=== PATIENT | female | born 1955 | race Caucasian/White ===

== ENCOUNTER 2017-06-15 09:51 | Emergency (ER) | payer MEDICARE ==
[2017-06-15 10:00] VITALS: TEMP 97.2
[2017-06-15] MEDS ORDERED: HYDROmorphone 1 MG/ML 1 ML SYRINGE IM STA (10:29)
--- NOTE | 2017-06-15 10:47 | ED ---
General Adult HPI - General Chief complaint: Back Pain/Injury Stated complaint: back pain/trouble walking Time Seen by Provider: 06/15/17 10:21 Source: patient, RN notes reviewed Mode of arrival: wheelchair Limitations: no limitations - History of Present Illness Initial comments: Patient 62-year-old female with significant past medical history for chronic back pain, who presents emergency room today with a chief complaint of exacerbation of this pain. She states that she has been using her [place] at home. She states last 3 days she does not feel like it's helping much she's had increased pain and difficult time ambulating due to the pain. She states she gets up tries to ambulate and she feels that she has July. Patient states she does have a surgeon at [facility]. She states she was on there but it is far from her house. Patient does admit that she had an MRI approximately 3 months ago. She denies any specific injuries or falls since that time. Patient denies any other complaints or symptoms. Denies any bowel or bladder incontinence retention. Denies any saddle anesthesia. Denies any lumbar radiculopathy. Patient denies any recent fever, chills, shortness of breath, chest pain, abdominal pain, nausea or vomiting, numbness or tingling, dysuria or hematuria, constipation or diarrhea, headaches or visual changes, or any other complaints. - Related Data Home Medications Medication Instructions Recorded Confirmed ALPRAZolam [Xanax] 2 mg PO HS 06/15/17 06/15/17 Donepezil [Aricept] 10 mg PO HS 06/15/17 06/15/17 Fluticasone Nasal [place] [Flonase 2 spr EA NOSTRIL BID 06/15/17 06/15/17 Nasal [place]] HYDROcodone/APAP 10-325MG [[place] 1 tab PO TID PRN 06/15/17 06/15/17 10-325] Hydrochlorothiazide 25 mg PO DAILY 06/15/17 06/15/17 Ibandronate Sodium [Boniva] 150 mg PO QMONTH 06/15/17 06/15/17 Loratadine [Claritin] 10 mg PO DAILY 06/15/17 06/15/17 Lurasidone HCl [Latuda] 20 mg PO DAILY 06/15/17 06/15/17 Meloxicam [Mobic] 15 mg PO HS 06/15/17 06/15/17 Methocarbamol [Robaxin] 750 mg PO TID 06/15/17 06/15/17 traZODone HCL 150 mg PO HS 06/15/17 06/15/17 Allergies Allergy/AdvReac Type Severity Reaction Status Date / Time oxycodone [From Percocet] Allergy Unknown Verified 06/15/17 10:24 Sulfa (Sulfonamide Allergy Unknown Verified 06/15/17 10:24 Antibiotics) tape Allergy Rash/Hives Uncoded 06/15/17 09:57 Review of Systems ROS Statement: Those systems with pertinent positive or pertinent negative responses have been documented in the HPI. ROS Other: All systems not noted in ROS Statement are negative. Past Medical History Additional Past Medical History / Comment(s): chronic back pain History of Any Multi-Drug Resistant Organisms: None Reported Past Surgical History: Back Surgery, Cholecystectomy, Hysterectomy, Tonsillectomy Past Psychological History: Bipolar, Depression Smoking Status: Never smoker Past Alcohol Use History: Occasional Past Drug Use History: None Reported General Exam - General Exam Comments Initial Comments: General: The patient is awake and alert, in no distress, and does not appear acutely ill. Eye: Pupils are equal, round and reactive to light, extra-ocular movements are intact. No nystagmus. There is normal conjunctiva bilaterally. No signs of icterus. Ears, nose, mouth and throat: There are moist mucous membranes and no oral lesions. Neck: The neck is supple, there is no tenderness or JVD. Cardiovascular: There is a regular rate and rhythm. No murmur, rub or gallop is appreciated. Respiratory: Lungs are clear to auscultation, respirations are non-labored, breath sounds are equal. No wheezes, stridor, rales, or rhonchi. Gastrointestinal: Soft, non-distended, non-tender abdomen without masses or organomegaly noted. There is no rebound or guarding present. No CVA tenderness. Bowel sounds are unremarkable. Musculoskeletal: Normal ROM. Normal appearance of the lumbar spine. Surgical incision midline healed well. Tender to palpation diffusely in the lumbar spine from L5 to S1. Strength 5/5. Sensation intact. Pulses equal bilaterally 2 +. Neurological: A&O x 3. CN II-XII intact, There are no obvious motor or sensory deficits. Coordination appears grossly intact. Speech is normal. Skin: Skin is warm and dry and no rashes or lesions are noted. Psychiatric: Cooperative, appropriate mood & affect, normal judgment. Limitations: no limitations Course Vital Signs 06/15/17 09:57 Temperature 97.2 F L Pulse Rate 70 Respiratory 17 Rate Blood Pressure 114/61 O2 Sat by Pulse 98 Oximetry Medical Decision Making - Medical Decision Making X-rays reviewed and show no acute abnormalities. Results were discussed with patient. Patient is advised to follow-up with her surgeon. Patient advised to Follow family doctor or return to emergency room for any other concerns. Disposition Clinical Impression: Acute exacerbation of chronic low back pain Disposition: HOME SELF-CARE Condition: Good Instructions: Chronic Back Pain (ED) Additional Instructions: Please follow-up with your surgeon as discussed. Please continue the pain medication. Please return to emergency room for any other concerns. Referrals: Nae Luna MD [Primary Care Provider] - 1-2 days Dennis Patterson DO [Doctor of Osteopathic Medicine] - 1-2 days Time of Disposition: 11:47
--- NOTE | 2017-06-15 11:17 | XR ---
Lumbar spine HISTORY: Low back pain 3 views of the lumbar spine Posterior fusion is seen at L4-5. Lumbar vertebral bodies show reduced bone mineralization. Loss of d isc height present at the intervertebral levels, vacuum phenomenon present at L2-3, L3-4 and L1-2, L5 -S1. Retrolisthesis grade 1 L1-2, L2-3. There is low bone mineralization, multilevel spondylosis. Int ervertebral spacing material present L4-5. Surgical clips present in the upper abdomen. IMPRESSION: Postop changes. Degenerative disc disease. Osteopenia.
[2017-06-15 12:11] VITALS: BP 116/55; PULSE 56; RESP 18
== END 2017-06-15 12:10 | disposition home or self-care (01) ==
LOC: EC 09:51
DX: M54.5 Low back pain (principal); G89.29 Other chronic pain; M51.36 Other intervertebral disc degeneration, lumbar region; F31.9 Bipolar disorder, unspecified; Z88.2 Allergy status to sulfonamides; Z88.5 Allergy status to narcotic agent; Z91.048 Other nonmedicinal substance allergy status; Z79.899 Other long term (current) drug therapy
CPT/HCPCS: 99283; 96372; 72100; J1170

== ENCOUNTER 2017-10-01 13:45 | Emergency (ER) | payer MEDICARE ==
[2017-10-01 13:52] VITALS: BP 109/55; PULSE 91; RESP 18; TEMP 98.2
[2017-10-01] MEDS ORDERED: ONDANSETRON ODT 4 MG TAB PO STA (14:17)
[2017-10-01] MEDS ORDERED: HYDROmorphone 1 MG/ML 1 ML SYRINGE IM STA (14:17)
--- NOTE | 2017-10-01 14:18 | ED ---
General Adult HPI - General Chief complaint: Back Pain/Injury Stated complaint: Lumbar Pain Time Seen by Provider: 10/01/17 13:53 Source: patient, RN notes reviewed Mode of arrival: ambulatory Limitations: no limitations - History of Present Illness Initial comments: Patient 62-year-old female sent to the past medical history for chronic back pain and surgeries, who presents emergency room today with a chief complaint of losing her pain prescription. Patient states that she recently moved. She states she saw her pain specialist the other day was given a prescription. She states she lost prescription cannot find it. She states she is now out of her [place]. She states she is having pain to her lower back. She denies any injury or trauma. She denies any other complaints. She states she is planning to talk to her pain specialist Tuesday to see if she can get another prescription. Patient denies any other complaints. Patient denies any recent fever, chills, shortness of breath, chest pain, headaches or visual changes, or any other complaints. - Related Data Home Medications Medication Instructions Recorded Confirmed ALPRAZolam [Xanax] 2 mg PO HS 06/15/17 10/01/17 Donepezil [Aricept] 10 mg PO HS 06/15/17 10/01/17 Fluticasone Nasal [place] [Flonase 2 spr EA NOSTRIL BID 06/15/17 10/01/17 Nasal [place]] HYDROcodone/APAP 10-325MG [[place] 1 tab PO TID PRN 06/15/17 10/01/17 10-325] Hydrochlorothiazide 25 mg PO DAILY 06/15/17 10/01/17 Ibandronate Sodium [Boniva] 150 mg PO QMONTH 06/15/17 10/01/17 Loratadine [Claritin] 10 mg PO DAILY 06/15/17 10/01/17 Lurasidone HCl [Latuda] 20 mg PO DAILY 06/15/17 10/01/17 Meloxicam [Mobic] 15 mg PO HS 06/15/17 10/01/17 Methocarbamol [Robaxin] 750 mg PO TID 06/15/17 10/01/17 traZODone HCL 150 mg PO HS 06/15/17 10/01/17 Allergies Allergy/AdvReac Type Severity Reaction Status Date / Time oxycodone [From Percocet] Allergy Unknown Verified 10/01/17 13:52 Sulfa (Sulfonamide Allergy Unknown Verified 10/01/17 13:52 Antibiotics) tape Allergy Rash/Hives Uncoded 10/01/17 13:52 Review of Systems ROS Statement: Those systems with pertinent positive or pertinent negative responses have been documented in the HPI. ROS Other: All systems not noted in ROS Statement are negative. Past Medical History Additional Past Medical History / Comment(s): chronic back pain History of Any Multi-Drug Resistant Organisms: None Reported Past Surgical History: Back Surgery, Cholecystectomy, Hysterectomy, Tonsillectomy Past Psychological History: Anxiety, Bipolar, Depression Smoking Status: Never smoker Past Alcohol Use History: None Reported Past Drug Use History: None Reported General Exam - General Exam Comments Initial Comments: General: The patient is awake and alert, in no distress, and does not appear acutely ill. Eye: Pupils are equal, round and reactive to light, extra-ocular movements are intact. No nystagmus. There is normal conjunctiva bilaterally. No signs of icterus. Ears, nose, mouth and throat: There are moist mucous membranes and no oral lesions. Neck: The neck is supple, there is no tenderness or JVD. Cardiovascular: There is a regular rate and rhythm. No murmur, rub or gallop is appreciated. Respiratory: Lungs are clear to auscultation, respirations are non-labored, breath sounds are equal. No wheezes, stridor, rales, or rhonchi. Musculoskeletal: Normal ROM, no tenderness. Strength 5/5. Sensation intact. Pulses equal bilaterally 2+. Neurological: A&O x 3. CN II-XII intact, There are no obvious motor or sensory deficits. Coordination appears grossly intact. Speech is normal. Skin: Skin is warm and dry and no rashes or lesions are noted. Psychiatric: Cooperative, appropriate mood & affect, normal judgment. Limitations: no limitations Course Vital Signs 10/01/17 13:50 Temperature 98.2 F Pulse Rate 91 Respiratory 18 Rate Blood Pressure 109/55 O2 Sat by Pulse 95 Oximetry Medical Decision Making - Medical Decision Making The [place] automated prescription system shows the patient has been receiving pain medication consistently. Patient has had no recent prescription for [place]. This time patient is under pain contract. Advised patient that if we provide her with a prescription to violate his contract. Patient's advised. Follow-up on Tuesday. We'll give him a pain shot here in emergency room. Disposition Clinical Impression: Chronic low back pain Disposition: HOME SELF-CARE Condition: Good Instructions: Chronic Back Pain (ED) Additional Instructions: Please follow-up with your pain specialist Tuesday as discussed. Please return to the emergency room for any other concerns. Referrals: Nae Luna MD [Primary Care Provider] - 1-2 days Time of Disposition: 14:18
== END 2017-10-01 14:42 | disposition home or self-care (01) ==
LOC: EC 13:45
DX: G89.29 Other chronic pain (principal); M54.5 Low back pain; F31.9 Bipolar disorder, unspecified; F41.9 Anxiety disorder, unspecified; Z79.1 Long term (current) use of non-steroidal anti-inflammatories (NSAID); Z79.51 Long term (current) use of inhaled steroids; Z79.899 Other long term (current) drug therapy; Z88.2 Allergy status to sulfonamides; Z88.5 Allergy status to narcotic agent; Z91.09 Other allergy status, other than to drugs and biological substances; Z98.890 Other specified postprocedural states
CPT/HCPCS: 99283; 96372; J1170

== ENCOUNTER → 2019-02-05 | Outpatient (CLI) | payer MEDICARE ==
--- NOTE | 2019-02-06 09:19 | MM ---
Reason for exam: screening (asymptomatic). Last mammogram was performed 14 years and 10 months ago. History: Family history of breast cancer in maternal aunt. Core biopsy of the left breast. Physical Findings: A clinical breast exam by your physician is recommended on an annual basis and results should be correlated with mammographic findings. MG 3D Screening Mammo W/Cad Bilateral CC and MLO view(s) were taken. Prior study comparison: January 19, 2017, mammogram. January 12, 2017, mammogram. August 10, 2013, mammogram. April 15, 2004, bilateral screening mammogram. There are scattered fibroglandular densities. There is no discrete abnormality. No significant changes when compared with prior studies. ASSESSMENT: Negative, BI-RAD 1 RECOMMENDATION: Routine screening mammogram of both breasts in 1 year.
--- NOTE | 2019-02-06 12:57 | BD ---
EXAMINATION TYPE: Axial Bone Density DATE OF EXAM: 02/05/2019 COMPARISON: NONE CLINICAL HISTORY: age related osteoporosis Height: 5'1 3/4 Weight: 140 FRAX RISK QUESTIONS: Family History (Parent hip fracture): y Secondary Osteoporosis: 3. Menopause before 45: y RISK FACTORS HISTORY OF: Surgery to Spine/): l sp When: 2018 Family History of Osteoporosis: y Active: n Diet low in dairy products/other sources of calcium: y Postmenopausal woman: y MEDICATIONS: Osteoporosis Medications: Which medication: Boniva How Lon 1/2 years Additional Medications: depression, blood pressure, cholesterol, alzheimer Additional History: EXAM MEASUREMENTS: Bone mineral densitometry was performed using the [facility] System. Bone mineral density about the R hip (g/cm2): 0.650 Bone mineral density about the L hip (g/cm2): 0.703 T Score values are as follows: -----R Neck: -2.8 -----L Neck: -2.4 -----R Total: -2.4 -----L Total: -2.0 Bone mineral density about the L Wrist (g/cm2): 0.378 T Score values are as follows: -----Dist. R+U: -5.4 -----Prox. R+U: -3.8 -----Radius total: -4.9 IMPRESSION: 1. Osteoporosis of the wrist. 2. Osteopenia of the bilateral femora. NOTE: T-SCORE=SD OF THE YOUNG ADULT MEAN.
== END | disposition home or self-care (01) ==
LOC: RADMAMWWP 15:13
PROVIDERS: ATTEND Family Medicine
DX: Z12.31 Encounter for screening mammogram for malignant neoplasm of breast (principal); M81.0 Age-related osteoporosis without current pathological fracture; M85.851 Other specified disorders of bone density and structure, right thigh; M85.852 Other specified disorders of bone density and structure, left thigh
CPT/HCPCS: 77063; 77067; 77080

== ENCOUNTER 2019-09-04 11:16 | Inpatient (IN) | payer MEDICARE ==
[2019-09-04] MEDS ORDERED: SODIUM CHLORIDE 0.9% 1,000 ML IV STA (11:31)
--- NOTE | 2019-09-04 11:46 | ED ---
General Adult HPI - General Chief complaint: Neuro Symptoms/Deficit Stated complaint: facial droop Time Seen by Provider: 09/04/19 11:25 Source: patient, RN notes reviewed Mode of arrival: wheelchair Limitations: no limitations - History of Present Illness Initial comments: Patient is a pleasant 64-year-old female presenting to the emergency department with left facial weakness. Onset of symptoms was around 10:30. Patient woke up at 10 AM and was doing fine at that point. Patient noticed odd sensation of the left side of her mouth and noticed some weakness. Patient did have some problems finding words however that has resolved. Patient feels a little bit heavy of her left shoulder. Patient denies confusion. No history of similar symptoms previously. - Related Data Home Medications Medication Instructions Recorded Confirmed ALPRAZolam [Xanax] 2 mg PO HS 06/15/17 10/01/17 Donepezil [Aricept] 10 mg PO HS 06/15/17 10/01/17 Fluticasone Nasal [place] [Flonase 2 spr EA NOSTRIL BID 06/15/17 10/01/17 Nasal [place]] HYDROcodone/APAP 10-325MG [[place] 1 tab PO TID PRN 06/15/17 10/01/17 10-325] Ibandronate Sodium [Boniva] 150 mg PO QMONTH 06/15/17 10/01/17 Methocarbamol [Robaxin] 750 mg PO BID 06/15/17 10/01/17 Ergocalciferol [Vitamin D2] 50,000 unit PO TH 10/01/17 10/01/17 Hydrochlorothiazide [Hydrodiuril] 50 mg PO DAILY 10/01/17 10/01/17 Lurasidone [Latuda] 40 mg PO HS 10/01/17 10/01/17 Methocarbamol [Robaxin] 500 mg PO QAM 10/01/17 10/01/17 Multivitamins, Thera [Multivitamin 1 tab PO DAILY 10/01/17 10/01/17 (formulary)] Allergies Allergy/AdvReac Type Severity Reaction Status Date / Time oxycodone [From Percocet] Allergy Unknown Verified 10/01/17 14:19 Sulfa (Sulfonamide Allergy Unknown Verified 10/01/17 14:19 Antibiotics) tape Allergy Rash/Hives Uncoded 10/01/17 13:52 Review of Systems ROS Statement: Those systems with pertinent positive or pertinent negative responses have been documented in the HPI. ROS Other: All systems not noted in ROS Statement are negative. Constitutional: Denies: fever Eyes: Denies: eye pain ENT: Denies: ear pain Respiratory: Denies: cough Cardiovascular: Denies: chest pain Endocrine: Denies: fatigue Gastrointestinal: Denies: abdominal pain Genitourinary: Denies: dysuria Musculoskeletal: Denies: back pain Skin: Denies: rash Neurological: Reports: as per HPI, weakness. Denies: headache Past Medical History Past Medical History: Hyperlipidemia, Hypertension Additional Past Medical History / Comment(s): chronic back pain History of Any Multi-Drug Resistant Organisms: None Reported Past Surgical History: Back Surgery, Cholecystectomy, Hysterectomy, Tonsillectomy Past Psychological History: Anxiety, Bipolar, Depression Smoking Status: Never smoker Past Alcohol Use History: None Reported Past Drug Use History: None Reported General Exam Limitations: no limitations General appearance: alert, in no apparent distress Head exam: Present: atraumatic, normocephalic Eye exam: Present: normal appearance, PERRL, EOMI. Absent: nystagmus ENT exam: Present: normal oropharynx Neck exam: Present: normal inspection Respiratory exam: Present: normal lung sounds bilaterally Cardiovascular Exam: Present: regular rate, normal rhythm GI/Abdominal exam: Present: soft. Absent: tenderness Extremities exam: Present: normal inspection Neurological exam: Present: alert, oriented X3, CN II-XII intact (Except for left-sided facial droop that includes forehead, decreased sensation on the left side and left shoulder weakness), motor sensory deficit (Decreased strength with shoulder shrug on the left), other Expanded Neurological exam: Present: protecting the airway Speech: Present: fluid speech Cranial nerves: EOM's Intact: Normal, Facial Sensation: Abnormal Left, Facial Palsy with Forehead Movement: Abnormal Left (Patient does have decreased movement and decreased sensation of the left face including forehead.) Sensory exam: Upper Extremity Light Touch: Abnormal Left, Lower Extremity Light Touch: Abnormal Left Motor strength exam: RUE: 5, LUE: 5, RLE: 5, LLE: 5 Eye Response: (4) open spontaneously Motor Response: (6) obeys commands Verbal Response: (5) oriented Psychiatric exam: Present: normal affect, normal mood Skin exam: Present: normal color Course Vital Signs 11/05/19 11:20 Temperature 97.9 F Pulse Rate 82 Respiratory 18 Rate Blood Pressure 119/74 O2 Sat by Pulse 98 Oximetry - Reevaluation(s) Reevaluation #1: 09/04/19 11:50 Case was discussed in detail with neural interventional list, Dr. Adorno, who states if patient has NIH less than 4 to provide TPA. Patient reevaluated and unchanged. Patient informed of recommendation. Patient is going to CAT scan. 09/04/19 12:07 Patient reevaluated and unchanged. NIH per nursing staff is 4. Patient did go over TPA risks and benefits. Precautions and warnings have been excluded. Patient does strongly want TPA. Patient is aware of risk of serious bleeding anyplace, specifically intracranial hemorrhage that could cause or permanent disability from the medication itself. Despite this patient does consent to TPA. This has been ordered as we are waiting for CT results. Radiologist was notified and requested stat reading. 09/04/19 12:09 Case was discussed with radiologist a series who states head CT is negative. EKG Findings - EKG Comments: EKG Findings:: Normal sinus rhythm 68. TX 154. QRS 80. QT 418. QTC 444. No rmal axis. Normal QRS. No acute ST change. Medical Decision Making - Medical Decision Making Neurological/did the man over the robot and reevaluate patient. She has started to improve and TPA has been held. Patient reevaluated and updated. Case also discussed with Dr. Bee with [facility] who will admit covering for Dr.dicicco marin, who admits for Dr. Chicas. - Lab Data Result diagrams: 09/04/19 11:45 Lab Results 09/04/19 09/04/19 09/04/19 Range/Units 11:45 11:45 11:45 PT 9.7 (9.0-12.0) sec INR 0.9 (<1.2) APTT 23.6 (22.0-30.0) sec Sodium 137 (137-145) mmol/L Potassium 3.8 (3.5-5.1) mmol/L Chloride 100 (98-107) mmol/L Carbon Dioxide 25 (22-30) mmol/L Anion Gap 12 mmol/L BUN 17 (7-17) mg/dL Creatinine 0.86 (0.52-1.04) mg/dL Est GFR (CKD-EPI)AfAm 84 (>60 ml/min/1.73 sqM) Est GFR (CKD-EPI)NonAf 73 (>60 ml/min/1.73 sqM) Glucose 96 (74-99) mg/dL Calcium 9.3 (8.4-10.2) mg/dL Total Bilirubin 0.5 (0.2-1.3) mg/dL AST 36 (14-36) U/L ALT 44 (9-52) U/L Alkaline Phosphatase 119 (38-126) U/L Troponin I <0.012 (0.000-0.034) ng/mL Total Protein 7.3 (6.3-8.2) g/dL Albumin 4.4 (3.5-5.0) g/dL - Radiology Data Radiology results: report reviewed (Computed tomography scan of the head reported as no acute process) Critical Care Time Critical Care Time: Yes Total Critical Care Time: 31 Disposition Clinical Impression: Cerebrovascular accident (CVA) Disposition: ADMITTED IP TO THIS [facility] Is patient prescribed a controlled substance at d/c from ED?: No Referrals: Shana Bernstein MD [Primary Care Provider] - 1-2 days Decision Time: 12:47
[2019-09-04] MEDS ORDERED: ALTEPLASE BOLUS 6 MG in EMPTY SYRINGE 1 SYR IV STA (12:04)
[2019-09-04] MEDS ORDERED: ALTEPLASE 53 MG in EMPTY BAG 1 BAG IV STA (12:04)
--- NOTE | 2019-09-04 12:09 | CT ---
EXAMINATION TYPE: CT brain wo con for TPA DATE OF EXAM: 09/04/2019 COMPARISON: None HISTORY: Neuro deficit. Left-sided facial droop and extremity weakness. CT DLP: 1067.8 mGycm Automated exposure control for dose reduction was used. FINDINGS: No acute intracranial hemorrhage, midline shift or mass effect. Old punctate lacunar injury of the de ep white matter of the right occipital lobe on axial image 33. Slight prominence of the peripheral capone lci and ventricular system is on the basis of age-related volume loss most commonly. Punctate dystrop hic calcification of the caudate nucleus on the right. Globes are symmetric. Lenses are in place. Sof t tissues are grossly unremarkable. Calvarium appears intact. Paranasal sinuses have postsurgical tunde nge particularly of the right ethmoid sinuses and scant mucosal thickening in the ethmoid sinuses, ot herwise are well aerated. IMPRESSION: NO ACUTE INTRACRANIAL PROCESS SEEN. MRI IS RECOMMENDED GIVEN THIS PATIENT'S SYMPTOMS OF LEFT-SIDED EX TREMITY WEAKNESS AND FACIAL DROOP. OLD PUNCTATE LACUNAR INJURY OF THE RIGHT OCCIPITAL LOBE.
[2019-09-04 12:15] LABS: INR 0.9 (<1.2); Partial Thromboplastin Time 23.6 sec (22.0-30.0); Prothrombin Time 9.7 sec (9.0-12.0)
[2019-09-04 12:26] LABS: Albumin 4.4 g/dL (3.5-5.0); Calcium 9.3 mg/dL (8.4-10.2); Potassium 3.8 mmol/L (3.5-5.1); Total Bilirubin 0.5 mg/dL (0.2-1.3); Total Protein 7.3 g/dL (6.3-8.2)
[2019-09-04] MEDS ORDERED: ASPIRIN 325 MG TAB PO STA (12:47)
--- NOTE | 2019-09-04 12:55 | CT ---
EXAMINATION TYPE: CT angio head neck DATE OF EXAM: 09/04/2019 HISTORY: Neuro deficit. Left arm weakness. COMPARISON: CT brain of the same date CT DLP: 366.8 mGycm. Automated Exposure Control for Dose Reduction was Utilized. TECHNIQUE: CTA scan of the neck is performed with IV Contrast, patient injected with 65 mL of Isovue 370, axial images are obtained, coronal and sagittal reformatted images are reviewed. Three-D recons tructed images are created on an independent workstation and reviewed. FINDINGS: There is a conventional three-vessel branch pattern of the aortic arch. There is no hemodynamically significant stenosis of the common carotid arteries, carotid bulbs or cer vical portions of the internal carotid arteries. The vertebral arteries have a normal anatomic origin and are patent bilaterally. The vertebral arteri es are codominant. Basilar artery is intact and unremarkable. Short segment stenosis versus partial occlusion of the proximal M1 segment on the right on image 17 a nd 18 of approximately 50% reduction in caliber of the vessel lumen spanning a distance of 4 mm. Ther e is total occlusion of the left A1 segment with patent A2 segment secondary to a patent anterior com muting artery. Remaining posterior and anterior circulation appear intact although posterior commutin g arteries are not definitely visualized. There is some slight narrowing of the cavernous portions of the bilateral internal carotid arteries and supraclinoid portions likely on the basis of atheromatou s change. No aneurysmal outpouching is seen. No dissection is seen. Visualized portions of the brain are discussed on the CT brain of the same date. 0.8 cm right thyroid nodule is seen. Thyroid ultrasound could further assess this finding. 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 Mild multilevel degenerative changes of the cervical spine. IMPRESSION: 1. 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 2. Short segment stenosis or partial occlusion of the right M1 segment with 50% reduction in vessel l umen caliber over a distance of 4 mm in length.
--- NOTE | 2019-09-04 13:23 | XR ---
EXAMINATION TYPE: XR chest 2V DATE OF EXAM: 09/04/2019 COMPARISON: NONE HISTORY: Altered mental status and weakness. TECHNIQUE: Frontal and lateral views of the chest are obtained. FINDINGS: Overlying EKG leads are present. There is no focal air space opacity, pleural effusion, or pneumothorax seen. The cardiac silhouette size is within normal limits. Cholecystectomy clips are s een on lateral view. Partial visualization of surgical change lumbar spine with subtle retrolisthesis near thoracolumbar junction. IMPRESSION: No acute cardiopulmonary process.
[2019-09-04 13:24] LABS: Basophils % (A) 0 %; Eosinophils # (A) 0.1 k/uL (0-0.7); Eosinophils % (A) 2 %; HGB 11.1 gm/dL (11.4-16.0); Hypochromasia Moderate; Lymphocytes % (A) 30 %; MCH 24.4 pg (25.0-35.0); MCHC 31.8 g/dL (31.0-37.0); MCV 76.7 fL (80.0-100.0); Mean Platelet Volume 5.9; Microcytosis Slight; Monocytes # (A) 0.3 k/uL (0-1.0); Monocytes % (A) 8 %; Neutrophils # (A) 1.9 k/uL (1.3-7.7); Neutrophils % (A) 56 %; Platelet Count 387 k/uL (150-450); RBC 4.57 m/uL (3.80-5.40); RDW 14.8 % (11.5-15.5); WBC 3.4 k/uL (3.8-10.6)
[2019-09-04] MEDS ORDERED: TICAGRELOR 90 MG TAB PO STA (15:21)
[2019-09-04] MEDS ORDERED: ACETAMINOPHEN TAB 325 MG TAB PO PRN (16:18)
[2019-09-04] MEDS ORDERED: ONDANSETRON 4 MG/2 ML VIAL IVP PRN (16:18)
[2019-09-04] MEDS ORDERED: NALOXONE 0.4 MG/ML 1 ML VIAL IV PRN (16:18)
[2019-09-04] MEDS ORDERED: LABETALOL 5 MG/ML VIAL MDV IVP PRN (16:35)
--- NOTE | 2019-09-04 16:37 | P.HPIM ---
History of Present Illness H&P Date: 09/04/19 Chief Complaint: left facial droop Patient is a 64-year-old female with a past medical history of hypertension, dyslipidemia, chronic lower extremity edema, and chronic back pain who presented to the emergency department with left facial weakness. In the ER she underwent an extensive evaluation. Her vital signs within normal on arrival. Initial laboratory analysis showed a slightly low white blood cell count at 3.4 and hemoglobin of 11.1. CT head showed no acute intracranial process, MRI recommended given the patient's symptoms of left sided extremity weakness and facial droop, old punctate lacunar injury of the right occipital lobe. She underwent a CTA of the head and neck which showed a total occlusion of the left A1 segment with patency of the A2 segment of the left secondary to a patent anterior communicating artery. Short segment stenosis or partial occlusion of the M1 segment with a 50% reduction in the vessel lumen caliber over distance of 4 mm. She was given a dose of aspirin. The [place] stroke work was contacted who initially recommended TPA. However due to her improvement in symptoms they recommended holding TPA due to an NIH stroke scale of 1.. They were recontacted with results of the CT of the head and neck and did not recommend any urgent intervention but did recommend both Brillenta and aspirin and tp be notified if NIH stroke scale > 8. Then outpatient angiogram. Patient is admitted to the cardiac unit. Patient seen and examined in the emergency department. She states she woke up around 10 AM and initially felt fine. At about 10:30 she was in her kitchen getting right have coffee and she felt acute onset left sided facial droop. She felt as though her face was not moving on the left side. This was associated with some numbness and tingling. She also noted a headache, her left shoulder felt heavy, and she was having some blurry vision. She therefore presented to the emergency department. She reports that her blurry vision is better, but still there when she first opens here eyes. She also reports dizziness when moving. She continues to have some numbness perioral but reports that the tingling is gone. She also has difficultly closing her left eye. She feel that her tongue is pushing to the left when she is trying to speak. On examination the ER she noted that her left leg was not feeling as much as her right side. She denies any history of CVA in the past. No difficulty with word finding or swallowing. She has had difficulty with claustrophobia during MRI in the past. She also rep orts that she intermittently uses a cane due to her back pain. She almost always uses this when she is ambulating long distances. No family hx of stroke Review of Systems Pertinent positives and negatives as discussed in HPI, a complete review of systems was performed and all other systems are negative. Past Medical History Past Medical History: Hyperlipidemia, Hypertension Additional Past Medical History / Comment(s): chronic back pain with neuropathy, urinary frequency History of Any Multi-Drug Resistant Organisms: None Reported Past Surgical History: Back Surgery, Cholecystectomy, Hysterectomy, Tonsillectomy Additional Past Surgical History / Comment(s): gastric bypass, rotator cuff on the right, sinus surgery Past Psychological History: Anxiety, Bipolar, Depression Smoking Status: Never smoker Past Alcohol Use History: None Reported Past Drug Use History: None Reported - Past Family History Father Additional Family Medical History / Comment(s): from myocardial infarction at age 46 Mother Additional Family Medical History / Comment(s): Bay's palsy Medications and Allergies Home Medications Medication Instructions Recorded Confirmed Type Donepezil [Aricept] 10 mg PO HS 06/15/17 09/04/19 History Atorvastatin [Lipitor] 20 mg PO DAILY 09/04/19 09/04/19 History Gabapentin [Neurontin] 100 mg PO BID 09/04/19 09/04/19 History Hydrochlorothiazide [Hydrodiuril] 25 mg PO DAILY 09/04/19 09/04/19 History Loratadine [Claritin] 10 mg PO DAILY 09/04/19 09/04/19 History Tolterodine Tartrate [Detrol] 2 mg PO BID 09/04/19 09/04/19 History traZODone HCL 150 mg PO HS 09/04/19 09/04/19 History Allergies Allergy/AdvReac Type Severity Reaction Status Date / Time oxycodone [From Percocet] Allergy Unknown Verified 10/01/17 14:19 Sulfa (Sulfonamide Allergy Unknown Verified 10/01/17 14:19 Antibiotics) tape Allergy Rash/Hives Uncoded 10/01/17 13:52 Physical Exam Osteopathic Statement: *. No significant issues noted on an osteopathic structural exam other than those noted in the History and Physical/Consult. Vitals: Vital Signs Temp Pulse Resp BP Pulse Ox 09/04/19 13:30 98.0 F 62 18 107/76 98 09/04/19 13:00 65 18 120/71 97 09/04/19 12:30 98.1 F 64 18 118/57 98 09/04/19 12:15 98.1 F 65 18 125/76 98 09/04/19 11:20 97.9 F 82 18 119/74 98 Intake and Output 09/04/19 09/04/19 09/04/19 06:59 14:59 22:59 Other: Weight 65.771 kg General: non toxic, no distress, appears at stated age, normal weight Derm: no unusual rashes/lesions no unusual ecchymoses, warm, dry Head: atraumatic, normocephalic, symmetric Eyes: EOMI, no lid lag, anicteric sclera, pupils equal round reactive to light ENT: Nose and ears atraumatic, no thrush, no pharyngeal erythema Neck: No thyromegaly, no cervical lymphadenopathy, trachea midline, supple Mouth: no lip lesion, mucus membranes moist Cardiovascular: S1S2 reg, no murmur, positive posterior tibial pulse bilateral, no edema, capillary refill less than 2 seconds Lungs: CTA bilateral, no rhonchi, no rales , no accessory muscle use Abdominal: soft, nontender to palpation, no guarding, no appreciable organomegaly, normal bowel sounds Ext: no gross muscle atrophy, muscle strength 5 out of 5 in all 4 extremities grossly, no contractures, Neuro: Left sided facial droop with loss of nasolabial fold on the left, decreased sensation left face, tongue deviation to the left, uvula deviation to the right, extraocular motion and accommodation intact, pupils equal round reactive to light, decreased sensation left shoulder, intact sensation right and left fingers and arms, shoulder strength equal bilaterally, decreased sensation left lower extremity, no asterixis, normal finger to nose, no dysdiadochokinesis Psych: Alert, oriented, appropriate affect Results CBC & Chem 7: 09/04/19 11:45 09/04/19 11:45 Labs: Abnormal Lab Results - Last 24 Hours (Table) 09/04/19 Range/Units 11:45 WBC 3.4 L (3.8-10.6) k/uL Hgb 11.1 L (11.4-16.0) gm/dL MCV 76.7 L (80.0-100.0) fL MCH 24.4 L (25.0-35.0) pg Chest x-ray: report reviewed CT Scan - head: report reviewed Thrombosis Risk Factor Assmnt - DVT/VTE Prophylaxis DVT/VTE Prophylaxis: Mechanical Prophylaxis ordered Assessment and Plan Assessment: Acute ischemic left sided CVA - CTA head and neck results reviewed, ASA and Brillenta or stroke network, Neurology aware - ASA, Brillenta - Await echo - Tele - Hold Detrol, increase Lipitor to 80 mg daily -Frequent neuro checks -PT/OT/speech evaluation -MRI brain, Premedicate with Ativan due to history of claustrophobia Hypertension -Hold hydrochlorothiazide and allow for permissive hypertension -No intervention unless systolic blood pressures greater than 220 or diastolic greater than 110 Dyslipidemia -Statin therapy Chronic back pain -Continue with Neurontin -Aspirin Insomnia -Trazodone -Add melatonin The patient is admitted with an anticipated greater than 2 midnight stay for evaluation of cerebrovascular accident with possible occlusion M1 segment. Surrogate decision-maker: Loulou Walton CODE STATUS:Full DVT prophylaxis: Lovenox Discussed with: Patient, nursing Anticipated discharge date: 2-[address]: home A total of 65 minutes was spent on the care of this complex patient more than 50% of the time was spent in counseling and care coordination.
[2019-09-04 17:44] VITALS: BMI 58.4
[2019-09-04] MEDS: SODIUM CHLORIDE 0.9% 1,000 ML IV SCH ×2 (18:16→22:22)
[2019-09-04] MEDS: TICAGRELOR 90 MG TAB PO SCH (19:45)
[2019-09-04] MEDS: ATORVASTATIN 80 MG TAB PO SCH (19:59)
--- NOTE | 2019-09-04 21:58 | P.CNNES ---
History of Present Illness Consult date: 09/04/19 Reason for Consult: Concern for stroke Chief complaint: Left facial weakness History of Present Illness: HISTORY OF PRESENT ILLNESS: Thank you for allowing me to evaluate Ms. Alana Viramontes. Ms. Viramontes is a 65-year-old R-handed woman with past medical history of hypertension, hyperlipidemia, chronic back pain, anxiety, bipolar disorder, depression, who presented to [facility] for left facial weakness. The patient woke around 10 AM this morning, did not notice any deficits, but she st arted feeling some paresthesia in her left side of mouth and also weakness. Patient felt the left corner of her mouth just dropping. Possible word finding difficulty. While patient was in the emergency room, plan was to start tPA, but once patient started to have improvement in her symptoms, TPA was held. Patient denies any similar episodes in the past. Denies headache, nausea, vomiting, numbness/tingling sensation, weakness of arms or legs. Denies recent sickness, fever, coughing, sneezing, ear pain, tinnitus, recent travel. PAST MEDICAL HISTORY: hypertension, hyperlipidemia, chronic back pain, anxiety, bipolar disorder, depression PAST SURGICAL HISTORY: Cholecystectomy, hysterectomy, tonsillectomy, back surgery HOME MEDICATIONS: Donepezil, atorvastatin, hydrochlorothiazide, gabapentin, trazodone, loratadine, Tolterodine ALLERGIES: Oxycodone, sulfa drugs SOCIAL HISTORY: Never smoker REVIEW OF SYSTEMS: The 14 systems are reviewed and no additional points are identified compared to the review of systems documented history and physical PHYSICAL EXAMINATION: VITAL SIGNS: T 98.0 HR 62 RR 18 BP 107/76 O@ sat 98% on RA GEN.: NAD, pleasant and cooperative HEENT: NCAT, sclera without icterus NECK: Supple SKIN AND EXTREMITIES: Warm to touch, no edema NEURO: MENTAL STATUS: Patient alert and oriented to self, place, time. Able to name the current president. Speech fluent, able to name and repeat, following all commands readily. No right and left disorientation, neglect. CRANIAL NERVES II THROUGH XII: II: Pupils are equal and reactive to light symmetrically. No afferent pupillary defect. Visual malik are intact. III, IV, : R eye ptosis/swelling. Difficulty fully closing L eye. Extraocular m ovements full. No nystagmus. V: Facial sensation intact from V1-3. VII. L facial droop along with some difficulty raising L eye brow and closing her L eye. L anterior 2/3 tongue unable to taste salt. No hyperacusis. VIII: Hearing intact to finger rub bilaterally. IX, X: Symmetric palate elevation. XI: Shoulder shrug intact. XII: Tongue midline without fasciculation or atrophy. MOTOR: Normal bulk/tone. No pronator drift or tremor. Strength is 5/5 throughout all 4 extremities. SENSORY: Intact to light touch, temperature, pinprick in all 4 extremities. Romberg is negative. REFLEXES: 2+ throughout. Toes are downgoing. COORDINATION: Finger to nose intact. No dysmetria. GAIT: Narrow-based and stable. Able to toe/heel/tandem walk DIAGNOSTIC TESTING: LABORATORY: WBC 3.4 hemoglobin 11.1 platelets 387 PT 9.7 INR 0.9 sodium 137 potassium 3.8 chloride 100 bicarb 25 BUN 17 creatinine 0.86 glucose 96 AST 36 ALT 44 alk phos 119 troponin <0.012 IMAGING: CT head without contrast 09/04/2019: No acute intracranial process seen. CTA head and neck with contrast 09/04/2021 Total occlusion of the left P1 segment with patency of the A2 segment on the left secondary to a patent anterior coming kidney artery. Short segment stenosis or partial occlusion of the right M1 segment with 50% reduction in vessel lumen caliber over a distance of 4 mm in length ASSESSMENT: 65-year-old R-handed woman with past medical history of hypertension, hyperlipidemia, chronic back pain, anxiety, bipolar disorder, depression, who presented to [facility] for left facial weakness. Patient with both upper and lower facial weakness although moderate upper facial weakness along with L anterior tongue decreased taste sensation, highly suspicious for Bay's palsy. Patient also with no previous episodes of extremity weakness/numbness/tingling, but it also appears that patient is on donezepil, so possibly with some component of dementia. Will pursue stroke work-up and management at this time. RECOMMENDATIONS: 1. MRI brain without contrast 2. Transthoracic echocardiogram 3. Cardiac monitoring 4. Permissive HTN for 24-48 hours SBP >220. Give labetalol 10mg IV q1h PRN for SBP >220 DBP >110 5. ASA 81mg qday and Brilinta 90mg qday 6. Atorvastatin 80mg qhs 7. Labs: A1C, TSH, FLP 8. Neurology will continue to follow 9. Patient needs to follow up with neurologist as outpatient with her 1-2 weeks of discharge Past Medical History Past Medical History: Hyperlipidemia, Hypertension Additional Past Medical History / Comment(s): chronic back pain with neuropathy, urinary frequency History of Any Multi-Drug Resistant Organisms: None Reported Past Surgical History: Back Surgery, Cholecystectomy, Hysterectomy, Tonsillectomy Additional Past Surgical History / Comment(s): gastric bypass, rotator cuff on the right, sinus surgery Past Psychological History: Anxiety, Bipolar, Depression Smoking Status: Never smoker Past Alcohol Use History: None Reported Past Drug Use History: None Reported - Past Family History Father Additional Family Medical History / Comment(s): from myocardial infarction at age 46 Mother Additional Family Medical History / Comment(s): Bay's palsy Medications and Allergies Home Medications Medication Instructions Recorded Confirmed Type Donepezil [Aricept] 10 mg PO HS 06/15/17 09/04/19 History Atorvastatin [Lipitor] 20 mg PO DAILY 09/04/19 09/04/19 History Gabapentin [Neurontin] 100 mg PO BID 09/04/19 09/04/19 History Hydrochlorothiazide [Hydrodiuril] 25 mg PO DAILY 09/04/19 09/04/19 History Loratadine [Claritin] 10 mg PO DAILY 09/04/19 09/04/19 History Tolterodine Tartrate [Detrol] 2 mg PO BID 09/04/19 09/04/19 History traZODone HCL 150 mg PO HS 09/04/19 09/04/19 History Allergies Allergy/AdvReac Type Severity Reaction Status Date / Time oxycodone [From Percocet] Allergy Unknown Verified 10/01/17 14:19 Sulfa (Sulfonamide Allergy Unknown Verified 10/01/17 14:19 Antibiotics) tape Allergy Rash/Hives Uncoded 10/01/17 13:52 Physical Examination - Vital Signs Vital Signs: Vital Signs Temp Pulse Resp BP Pulse Ox 09/04/19 16:32 98.0 F 62 18 107/76 98 09/04/19 13:30 98.0 F 62 18 107/76 98 09/04/19 13:00 65 18 120/71 97 09/04/19 12:30 98.1 F 64 18 118/57 98 09/04/19 12:15 98.1 F 65 18 125/76 98 09/04/19 11:20 97.9 F 82 18 119/74 98 Intake and Output 09/04/19 09/04/19 09/04/19 06:59 14:59 22:59 Other: # Voids 1 Weight 65.771 kg Results - Laboratory Findings CBC and BMP: 09/04/19 11:45 09/04/19 11:45 Abnormal Lab Findings: Abnormal Labs 09/04/19 11:45 WBC 3.4 L Hgb 11.1 L MCV 76.7 L MCH 24.4 L
[2019-09-05 07:20] LABS: HGB 10.1 gm/dL (11.4-16.0); Hypochromasia Slight; MCH 23.9 pg (25.0-35.0); MCHC 31.7 g/dL (31.0-37.0); MCV 75.5 fL (80.0-100.0); Microcytosis Slight; Platelet Count 371 k/uL (150-450); RBC 4.24 m/uL (3.80-5.40); RDW 15.3 % (11.5-15.5); WBC 4.7 k/uL (3.8-10.6)
[2019-09-05 07:46] LABS: Calcium 8.8 mg/dL (8.4-10.2); Magnesium 2.1 mg/dL (1.6-2.3); Potassium 3.9 mmol/L (3.5-5.1)
--- NOTE | 2019-09-05 08:50 | P.CRDCN ---
History of Present Illness Consult date: 09/05/19 Requesting physician: Julianne Moon Reason for Consult (text): request for [place] Chief complaint: facial droop, slurring of speech History of present illness: This is a 64-year-old female with history of hypertension, hyperlipidemia, strong family history of premature coronary artery disease in her father who of a myocardial infarction at the age of 46, chronic lower extremity edema, chronic back pain, prior gastric bypass surgery several years ago, who resented to the hospital with symptoms of left-sided facial droop, mild slurring of speech, mild weakness on the left side of her body. also states that she had a mild associated headache and was having some blurring of her vision. CAT scan of the brain performed on admission here did not reveal any acute intracranial process. MRI is recommended giving this patient symptoms of left sided extremity weakness and facial droop. Old punctate listener injury of the right occipital lobe. CT angiography did not reveal any hemodynamically significant stenosis of the common carotid arteries, carotid bulbs or cervical portions of the internal carotid arteries. It did reveal a total occlusion of the left A1 segment with patency of the A2 segment of the left secondary to a patent anterior communicating artery. Short segment stenosis or partial occlusion of the M1 segment with a 50% reduction in the vessel lumen caliber over a distance of 4 mm. EKG shows normal sinus rhythm with no acute changes. Chest x-ray does not reveal any acute cardiopulmonary process. Blood pressure 116/60 with a heart rate of 60. White blood cell count 3.4 on admission, 4.7 this morning, hemoglobin 10.1, platelet count 371. Sodium 140, potassium 3.9, BUN 17, creatinine 0.8. Troponin 0.012. TSH 2.4, cholesterol 139, LDL 53, HDL 79, triglycerides 34. Past Medical History Past Medical History: Hyperlipidemia, Hypertension Additional Past Medical History / Comment(s): chronic back pain with neuropathy, urinary frequency History of Any Multi-Drug Resistant Organisms: None Reported Past Surgical History: Back Surgery, Cholecystectomy, Hysterectomy, Tonsillectomy Additional Past Surgical History / Comment(s): gastric bypass, rotator cuff on the right, sinus surgery Past Anesthesia/Blood Transfusion Reactions: No Reported Reaction Past Psychological History: Anxiety, Bipolar, Depression Smoking Status: Never smoker Past Alcohol Use History: None Reported Past Drug Use History: None Reported - Past Family History Father Additional Family Medical History / Comment(s): from myocardial infa rction at age 46 Mother Additional Family Medical History / Comment(s): Bay's palsy Medications and Allergies Home Medications Medication Instructions Recorded Confirmed Type Donepezil [Aricept] 10 mg PO HS 06/15/17 09/04/19 History Atorvastatin [Lipitor] 20 mg PO DAILY 09/04/19 09/04/19 History Gabapentin [Neurontin] 100 mg PO BID 09/04/19 09/04/19 History Hydrochlorothiazide [Hydrodiuril] 25 mg PO DAILY 09/04/19 09/04/19 History Loratadine [Claritin] 10 mg PO DAILY 09/04/19 09/04/19 History Tolterodine Tartrate [Detrol] 2 mg PO BID 09/04/19 09/04/19 History traZODone HCL 150 mg PO HS 09/04/19 09/04/19 History Allergies Allergy/AdvReac Type Severity Reaction Status Date / Time oxycodone [From Percocet] Allergy Unknown Verified 10/01/17 14:19 Sulfa (Sulfonamide Allergy Unknown Verified 10/01/17 14:19 Antibiotics) tape Allergy Rash/Hives Uncoded 10/01/17 13:52 Physical Exam Vitals: Vital Signs Temp Pulse Pulse Resp BP BP Pulse Ox 09/05/19 03:59 60 16 115/58 98 09/05/19 00:00 66 16 119/50 97 09/04/19 20:00 98.7 F 62 16 106/56 98 09/04/19 19:49 98.7 F 62 16 106/56 98 09/04/19 16:32 98.0 F 62 18 107/76 98 09/04/19 13:30 98.0 F 62 18 107/76 98 09/04/19 13:28 74 19 106/61 97 09/04/19 13:00 65 18 120/71 97 09/04/19 12:30 98.1 F 64 18 118/57 98 09/04/19 12:15 98.1 F 65 18 125/76 98 09/04/19 11:20 97.9 F 82 18 119/74 98 Intake and Output 09/04/19 09/05/19 09/05/19 22:59 06:59 14:59 Intake Total 225 Balance 225 Intake: Intake, IV Titration 100 Amount Sodium Chloride 0.9% 1, 100 000 ml @ 100 mls/hr IV . Q10H MARIE Rx#:[id number] Oral 125 Other: # Voids 1 1 Weight 68.3 kg PHYSICAL EXAMINATION: GENERAL: 64-year-old female in no acute distress at the time of my examination HEENT: Head is atraumatic, normocephalic. Pupils equal, round. Sclera anicteric. Conjunctiva are clear. Mucous membranes of the mouth are moist. Neck is supple. There is no elevated jugular venous pressure. No carotid bruit is heard. HEART EXAMINATION: Heart S1, S2 normal. No murmur or gallop heard. CHEST EXAMINATION: Lungs are clear to auscultation and precussion. No chest wall tenderness is noted on palpation or with deep breathing. ABDOMEN: Soft, nontender. Bowel sounds are heard. No organomegaly noted. EXTREMITIES: 2+ peripheral pulses with evidence of peripheral edema and no calf tenderness noted. NEUROLOGIC patient is awake, alert and oriented 3, left-sided facial droop is present. . Results 09/05/19 06:44 09/05/19 06:44 Cardiac Enzymes 09/04/19 09/04/19 Range/Units 11:45 11:45 AST 36 (14-36) U/L Troponin I <0.012 (0.000-0.034) ng/mL Coagulation 09/04/19 Range/Units 11:45 PT 9.7 (9.0-12.0) sec APTT 23.6 (22.0-30.0) sec Lipids 09/05/19 Range/Units 06:44 Triglycerides 34 (<150) mg/dL Cholesterol 139 (<200) mg/dL HDL Cholesterol 79 H (40-60) mg/dL CBC 09/04/19 09/05/19 Range/Units 11:45 06:44 WBC 3.4 L 4.7 (3.8-10.6) k/uL RBC 4.57 4.24 (3.80-5.40) m/uL Hgb 11.1 L 10.1 L (11.4-16.0) gm/dL Hct 35.0 32.0 L (34.0-46.0) % Plt Count 387 371 (150-450) k/uL Comprehensive Metabolic Panel 09/04/19 09/05/19 Range/Units 11:45 06:44 Sodium 137 140 (137-145) mmol/L Potassium 3.8 3.9 (3.5-5.1) mmol/L Chloride 100 107 (98-107) mmol/L Carbon Dioxide 25 26 (22-30) mmol/L BUN 17 17 (7-17) mg/dL Creatinine 0.86 0.88 (0.52-1.04) mg/dL Glucose 96 92 (74-99) mg/dL Calcium 9.3 8.8 (8.4-10.2) mg/dL AST 36 (14-36) U/L ALT 44 (9-52) U/L Alkaline Phosphatase 119 (38-126) U/L Total Protein 7.3 (6.3-8.2) g/dL Albumin 4.4 (3.5-5.0) g/dL Current Medications Generic Name Dose Route Start Last Admin Trade Name Freq PRN Reason Stop Dose Admin Acetaminophen 650 mg 09/04/19 16:18 09/04/19 19:59 Tylenol Tab PO 650 mg Q6HR PRN Administration Pain Aspirin 81 mg 09/05/19 09:00 Aspirin PO DAILY MARIE Atorvastatin Calcium 80 mg 09/04/19 21:00 09/04/19 19:59 Lipitor PO 80 mg HS MARIE Administration Enoxaparin Sodium 40 mg 09/05/19 09:00 Lovenox SQ DAILY MARIE Sodium Chloride 1,000 mls @ 100 mls/hr 09/04/19 13:00 09/04/19 22:22 Saline 0.9% IV 100 mls/hr .Q10H MARIE Administration Labetalol HCl 20 mg 09/04/19 16:35 Trandate IVP Q6H PRN Blood Pressure - High Naloxone HCl 0.2 mg 09/04/19 16:18 Narcan IV Q2M PRN Opioid Reversal Ondansetron HCl 4 mg 09/04/19 16:18 Zofran IVP Q8HR PRN Nausea And Vomiting Ticagrelor 90 mg 09/04/19 21:00 09/04/19 19:45 Brilinta PO Not Given BID MARIE Intake and Output 09/04/19 09/05/19 09/05/19 22:59 06:59 14:59 Intake Total 225 Balance 225 Intake: Intake, IV Titration 100 Amount Sodium Chloride 0.9% 1, 100 000 ml @ 100 mls/hr IV . Q10H MARIE Rx#:[id number] Oral 125 Other: # Voids 1 1 Weight 68.3 kg 09/05/19 06:44 09/05/19 06:44 EKG Interpretations (text) EKG shows normal sinus rhythm with no acute changes. Assessment and Plan Plan: Assessment and plan #1 left-sided facial droop with associated left-sided weakness, headache, possible acute CVA. TPA was administered in the emergency room. #2 hypertension #3 hyperlipidemia #4 chronic back pain #5 family history of premature coronary artery disease #6 history of gastric bypass surgery #7 history of bipolar disorder and depression Plan EchoCardiogram with Doppler study has been performed, results are yet pending. Etiology has been requested to see the patient to perform a transesophageal echocardiographic study. The risks and the benefits of the procedure were explained to the patient in detail, she did eat breakfast this morning, we will tentatively book this for tomorrow. Patient has been initiated on aspirin as well as Brilinta and statin. DNP note has been reviewed, I agree with a documented findings and plan of care. Patient was seen and examined.
[2019-09-05] MEDS ORDERED: ASPIRIN 325 MG TAB PO SCH (09:00)
[2019-09-05] MEDS: ASPIRIN 81 MG PO SCH (10:42)
[2019-09-05] MEDS: TICAGRELOR 90 MG TAB PO SCH ×2 (10:43→21:21)
[2019-09-05] MEDS: SODIUM CHLORIDE 0.9% 1,000 ML IV SCH (10:44)
--- NOTE | 2019-09-05 13:01 | ECHOF ---
Referral Reason:Thrombus MEASUREMENTS -------- HEIGHT: 157.5 cm WEIGHT: 65.8 kg BP: 119/74 RVIDd: 3.1 cm (< 3.3) IVSd: 0.9 cm (0.6 - 1.1) LVIDd: 4.2 cm (3.9 - 5.3) LVPWd: 1.0 cm (0.6 - 1.1) IVSs: 1.4 cm LVIDs: 3.2 cm LVPWs: 1.2 cm LA Diam: 3.3 cm (2.7 - 3.8) LAESV Index (A-L): 17.86 ml/m Ao Diam: 2.7 cm (2.0 - 3.7) AV Cusp: 1.9 cm (1.5 - 2.6) MV EXCURSION: 16.074 mm (> 18.000) MV EF SLOPE: 85 mm/s (70 - 150) EPSS: 0.7 cm MV E Ernie: 0.56 m/s MV DecT: 320 ms MV A Ernie: 0.79 m/s MV E/A Ratio: 0.71 RAP: 5.00 mmHg RVSP: 21.84 mmHg TAPSE: 21.26 mm FINDINGS -------- Sinus rhythm. This was a technically good study. The left ventricular size is normal. Left ventricular wall thickness is normal. Overall left vent ricular systolic function is normal with, an EF between 55 - 60 %. The right ventricle is normal in size. Normal LA size by volume 22+/-6 ml/m2. Interatrial and interventricular septum intact. The aortic valve is trileaflet and appears structurally normal. There is trace to mild mitral regurgitation. Mild tricuspid regurgitation present. Right ventricular systolic pressure is normal at < 35 mmHg. Trace/mild (physiologic) pulmonic regurgitation. The aortic root size is normal. Normal inferior vena cava with normal inspiratory collapse consistent with estimated right atrial pre ssure of 5 mmHg. There is no pericardial effusion. CONCLUSIONS -------- 1. Sinus rhythm. 2. This was a technically good study. 3. The left ventricular size is normal. 4. Left ventricular wall thickness is normal. 5. Overall left ventricular systolic function is normal with, an EF between 55 - 60 %. 6. The right ventricle is normal in size. 7. Normal LA size by volume 22+/-6 ml/m2. 8. Interatrial and interventricular septum intact. 9. The aortic valve is trileaflet and appears structurally normal. 10. There is trace to mild mitral regurgitation. 11. Mild tricuspid regurgitation present. 12. Right ventricular systolic pressure is normal at < 35 mmHg. 13. Trace/mild (physiologic) pulmonic regurgitation. 14. The aortic root size is normal. 15. Normal inferior vena cava with normal inspiratory collapse consistent with estimated right atrial pressure of 5 mmHg. 16. There is no pericardial effusion. STORE PROTECTION SPECIALIST: Norma Cleaning RDCS
[2019-09-05] MEDS: ENOXAPARIN 40 MG/0.4 ML SYRINGE SQ SCH (13:06)
[2019-09-05 18:35] LABS: Hemoglobin A1C 5.5 % (4.0-6.0)
--- NOTE | 2019-09-05 18:47 | PN ---
PROGRESS NOTE DATE OF SERVICE: 09/05/2019 This 64-year-old woman who was admitted with weakness of the left side of the body as well as left facial flattening is being evaluated for a stroke. Bay's palsy is also a consideration, according to Neurology; however, the CT of the brain showed multiple abnormalities, including total occlusion of the left A1 segment with patency of the A2 segment on the left secondary to a patent anterior communicating artery and also a short segment of the stenosis and partial occlusion of the right M1 segment with 50% reduction in the luminal diameter. The patient is being closely monitored. Cardiology is planning a ARDEN. A transthoracic 2D echo showed ejection fraction about 55% to 60%. Past medical history reviewed. REVIEW OF SYSTEMS: CARDIOVASCULAR SYSTEM: No angina, palpitations. RESPIRATORY SYSTEM: As mentioned earlier. GI: No nausea, vomiting. : No dysuria or retention. NERVOUS SYSTEM: As mentioned earlier. CURRENT MEDICATIONS: Reviewed. They include: 1. Tylenol 650 q.6 p.r.n. 2. Aspirin 81 mg daily. 3. Lipitor 80 mg at bedtime. 4. Lovenox 40 mg subcutaneously daily. 5. Trandate 20 mg IV q.6. 6. Narcan 0.2 q.2 p.r.n. 7. Zofran 4 mg q.8. 8. Brilinta 90 mg p.o. b.i.d. PHYSICAL EXAMINATION: Patient is alert and oriented x3. Pulse 71, blood pressure 113/59, respiration 18, temperature normal, pulse ox 100% on room air. HEENT: Conjunctivae normal. NECK: No jugular venous distention. CARDIOVASCULAR SYSTEM: S1, S2 muffled. RESPIRATORY SYSTEM: Breath sounds diminished at the bases. No rhonchi. No crackles. ABDOMEN: Soft, non-tender. LEGS: No edema. No swelling. NERVOUS SYSTEM: Higher functions as mentioned earlier. Cranial nerves -- significant facial weakness, both upper and lower part on the left side. Otherwise, minimal weakness on the left side also present. No sensory dysfunction. LABS: WBC 4.7. Hemoglobin is 10.1. ASSESSMENT: 1. Possible acute stroke involving the right hemisphere with left-sided weakness and left facial paralysis. 2. Rule out Bay's palsy. 3. Leukopenia, improved. 4. Anemia, microcytic, for evaluation; undetermined origin. 5. Hypertension. 6. Hyperlipidemia. 7. Chronic back pain with neuropathy. 8. Urinary frequency. 9. Cholecystectomy. 10.Anxiety, bipolar, depression. RECOMMENDATIONS AND DISCUSSION: In this 64-year-old woman who presented with multiple complex medical issues, we will monitor the patient closely, continue the current medications, continue symptomatic treatment, continue the antiplatelet agents. Otherwise, complete neurovascular workup, including ARDEN. MRI has been ordered. Closely follow with Neurology. Further recommendations to follow. MMODL / IJN: [id number] / ANA
--- NOTE | 2019-09-05 19:40 | P.PN ---
Progress Note - Text Progress Note Date: 09/05/19 SUBJECTIVE/INTERVAL EVENTS: No acute overnight events. Patient denies any pain, headache, nausea, vomiting, weakness, numbness/tingling. PHYSICAL EXAMINATION: VITAL SIGNS: T 98.7 HR 60 RR 16 BP 115/58 O2 sat 98% on RA GEN.: NAD, pleasant and cooperative HEENT: NCAT, sclera without icterus NECK: Supple SKIN AND EXTREMITIES: Warm to touch, no edema NEURO: MENTAL STATUS: Patient alert and oriented to self, place, time. Able to name the current president. Speech fluent, able to name and repeat, following all commands readily. No right and left disorientation, neglect. CRANIAL NERVES II THROUGH XII: II: Pupils are equal and reactive to light sy mmetrically. No afferent pupillary defect. Visual malik are intact. III, IV, : R eye ptosis/swelling. Difficulty fully closing L eye. Extraocular movements full. No nystagmus. V: Facial sensation intact from V1-3. VII. L facial droop along with some difficulty raising L eye brow and closing her L eye. L anterior 2/3 tongue unable to taste salt. No hyperacusis. VIII: Hearing intact to finger rub bilaterally. IX, X: Symmetric palate elevation. XI: Shoulder shrug intact. XII: Tongue midline without fasciculation or atrophy. MOTOR: Normal bulk/tone. No pronator drift or tremor. Strength is 5/5 throughout all 4 extremities. SENSORY: Intact to light touch, temperature, pinprick in all 4 extremities. Romberg is negative. REFLEXES: 2+ throughout. Toes are downgoing. COORDINATION: Finger to nose intact. No dysmetria. GAIT: Narrow-based and stable. Able to toe/heel/tandem walk DIAGNOSTIC TESTING: LABORATORY: WBC 3.4 hemoglobin 11.1 platelets 387 PT 9.7 INR 0.9 sodium 137 potassium 3.8 chloride 100 bicarb 25 BUN 17 creatinine 0.86 glucose 96 AST 36 ALT 44 alk phos 119 troponin <0.012 Total cholesterol 139 LDL 53 HDL 79 triglycerides 34 TSH 2.420 A1C 5.5 IMAGING: CT head without contrast 09/04/2019: No acute intracranial process seen. CTA head and neck with contrast 09/04/2021 Total occlusion of the left P1 segment with patency of the A2 segment on the left secondary to a patent anterior coming kidney artery. Short segment stenosis or partial occlusion of the right M1 segment with 50% reduction in vessel lumen caliber over a distance of 4 mm in length TTE 09/05/19: SR. LV/RV/LA sizes are normal. EF 55-60%. Interatrial and interventricular septum intact ASSESSMENT: 65-year-old R-handed woman with past medical history of hypertension, hyperlipidemia, chronic back pain, anxiety, bipolar disorder, depression, who presented to [facility] for left facial weakness. Patient with both upp er and lower facial weakness although moderate upper facial weakness along with L anterior tongue decreased taste sensation, highly suspicious for Bay's palsy. Patient also with no previous episodes of extremity weakness/numbness/tingling, but it also appears that patient is on donezepil, so possibly with some component of dementia. Will pursue stroke work-up and management at this time. RECOMMENDATIONS: 1. MRI brain without contrast 2. Cardiac monitoring 3. ASA 81mg qday and Brilinta 90mg qday 4. Atorvastatin 80mg qhs 5. Neurology will continue to follow 6. Patient needs to follow up with neurologist as outpatient with her 1-2 weeks of discharge
[2019-09-05] MEDS: ATORVASTATIN 80 MG TAB PO SCH (21:21)
[2019-09-05] MEDS ORDERED: ALPRAZolam 0.5 MG TAB PO STA (21:35)
[2019-09-06] MEDS: SODIUM CHLORIDE 0.9% 1,000 ML IV SCH ×2 (05:16→06:35)
[2019-09-06] MEDS ORDERED: fentaNYL (PF) 50 MCG/ML 2 ML AMP ONE (07:08)
[2019-09-06] MEDS ORDERED: IV FLUID CONTINUATION 950 ML IV ONE (07:36)
[2019-09-06] MEDS: BENZOCAINE SPRAY 1 CAN MUCOUS MEM ONE ×2 (07:45→07:53)
[2019-09-06] MEDS ORDERED: fentaNYL (PF) 50 MCG/ML 2 ML AMP IV ONE (07:53)
[2019-09-06] MEDS: MIDAZOLAM 2 MG/2 ML VIAL IV ONE ×2 (07:54→07:55)
--- NOTE | 2019-09-06 08:23 | ECHOT ---
TRANSESOPHAGEAL ECHOCARDIOGRAM INDICATION: TIA. PROCEDURE NOTE: After obtaining informed consent, transesophageal echocardiogram was performed in left lateral position using an Omni plane probe. Local and IV sedation were obtained using Xylocaine spray, 2 mg of Versed and fentanyl. The patient tolerated the procedure well without any obvious immediate complications. Patient received moderate conscious sedation. Total sedation time was 10 minutes. FINDINGS: 1. Left atrial appendage. There is no evidence of thrombus within the left atrial appendage. 2. There is no intracardiac thrombus within the left atrium,. right atrium, right ventricle or left ventricle. 3. Left ventricle has normal size and systolic function. 4. Mitral valve is anatomically normal. There is mild mitral regurgitation noted. 5. Tricuspid valve shows trace tricuspid regurgitation. 6. Aortic valve is a 3-leaflet valve. There is no evidence of aortic stenosis or regurgitation. 7. Item interatrial septum there is no evidence of itizp-ld-tfud shunt by color-flow Doppler or dasz-mf-[id number] shunt by color for agitated tract. There is no evidence of nnwt-ch-elrob shunt by color-flow Doppler or hdcve-qc-bewr shunt by agitated saline contrast study. 8. Aorta shows mild atherosclerotic changes. CONCLUSION: No intracardiac thrombus. Normal LV systolic function. No evidence of shunting across the septum.. MMODL / IJN: [id number] /
[2019-09-06] MEDS ORDERED: SODIUM CHLORIDE 0.9% 1,000 ML IV SCH (08:30)
[2019-09-06] MEDS: ASPIRIN 81 MG PO SCH (10:00)
[2019-09-06] MEDS: TICAGRELOR 90 MG TAB PO SCH (10:01)
[2019-09-06] MEDS: ENOXAPARIN 40 MG/0.4 ML SYRINGE SQ SCH (10:01)
[2019-09-06] MEDS ORDERED: ALPRAZolam 0.5 MG TAB PO STA (10:35)
[2019-09-06] MEDS ORDERED: ALPRAZolam 0.25 MG TAB PO PRN (11:41)
[2019-09-06] MEDS: LORATADINE 10 MG TAB PO SCH (12:39)
--- NOTE | 2019-09-06 14:13 | MR ---
EXAMINATION TYPE: MR brain wo con DATE OF EXAM: 09/06/2019 COMPARISON: CT brain 2 days earlier HISTORY: L facial droop; possible Bay's palsy. Rule out stroke. Left arm weakness and leg drift. TECHNIQUE: Multiplanar, multisequence imaging of the brain and brainstem is performed without IV cont rast. FINDINGS: Diffusion weighted images demonstrate no evidence of a recent infarct or other diffusion abnormality. There is no worrisome extra-axial fluid collection. The ventricular system and cisternal spaces are normal in size and appearance. The brain volume is age appropriate. Few scattered foci of T2 intensi ty is seen throughout the white matter bilaterally. Approximately 10-15 small scattered lesions are s een involving the higher bilateral frontal lobes. Lesions are most likely on basis of product of flume worker jessica small vessel ischemic change in patient of this age. Midline structures demonstrate normal morphology. The craniocervical junction appears within normal limits. Normal vascular flow voids are present. Mild mucosal thickening involving the ethmoid sinuses bilaterally. Globes are intact and paranasal sinuses are clear. IMPRESSION: No evidence of a recent infarct. Mild chronic small vessel ischemic changes
--- NOTE | 2019-09-06 14:52 | P.PN ---
Progress Note - Text Progress Note Date: 09/06/19 SUBJECTIVE/INTERVAL EVENTS: No acute overnight events. Patient with no complaints. PHYSICAL EXAMINATION: VITAL SIGNS: T 98.2 HR 65 RR 16 BP 112/59 O2 sat 96% on RA GEN.: NAD, pleasant and cooperative HEENT: NCAT, sclera without icterus NECK: Supple SKIN AND EXTREMITIES: Warm to touch, no edema NEURO: MENTAL STATUS: Patient alert and oriented to self, place, time. Able to name the current president. Speech fluent, able to name and repeat, following all commands readily. No right and left disorientation, neglect. CRANIAL NERVES II THROUGH XII: II: Pupils are equal and reactive to light symmetrically. No afferent pupillary defect. Visual malik are intact. III, IV, : R eye ptosis/swelling. Difficulty fully closing L eye. Extraocular movements full. No nystagmus. V: Facial sensation intact from V1-3. VII. L facial droop along with some difficulty raising L eye brow and closing her L eye. L anterior 2/3 tongue unable to taste salt. No hyperacusis. VIII: Hearing intact to finger rub bilaterally. IX, X: Symmetric palate elevation. XI: Shoulder shrug intact. XII: Tongue midline without fasciculation or atrophy. MOTOR: Normal bulk/tone. No pronator drift or tremor. Strength is 5/5 throughout all 4 extremities. SENSORY: Intact to light touch, temperature, pinprick in all 4 extremities. Romberg is negative. REFLEXES: 2+ throughout. Toes are downgoing. COORDINATION: Finger to nose intact. No dysmetria. GAIT: Narrow-based and stable. Able to toe/heel/tandem walk DIAGNOSTIC TESTING: LABORATORY: WBC 3.4 hemoglobin 11.1 platelets 387 PT 9.7 INR 0.9 sodium 137 potassium 3.8 chloride 100 bicarb 25 BUN 17 creatinine 0.86 glucose 96 AST 36 ALT 44 alk phos 119 troponin <0.012 Total cholesterol 139 LDL 53 HDL 79 triglycerides 34 TSH 2.420 A1C 5.5 IMAGING: MRI brain w/o contrast 09/06/19: No acute intracranial process. Nonspecific white matter changes. CT head without contrast 09/04/2019: No acute intracranial process seen. CTA head and neck with contrast 09/04/2019 Total occlusion of the left P1 segment with patency of the A2 segment on the left secondary to a patent anterior coming kidney artery. Short segment stenosis or partial occlusion of the right M1 segment with 50% reduction in vessel lumen caliber over a distance of 4 mm in length TTE 09/05/19: SR. LV/RV/LA sizes are normal. EF 55-60%. Interatrial and interventricular septum intact Cardiac monitoring: no obvious atrial arrhythmia ASSESSMENT: 65-year-old R-handed woman with past medical history of hypertension, hyperlipidemia, chronic back pain, anxiety, bipolar disorder, depression, who presented to [facility] for left facial weakness. Patient with both upper and lower facial weakness although moderate upper facial weakness along with L anterior tongue decreased taste sensation, highly suspicious for Bay's palsy. Patient also with no previous episodes of extremity weakness/n umbness/tingling, but it also appears that patient is on donezepil, so possibly with some component of dementia. Will pursue stroke work-up and management at this time. MRI brain w/o contrast with no acute intracranial process. Diagnosis Bay's palsy. RECOMMENDATIONS: 1. Will discontinue ASA/Brilinta/Atorvastatin 2. Neurology will sign off at this time. 3. Patient needs to follow up with neurologist as outpatient with her 1-2 weeks of discharge
[2019-09-06] MEDS: OXYBUTYNIN XL 5 MG TAB.ER.24 PO SCH (16:36)
--- NOTE | 2019-09-06 18:53 | PN ---
PROGRESS NOTE DATE OF SERVICE: 09/06/2019 This 64-year-old woman who was admitted with possible acute stroke involving the right hemisphere is being closely monitored. MRI is pending at this time. Patient does have intracranial stenosis. Neurology is following the patient closely. ARDEN did not show an acute abnormality. Past medical history reviewed. PHYSICAL EXAMINATION: Patient is alert, oriented x3. Pulse is 97, blood pressure 106/61, respirations 16, temperature 97.6, pulse ox 97% on room air. HEENT: Conjunctivae normal. NECK: No jugular venous distention. CARDIOVASCULAR SYSTEM: S1, S2 muffled. RESPIRATORY SYSTEM: Breath sounds diminished at the bases. A few scattered rhonchi and crackles. ABDOMEN: Soft, non-tender. LEGS: No edema. No swelling. NERVOUS SYSTEM: No focal deficit. LABS: WBC 4.7, hemoglobin 10.1. HDL is 79. ASSESSMENT: 1. Possible acute stroke involving the right hemisphere causing left-sided weakness and left facial paralysis. 2. Rule out Bya's palsy. 3. Leukopenia, improved. 4. Anemia, microcytic, for evaluation; undetermined origin. 5. Hypertension. 6. Hyperlipidemia. 7. Chronic back pain with neuropathy. 8. Urinary frequency. 9. Cholecystectomy. 10.Anxiety, bipolar, depression. RECOMMENDATIONS AND DISCUSSION: I recommend to continue current medications, continue with the monitoring, symptomatic treatment. Continue with antiplatelet agents. Continue with Lipitor. Otherwise, closely follow with Neurology. await MRI. ARDEN noted. Guarded prognosis. Further recommendations to follow. MMODL / IJN: [id number] /
[2019-09-07 08:17] VITALS: BP 113/74; PULSE 69; RESP 18; TEMP 97.8
[2019-09-07] MEDS: LORATADINE 10 MG TAB PO SCH (08:40)
[2019-09-07] MEDS: ENOXAPARIN 40 MG/0.4 ML SYRINGE SQ SCH (08:40)
[2019-09-07] MEDS: OXYBUTYNIN XL 5 MG TAB.ER.24 PO SCH (08:40)
--- NOTE | 2019-09-07 10:33 | PN ---
PROGRESS NOTE Alana is a 64-year-old lady who was admitted to hospital with CVA involving the right hemisphere. ARDEN on her was negative. An MRI of the brain did not reveal any evidence of infarct. PHYSICAL EXAMINATION: On exam, patient is comfortable at rest. Vital signs are stable. Chest exam reveals good air entry bilaterally. Heart exam reveals first and second heart sounds. No gallop. Exam of the extremities did not reveal any edema. Peripheral pulses are felt. ASSESSMENT: 1. Cerebrovascular accident. 2. Hypertension. PLAN: Patient is doing well. She will continue with an aspirin daily. Her LDL cholesterol is 79, total cholesterol is 139. MMODL / IJN: [id number] /
--- NOTE | 2019-09-07 23:24 | DS ---
DISCHARGE SUMMARY DATE OF SERVICE: 09/07/2019. FINAL DIAGNOSES: 1. Possible acute stroke involving the right hemisphere causing left-sided weakness and left facial paralysis. 2. Rule out Bay's palsy. 3. Leukopenia, improved. 4. Anemia microcytic for evaluation on treatment already. 5. Hypertension. 6. Hyperlipidemia. 7. Chronic back pain, neuropathy. 8. Urinary frequency. 9. Cholecystectomy. 10.History of anxiety, depression. Bipolar disorder. DISCHARGE DISPOSITION: The patient being discharged in stable condition with guarded prognosis. HISTORY OF PRESENT ILLNESS: This 64-year-old woman with a past medical history of multiple medical problems admitted with features of weakness on the left side of the body and as well as mainly on the face. The patient had MRI of the brain which showed no evidence of any recent infarct, but however, a CT angiogram did show intracranial stenosis up to 50%. Please refer to the CT brain for further details. The patient improved. The patient monitored closely. Patient improved significantly. Hemoglobin stable at 10.1. Recommended outpatient followup. The patient being started on antiplatelets and patient will be discharged in stable condition with guarded prognosis. The patient being followed by Dr. Shana Bernstein in the outpatient setting. On exam, vitals are stable. Cardiovascular: S1, S2. Abdomen soft. Nervous system: No focal deficits. DISCHARGE ADVICE AND MEDICATIONS: 1. Diet is cardiac diet. 2. Activity limited until followup. 3. Follow up with Dr. Shana Bernstein in 2-3 days. 4. Follow up with Dr. Thomason as recommended. 5. Follow with Cardiology as recommended. DISCHARGE MEDICATIONS: 1. Aricept 10 mg q.h.s. 2. Claritin 10 mg p.o. daily. 3. Detrol 2 mg p.o. daily. 4. HydroDIURIL 25 mg. 5. Lipitor 20 mg p.o. daily. 6. Neurontin 100 mg p.o. b.i.d. 7. Trazodone 50 mg q.h.s. 8. Ecotrin 81 mg p.o. daily. Once again, the patient being discharged in stable condition with guarded prognosis. MMODL / IJN: [id number] /
== END 2019-09-07 14:50 | disposition home or self-care (01) | DRG 65 ==
LOC: EC 11:16 → 3SCARD 12:47
PROVIDERS: ADMIT Hospitalist; ATTEND Hospitalist
PROC: 3E03316 Introduction of Recombinant Human-activated Protein C into Peripheral Vein, Percutaneous (ICD-10-PCS; principal; 2019-09-04)
PROC: B246ZZ4 Ultrasonography of Right and Left Heart, Transesophageal (ICD-10-PCS; 2019-09-06)
DX: I63.9 Cerebral infarction, unspecified (principal); G81.94 Hemiplegia, unspecified affecting left nondominant side; G62.9 Polyneuropathy, unspecified; R29.810 Facial weakness; H53.8 Other visual disturbances; R47.81 Slurred speech; R40.2362 Coma scale, best motor response, obeys commands, at arrival to emergency department; R40.2142 Coma scale, eyes open, spontaneous, at arrival to emergency department; R40.2252 Coma scale, best verbal response, oriented, at arrival to emergency department; R29.704 NIHSS score 4; E78.5 Hyperlipidemia, unspecified; I10 Essential (primary) hypertension; G89.29 Other chronic pain; M54.9 Dorsalgia, unspecified; F40.240 Claustrophobia; G47.00 Insomnia, unspecified; D50.9 Iron deficiency anemia, unspecified; R35.0 Frequency of micturition; H02.401 Unspecified ptosis of right eyelid; D72.819 Decreased white blood cell count, unspecified; Z79.899 Other long term (current) drug therapy; Z86.73 Personal history of transient ischemic attack (TIA), and cerebral infarction without residual deficits; Z90.49 Acquired absence of other specified parts of digestive tract; Z90.710 Acquired absence of both cervix and uterus; Z98.84 Bariatric surgery status; Z98.890 Other specified postprocedural states; Z86.59 Personal history of other mental and behavioral disorders; Z88.5 Allergy status to narcotic agent; Z88.2 Allergy status to sulfonamides; Z91.048 Other nonmedicinal substance allergy status; Z82.49 Family history of ischemic heart disease and other diseases of the circulatory system; Z82.0 Family history of epilepsy and other diseases of the nervous system
CPT/HCPCS: 36415; 70450; 70496; 70498; 70551; 71046; 80048; 80053; 80061; 83036; 83735; 84443; 84484; 85025; 85027; 85610; 85730; 93005; 93306; 93312; 93320; 93325; 96360; 96361; 99291

== ENCOUNTER 2019-11-12 14:44 | Emergency (ER) | payer MEDICARE ==
[2019-11-12 15:01] VITALS: BP 110/71; PULSE 71; RESP 18; TEMP 98.4
[2019-11-12] MEDS ORDERED: ORPHENADRINE 30 MG/ML 2 ML VIAL IM STA (15:24)
[2019-11-12] MEDS ORDERED: KETOROLAC 30 MG/ML 1 ML VIAL IM STA (15:24)
[2019-11-12] MEDS ORDERED: HYDROcodone/APAP 5-325MG 1 EACH TAB PO STA (15:24)
--- NOTE | 2019-11-12 15:27 | ED ---
Back Pain HPI - General Chief Complaint: Back Pain/Injury Stated Complaint: back pain Time Seen by Provider: 11/12/19 15:02 Source: patient, RN notes reviewed, old records reviewed Limitations: no limitations - History of Present Illness Initial Comments: Patient is a 64-year-old female presents today for evaluation for concern for lower back pain. Patient reports she's had history of multiple surgeries on her lower back, reports that she last had surgery. Ears ago and this was done in [place]. Patient reports she has not followed up with back surgeon. She states over the past 3 day she's had worsening pain with ambulation. Has had shakiness which where she had a use a cane. She typically does not ambulate with a cane. Patient states that she has had no recent fall or trauma. She does report occasional shooting pain down her legs. She denies any weight loss, denies any fevers or chills or abdominal pain. She denies saddle anesthesias. - Related Data Home Medications Medication Instructions Recorded Confirmed Donepezil [Aricept] 10 mg PO HS 06/15/17 09/04/19 Atorvastatin [Lipitor] 20 mg PO DAILY 09/04/19 09/04/19 Gabapentin [Neurontin] 100 mg PO BID 09/04/19 09/04/19 Hydrochlorothiazide [Hydrodiuril] 25 mg PO DAILY 09/04/19 09/04/19 Loratadine [Claritin] 10 mg PO DAILY 09/04/19 09/04/19 Tolterodine Tartrate [Detrol] 2 mg PO BID 09/04/19 09/04/19 traZODone HCL 150 mg PO HS 09/04/19 09/04/19 Previous Rx's Medication Instructions Recorded Aspirin EC [Ecotrin Low Dose] 81 mg PO DAILY #30 tablet. 09/07/19 Acetaminophen with Codeine 1 tab PO Q4H PRN 3 Days #18 tab 11/12/19 [Tylenol w/codeine #3] Cyclobenzaprine [Flexeril] 10 mg PO TID #12 tab 11/12/19 methylPREDNISolone Dose Pack 4 mg PO DIRECTED #21 package 11/12/19 [Medrol Dose Pack] Allergies Allergy/AdvReac Type Severity Reaction Status Date / Time oxycodone [From Percocet] Allergy Unknown Verified 11/12/19 14:59 Sulfa (Sulfonamide Allergy Unknown Verified 11/12/19 14:59 Antibiotics) tape Allergy Rash/Hives Uncoded 11/12/19 14:59 Review of Systems ROS Statement: Those systems with pertinent positive or pertinent negative responses have been documented in the HPI. ROS Other: All systems not noted in ROS Statement are negative. Past Medical History Past Medical History: Hyperlipidemia, Hypertension Additional Past Medical History / Comment(s): chronic back pain with neuropathy, urinary frequency History of Any Multi-Drug Resistant Organisms: None Reported Past Surgical History: Back Surgery, Cholecystectomy, Hysterectomy, Tonsillectomy Additional Past Surgical History / Comment(s): gastric bypass, rotator cuff on the right, sinus surgery Past Anesthesia/Blood Transfusion Reactions: No Reported Reaction Past Psychological History: Anxiety, Bipolar, Depression Smoking Status: Never smoker Past Alcohol Use History: None Reported Past Drug Use History: None Reported - Past Family History Father Additional Family Medical History / Comment(s): from myocardial infarction at age 46 Mother Additional Family Medical History / Comment(s): Bay's palsy General Exam - General Exam Comments Initial Comments: 64-year-old female. Alert and oriented 3. Patient appears in mild to moderate discomfort. Limitations: no limitations General appearance: alert, in no apparent distress Head exam: Present: atraumatic, normocephalic, normal inspection Eye exam: Present: normal appearance, PERRL, EOMI. Absent: scleral icterus, conjunctival injection, periorbital swelling ENT exam: Present: normal exam Neck exam: Present: normal inspection. Absent: tenderness, meningismus, lymphadenopathy Respiratory exam: Present: normal lung sounds bilaterally. Absent: respiratory distress, wheezes, rales, rhonchi, stridor Cardiovascular Exam: Present: regular rate, normal rhythm, normal heart sounds. Absent: systolic murmur, diastolic murmur, rubs, gallop, clicks GI/Abdominal exam: Present: soft, normal bowel sounds. Absent: distended, tenderness, guarding, rebound, rigid Extremities exam: Present: normal inspection, full ROM, normal capillary refill. Absent: tenderness, pedal edema, joint swelling, calf tenderness Back exam: Present: normal inspection, tenderness ( is evidence of scar over her lower back. Tenderness to palpation over lumbar spine and paraspinal muscles.) Neurological exam: Present: alert, oriented X3, CN II-XII intact Psychiatric exam: Present: normal affect, normal mood Skin exam: Present: warm, dry, intact, normal color. Absent: rash Course Vital Signs 11/12/19 14:59 Temperature 98.4 F Pulse Rate 71 Respiratory 18 Rate Blood Pressure 110/71 O2 Sat by Pulse 99 Oximetry Medical Decision Making - Medical Decision Making 64-year-old female presented today for worsening back pain over the past 3 days. Worse with ambulation and movement. No recent fall or trauma. Multiple surgeries in the past. Patient feels that her hardware in her back is arrived. X-ray completed and show osteopenia, degenerative disc changes. There does appear to be some minor loosening of the L1 screw. I discussed the Patient needs follow-up with her surgeon which is in [place]. Patient and at this time to be prescribed a short course of pain medication and anti-inflammatory medication. Discussed return parameters. - Radiology Data Radiology results: report reviewed There may be loosening screws at L1. Degenerative disc disease as described above. Multilevel laminectomies at L1 through L4. Vertebral spacing blocks present L4-L5. There is rectal stasis of L1 and L2 was again noted. There is some lucency to screws at L1 underlying loosening. There is evidence of osteopenia. Disposition Clinical Impression: Acute exacerbation of chronic low back pain, History of lumbar fusion Disposition: HOME SELF-CARE Condition: Good Additional Instructions: Patient advised to follow up with PCP and close follow up with ortho surgeon. Patient can take medications as prescribed. Recommended stretching exercises. Return to emergency department if any alarming signs or symptoms occur. Prescriptions: Cyclobenzaprine [Flexeril] 10 mg PO TID #12 tab methylPREDNISolone Dose Pack [Medrol Dose Pack] 4 mg PO DIRECTED #21 package Acetaminophen with Codeine [Tylenol w/codeine #3] 1 tab PO Q4H PRN 3 Days #18 tab PRN Reason: Pain Is patient prescribed a controlled substance at d/c from ED?: Yes If prescribed controlled substance>3 days was MAPS reviewed?: Prescribed <3 Days If opioid is for acute pain is fill amount 7 days or less?: Yes If Rx opioid, was Start Talking consent form obtained?: Yes Referrals: Shana Bernstein MD [Primary Care Provider] - 1-2 days Time of Disposition: 16:11
--- NOTE | 2019-11-12 16:08 | XR ---
Lumbar spine HISTORY: Pain 3 views the lumbar spine correlated prior exam 06/15/2017 Patient is status post posterior lumbar fusion L1-L4. Posterior fusion changes at L4-5 revised. Multi level laminectomies have been performed at L2, L3, L4. Intervertebral spacing block present L4-5. Caryl gical clips present right upper quadrant. Bone mineralization is reduced. There is multilevel spondyl osis. Loss of disc height is present at the intervertebral levels. The retrolisthesis grade 1 L1 and L2 is again noted, is endplate sclerosis this level as on prior. There is some lucency about the scre ws at L1, there may be underlying loosening. Accentuated lordosis in the upper lumbar spine, resultin g kyphosis at L1-2 is noted may be more accentuated than on prior. IMPRESSION: There may be loosening of the screws at L1. There are degenerative disc changes as descri bed. Osteopenia.
== END 2019-11-12 16:20 | disposition home or self-care (01) ==
LOC: EC 14:44
DX: M54.5 Low back pain (principal); G89.29 Other chronic pain; Z98.1 Arthrodesis status; M85.88 Other specified disorders of bone density and structure, other site; M51.36 Other intervertebral disc degeneration, lumbar region; M79.604 Pain in right leg; M79.605 Pain in left leg; E78.5 Hyperlipidemia, unspecified; I10 Essential (primary) hypertension; G62.9 Polyneuropathy, unspecified; F31.9 Bipolar disorder, unspecified; F41.9 Anxiety disorder, unspecified; Z88.2 Allergy status to sulfonamides; Z88.5 Allergy status to narcotic agent; Z91.048 Other nonmedicinal substance allergy status; Z79.899 Other long term (current) drug therapy
CPT/HCPCS: 72100; 99284; 96372 ×2; J2360; J1885

== ENCOUNTER → 2019-11-14 | Outpatient (CLI) | payer MEDICARE ==
--- NOTE | 2019-11-14 16:08 | US ---
EXAMINATION TYPE: US thyroid st tissue head/neck DATE OF EXAM: 11/14/2019 COMPARISON: CT 2019 CLINICAL HISTORY: E04.1 thyroid nodule. Thyroid nodule seen on previous CT GLAND SIZE: Right Lobe: 6.2 x 1.4 x 1.6 cm Overall Parenchyma: homogenous Left Lobe: 5.5 x 1.4 x 1.3 cm Overall Parenchyma: homogeneous Isthmus Thickness: 0.2 cm NODULES RIGHT: # of nodules measured on right: 1 1. 1.6 X 0.8 x 1.0 cm hypoechoic cystic nodule at the lower pole with well-defined margins. This no dule is wider than tall and shows no intranodular vascularity. This is very hypoechoic with a couple of internal echoes present. Prior size: no previous LEFT: # of nodules measured on left: 2 1. 0.9 X 0.6 x 0.6 cm hypoechoic mixed nodule at the mid pole with well-defined margins. This nodul e is taller than wide and shows intranodular vascularity. Prior size: no previous 2. 0.4 X 0.4 x 0.3 cm calcification at the lower pole with well-defined margins. This nodule is as t all as wide and shows no intranodular vascularity. Prior size: no previous ISTHMUS: # of nodules measured in the isthmus: 0 Bilateral neck scanned, no evidence of lymphadenopathy. Enlarged gland with multiple bilateral nodules with largest described above. IMPRESSION: 1. Enlarged hypoechoic nodules discussed above. Ultrasound Monitoring can be performed.
== END | disposition home or self-care (01) ==
LOC: RADUSWWP 12:58
PROVIDERS: ATTEND Family Medicine
DX: E04.2 Nontoxic multinodular goiter (principal)
CPT/HCPCS: 76536

== ENCOUNTER 2019-11-21 14:58 | Observation (INO) | payer MEDICARE ==
[2019-11-21] MEDS: HYDROcodone/APAP 5-325MG 1 EACH TAB PO PRN (16:52)
[2019-11-21 17:25] LABS: Anisocytosis Slight; Basophils % (A) 1 %; Eosinophils # (A) 0.1 k/uL (0-0.7); Eosinophils % (A) 2 %; HCT 44.7 % (34.0-46.0); HGB 14.3 gm/dL (11.4-16.0); Lymphocytes # (A) 1.8 k/uL (1.0-4.8); Lymphocytes % (A) 30 %; MCH 27.7 pg (25.0-35.0); MCV 86.5 fL (80.0-100.0); Mean Platelet Volume 6.7; Monocytes # (A) 0.4 k/uL (0-1.0); Monocytes % (A) 7 %; Neutrophils # (A) 3.4 k/uL (1.3-7.7); Neutrophils % (A) 58 %; Platelet Count 307 k/uL (150-450); RBC 5.17 m/uL (3.80-5.40); RDW 18.9 % (11.5-15.5); WBC 5.9 k/uL (3.8-10.6)
[2019-11-21 17:33] LABS: African American GFR (CKD) >90 (>60 ml/min/1.73 sqM); Anion Gap 4 mmol/L; Blood Urea Nitrogen 19 mg/dL (7-17); Carbon Dioxide 31 mmol/L (22-30); Chloride 100 mmol/L (98-107); Glucose 88 mg/dL (74-99); Non-African American GFR(CKD) 85 (>60 ml/min/1.73 sqM); Sodium 135 mmol/L (137-145)
--- NOTE | 2019-11-21 18:40 | CT ---
EXAMINATION TYPE: CT lumbar spine w con DATE OF EXAM: 11/21/2019 COMPARISON: HISTORY: low back pain CT DLP: 785.7 mGycm Automated exposure control for dose reduction was used. CONTRAST: Performed with IV Contrast, patient injected with 100 mL of Isovue 300. Multiple axial sections were obtained from the level of T11-S2 vertebra without contrast. There is posterior fusion surgery from L1 to L4. There is a mild retrolisthesis of L1-2. This measure s 6 mm. There is mild lumbar disc space narrowing. There is 10% anterior wedging of L1 vertebra. I se e no acute fracture. The sacroiliac joints appear intact. There is no lumbar paraspinal mass. There i s multilevel posterior laminectomy defect. IMPRESSION: Multilevel posterior fusion surgery. No acute bony abnormality. Mild anterior wedging of L1 is old.
[2019-11-21] MEDS: HEPARIN SODIUM,PORCINE 5,000 UNIT/ML 1 ML VIAL SQ SCH (21:28)
[2019-11-21] MEDS: DOCUSATE 100 MG CAP PO SCH (21:29)
[2019-11-21] MEDS ORDERED: CYCLOBENZAPRINE 5 MG TAB PO PRN (23:17)
--- NOTE | 2019-11-21 23:49 | P.HPIM ---
History of Present Illness H&P Date: 11/21/19 Chief Complaint: Intractable back pain Patient is a 62-year-old female with a known history of hypertension, chronic back pain with neuropathy, urinary frequency, hyperlipidemia and anxiety/depression/bipolar disorder was sent to Hospital as a direct admit from Dr. Danial Moon's office due to intractable lower back pain. 10 in severity. Patient has been having worsening back pain for the past 1 week. Patient was supposed to follow with Dr. Monge as an outpatient. Patient did have a history of back surgery about 2 years ago. Patient does complain of left lower aspect of the tingling sensation intermittently. Denied any leg weakness. No bladder or bowel incontinence. Denied any saddle anesthesia. Otherwise patient denied any complaints of chest pain or shortness breath. No nausea vomiting or abdominal pain. No diarrhea or dysuria. No fever no chills. Patient says that her previous x-ray showed loose and screws over her back surgery. Patient was on Medrol Dosepak about a week ago. CT of the lumbar spine was ordered. Review of Systems Constitutional: Patient denies any fever or chills . No generalized weakness or weight loss. Abdomen: Patient denied nausea vomiting and diarrhea and abdominal pain. Cardiovascular: Patient denies any chest pain or short of breath no palpitations. Respiratory: patient denied any cough is from production. No shortness of breath Neurologic: Patient denied any numbness or tingling headache. Musculoskeletal: Patient denies any complaints of joint swelling or deformity. Lower back pain. Skin: Negative Psychiatric: Negative Endocrine: No heat or cold intolerance. No recent weight gain. Genitourinary: No dysuria or hematuria. All other 14 point ROS negative except the above Past Medical History Past Medical History: Hyperlipidemia, Hypertension Additional Past Medical History / Comment(s): chronic back pain with neuropathy, urinary frequency History of Any Multi-Drug Resistant Organisms: None Reported Past Surgical History: Back Surgery, Cholecystectomy, Hysterectomy, Tonsillectomy Additional Past Surgical History / Comment(s): gastric bypass, rotator cuff on the right, sinus surgery Past Anesthesia/Blood Transfusion Reactions: No Reported Reaction Past Psychological History: Anxiety, Bipolar, Depression Smoking Status: Never smoker Past Alcohol Use History: None Reported Past Drug Use History: None Reported - Past Family History Father Additional Family Medical History / Comment(s): from myocardial inf arction at age 46 Mother Additional Family Medical History / Comment(s): Bay's palsy Medications and Allergies Home Medications Medication Instructions Recorded Confirmed Type Hydrochlorothiazide [Hydrodiuril] 25 mg PO DAILY 09/04/19 11/21/19 History Loratadine [Claritin] 10 mg PO DAILY 09/04/19 11/21/19 History Tolterodine Tartrate [Detrol] 2 mg PO BID 09/04/19 11/21/19 History traZODone HCL 150 mg PO HS 09/04/19 11/21/19 History Aspirin EC [Ecotrin] 325 mg PO DAILY 11/21/19 11/21/19 History Atorvastatin [Lipitor] 40 mg PO HS 11/21/19 11/21/19 History Ferrous Sulfate [Feosol] 325 mg PO BID 11/21/19 11/21/19 History Gabapentin [Neurontin] 300 mg PO BID 11/21/19 11/21/19 History Allergies Allergy/AdvReac Type Severity Reaction Status Date / Time oxycodone [From Percocet] AdvReac Nausea & Verified 11/21/19 18:06 Vomiting Sulfa (Sulfonamide AdvReac Nausea & Verified 11/21/19 18:06 Antibiotics) Vomiting tape Allergy Rash/Hives Uncoded 11/12/19 14:59 Physical Exam Vitals: Vital Signs Temp Pulse Resp BP Pulse Ox 11/21/19 15:53 98 F 65 12 132/78 99 Intake and Output 11/21/19 11/21/19 11/21/19 06:59 14:59 22:59 Other: Weight 68.5 kg PHYSICAL EXAMINATION: Patient is lying in the bed comfortably, no acute distress, awake alert and any ented.. HEENT: Normocephalic. Neck is supple. Pupils reactive. Nostrils clear. Oral cavity is moist. Ears reveal no drainage. Neck reveals no JVD, carotid bruits, or thyromegaly. CHEST EXAMINATION: Trachea is central. Symmetrical expansion. Bibasilar diminished air entry. Lung malik clear to auscultation and percussion. CARDIAC: Normal S1, S2 with no gallops. No murmurs ABDOMEN: Soft. Bowel sounds normal. No organomegaly. No abdominal bruits. Extremities: reveal no edema. No clubbing or cyanosis Neurologically awake, alert, oriented x3 with well-coordinated movements. No focal deficits noted Skin: No rash or skin lesions. Psychiatric: Coperative. Nonsuicidal Musculoskeletal: No joint swelling or deformity. Normal range of motion. Tenderness over lower back area. Results CBC & Chem 7: 11/21/19 16:52 11/21/19 16:52 Thrombosis Risk Factor Assmnt - DVT/VTE Prophylaxis DVT/VTE Prophylaxis: Pharmacologic Prophylaxis ordered - Choose All That Apply Other Risk Factors: Yes Each Risk Factor Represents 2 Points: Age 61-74 years Thrombosis Risk Factor Assessment Total Risk Factor Score: 2 Thrombosis Risk Factor Assessment Level: Low Risk Assessment and Plan Assessment: Intractable lower back pain History of lumbar spinal surgery about 2 years ago Chronic lower left extremity neuropathy Hypertension Hyperlipidemia Urinary frequency Anxiety/depression/bipolar disorder DVT prophylaxis with heparin subcu Plan: Patient be continued on pain management with [place] and Toradol and Flexeril will be added. Continue the home blood pressure medications as tolerated. Pain management and bowel regimen. Orthopedic surgery was consulted. Further recommendations based on the clinical course. Time with Patient: Greater than 30
[2019-11-21] MEDS: KETOROLAC 30 MG/ML 1 ML VIAL IVP SCH (23:57)
[2019-11-22] MEDS: KETOROLAC 30 MG/ML 1 ML VIAL IVP SCH ×4 (05:05→23:34)
[2019-11-22] MEDS: SODIUM CHLORIDE 0.9% 1,000 ML IV SCH ×2 (05:05→20:30)
[2019-11-22] MEDS: OXYBUTYNIN 10 MG TAB.ER.24 PO SCH (07:40)
[2019-11-22] MEDS: DOCUSATE 100 MG CAP PO SCH ×2 (07:40→20:31)
[2019-11-22] MEDS: FAMOTIDINE 20 MG TAB PO SCH ×2 (07:40→20:30)
[2019-11-22] MEDS: HEPARIN SODIUM,PORCINE 5,000 UNIT/ML 1 ML VIAL SQ SCH ×2 (07:40→20:30)
[2019-11-22] MEDS: HYDROcodone/APAP 5-325MG 1 EACH TAB PO PRN (07:41)
[2019-11-22] MEDS ORDERED: GABAPENTIN 300 MG CAP PO SCH (09:00)
[2019-11-22] MEDS ORDERED: HEPARIN SODIUM,PORCINE 5,000 UNIT/ML 1 ML VIAL SQ SCH (09:00)
--- NOTE | 2019-11-22 12:16 | P.PAINCN ---
History of Present Illness - Reason for Consult Consult date: 11/22/19 - History of Present Illness This is a 64-year-old patient referred by Dr. Deonte Echeverria with a chief complaint of chronic pain in low back with radiation to and left lower extremity in the distribution of posterior thigh and up to mid calf. Of note, the patient has been suffering from chronic low back pain for several years, she underwent lumbar spinal fusion surgery in 2009 and repeat surgery in 2017. She was following with the pain clinic in [place], [place] where she underwent a series of injections which did not help her pain. She does not want to pursue further interventional pain management at this point. She reports that in the past she has been on narcotics, however has weaned herself off it over the last year. She no longer follows with the pain clinic in [place], [place]. Her pain has been well managed for approximately one year, and she reports that approximately 10 days ago, she had acute worsening of her low back pain radiating to left lower extremity, this brought her into the emergency room where she was given Toradol and a muscle relaxant, and discharge with a 3 day supply of Tylenol 3 and Flexeril. She followed up with her primary care doctor, Dr. Bacon on 0, and due to severe pain, was sent to the hospital for admission. She currently rates her pain as 6-8/10, prior to hospital admission her pain was 10/10. Pain is worse with any activity, better with heat, sit spats, medications. Her current pain medications include Toradol, gabapentin, Flexeril. She was recently switched from [place] to Tylenol 3 as she had side effects from [place] in the form of vomiting. Patient denies any other adverse drug effects from medications. Patient also denies new-onset weakness, numbness/tingling bowel/bladder incontinence, or any other signs or symptoms of cauda equina syndrome. There are no signs of acute intoxication, and no indications of medication diversion or overuse. In addition to above, 13-point review of systems is also negative for chest pain, shortness of breath, changes in vision, changes in hearing, new onset weakness, abdominal pain, diarrhea, extreme fatigue, malaise, fever, skin changes, homicidal or suicidal ideation, or bowel or bladder incontinence. She does endorse constipation. Past Medical History Past Medical History: Hyperlipidemia, Hypertension Additional Past Medical History / Comment(s): chronic back pain with neuropathy, urinary frequency History of Any Multi-Drug Resistant Organisms: None Reported Past Surgical History: Back Surgery, Cholecystectomy, Hysterectomy, Tonsillectomy Additional Past Surgical History / Comment(s): gastric bypass, rotator cuff on the right, sinus surgery Past Anesthesia/Blood Transfusion Reactions: No Reported Reaction Past Psychological History: Anxiety, Bipolar, Depression Smoking Status: Never smoker Past Alcohol Use History: None Reported Past Drug Use History: None Reported - Past Family History Father Additional Family Medical History / Comment(s): from myocardial infarction at age 46 Mother Additional Family Medical History / Comment(s): Bay's palsy Medications and Allergies Home Medications Medication Instructions Recorded Confirmed Type Hydrochlorothiazide [Hydrodiuril] 25 mg PO DAILY 09/04/19 11/21/19 History Loratadine [Claritin] 10 mg PO DAILY 09/04/19 11/21/19 History Tolterodine Tartrate [Detrol] 2 mg PO BID 09/04/19 11/21/19 History traZODone HCL 150 mg PO HS 09/04/19 11/21/19 History Aspirin EC [Ecotrin] 325 mg PO DAILY 11/21/19 11/21/19 History Atorvastatin [Lipitor] 40 mg PO HS 11/21/19 11/21/19 History Ferrous Sulfate [Feosol] 325 mg PO BID 11/21/19 11/21/19 History Gabapentin [Neurontin] 300 mg PO BID 11/21/19 11/21/19 History Allergies Allergy/AdvReac Type Severity Reaction Status Date / Time oxycodone [From Percocet] AdvReac Nausea & Verified 11/21/19 18:06 Vomiting Sulfa (Sulfonamide AdvReac Nausea & Verified 11/21/19 18:06 Antibiotics) Vomiting tape Allergy Rash/Hives Uncoded 11/12/19 14:59 Physical Exam Vitals: Vital Signs Temp Pulse Resp BP Pulse Ox 11/22/19 08:20 67 12 11/22/19 08:00 97.8 F 57 L 16 117/63 98 11/22/19 01:50 98.4 F 67 109/67 96 11/21/19 21:53 98.1 F 59 L 131/84 95 11/21/19 16:00 65 12 11/21/19 15:53 98 F 65 12 132/78 99 Intake and Output 11/21/19 11/22/19 11/22/19 22:59 06:59 14:59 Intake Total 566 Balance 566 Intake: Oral 566 Other: Voiding Method Toilet Toilet # Voids 1 1 Weight 68.5 kg Physical exam: GENERAL: Well appearing, in no acute distress, laying comfortably in bed PSYCH: Mood and affect is appropriate. Awake, alert, and oriented SKIN: Skin color, texture, turgor normal, no rashes or lesions HEENT: Normocephalic, atraumatic. EOM intact CV: No pedal edema RESP: Respirations are unlabored, no audible wheezing GI: Abdomen non-distended MUSCULOSKELETAL: Bilateral lower extremity strength is normal and symmetric. No atrophy or tone abnormalities are noted. Lumbar spine: Lumbar spine scar well-healed. Tenderness to palpation over the lumbar spine and paraspinous muscles bilaterally. Buttocks: Tenderness to palpation over the left PSIS, Shayna test is than on the left Extremities: Peripheral joint ROM is full and pain free without obvious instability or laxity in all four extremities. No edema or skin discolorations noted. NEUR: No loss of sensation is noted. Cranial nerves are grossly intact. Results Results: Imaging: Lumbar spine CT done at [facility] on 11/21/2019 shows multilevel posterior fusion surgery from L1 to L4. No acute bony abnormality. Mild anterior wedging of L1 is cold. 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 Chronic pain syndrome Plan: Plan: 1. Explanation: Diagnoses, prognoses, and multiple treatment options including but not limited to interventional therapies and medication management were discussed with the patient and all questions were answered to the patient's satisfaction. 2. Investigations: CT spine reviewed 3. Counseling: I showed the patient some SI joint exercises and advised her to do these daily. 4. Procedures: I offered the patient a caudal epidural steroid injection, however given that she has had no benefit from it in the past, she would not like to proceed with this. I also offered a left SI joint injection, which the patient is amenable to, if she gets no relief from medication management. I asked her to obtain a referral to pain clinic from her primary care physician for this. 5. Consultations: None 6. Medications: Patient states that pain has improved since hospital admission and is continuing to improve. Would increase gabapentin to 300 mg 3 times a day, would schedule Tylenol 650 mg every 8 hours (which would keep total dose under 3 g per day), recommend adding lidocaine patches 5% daily, would also increase Flexeril from 5 mg to 5-10 mg 3 times a day when necessary. Agree with current Tylenol #3 for acute pain. Thank you for allowing us to participate in the care of this patient. Please call us with questions. Time with Patient: Less than 30 PQRS Measure Charge Sheet PQRS Narrative: Smoking Status Never smoker Do You Want the Pneumonia Vaccine Up to Date Vaccine AT THIS TIME? Blood Pressure [Right Arm] 117/63 Pain Intensity [Lower Back] 9 Pain Intensity 4 Pain Scale Used Numeric (1 - 10) Scale Used Numeric (1 - 10) Home Medications: Ambulatory Orders Hydrochlorothiazide [Hydrodiuril] 25 mg PO DAILY 09/04/19 Loratadine [Claritin] 10 mg PO DAILY 09/04/19 Tolterodine Tartrate [Detrol] 2 mg PO BID 09/04/19 traZODone HCL 150 mg PO HS 09/04/19 Aspirin EC [Ecotrin] 325 mg PO DAILY 11/21/19 Atorvastatin [Lipitor] 40 mg PO HS 11/21/19 Ferrous Sulfate [Feosol] 325 mg PO BID 11/21/19 Gabapentin [Neurontin] 300 mg PO BID 11/21/19
[2019-11-22] MEDS: CYCLOBENZAPRINE 10 MG TAB PO PRN ×2 (13:32→20:31)
[2019-11-22] MEDS: ACETAMINOPHEN TAB 325 MG TAB PO SCH ×2 (13:32→23:35)
[2019-11-22] MEDS: GABAPENTIN 300 MG CAP PO SCH ×2 (13:32→20:30)
[2019-11-22] MEDS: Acetaminophen-Codeine 300-30mg TAB PO PRN ×2 (13:33→20:30)
[2019-11-22] MEDS: LIDOCAINE 5% PATCH TOPICAL SCH (13:34)
--- NOTE | 2019-11-22 15:34 | P.PN ---
Subjective Progress Note Date: 11/22/19 Principal diagnosis: Patient is a 62-year-old female with a known history of hypertension, chronic back pain with neuropathy, urinary frequency, hyperlipidemia and anxiety/depression/bipolar disorder was sent to Hospital as a direct admit from Dr. Danial Moon's office due to intractable lower back pain. 05/09 in severity. Patient has been having worsening back pain for the past 1 week. Patient was supposed to follow with Dr. Monge as an outpatient. Patient did have a history of back surgery about 2 years ago. Patient does complain of left lower aspect of the tingling sensation intermittently. Denied any leg weakness. No bladder or bowel incontinence. Denied any saddle anesthesia. Otherwise patient denied any complaints of chest pain or shortness breath. No nausea vomiting or abdominal pain. No diarrhea or dysuria. No fever no chills. Patient says that her previous x-ray showed loose and screws over her back surgery. Patient was on Medrol Dosepak about a week ago. CT of the lumbar spine was ordered. 11/22/2019 Patient is lying in bed and appears to be in no acute distress. Patient was started on Bullard and Toradol and became extremely nauseated and vomited and pain medications were transition to Tylenol 3 and Flexeril and will continue at this time. Orthopedics evaluated the patient recommending no surgical interventions at this time. Pain management was consulted. Patient is also refusing epidural injections she has had them in the past and they would only help for the day and then her pain came right back. Patient will be following with Dr. Marc pain management in the outpatient setting upon discharge. Currently patient denies any chest pain, shortness of breath, or palpitations. Patient is afebrile. Patient denies any nausea or vomiting and is tolerating diet. Computed tomography scan of the lumbar spine was done showing multilevel and posterior fusion surgery with no acute bony abnormality and mild anterior wedging of lumba r 1 that is old. Objective - Vital Signs Vital signs: Vital Signs Temp 98 F 11/22/19 14:21 Pulse 64 11/22/19 14:21 Resp 16 11/22/19 14:21 BP 108/72 11/22/19 14:21 Pulse Ox 96 11/22/19 14:21 Intake & Output 11/21/19 11/22/19 11/22/19 18:59 06:59 18:59 Intake Total 1262 Balance 1262 Weight 68.5 kg Intake: Oral 1262 Other: Voiding Method Toilet Toilet Toilet # Voids 1 1 - Exam Patient is lying in the bed comfortably, no acute distress, awake alert and oriented.. HEENT: Normocephalic. Neck is supple. Pupils reactive. Nostrils clear. Oral cavity is moist. Ears reveal no drainage. Neck reveals no JVD, carotid bruits, or thyromegaly. CHEST EXAMINATION: Trachea is central. Symmetrical expansion. Bibasilar diminished air entry. Lung malik clear to auscultation and percussion. CARDIAC: Normal S1, S2 with no gallops. No murmurs ABDOMEN: Soft. Bowel sounds normal. No organomegaly. No abdominal bruits. Extremities: reveal no edema. No clubbing or cyanosis Neurologically awake, alert, oriented x3 with well-coordinated movements. No focal deficits noted Skin: No rash or skin lesions. Psychiatric: Cooperative. Non-suicidal Musculoskeletal: No joint swelling or deformity. Normal range of motion. Tenderness over lower back area that radiates down the left side of the buttock and thigh. - Labs CBC & Chem 7: 11/21/19 16:52 11/21/19 16:52 Labs: Abnormal Lab Results - Last 24 Hours (Table) 11/21/19 11/21/19 Range/Units 16:52 16:52 RDW 18.9 H (11.5-15.5) % Sodium 135 L (137-145) mmol/L Carbon Dioxide 31 H (22-30) mmol/L BUN 19 H (7-17) mg/dL Assessment and Plan Assessment: Intractable lower back pain History of lumbar spinal surgery about 2 years ago Chronic lower left extremity neuropathy Hypertension Hyperlipidemia Urinary frequency Anxiety/depression/bipolar disorder DVT prophylaxis with heparin subq Plan: Patient be continued on pain management with Tylenol No. 3 and Flexeril will be added. Patient was given Bullard today and became extremely nauseated and vomited. Continue the home blood pressure medications as tolerated. Pain management and bowel regimen. Orthopedic surgery evaluated the patient recommending no surgical intervention at this time and a pain management consult was placed. Dr. Marc evaluated the patient and recommending outpatient follow-up for possible SI injection as patient is currently refusing epidural injections as they did not help her in the past. Further recommendations based on the clinical course. Will continue to monitor patient closely. Possible discharge in 24 hours. Time with Patient: Greater than 30
[2019-11-22] MEDS ORDERED: ATORVASTATIN 40 MG TAB PO SCH (21:00)
[2019-11-22] MEDS ORDERED: traZODone HCL 50 MG TAB PO SCH (21:00)
[2019-11-23] MEDS: KETOROLAC 30 MG/ML 1 ML VIAL IVP SCH ×2 (01:14→12:11)
[2019-11-23 08:13] VITALS: BP 106/52; PULSE 79; RESP 17; TEMP 97.9
[2019-11-23] MEDS: OXYBUTYNIN 10 MG TAB.ER.24 PO SCH (08:50)
[2019-11-23] MEDS: Acetaminophen-Codeine 300-30mg TAB PO PRN (08:50)
[2019-11-23] MEDS: FAMOTIDINE 20 MG TAB PO SCH (08:50)
[2019-11-23] MEDS: HEPARIN SODIUM,PORCINE 5,000 UNIT/ML 1 ML VIAL SQ SCH (08:50)
[2019-11-23] MEDS: CYCLOBENZAPRINE 10 MG TAB PO PRN (08:50)
[2019-11-23] MEDS: GABAPENTIN 300 MG CAP PO SCH (08:51)
[2019-11-23] MEDS: ACETAMINOPHEN TAB 325 MG TAB PO SCH (08:51)
[2019-11-23] MEDS: DOCUSATE 100 MG CAP PO SCH (08:51)
[2019-11-23] MEDS: LIDOCAINE 5% PATCH TOPICAL SCH (12:11)
--- NOTE | 2019-11-23 16:13 | P.DS ---
Providers Date of admission: 11/21/19 15:17 Expected date of discharge: 11/23/19 Attending physician: Chito Sellers Consults: 11/21/19 16:43 Consult Physician Urgent Consulting Provider: Dennis Patterson Consult Reason/Comments: Lower back pain Do you want consulting provider notified?: Yes Placement Type Exists?: Yes [facility] Course: Final diagnosis Intractable lower back pain History of lumbar spinal surgery about 2 years ago Chronic lower left extremity neuropathy Hypertension Hyperlipidemia Urinary frequency Anxiety/depression/bipolar disorder DVT prophylaxis Discharge disposition Patient is being discharged in a stable condition with guarded prognosis to home and will follow-up with Dr. Rina Bernstein her primary care provider in the outpatient setting upon discharge. She will also be following up with Dr. Marc for pain management in the outpatient setting as well in one week. Total time taken is 35 minutes. History of present illness Patient is a 62-year-old female with a known history of hypertension, chronic back pain with neuropathy, urinary frequency, hyperlipidemia and anxiety/depression/bipolar disorder was sent to Hospital as a direct admit from Dr. Danial Moon's office due to intractable lower back pain. 05/09 in severity. Patient has been having worsening back pain for the past 1 week. Patient was supposed to follow with Dr. Monge as an outpatient. Patient did have a history of back surgery about 2 years ago. Patient does complain of left lower aspect of the tingling sensation intermittently. Denied any leg weakness. No bladder or bowel incontinence. Denied any saddle anesthesia. Otherwise patient denied any complaints of chest pain or shortness breath. No nausea vomiting or abdominal pain. No diarrhea or dysuria. No fever no chills. Patient says that her previous x-ray showed loose and screws over her back surgery. Patient was on Medrol Dosepak about a week ago. 11/22/2019 Patient is lying in bed and appears to be in no acute distress. Patient was started on Morrill and Toradol and became extremely nauseated and vomited and pain medications were transition to Tylenol 3 and Flexeril and will continue at this time. Orthopedics evaluated the patient recommending no surgical interventions at this time. Pain management was consulted. Patient is also refusing epidural injections she has had them in the past and they would only help for the day and then her pain came right back. Patient will be following with Dr. Marc pain management in the outpatient setting upon discharge. Currently patient denies any chest pain, shortness of breath, or palpitations. Patient is afebrile. Patient denies any nausea or vomiting and is tolerating diet. Computed tomography scan of the lumbar spine was done showing multilevel and posterior fusion surgery with no acute bony abnormality and mild anterior wedging of lumbar 1 that is old. 11/23/2019 Patient is currently lying in bed and appears to be in no acute distress. Patient states that her pain is being much more manageable and she has been up and walking with no difficulties. Patient will follow-up with her primary care provider in the outpatient setting upon discharge. She will also follow-up with Dr. Marc in the outpatient setting for possible SI injections in for continued pain management. Patient will continue with Tylenol and Motrin alternating in the outpatient setting along with Flexeril and lidocaine patches. Dr. Marc suggested increasing Neurontin to 300 mg 3 times daily but patient states that s he develops a headache with a 300 mg 3 times daily and will continue her normal regimen of twice daily. Patient states that the Flexeril and Tylenol or helping. Prescription for Tylenol No. 3 was given for a few days upon discharge. Discussed with the patient at length about only using those for severe pain and should continue alternating regular Tylenol with Motrin to better manage her chronic pain. Patient verbalizes understanding and agrees with this treatment plan. Currently patient denies any chest pain, shortness of breath, or palpitations. Patient is afebrile. Patient denies any nausea or vomiting and has been tolerating diet. On exam vital signs are stable. Temp is 97.9F, pulse is 79, respirations are 17, blood pressure is 106/52, oxygen saturation is 94% on room air. Cardio S1, S2 are present. Respiratory system shows clear to auscultation. Abdomen is soft and nontender. Nervous system shows no focal deficits. Please refer to medication reconciliation sheet for a list of medications. Patient Condition at Discharge: Stable Plan - Discharge Summary Discharge Rx Participant: Yes New Discharge Prescriptions: New Cyclobenzaprine [Flexeril] 10 mg PO TID PRN #30 tab PRN Reason: Muscle Spasm Lidocaine 5% Patch [Lidoderm 5% Patch] 1 patch TOPICAL DAILY@1200 #12 patch Acetaminophen Tab [Tylenol] 650 mg PO Q8HR tab Acetaminophen-Codeine 300-30mg [Tylenol w/codeine #3] 1 each PO Q6HR PRN #12 tab PRN Reason: Pain Continue Tolterodine Tartrate [Detrol] 2 mg PO BID Hydrochlorothiazide [Hydrodiuril] 25 mg PO DAILY traZODone HCL 150 mg PO HS Loratadine [Claritin] 10 mg PO DAILY Atorvastatin [Lipitor] 40 mg PO HS Gabapentin [Neurontin] 300 mg PO BID Aspirin EC [Ecotrin] 325 mg PO DAILY Ferrous Sulfate [Iron (65 MG Elemental)] 325 mg PO BID #0 Discharge Medication List Hydrochlorothiazide [Hydrodiuril] 25 mg PO DAILY 09/04/19 [History] Loratadine [Claritin] 10 mg PO DAILY 09/04/19 [History] Tolterodine Tartrate [Detrol] 2 mg PO BID 09/04/19 [History] traZODone HCL 150 mg PO HS 09/04/19 [History] Aspirin EC [Ecotrin] 325 mg PO DAILY 11/21/19 [History] Atorvastatin [Lipitor] 40 mg PO HS 11/21/19 [History] Gabapentin [Neurontin] 300 mg PO BID 11/21/19 [History] Acetaminophen Tab [Tylenol] 650 mg PO Q8HR tab 11/23/19 [Rx] Acetaminophen-Codeine 300-30mg [Tylenol w/codeine #3] 1 each PO Q6HR PRN #12 tab 11/23/19 [Rx] Cyclobenzaprine [Flexeril] 10 mg PO TID PRN #30 tab 11/23/19 [Rx] Ferrous Sulfate [Iron (65 MG Elemental)] 325 mg PO BID #0 11/23/19 [Rx] Lidocaine 5% Patch [Lidoderm 5% Patch] 1 patch TOPICAL DAILY@1200 #12 patch 11/23/19 [Rx] Follow up Appointment(s)/Referral(s): Sheeba Marc MD [STAFF PHYSICIAN] - 1 Week (Clinic is closed Tuesday Please call pain clinic Tuesday to make your appointment.) Shana Bernstein MD [Primary Care Provider] - 11/30/19 11:15 am Patient Instructions/Handouts: Back Pain (ED) Activity/Diet/Wound Care/Special Instructions: Activity Limited until follow-up Follow-up with primary care provider upon discharge Follow-up with Dr. Marc in the outpatient setting in 1 week Continue current diet Discharge Disposition: HOME SELF-CARE
== END 2019-11-23 15:05 | disposition home or self-care (01) ==
LOC: INTOOBSV 15:17 → 4SSUR 15:17 → UNDODISIN 11-23 15:05
PROVIDERS: ADMIT Internal Medicine; ATTEND Internal Medicine
DX: M96.1 Postlaminectomy syndrome, not elsewhere classified (principal); G89.4 Chronic pain syndrome; M53.3 Sacrococcygeal disorders, not elsewhere classified; M54.5 Low back pain; G62.89 Other specified polyneuropathies; I10 Essential (primary) hypertension; E78.5 Hyperlipidemia, unspecified; R35.0 Frequency of micturition; F41.9 Anxiety disorder, unspecified; F31.9 Bipolar disorder, unspecified; R20.2 Paresthesia of skin; M48.56XA Collapsed vertebra, not elsewhere classified, lumbar region, initial encounter for fracture; Z98.1 Arthrodesis status; Z79.01 Long term (current) use of anticoagulants; Z90.710 Acquired absence of both cervix and uterus; Z90.49 Acquired absence of other specified parts of digestive tract; Z98.890 Other specified postprocedural states; Z90.89 Acquired absence of other organs; Z98.84 Bariatric surgery status; Z79.82 Long term (current) use of aspirin; Z79.899 Other long term (current) drug therapy; Z88.5 Allergy status to narcotic agent; Z88.2 Allergy status to sulfonamides; Z91.09 Other allergy status, other than to drugs and biological substances; Z82.49 Family history of ischemic heart disease and other diseases of the circulatory system; Z82.0 Family history of epilepsy and other diseases of the nervous system
CPT/HCPCS: 96376 ×2; 96372 ×3; 96374; 80048; 85025; 72132; G0378 ×3; G0379; J1644 ×3; J1885 ×3; Q9967

== ENCOUNTER → 2020-01-09 | Outpatient (CLI) | payer MEDICARE ==
[2020-01-09 14:58] VITALS: BP 113/79; PULSE 90; RESP 18
--- NOTE | 2020-01-09 15:15 | P.PAINPG ---
Subjective Progress Note Date: 01/09/20 This is a follow-up visit for this 64 years old female, who was seen as a consultation in 11/22/2019, because of back pain , she is the lowest with failed back surgery syndrome and lumbar area, and sacroiliac joint dysfunction and chronic pain syndrome, patient continued to have severe low back pain and she had lumbar fusion surgery done in 2008 and another one done in 2016, currently most of her pain is localized in the low back area with radiation to the buttock bilaterally but it's more prominent on the left side, she is able to ambulate on her own, she denies any fever or night sweats she denies any motor or sensory deficit, she denies any change in the bowel movement or urination Objective - Vital Signs Vital signs: Vital Signs Temp Pulse 90 01/09/20 14:56 Resp 18 01/09/20 14:56 BP 113/79 01/09/20 14:56 Pulse Ox 95 01/09/20 14:56 - Exam Physical Examinations : -Constitutiona : Cooperative , not in acute distress . -HEENT : nech : supple , no Lymphadenopathy , normal thyroid size . : eyes : no ptosis , no icterus, no photophobia . - neurologic : Cranial nerve II to XII intact , no focal neurological deffecit . -psychatric : alert , oriented X 3 , appropriate affect , intact judgment and insight . -Lymphatic : no Lymphadenopathy . - musculoskeltal : Lumber spine moter stegnth lower extremities ,thigh and legs 5/5 Right side , 5/5 Left side deep tendon reflexes : normal Knee Jerk , normal ankle Jerk lumber facet Loading Test =positive Right , positive Left Range of motion of the lumbar spine Flexion 30 degrees, extension 10 degrees strait leg raising test = positive at 30 degree Fabere test= positive Right , and positive LT . Sever tenderness over the Sacroiliac joint on the Right , and Left sides Gaenslen test= positive right ,and positive left . Seated flexion test= positive right ,and positive Left . Assessment and Plan Plan: Assessment and plan=1-failed back surgery syndrome and lumbar area 2-bilateral sacroiliitis. 3-bilateral sacroiliac joint dysfunction. 4-chronic pain syndrome. Patient could benefit from bilateral sacroiliac joint steroid injection Time with Patient: Less than 30 PQRS Measure Charge Sheet Measure #130: Documentation of Current Meds in Medical Chart: Patient's medications documented in chart Measure #226: Tobacco Use: Screen & Cessation Intervention: Pt not a tobacco user Measure #111: Pneumonia Vaccination: Pneumococcal vaccine NOT administered or previously given Measure #47: Advance Care Plan: Advance care planning discussed & documented, pt chose/unable to give Measure #412: Opioid Treatment Agreement: No documentation of signed opioid treatment agreement Measure #408: Opioid Therapy Follow-up Evaluation: Patient had NO f/u eval minimum every 3 months during opioid therapy Measure #317: Preventitive Care & Scrn High Bld Press & F/U: Normal blood pressure, f/u not required Measure #128: Body Mass Index (BMI) Screening & Follow-up: BMI documented ABOVE normal parameters - f/u documented Measure #131: Pain Assessment & Follow-up: Pain positive & plan documented, Follow-up scheduled Measure #431: Unhealthy Alcohol Use Preventative Care & Scrn: Patient not identified as an unhealthy alcohol user PQRS Narrative: Smoking Status Never smoker Blood Pressure 113/79 Pain Intensity [Back] 6 Scale Used Numeric (1 - 10) Hx Alcohol Use (MH) No Home Medications: Ambulatory Orders Hydrochlorothiazide [Hydrodiuril] 25 mg PO DAILY 09/04/19 Loratadine [Claritin] 10 mg PO DAILY 09/04/19 Tolterodine Tartrate [Detrol] 2 mg PO BID 09/04/19 Aspirin EC [Ecotrin] 325 mg PO DAILY 11/21/19 Atorvastatin [Lipitor] 40 mg PO HS 11/21/19 Gabapentin [Neurontin] 300 mg PO BID 11/21/19 Ferrous Sulfate [Iron (65 MG Elemental)] 325 mg PO BID #0 11/23/19 Zolpidem [Ambien] 10 mg PO HS 12/27/19 Controlled Substance Measures - Controlled Substance Measures Is patient prescribed a controlled substance at discharge?: No
== END | disposition home or self-care (01) ==
LOC: PNWHC3 12:40
PROVIDERS: ATTEND Specialist
DX: M96.1 Postlaminectomy syndrome, not elsewhere classified (principal); M46.1 Sacroiliitis, not elsewhere classified; G89.4 Chronic pain syndrome; Z98.1 Arthrodesis status; Z79.82 Long term (current) use of aspirin; Z79.899 Other long term (current) drug therapy
CPT/HCPCS: 99211

== ENCOUNTER 2020-01-16 12:06 | Day surgery (SDC) | payer MEDICARE ==
[2020-01-16] MEDS ORDERED: ALPRAZolam 0.5 MG TAB PO ONE (12:24)
[2020-01-16 12:26] VITALS: RESP 16; TEMP 97.7
[2020-01-16 14:06] VITALS: BP 125/70; PULSE 71
--- NOTE | 2020-01-16 16:36 | US ---
EXAMINATION TYPE: US FNA thyroid first lesion DATE OF EXAM: 01/16/2020 COMPARISON: Thyroid ultrasound dated 11/14/2019 HISTORY: Thyroid nodule right lobe thyroid. Maximal barrier technique was utilized. After informed consent, skin overlying the lesion was locali zed with ultrasound and the overlying skin prepped and draped. Ultrasound was utilized using sterile technique. Lidocaine was used for local anesthesia. Four passes with a 25-gauge needle were made int o the nodule and aspirated specimen was submitted to cytology. Following the procedure hemostasis ac hieved. No immediate complication. The patient discharged in stable condition. IMPRESSION: STATUS POST ULTRASOUND GUIDED FINE NEEDLE ASPIRATION OF CYSTIC DOMINANT RIGHT-SIDED THYRO ID NODULE, PATHOLOGY IS PENDING. Findings likely represent colloid nodule. THIS PROCEDURE WAS PERFORM ED BY THE UNDERSIGNED.
== END 2020-01-16 14:10 | disposition home or self-care (01) ==
LOC: RADPROMAIN 12:06
PROVIDERS: ATTEND Internal Medicine Endocrinology, Diabetes & Metabolism
DX: E04.1 Nontoxic single thyroid nodule (principal)
CPT/HCPCS: 10005; 88173; 88305

== ENCOUNTER → 2020-03-25 | Day surgery (SDC) | payer MEDICARE ==
[2020-03-20 15:50] VITALS: BMI 26.5
[~2020-03-25] MED LIST: BUPIVACAINE (PF) 0.5% 30 ML VIAL ONE; IOPAMIDOL M200 10 ML VIAL ONE; LACTATED RINGERS 1,000 ML IV SCH; LIDOCAINE 1% (10MG/ML) FOR IV START INTRADERMA ONE; MIDAZOLAM 2 MG/2 ML VIAL ONE; TRIAMCINOLONE ACETONIDE 40 MG/ML 1 ML VIAL ONE; fentaNYL (PF) 50 MCG/ML 2 ML AMP ONE
[2020-03-25 11:10] VITALS: TEMP 97.8
--- NOTE | 2020-03-25 12:25 | P.PCN ---
Date of Procedure: 03/25/20 Procedure(s) Performed: Preoperative diagnoses: bilateral sacroilitis Postoperative diagnoses: bilateral sacroilitis. Procedure: bilateral sacroiliac joint steroid injection under fluoroscopic guidance. Surgeon: Sheeba Marc MD Anesthesia: [2 mL of 1% lidocaine and moderate sedation with Versed and fentanyl, sedation time 9 minutes Fluoroscopy was used for the procedure and fluoroscopic images were saved to the radiology portion of the patient's chart. EBL: None Procedure indication: The patient had a history of severe chronic low back pain, diagnosed with sacroiliitis unresponsive to conservative treatment. Procedure description: The patient was seen and identified in the preoperative holding area, risks and benefits and alternative of the procedure and possible complications discussed with the patient, and patient agreed with the preceding, patient signed the consent, an IV was started, and vital signs were monitored and were stable throughout the procedure, patient was placed in the prone position on table and the lumbosacral area was prepped and draped with a sterile fashion, vital signs were closely monitored during the procedure, the fluoroscopy camera was placed in the contralateral oblique view on the bilateral sacroiliac joint and the lower part of the joint was identified . Then the skin and subcutaneous tissue was anesthetized using 2 mL of 1% lidocaine then a 22- gauge Quincke-type spinal needle advanced slowly under fluoroscopy and placed in the posterior and inferior border of the right sacroiliac joint, placement confirmed with AP and lateral view, and after appropriate needle placement confirmed and after negative aspiration for heme, 1 mL of Isovue 200 was injected revealing intra-articular spread. Then a solution consisting of 2 ml of ropivacaine 0.5% and 20 mg of Kenalog injected after negative aspiration, no paresthesia during the injection, no resistance to injection, and the needle was removed. The procedure was then repeated on the left side. Total of 40 mg of Kenalog was used for the procedure. Patient tolerated the procedure well without any complication. The patient was returned to supine position after the back was cleaned and a Band-Aid applied, the patient was transported to recovery room in stable condition and monitored for 30 minutes before being discharged home. The patient will follow up with the pain clinic in a few weeks
[2020-03-25 12:32] VITALS: RESP 17
[2020-03-25 12:37] VITALS: BP 117/69; PULSE 77
--- NOTE | 2020-03-25 12:41 | FL ---
EXAMINATION TYPE: FL guided pain mgmt statistic DATE OF EXAM: 03/25/2020 HISTORY: Fluoroscopy time 5 seconds of fluoroscopy provided. IMPRESSION: 1. Fluoroscopy time.
== END ==
LOC: ORPAIN 09:17
PROVIDERS: ATTEND Anesthesiology
DX: G89.29 Other chronic pain (principal); M46.1 Sacroiliitis, not elsewhere classified; Z88.2 Allergy status to sulfonamides; Z11.59 Encounter for screening for other viral diseases
CPT/HCPCS: 87635; J2250; J3301; J3010; Q9966; G0260

== ENCOUNTER 2020-04-10 20:52 | Emergency (ER) | payer MEDICARE ==
[2020-04-10 20:59] VITALS: RESP 18
[2020-04-10] MEDS ORDERED: PROPARACAINE 0.5% OPHTH DROPS 15 ML BTL RIGHT EYE STA (21:18)
--- NOTE | 2020-04-10 22:21 | ED ---
General Adult HPI - General Chief complaint: ENT Stated complaint: Rt eye pain Time Seen by Provider: 04/10/20 21:01 Source: patient, family Mode of arrival: ambulatory Limitations: no limitations - History of Present Illness Initial comments: Patient is a 65-year-old female presenting to the emergency Department with complaints of a sudden onset right thigh pain that started approximately an hour ago. Patient states she had cataract surgery on her right eye on April [address] Aldridge. She has been recovering well and has had no complaints since the surgery until this evening. Patient states she was eating, watching [employer] when she had a sudden onset of right eye pain. Patient states it feels like it's deep, behind her eye. Lights make her eye pain significantly worse. She denies any trauma to her eye. She has been using her eyedrops as prescribed. She did have a follow-up with complications one day after the surgery. She denies any recent fever, chills, dizziness. She has no further complaints at this time. - Related Data Home Medications Medication Instructions Recorded Confirmed Hydrochlorothiazide [Hydrodiuril] 25 mg PO DAILY 09/04/19 03/25/20 Loratadine [Claritin] 10 mg PO DAILY 09/04/19 03/25/20 Tolterodine Tartrate [Detrol] 2 mg PO BID 09/04/19 03/25/20 Aspirin EC [Ecotrin] 325 mg PO DAILY 11/21/19 03/25/20 Gabapentin [Neurontin] 300 mg PO TID 11/21/19 03/25/20 Zolpidem [Ambien] 10 mg PO HS 12/27/19 03/25/20 Omeprazole 20 mg PO DAILY 01/14/20 03/25/20 Atorvastatin [Lipitor] 40 mg PO HS 03/20/20 03/25/20 Fluticasone Nasal [place] [Flonase 1 spray EA NOSTRIL HS 03/20/20 03/25/20 Nasal [place]] Lurasidone [Latuda] 20 mg PO W/SUPPER 03/20/20 03/25/20 clonazePAM [KlonoPIN] 0.75 mg PO DAILY 03/20/20 03/25/20 traZODone HCL 100 mg PO HS 03/20/20 03/25/20 Previous Rx's Medication Instructions Recorded Ferrous Sulfate [Iron (65 MG 325 mg PO BID #0 11/23/19 Elemental)] Allergies Allergy/AdvReac Type Severity Reaction Status Date / Time cyclobenzaprine Allergy Nausea & Verified 03/25/20 11:01 [From Flexeril] Vomiting oxycodone [From Percocet] AdvReac Nausea & Verified 03/25/20 11:01 Vomiting Sulfa (Sulfonamide AdvReac Nausea & Verified 03/25/20 11:01 Antibiotics) Vomiting tape Allergy Rash/Hives Uncoded 03/25/20 11:01 Review of Systems ROS Statement: Those systems with pertinent positive or pertinent negative responses have been documented in the HPI. ROS Other: All systems not noted in ROS Statement are negative. Past Medical History Past Medical History: CVA/TIA, GERD/Reflux, Hyperlipidemia, Osteoarthritis (OA) Additional Past Medical History / Comment(s): CVA 08/2019 states no residual effects, occasional general edema , chronic back pain with neuropathy, urinary frequency History of Any Multi-Drug Resistant Organisms: None Reported Past Surgical History: Back Surgery, Bariatric Surgery, Cholecystectomy, Heart Catheterization, Hysterectomy, Orthopedic Surgery, Tonsillectomy Additional Past Surgical History / Comment(s): spinal fusion 2008, repeat 2017- states screws and rods, gastric bypass, rotator cuff on the right shoulder, sinus surgery, states had anchors to tendons to peter ankles Past Anesthesia/Blood Transfusion Reactions: No Reported Reaction Past Psychological History: Anxiety, Bipolar, Depression, Panic Disorder Smoking Status: Never smoker Past Alcohol Use History: Occasional Past Drug Use History: Marijuana - Past Family History Father Additional Family Medical History / Comment(s): from myocardial infarction at age 46 Mother Additional Family Medical History / Comment(s): Bay's palsy General Exam - General Exam Comments Initial Comments: GENERAL: Well-appearing, well-nourished and in no acute distress. HEAD: Atraumatic, normocephalic. EYES: Pupils equal round and reactive to light, extraocular movements intact, sclera anicteric. Right eye is injected, very light sensitive. Ocular pressure is 15- 18. No foreign bodies present. Visual acuity is normal. ENT: TMs normal, nares patent, oropharynx clear without exudates. Moist mucous membranes. NECK: Normal range of motion, supple without lymphadenopathy or JVD. LUNGS: Breath sounds clear to auscultation bilaterally and equal. No wheezes rales or rhonchi. HEART: Regular rate and rhythm without murmurs, rubs or gallops. ABDOMEN: Soft, nontender, normoactive bowel sounds. No guarding, no rebound. No masses appreciated. : Deferred EXTREMITIES: Normal range of motion, no pitting or edema. No clubbing or cyanosis. NEUROLOGICAL: Normal speech, normal gait. PSYCH: Normal mood, normal affect. SKIN: Warm, Dry, normal turgor, no rashes or lesions noted. Limitations: no limitations Course Vital Signs 04/10/20 04/11/20 20:55 00:04 Temperature 99.4 F 98.7 F Pulse Rate 104 H 88 Respiratory 18 18 Rate Blood Pressure 136/88 142/80 O2 Sat by Pulse 93 L 100 Oximetry Medical Decision Making - Medical Decision Making Patient is 65-year-old female here with a sudden onset of acute right thigh pain. She did have right cataract surgery [address] Aldridge. He has been covering well until this evening. On exam, patient's right eye is injected, very light sensitive. I pressure is normal between 15-18. Pain did decrease some with proparacaine. We did attempt to contact Dr. Aldridge on several occasions and waited over an hour for response. Patient did not want to wait any longer as she did not think she would be able have a ride home. Patient states she is feeling some improvement and wishes to be discharged home. She will follow up with Dr. Aldridge's office in the morning. She is stable for discharge. Strict return parameters were discussed with the patient and she verbalized understanding. Case discussed with Dr. Cerda. Disposition Clinical Impression: Acute right eye pain Disposition: HOME SELF-CARE Condition: Stable Instructions (If sedation given, give patient instructions): Eye Pain (ED) Additional Instructions: Please return to the Emergency Department if symptoms worsen or any other concerns. Follow-up with Dr. Aldridge's office tomorrow morning as discussed. Is patient prescribed a controlled substance at d/c from ED?: No Referrals: Kana Horta III, MD [Primary Care Provider] - 1-2 days Silviano Aldridge MD [STAFF PHYSICIAN] - 1-2 days
[2020-04-11 00:05] VITALS: BP 142/80; PULSE 88; TEMP 98.7
== END 2020-04-11 00:05 | disposition home or self-care (01) ==
LOC: EC 20:52
DX: H57.11 Ocular pain, right eye (principal); K21.9 Gastro-esophageal reflux disease without esophagitis; F41.0 Panic disorder [episodic paroxysmal anxiety]; F31.9 Bipolar disorder, unspecified; Z79.51 Long term (current) use of inhaled steroids; Z79.899 Other long term (current) drug therapy; Z79.82 Long term (current) use of aspirin; Z88.2 Allergy status to sulfonamides; Z88.5 Allergy status to narcotic agent; Z88.8 Allergy status to other drugs, medicaments and biological substances; Z91.048 Other nonmedicinal substance allergy status; Z98.84 Bariatric surgery status; Z98.1 Arthrodesis status; Z86.73 Personal history of transient ischemic attack (TIA), and cerebral infarction without residual deficits
CPT/HCPCS: 99283

== ENCOUNTER → 2020-04-23 | Outpatient (CLI) | payer MEDICARE ==
[2020-04-23 10:42] VITALS: BP 130/89; PULSE 66; RESP 16
--- NOTE | 2020-04-23 10:50 | P.PAINPG ---
Subjective Progress Note Date: 04/23/20 This is a follow-up visit for this 65 years old female, with a history of severe and chronic low back pain , she is diagnosed with failed back surgery syndrome lumbar area, and sacroiliac joint dysfunction and chronic pain syndrome, patient continued to have severe low back pain , last months we did left-sided sacroiliac joint steroid injection and she had minimal benefit from, she continued to have severe axial low back pain, it is constant and increased with any activity, interfere with her quality of life, she is using cane for ambulation, she denies any motor or sensory deficit she denies any fever or night sweats, she continued to use pain medication on 1200 mg daily at bedtime Robaxin 750 every 8 hours and Neurontin 300 every 8 hours, medication prescribed by her primary care she denies any side effect of the medication. Objective - Vital Signs Vital signs: Vital Signs Temp Pulse 66 04/23/20 10:39 Resp 16 04/23/20 10:39 BP 130/89 04/23/20 10:39 Pulse Ox 98 04/23/20 10:39 - Exam Physical Examinations : -Constitutiona : Cooperative , not in acute distress . -HEENT : nech : supple , no Lymphadenopathy , normal thyroid size . : eyes : no ptosis , no icterus, no photophobia . - neurologic : Cranial nerve II to XII intact , no focal neurological deffecit . -psychatric : alert , oriented X 3 , appropriate affect , intact judgment and insight . -Lymphatic : no Lymphadenopathy . - musculoskeltal : Lumber spine moter stegnth lower extremities ,thigh and legs 5/5 Right side , 5/5 Left side deep tendon reflexes : normal Knee Jerk , normal ankle Jerk lumber facet Loading Test =positive Right , positive Left Range of motion of the lumbar spine Flexion 30 degrees, extension 10 degrees strait leg raising test = positive at 30 degree Fabere test= positive Right , and positive LT . tenderness over the Sacroiliac joint on the Left sides Assessment and Plan Plan: Assessment and plan= chronic low back pain secondary to failed back surgery syndrome and lumbar area, left sacroiliac joint dysfunction Patient denies any side effects of the current pain medication and the current treatment/medication helping the patient to do activity of daily living , Diagnoses, prognosis, treatment options, including but not limited to physical therapy, medication management, interventional therapies, and surgery, were discussed with the patient All the questions answered The narcotic consent was signed and patient agreed and understood the side effects and complications of opioid treatment. Patient signed the narcotic agreement, and was orally counseled, not to overuse, not to abuse, not to Divert , not tp sell pain medication, and to take it as prescribed only, Patient was counseled not to drive or operate heavy equipment while using narcotic medication, and advised not to use alcohol or any Illicit drugs while using the narcotis. understanding that lack of compliance with any of the above instructions, will likely to cause discharge from, the pain service, not to renew his narcotic prescriptions MAPS Reviwed and it was apropriate . Medication managements= patient is in prescription refill of her medication from her primary care(Ultram, Neurontin, Robaxin ) Interventions= patient could benefit from caudal epidural steroid injection with lysis of epidural adhesions under fluoroscopy guidance , Time with Patient: Less than 30 PQRS Measure Charge Sheet Measure #130: Documentation of Current Meds in Medical Chart: Patient's medications documented in chart Measure #226: Tobacco Use: Screen & Cessation Intervention: Pt not a tobacco user Measure #111: Pneumonia Vaccination: Pneumococcal vaccine administered or previously received Measure #47: Advance Care Plan: Advance care planning discussed & documented, pt chose/unable to give Measure #412: Opioid Treatment Agreement: No documentation of signed opioid treatment agreement Measure #408: Opioid Therapy Follow-up Evaluation: Patient had NO f/u eval minimum every 3 months during opioid therapy Measure #317: Preventitive Care & Scrn High Bld Press & F/U: Normal blood pressure, f/u not required Measure #128: Body Mass Index (BMI) Screening & Follow-up: BMI documented ABOVE normal parameters - f/u documented Measure #131: Pain Assessment & Follow-up: Pain positive & plan documented, Follow-up scheduled Measure #431: Unhealthy Alcohol Use Preventative Care & Scrn: Patient not identified as an unhealthy alcohol user PQRS Narrative: Smoking Status Never smoker Blood Pressure 130/89 Pain Intensity [Back] 7 Scale Used Numeric (1 - 10) Hx Alcohol Use (MH) No Home Medications: Ambulatory Orders Hydrochlorothiazide [Hydrodiuril] 25 mg PO DAILY 09/04/19 Loratadine [Claritin] 10 mg PO DAILY 09/04/19 Aspirin EC [Ecotrin] 325 mg PO DAILY 11/21/19 Gabapentin [Neurontin] 300 mg PO TID 11/21/19 Zolpidem [Ambien] 10 mg PO HS 12/27/19 Omeprazole 20 mg PO DAILY 01/14/20 Atorvastatin [Lipitor] 40 mg PO HS 03/20/20 Fluticasone Nasal [place] [Flonase Nasal [place]] 1 spray EA NOSTRIL HS 03/20/20 Lurasidone [Latuda] 40 mg PO W/SUPPER 03/20/20 traZODone HCL 100 mg PO HS 03/20/20 Calcium Carb/Vitamin D3/Vit K1 [Citracal Soft Chew] 1 each PO DAILY 04/17/20 Cyanocobalamin (Vitamin B-12) [Vitamin B-12] 5,000 mcg PO DAILY 04/17/20 Ferrous Fumarate/Ascorbic Acid [Reza-Sequels 65-25 mg Caplet] 1 each PO DAILY 04/17/20 Methocarbamol [Robaxin-750] 750 mg PO Q6H 04/17/20 Multivitamin [Multivitamins Adult Gummies] 1 each PO DAILY 04/17/20 Oxybutynin Chloride 5 mg PO BID 04/17/20 Pedi Multivit No.25/Folic Acid [Flintstones Multivit Chew Tab] 2 tab PO DAILY 04/17/20 Vitamin B Complex 1 each PO DAILY 04/17/20 Controlled Substance Measures - Controlled Substance Measures Is patient prescribed a controlled substance at discharge?: No
== END | disposition home or self-care (01) ==
LOC: PNWHC3 09:58
PROVIDERS: ATTEND Specialist
DX: G89.29 Other chronic pain (principal); M96.1 Postlaminectomy syndrome, not elsewhere classified; M53.3 Sacrococcygeal disorders, not elsewhere classified; Z79.82 Long term (current) use of aspirin; Z79.51 Long term (current) use of inhaled steroids; Z79.1 Long term (current) use of non-steroidal anti-inflammatories (NSAID); Z79.899 Other long term (current) drug therapy
CPT/HCPCS: 99211

== ENCOUNTER 2020-05-08 07:00 | Day surgery (SDC) | payer MEDICARE ==
[~2020-05-08 07:00] MED LIST changes: -BUPIVACAINE (PF) 0.5% 30 ML VIAL ONE; -IOPAMIDOL M200 10 ML VIAL ONE; -LIDOCAINE 1% (10MG/ML) FOR IV START INTRADERMA ONE; -MIDAZOLAM 2 MG/2 ML VIAL ONE; -TRIAMCINOLONE ACETONIDE 40 MG/ML 1 ML VIAL ONE; -fentaNYL (PF) 50 MCG/ML 2 ML AMP ONE
[2020-05-08] MEDS ORDERED: LIDOCAINE 1% (10MG/ML) FOR IV START INTRADERMA ONE (07:32)
[2020-05-08] MEDS ORDERED: IOPAMIDOL M200 10 ML VIAL ONE (07:37)
[2020-05-08] MEDS ORDERED: MIDAZOLAM 2 MG/2 ML VIAL ONE (07:37)
[2020-05-08] MEDS ORDERED: methylPREDNISolone ACETATE 40 MG/ML 1 ML VIAL ONE (07:37)
[2020-05-08] MEDS ORDERED: fentaNYL (PF) 50 MCG/ML 2 ML AMP ONE (07:37)
--- NOTE | 2020-05-08 08:07 | P.PCN ---
Date of Procedure: 05/08/20 Procedure(s) Performed: PREOP DIAGNOSIS: 1- Lumbar postlaminectomy syndrome. POSTOP DIAGNOSIS:1- Lumbar postlaminectomy syndrome. PROCEDURE: 1-Caudal epidural steroid injection with epidurolysis and epidurogram under fluoroscopic guidance. (Fluoroscopy images available in the radiology Department ) 2-caudal epidurogram. ANESTHESIA: Local with 1% lidocaine 3 ml ,and moderate sedation, with Versed 4 mg and fentanyl 100 g. EBL: Minimal. PROCEDURE INDICATION: The patient with post-laminectomy syndrome with low back pain and radiculopathy radiating down in both legs, here for a caudal epidural steroid injection with epidurolysis. PROCEDURE DESCRIPTION: The patient was seen and identified in the preoperative area. Risks, benefits, complications, and alternatives were discussed with the patient. The patient agreed to proceed with the procedure and signed the consent. IV was started, and vital signs were stable. Patient was taken to the OR and time out was completed. The patient was placed in the prone position on procedure table and a pillow was placed under the abdomen to reduce lumbar lordosis. The lumbosacral area was prepped and draped in the usual sterile fashion. Vital signs were closely monitored during the procedure. lateral view and the anterior-posterior plates of the sacrum were identified with infiltration of the area overlying the sacral hiatus with 1% lidocaine .A 17 gauge RK epidural needle was used to advance through the sacral hiatus into the caudal epidural space. Omnipaque 180 dye. 2cc was injected and the position of the needle was verified to be in the midline. A Racz catheter was introduced into the epidural space and was advanced towards the L5-S1 interspace under direct fluoroscopic guidance. Multiple passes were made with the catheter for lysis of epidural adhesions. Depo-Medrol 80 mg with 3ml of preservative free Lidocaine 1% and 5 ml of preservative free normal saline was injected slowly. Additional spread was seen to L4 under fluoroscopy. The needle and the catheter were withdrawn intact. EPIDUROGRAM: Omnipaque 180 mg dye 2 ml was injected with spread of the dye into the caudal epidural space and with spread cutoff at L5 prior to epidurolysis. Post epidurolysis dye 2 ml was injected and spread was seen to L3-4.There was further spread of the solution together with the dye above the L3 COMPLICATIONS: None. DISPOSITION / PLANS: The patient was placed in a supine position and transferred to the recovery area in a stable condition for observation and was discharged from the recovery room after meeting discharge criteria. Home discharge instructions given to the patient by the staff. The patient was reexamined prior to discharge. The patient will schedule a follow up in the clinic in 2-4 weeks.
[2020-05-08] MEDS ORDERED: IV FLUID CONTINUATION 1,000 ML IV ONE (08:11)
--- NOTE | 2020-05-08 08:22 | FL ---
EXAMINATION TYPE: FL guided pain mgmt statistic DATE OF EXAM: 05/08/2020 FLUOROSCOPY Fluoroscopy time of 4 seconds was used during caudal epidural injection with lysis. 4 image/s docume nt/s the procedure.
[2020-05-09 09:23] VITALS: BMI 27.4
[2020-05-09 09:27] VITALS: BP 100/62; PULSE 61; RESP 16; TEMP 96.7
== END 2020-05-08 08:48 | disposition home or self-care (01) ==
LOC: ORPAIN 07:00
PROVIDERS: ATTEND Specialist
DX: M96.1 Postlaminectomy syndrome, not elsewhere classified (principal); M54.16 Radiculopathy, lumbar region; Z88.2 Allergy status to sulfonamides; Z91.048 Other nonmedicinal substance allergy status; Z88.5 Allergy status to narcotic agent; Z88.8 Allergy status to other drugs, medicaments and biological substances; Z90.710 Acquired absence of both cervix and uterus
CPT/HCPCS: 62264; J2250; J1030; J3010; Q9966; C1894; 99152

== ENCOUNTER → 2020-06-03 | Outpatient (CLI) | payer MEDICARE ==
[2020-06-03 12:25] VITALS: BP 127/84; PULSE 71; RESP 16
--- NOTE | 2020-06-03 13:02 | P.PAINPG ---
Subjective Subjective Progress Note Date: 04/23/20 This is a follow-up visit for this 65 years old female, with a history of severe and chronic low back pain , she is diagnosed with failed back surgery syndrome lumbar area, and sacroiliac joint dysfunction and chronic pain syndrome, patient continued to have severe low back pain , we did left-sided sacroiliac joint steroid injection and she had minimal benefit from, she continued to have severe axial low back pain, it is constant and increased with any activity, interfere with her quality of life, she is using cane for ambulation, she denies any motor or sensory deficit she denies any fever or night sweats, she continued to use pain medication on 1200 mg daily at bedtime Robaxin 750 every 8 hours and Neurontin 300 every 8 hours, medication prescribed by her primary care she denies any side effect of the medication. She had a caudal epidural steroid injection on May 08. She is here for follow-up today Patient only had 1-2 days of relief from the procedure. She is concerned at this point that procedures are not helping. Pain is located in the low dyeing machine back tender to touch with radiation while being palpated. She does not have pain in the legs. She does not feel weakness in the legs, only pain in her back which is sharp and stabbing and constant throughout the day. Objective - Exam Physical Examinations : -Constitutiona : Cooperative , not in acute distress . -HEENT : nech : supple , no Lymphadenopathy , normal thyroid size . : eyes : no ptosis , no icterus, no photophobia . - neurologic : Cranial nerve II to XII intact , no focal neurological deffecit . -psychatric : alert , oriented X 3 , appropriate affect , intact judgment and insight . -Lymphatic : no Lymphadenopathy . - musculoskeltal : Lumber spine motor strength lower extremities ,thigh and legs 5/5 Right side , 5/5 Left side deep tendon reflexes : normal Knee Jerk , normal ankle Jerk lumber facet Loading Test =positive Right , positive Left Range of motion of the lumbar spine Flexion 30 degrees, extension 10 degrees strait leg raising test = positive at 30 degree Fabere test= positive Right , and positive LT . tenderness over the lumbar parapsinal muscles on both sides with pain radiating into the buttocks Assessment and Plan Plan: Assessment and plan= chronic low back pain secondary to failed back surgery syndrome and lumbar area, left sacroiliac joint dysfunction. Patient had SIJ injections in the past with no improvement, had a caudal epidural steroid injection w MARCO ANTONIO on May 08 2020 with only 1-2 days of help Patient denies any side effects of the current pain medication and the current treatment/medication helping the patient to do activity of daily living , Diagnoses, prognosis, treatment options, including but not limited to physical therapy, medication management, interventional therapies, and surgery, were discussed with the patient All the questions answered The narcotic consent was signed and patient agreed and understood the side e ffects and complications of opioid treatment. Patient signed the narcotic agreement, and was orally counseled, not to overuse, not to abuse, not to Divert , not tp sell pain medication, and to take it as prescribed only, Patient was counseled not to drive or operate heavy equipment while using narcotic medication, and advised not to use alcohol or any Illicit drugs while using the narcotis. understanding that lack of compliance with any of the above instructions, will likely to cause discharge from, the pain service, not to renew his narcotic prescriptions MAPS Reviewed and it was appropriate . - We will schedule her for lumbar paraspinal muscle trigger point injections - We will ask her to discontinue her gabapentin, 300 mg BID for 1 week, 300 mg QHS for one week, then off - We will start Cymbalta for her. 30 mg at night for 1 week then 60 mg at night QHS beyond that. - If these interventions do not work, I Had a long discussion with her about the risks of opioid medications. She seems to have good insight into her pain and is a highly functional individual. Starting norco 5 mg BID might not be a bad idea given her continual back pain in the presence of fusion and with none of the injections working for her. PQRS Measure Charge Sheet PQRS Narrative: Smoking Status Never smoker Pain Intensity [Back] 8 Hx Alcohol Use (MH) No Home Medications: Ambulatory Orders Loratadine [Claritin] 10 mg PO DAILY 09/04/19 hydroCHLOROthiazide [Hydrodiuril] 25 mg PO DAILY 09/04/19 Aspirin EC [Ecotrin] 325 mg PO DAILY 11/21/19 Gabapentin [Neurontin] 300 mg PO TID 11/21/19 Zolpidem [Ambien] 10 mg PO HS 12/27/19 Omeprazole 20 mg PO DAILY 01/14/20 Atorvastatin [Lipitor] 40 mg PO HS 03/20/20 Fluticasone Nasal [place] [Flonase Nasal [place]] 1 spray EA NOSTRIL HS 03/20/20 Lurasidone [Latuda] 40 mg PO W/SUPPER 03/20/20 traZODone HCL 200 mg PO HS 03/20/20 Calcium Carb/Vitamin D3/Vit K1 [Citracal Soft Chew] 1 each PO DAILY 04/17/20 Cyanocobalamin (Vitamin B-12) [Vitamin B-12] 5,000 mcg PO DAILY 04/17/20 Ferrous Fumarate/Ascorbic Acid [Reza-Sequels 65-25 mg Caplet] 1 each PO DAILY 04/17/20 Oxybutynin Chloride 5 mg PO BID 04/17/20 Pedi Multivit No.25/Folic Acid [Flintstones Multivit Chew Tab] 2 tab PO DAILY 04/17/20 Vitamin B Complex 1 each PO DAILY 04/17/20 DULoxetine HCL [Cymbalta] 30 mg PO BID #49 cap 06/03/20 Controlled Substance Measures - Controlled Substance Measures Is patient prescribed a controlled substance at discharge?: No
== END | disposition home or self-care (01) ==
LOC: PNWHC3 11:52
PROVIDERS: ATTEND Anesthesiology
DX: G89.29 Other chronic pain (principal); M96.1 Postlaminectomy syndrome, not elsewhere classified; M53.3 Sacrococcygeal disorders, not elsewhere classified; Z79.82 Long term (current) use of aspirin; Z79.899 Other long term (current) drug therapy
CPT/HCPCS: 99211

== ENCOUNTER → 2020-08-07 | Day surgery (SDC) | payer MEDICARE ==
[2020-08-06 09:56] VITALS: BMI 25.6
[~2020-08-07] MED LIST changes: +ROPIVACAINE 5MG/ML 20ML VIAL ONE; +methylPREDNISolone ACETATE 40 MG/ML 1 ML VIAL ONE
[2020-08-07 06:28] VITALS: RESP 16; TEMP 97.8
--- NOTE | 2020-08-07 07:15 | P.PCN ---
Date of Procedure: 08/07/20 Procedure(s) Performed: Procedure= trigger point injections lumbar paraspinal muscles bilaterally, total of 8 trigger points injected 4 on the right side lumbar paraspinal muscles, and 4 on the left side lumbar paraspinal muscles Preoperative diagnosis= 1-myofascial pain syndrome lumbar paraspinal muscles. 2-. Back surgery syndrome lumbar area Postoperative diagnosis=Same as preop Diagnosis . Complication = none Condition= stable Anesthesia= none Indication for the procedure= patient complaining of low back pain , examination was positive for multiple trigger point in the lumbar paraspinal area. Description of the procedure= procedure risk and benefits discussed with the patient, including but not limited, risk of infection and bleeding, and ALLERGIC reaction to the medication and not complete pain relief and patient agreed with the preceding patient taken to the operating room, placed in prone position or standard monitors applied to the patient then after induction of anesthesia back prepped with chlorhexidine 3 times , Then under strict sterile technique, each of the trigger point in the lumbar paraspinal muscles injected with 2 ML of a mixture of ropivacaine 0.5% 16 mL and 40 mg of Depo-Medrol mixed together and 2 mL of the mixture injected at each trigger point after negative aspiration, there was no paresthesia during the injection, total of 4 trigger point identified and injected on the right side lumbar paraspinal muscles and 4 on the left side lumbar paraspinal muscles, patient tolerated the procedure well without any complications. We will repeat procedure in a few weeks
[2020-08-07 08:23] VITALS: BP 132/81; PULSE 63
== END ==
LOC: ORPAIN 05:54
PROVIDERS: ATTEND Specialist
DX: M79.18 Myalgia, other site (principal); M96.1 Postlaminectomy syndrome, not elsewhere classified; Z88.2 Allergy status to sulfonamides; Z88.8 Allergy status to other drugs, medicaments and biological substances
CPT/HCPCS: 20553; J1030; J2795

== ENCOUNTER 2020-09-09 11:25 | Day surgery (SDC) | payer MEDICARE ==
[2020-09-08 10:53] VITALS: BMI 25.6
[~2020-09-09 11:25] MED LIST changes: -ROPIVACAINE 5MG/ML 20ML VIAL ONE; -methylPREDNISolone ACETATE 40 MG/ML 1 ML VIAL ONE
[2020-09-09 11:58] VITALS: RESP 16; TEMP 98.2
[2020-09-09] MEDS ORDERED: methylPREDNISolone ACETATE 40 MG/ML 1 ML VIAL ONE (12:33)
[2020-09-09] MEDS ORDERED: ROPIVACAINE 5MG/ML 20ML VIAL ONE (12:33)
--- NOTE | 2020-09-09 12:44 | P.PCN ---
Date of Procedure: 09/09/20 Procedure(s) Performed: Procedure= trigger point injections lumbar paraspinal muscles bilaterally, total of 8 trigger points injected 3 on the right side lumbar paraspinal muscles, and 4 on the left side lumbar paraspinal muscles Preoperative diagnosis= 1-myofascial pain syndrome lumbar paraspinal muscles. 2-. Back surgery syndrome lumbar area Postoperative diagnosis=Same as preop Diagnosis . Complication = none Condition= stable Anesthesia= none Indication for the procedure= patient complaining of low back pain , examination was positive for multiple trigger point in the lumbar paraspinal area. Description of the procedure= procedure risk and benefits discussed with the patient, including but not limited, risk of infection and bleeding, and ALLERGIC reaction to the medication and not complete pain relief and patient agreed with the preceding patient taken to the operating room, placed in prone position or standard monitors applied to the patient then after induction of anesthesia back prepped with chlorhexidine 3 times , Then under strict sterile technique, each of the trigger point in the lumbar paraspinal muscles injected with 2 ML of a mixture of ropivacaine 0.5% 14 mL and 40 mg of Depo-Medrol mixed together and 2 mL of the mixture injected at each trigger point after negative aspiration, there was no paresthesia during the injection, total of 3 trigger point identified and injected on the right side lumbar paraspinal muscles ,and 4 on the left side lumbar paraspinal muscles, patient tolerated the procedure well without any complications. She will follow up in the pain clinic in few weeks
[2020-09-09 12:58] VITALS: BP 126/82; PULSE 73
== END 2020-09-09 13:01 | disposition home or self-care (01) ==
LOC: ORPAIN 11:25
PROVIDERS: ATTEND Specialist
DX: M79.18 Myalgia, other site (principal); M96.1 Postlaminectomy syndrome, not elsewhere classified; M51.36 Other intervertebral disc degeneration, lumbar region; Z88.8 Allergy status to other drugs, medicaments and biological substances; Z88.5 Allergy status to narcotic agent; Z88.2 Allergy status to sulfonamides; Z91.09 Other allergy status, other than to drugs and biological substances; Z79.82 Long term (current) use of aspirin
CPT/HCPCS: 20553; J1030; J2795

== ENCOUNTER → 2020-09-29 | Outpatient (CLI) | payer MEDICARE ==
[2020-09-29 13:45] VITALS: BP 136/83; PULSE 79; RESP 16; TEMP 98.3
--- NOTE | 2020-09-29 14:04 | P.PAINPG ---
Subjective Progress Note Date: 09/29/20 This is a follow-up visit for this 65 years old female, with a history of severe and chronic low back pain , she is diagnosed with failed back surgery syndrome lumbar area, and sacroiliac joint dysfunction and chronic pain syndrome, patient continued to have severe low back pain , we did left-sided sacroiliac joint steroid injection and she had minimal benefit from, she continued to have severe axial low back pain, it is constant and increased with any activity, interfere with her quality of life. He was recently had 2 sets of lumbar trigger point injections, she says these helped significantly for about 2-3 weeks and the pain comes back. She is very happy with this mode of treatment. Most recently we also started her on Cymbalta 60 mg she helps that helped significantly and wants that refilled. Review of systems is negative for chest pain, shortness of breath, new onset weakness, numbness/tingling, abdominal pain, malaise, fever, night sweats, chills, homicidal or suicidal ideation, or bowel or bladder incontinence. Objective - Exam Physical Examinations : -Constitutiona : Cooperative , not in acute distress . -HEENT : nech : supple , no Lymphadenopathy , normal thyroid size . : eyes : no ptosis , no icterus, no photophobia . - neurologic : Cranial nerve II to XII intact , no focal neurological deffecit . -psychatric : alert , oriented X 3 , appropriate affect , intact judgment and insight . -Lymphatic : no Lymphadenopathy . - musculoskeltal : Lumber spine motor strength lower extremities ,thigh and legs 5/5 Right side , 5/5 Left side deep tendon reflexes : normal Knee Jerk , normal ankle Jerk lumber facet Loading Test =positive Right , positive Left Range of motion of the lumbar spine Flexion 30 degrees, extension 10 degrees strait leg raising test = positive at 30 degree Fabere test= positive Right , and positive LT . tenderness over the lumbar parapsinal muscles on both sides with pain radiating into the buttocks Assessment and Plan Plan: Assessment and plan= chronic low back pain secondary to failed back surgery syndrome and lumbar area, left sacroiliac joint dysfunction. Patient had SIJ injections in the past with no improvement, had a caudal epidural steroid injection w MARCO ANTONIO on May 08 2020 with only 1-2 days of help. Lumbar TP injections have been helpful Patient denies any side effects of the current pain medication and the current treatment/medication helping the patient to do activity of daily living , Diagnoses, prognosis, treatment options, including but not limited to physical therapy, medication management, interventional therapies, and surgery, were discussed with the patient All the questions answered The narcotic consent was signed and patient agreed and understood the side effects and complications of opioid treatment. Patient signed the narcotic agreement, and was orally counseled, not to overuse, not to abuse, not to Divert , not tp sell pain medication, and to take it as prescribed only, Patient was counseled not to drive or operate heavy equipment while using narcotic medication, and advised not to use alcohol or any Illicit drugs while using the narcotis. understanding that lack of compliance with any of the above instructions, will likely to cause discharge from, the pain service, not to renew his narcotic prescriptions MAPS Reviewed and it was appropriate . - We will schedule her for lumbar paraspinal muscle trigger point injections - I will refill her Cymbalta 60 mg QHS - I will start her on [place] 5 mg BID. We had a long discussion regarding opioid medications and their overall efficacy. She has had experience with them in the past and has good insight into their use and will only use them as needed. Prescribing me that she has had multiple injections the past that have not helped significantly outside of the 2-3 week help with the trigger point injections. We also discussion about several cord stimulator and she will be re ading more about this when she gets home. In the future she might to pursue this as well PQRS Measure Charge Sheet PQRS Narrative: Smoking Status Never smoker Pain Intensity [Back] 8 Hx Alcohol Use (MH) No Controlled Substance Measures - Controlled Substance Measures Is patient prescribed a controlled substance at discharge?: No PQRS Measure Charge Sheet PQRS Narrative: Smoking Status Never smoker Hx Alcohol Use (MH) No Home Medications: Ambulatory Orders Loratadine [Claritin] 10 mg PO DAILY 09/04/19 hydroCHLOROthiazide [Hydrodiuril] 25 mg PO DAILY 09/04/19 Aspirin EC [Ecotrin] 325 mg PO DAILY 11/21/19 Omeprazole 40 mg PO DAILY 01/14/20 Atorvastatin [Lipitor] 40 mg PO HS 03/20/20 Fluticasone Nasal [place] [Flonase Nasal [place]] 1 spray EA NOSTRIL HS 03/20/20 Lurasidone [Latuda] 80 mg PO W/SUPPER 03/20/20 traZODone HCL 200 mg PO HS 03/20/20 Calcium Carb/Vitamin D3/Vit K1 [Citracal Soft Chew] 1 each PO DAILY 04/17/20 Cyanocobalamin (Vitamin B-12) [Vitamin B-12] 5,000 mcg PO DAILY 04/17/20 Ferrous Fumarate/Ascorbic Acid [Reza-Sequels 65-25 mg Caplet] 1 each PO DAILY 04/17/20 Oxybutynin Chloride 5 mg PO BID 04/17/20 Pedi Multivit No.25/Folic Acid [[place] Multivit Chew Tab] 2 tab PO DAILY 04/17/20 Vitamin B Complex 1 each PO DAILY 04/17/20 DULoxetine HCL [Cymbalta] 30 mg PO TID 06/13/20 Meclizine [Antivert] 25 mg PO BID PRN 09/08/20 busPIRone HCL [Buspar] 7.5 mg PO BID 09/08/20 Controlled Substance Measures - Controlled Substance Measures Is patient prescribed a controlled substance at discharge?: No
== END | disposition home or self-care (01) ==
LOC: PNWHC3 13:30
PROVIDERS: ATTEND Anesthesiology
DX: M96.1 Postlaminectomy syndrome, not elsewhere classified (principal); M53.3 Sacrococcygeal disorders, not elsewhere classified; G89.29 Other chronic pain; Z79.82 Long term (current) use of aspirin; Z79.899 Other long term (current) drug therapy; Z79.891 Long term (current) use of opiate analgesic
CPT/HCPCS: 99211

== ENCOUNTER 2020-11-07 12:54 | Day surgery (SDC) | payer MEDICARE ==
[2020-11-04 10:14] VITALS: BMI 25.1
[2020-11-07 13:20] VITALS: TEMP 97.4
[2020-11-07] MEDS ORDERED: TRIAMCINOLONE ACETONIDE 40 MG/ML 1 ML VIAL ONE (13:43)
[2020-11-07] MEDS ORDERED: ROPIVACAINE 5MG/ML 20ML VIAL ONE (13:43)
--- NOTE | 2020-11-07 13:55 | P.PCN ---
Date of Procedure: 11/07/20 Surgeon: Neli Peterson Pathology: none sent Condition: stable Disposition: PACU Description of Procedure: Pre and Postop diagnosis: Myofascial pain, lumbar postlaminectomy pain syndrome Near of procedure: Trigger point injection in the lumbar paravertebral musculature on the right side Description of procedure: The patient was seen in preop holding area, the trigger points were marked on the skin and all of them were on the right side today. Then the patient was brought into the procedure room and placed in prone position. Skin was prepped with ChloraPrep and draped in a sterile manner. I used a 30-gauge 1-1/2 inch needle to go through the skin and into the lumbar paravertebral musculature on the right side and then I injected 1 mL of a solution made up of 9 MLS of ropivacaine 0.5% and 40 mg of Kenalog. 1 mL of the solution was injected at each target point and a total of 7 target points were injected. The patient tolerated procedure well.
[2020-11-07 14:04] VITALS: RESP 18
[2020-11-07 14:32] VITALS: BP 120/68; PULSE 67
--- NOTE | 2020-11-11 09:53 | CDI ---
Date: 11.11.20 CDS/Se[employer] Cleaning Machine Operator Name: Rachael Gutierrez Phone: If any questions, call Luana Choudhury Boiler House Supervisor at [phone] Patient Name: Alana Viramontes Admit Date 11.07.20 Discharge Date: 11.07.20 ATTENTION: The [facility] Coding Staff appreciate your assistance in clarifying documentation. Please respond to the clarification below the line at the bottom and electronically sign. The [facility] Coding staff will review the response and follow-up if needed. Please note: Queries are made part of the Legal Health Record. If you have any questions, please contact the Boiler House Supervisor. Dear Dr. Peterson In order to code to the greatest specificity and for the greatest reimbursement I need the following information: You have documented there were 7 target points injected but could you please clarify how many muscles were injected. Thank you for your kind consideration. MTDD
--- NOTE | 2020-11-19 09:54 | CDI ---
Date: 11.19.20 CDS/Supervisor [employer] Name: Rachael Gutierrez Phone: If any questions, call Luana Choudhury A R Collections Rep at [phone] Patient Name: Alana Viramontes Admit Date 11.07.20 Discharge Date: 11.07.20 ATTENTION: The [facility] Coding Staff appreciate your assistance in clarifying documentation. Please respond to the clarification below the line at the bottom and electronically sign. The [facility] Coding staff will review the response and follow-up if needed. Please note: Queries are made part of the Legal Health Record. If you have any questions, please contact the A R Collections Rep. Dear Dr. Peterson In order to code to the greatest specificity and for the greatest reimbursement I need the following information: You have documented there were 7 target points injected into the lumbar paravertebral musculature but could specify how many muscles were injected please. Thank you for your kind consideration. MTDD
== END 2020-11-07 14:35 | disposition home or self-care (01) ==
LOC: ORPAIN 12:54
PROVIDERS: ATTEND Anesthesiology
DX: M79.18 Myalgia, other site (principal); M96.1 Postlaminectomy syndrome, not elsewhere classified; F31.9 Bipolar disorder, unspecified; K44.9 Diaphragmatic hernia without obstruction or gangrene; Z88.8 Allergy status to other drugs, medicaments and biological substances; Z88.2 Allergy status to sulfonamides
CPT/HCPCS: 20553; J3301; J2795

== ENCOUNTER → 2020-11-24 | Outpatient (CLI) | payer MEDICARE ==
--- NOTE | 2020-11-24 08:30 | P.PN ---
Subjective Progress Note Date: 11/24/20 This is a 65-year-old lady with a history of chronic lower back pain with no radiation to the lower extremities status post 4 back surgeries. The patient had trigger point injection in a few weeks ago which helped her pain significantly on the left side where she had these injections however she now has pain on both sides. She takes Cymbalta and [place] 5 mg twice a day. Her pain has been well-controlled with a combination of interventional pain procedures and medications. The patient requested an increase her [place] to 10 mg and another trigger point injection before a scheduled trip by car to [place]. Patient denies new-onset weakness, bowel/bladder incontinence, or any other signs or symptoms of cauda equina syndrome. There are no signs of acute intoxication, and no indications of medication diversion or overuse. In addition to above, 13-point review of systems is also negative for chest pain, shortness of breath, changes in vision, changes in hearing, new onset weakness, abdominal pain, diarrhea, extreme fatigue, malaise, fever, skin changes, homicidal or suicidal ideation, or bowel or bladder incontinence. Vital Signs: Reviewed in EMR Gen: AAOx3, NAD HEENT: PERRLA,hearing grossly normal Pulm: resp unlabored Neck: supple, trachea midline Neuro exam of the lower extremities: Decreased but symmetrical knee reflexes and absent ankle increases bilaterally. Normal muscle strength in the lower extremities bilaterally. Straight leg raising test: Negative bilaterally Norm's test: Range of motion of the lumbar spine: Facet loading test: Tenderness in the paravertebral musculature: Positive bilaterally in the lumbar area with trigger points. Neuro: CN II-XII grossly intact, Imaging: Reviewed in EMR/chart Assessment: Lumbar postlaminectomy pain syndrome Myofascial pain Plan: 1. Explanation: Opioid and psychological risk scores were reviewed. Diagnoses, prognoses, and multiple treatment options including but not limited to physical therapy, interventional therapies, adjuvant medical therapies, narcotic medication therapies, and surgery were discussed with the patient and all questions were answered to the patient's satisfaction. 2. Opioid agreement: Signed with the patient and the patient is warned not to use opioids while driving or before driving and not to combine opioids with benzodiazepines or alcohol. 3. Counseling: The patient was counseled extensively on SMOKING CESSATION, BODY MASS INDEX, EXERCISE. Specifically, the patient was instructed regarding the importance of smoking cessation, obesity, and exercise in the context of both chronic pain and overall health. 4. Procedures: Schedule for trigger point injection in the lumbar paravertebral musculature bilaterally 5. Consultations: None 6. Investigations: None 7. Medications: Increase his [place] to 7.5 mg twice a day as needed for pain #60 pills with no refills. Continue Cymbalta as per family physician. 8. Disposition: Return to the above-mentioned procedure as soon as possible and for follow-up in the clinic in 4 weeks 9. Maps were reviewed and were appropriate. Controlled Substance Measures Is patient prescribed a controlled substance at discharge?: Yes When asked, does pt state using other controlled substances?: No If prescribed controlled substance>3 days was MAPS reviewed?: Yes If Rx opioid, was Start Talking consent form obtained?: Yes If opioid is for acute pain is fill amount 7 days or less?: No Was information provided regarding opioid addiction?: Yes
[2020-11-24 08:38] VITALS: BP 119/79; PULSE 85; RESP 16; TEMP 97.9
== END | disposition home or self-care (01) ==
LOC: PNWHC3 07:45
PROVIDERS: ATTEND Anesthesiology
DX: M96.1 Postlaminectomy syndrome, not elsewhere classified (principal); M79.18 Myalgia, other site; Z79.891 Long term (current) use of opiate analgesic
CPT/HCPCS: 80307; G0482; G0463; 99211

== ENCOUNTER 2020-12-02 11:52 | Day surgery (SDC) | payer MEDICARE ==
[2020-12-01 10:31] VITALS: BMI 25.0
[2020-12-02 12:43] VITALS: RESP 16; TEMP 98.3
[2020-12-02] MEDS ORDERED: ROPIVACAINE 5MG/ML 20ML VIAL ONE (12:46)
--- NOTE | 2020-12-02 12:51 | P.PCN ---
Date of Procedure: 12/02/20 Description of Procedure: Procedure= trigger point injections lumbar paraspinal muscles, latissimus dorsi, and trapezius bilaterally, total of 8 trigger points injected 4 on the right side and 4 on the left side Preoperative diagnosis= 1-myofascial pain syndrome Postoperative diagnosis=Same as preop Diagnosis . Complication = none Condition= stable Anesthesia= none Indication for the procedure= patient complaining of low back pain , examination was positive for multiple trigger point in the lumbar paraspinal area. Description of the procedure= procedure risk and benefits discussed with the patient, including but not limited, risk of infection and bleeding, and ALLERGIC reaction to the medication and not complete pain relief and patient agreed with the preceding patient taken to the operating room, placed in prone position or standard monitors applied to the patient then after induction of anesthesia back prepped with chlorhexidine 3 times , Then under strict sterile technique, each of the trigger point in the lumbar paraspinal muscles, latissimus dorsi, and trapezius injected with 1 ML of ropivacaine 0.5% at each trigger point after negative aspiration, there was no paresthesia during the injection, total of 4 trigger point identified and injected on the right side ,and 4 on the left side. patient tolerated the procedure well without any complications. She will follow up in the pain clinic in few weeks
[2020-12-02 12:58] VITALS: BP 124/68; PULSE 66
== END 2020-12-02 13:28 | disposition home or self-care (01) ==
LOC: ORPAIN 11:52
PROVIDERS: ATTEND Anesthesiology
DX: M79.18 Myalgia, other site (principal); M54.5 Low back pain; Z79.82 Long term (current) use of aspirin; Z88.2 Allergy status to sulfonamides; Z88.1 Allergy status to other antibiotic agents; Z88.5 Allergy status to narcotic agent
CPT/HCPCS: 20553; J2795

== ENCOUNTER → 2020-12-29 | Outpatient (CLI) | payer MEDICARE ==
--- NOTE | 2020-12-29 12:21 | P.PAINPG ---
Subjective Progress Note Date: 12/29/20 Subjective Progress Note Date: 11/24/20 This is a 65-year-old lady with a history of chronic lower back pain with no radiation to the lower extremities status post 4 back surgeries. The patient had trigger point injection in a few weeks ago which helped her pain sig nificantly on the left side where she had these injections however she now has pain on both sides. She takes Cymbalta and [place] 5 mg twice a day. Her pain has been well-controlled with a combination of interventional pain procedures and medications. Most recently we increased her [place] to 7.5 BID as well as did trigger point injections. She noted that the trigger point injections helped recently but only about 4-5 days. She notes that once when she had trigger point injections, the provider "rubbed the medication in" and she felt that was more effective and help for about a month. Overall the [place] has been helping and she feels that she really only takes it as needed. She does take Ambien and Xanax very rarely as needed for anxiety, and has been on these medications for some time as prescribed by her psychiatrist. She notes that she is very careful when she takes these medications along with her [place] and is careful not to mix them. Some mentions that she had some type of insurance approval for nerve ablation, however given the metal in her spine do not feel she is a candidate for that. Overall she would like to continue her medications and the trigger point injections. Patient denies new-onset weakness, bowel/bladder incontinence, or any other signs or symptoms of cauda equina syndrome. There are no signs of acute intoxication, and no indications of medication diversion or overuse. In addition to above, 13-point review of systems is also negative for chest pain, shortness of breath, changes in vision, changes in hearing, new onset weakness, abdominal pain, diarrhea, extreme fatigue, malaise, fever, skin changes, homicidal or suicidal ideation, or bowel or bladder incontinence. Vital Signs: Reviewed in EMR Gen: AAOx3, NAD HEENT: PERRLA,hearing grossly normal Pulm: resp unlabored Neck: supple, trachea midline Neuro exam of the lower extremities: Decreased but symmetrical knee reflexes and absent ankle increases bilaterally. Normal muscle strength in the lower extremities bilaterally. Straight leg raising test: Negative bilaterally Range of motion of the lumbar spine:decreased in flexion and extension Facet loading test: positive bilaterally Tenderness in the paravertebral musculature: Positive bilaterally in the lumbar area with trigger points. Neuro: CN II-XII grossly intact, Imaging: Reviewed in EMR/chart Assessment: Lumbar postlaminectomy pain syndrome Myofascial pain Plan: 1. Explanation: Opioid and psychological risk scores were reviewed. Diagnoses, prognoses, and multiple treatment options including but not limited to physical therapy, interventional therapies, adjuvant medical therapies, narcotic medication therapies, and surgery were discussed with the patient and all ques tions were answered to the patient's satisfaction. 2. Opioid agreement: Signed with the patient and the patient is warned not to use opioids while driving or before driving and not to combine opioids with benzodiazepines or alcohol. She does take occasional Xanax and Ambien as prescribed by psychiatrist for anxiety. We had a long discussion about not combining his medications and only taking any of the medications as needed. Especially not to combine them. Patient understands 3. Counseling: The patient was counseled extensively on EXERCISE. Specifically, the patient was instructed regarding the importance of sexercise in the context of both chronic pain and overall health. 4. Procedures: Schedule for trigger point injection in the lumbar paravertebral musculature bilaterally local only. She has had bilateral SI and caudal done in past with no benefit 5. Consultations: None 6. Investigations: None 7. Medications: Refill [place] to 7.5 mg twice a day as needed for pain #60 pills with 1 refills. Continue Cymbalta as per family physician. Her urinary drug screen last visit was negative for [place], however she says showing takes medication as needed and that should not take it 4 days prior to that UDS. She has taken her medication today and we will repeat UDS today. 8. Disposition: Return to the above-mentioned procedure as soon as possible and for follow-up in the clinic in 8 weeks 9. Maps were reviewed and were appropriate. I have spent 32 minutes with chart reviewing the patient, speaking to the patient, and discussing plan of care with the patient Controlled Substance Measures Is patient prescribed a controlled substance at discharge?: Yes When asked, does pt state using other controlled substances?: No If prescribed controlled substance>3 days was MAPS reviewed?: Yes If Rx opioid, was Start Talking consent form obtained?: Yes If opioid is for acute pain is fill amount 7 days or less?: No Was information provided regarding opioid addiction?: Yes PQRS Measure Charge Sheet PQRS Narrative: Smoking Status Never smoker Narcotic Agreement Date Signed 09/29/20 Hx Alcohol Use (MH) No Home Medications: Ambulatory Orders Loratadine [Claritin] 10 mg PO DAILY 09/04/19 hydroCHLOROthiazide [Hydrodiuril] 25 mg PO DAILY 09/04/19 Aspirin EC [Ecotrin] 325 mg PO DAILY 11/21/19 Omeprazole 40 mg PO DAILY 01/14/20 Atorvastatin [Lipitor] 40 mg PO HS 03/20/20 Fluticasone Nasal [place] [Flonase Nasal [place]] 1 spray EA NOSTRIL HS 03/20/20 Lurasidone [Latuda] 60 mg PO W/SUPPER 03/20/20 traZODone HCL 200 mg PO HS 03/20/20 Calcium Carb/Vitamin D3/Vit K1 [Citracal Soft Chew] 1 each PO DAILY 04/17/20 Cyanocobalamin (Vitamin B-12) [Vitamin B-12] 5,000 mcg PO DAILY 04/17/20 Ferrous Fumarate/Ascorbic Acid [Reza-Sequels 65-25 mg Cap[place]] 1 each PO DAILY 04/17/20 Oxybutynin Chloride 5 mg PO BID 04/17/20 Vitamin B Complex 1 each PO DAILY 04/17/20 DULoxetine HCL [Cymbalta] 60 mg PO BID 06/13/20 Zolpidem Tartrate [Ambien] 10 mg PO HS 10/10/20 busPIRone HCl [Buspar] 10 mg PO BID 10/10/20 Multivit-Min/FA/Lycopen/Lutein [Centrum Silver Tablet] 1 each PO DAILY 11/18/20 Cholecalciferol [Vitamin D3 (25 Mcg = 1000 Iu)] 25 mcg PO DAILY 12/01/20 HYDROcodone/APAP 7.5-325MG [[place] 7.5-325] 1 tab PO BID 30 Days #60 mg 12/29/20 HYDROcodone/APAP 7.5-325MG [[place] 7.5-325] 1 tab PO BID PRN 30 Days #60 tab 12/29/20 Controlled Substance Measures - Controlled Substance Measures Is patient prescribed a controlled substance at discharge?: Yes When asked, does pt state using other controlled substances?: No If prescribed controlled substance>3 days was MAPS reviewed?: Yes If Rx opioid, was Start Talking consent form obtained?: Yes If opioid is for acute pain is fill amount 7 days or less?: Yes Was information provided regarding opioid addiction?: No
[2020-12-29 12:38] VITALS: BP 127/86; PULSE 100; RESP 18; TEMP 98.3
== END ==
LOC: PNWHC3 11:32
PROVIDERS: ATTEND Anesthesiology
DX: M96.1 Postlaminectomy syndrome, not elsewhere classified (principal); M79.18 Myalgia, other site
CPT/HCPCS: 80307; G0482; G0463; 99211; 99212

== ENCOUNTER → 2021-01-09 | Outpatient (CLI) | payer MEDICARE ==
--- NOTE | 2021-01-09 13:17 | XR ---
EXAMINATION TYPE: XR chest 2V DATE OF EXAM: 01/09/2021 COMPARISON: Chest x-ray 09/04/2019 HISTORY: TECHNIQUE: Frontal and lateral views of the chest are obtained. FINDINGS: There is no focal air space opacity, pleural effusion, or pneumothorax seen. The cardiac silhouette size is within normal limits. The osseous structures are stable, posterior fusion change s again seen at the thoracic lumbar junction, surgical clips present in the upper abdomen. There is p ersistent elevation of right hemidiaphragm. IMPRESSION: No acute cardiopulmonary process.
--- NOTE | 2021-01-23 10:18 | EM ---
There is a report on the 7 day event monitor. Baseline EKG showed sinus rhythm. Patient had occasional APCs and PVCs with brief episodes of paroxysmal atrial tachycardia. No sustained arrhythmias are noted. No symptoms reported. Final impression #1. Sinus rhythm. #2 .Brief episodes of atrial tachycardia #3. Occasional PVCs. #4. Patient did not report any cardiac symptoms. MTDD
== END | disposition home or self-care (01) ==
LOC: RADECHMAIN 11:50
PROVIDERS: ATTEND Nurse Practitioner Family
DX: I47.1 Supraventricular tachycardia (principal); R63.4 Abnormal weight loss
CPT/HCPCS: 71046; 93270

== ENCOUNTER 2021-01-13 12:22 | Day surgery (SDC) | payer MEDICARE ==
[2021-01-13 13:11] VITALS: TEMP 97.8
[2021-01-13] MEDS ORDERED: ROPIVACAINE 5MG/ML 20ML VIAL ONE ×2 (13:32→13:57)
[2021-01-13] MEDS ORDERED: TRIAMCINOLONE ACETONIDE 40 MG/ML 1 ML VIAL ONE ×2 (13:32→13:57)
[2021-01-13] MEDS ORDERED: LACTATED RINGERS 1,000 ML IV SCH (13:45)
[2021-01-13 13:57] VITALS: RESP 16
[2021-01-13] MEDS ORDERED: MIDAZOLAM 2 MG/2 ML VIAL ONE (13:57)
--- NOTE | 2021-01-13 14:01 | P.PCN ---
Date of Procedure: 01/13/21 Description of Procedure: Pre and postop diagnosis: Myofascial pain syndrome Procedure: Trigger point injections X 10 Muscle group X2 (bilateral quadratus lumborum, lumbar paraspinal) Surgeon: Rosanne Friend Anesthesia: None Complications: None Estimated blood loss: None Specimen removed: None Procedure indications: Patient had a history of myofascial pain syndrome. Patient tried conservative therapy. Came here for intervention procedure for better pain relief. Procedure description: Patient was seen and identified in the holding area risk benefits competitions alternative discussed with the patient. Patient agreed to proceed for the procedure signed the consent. Patient taken to the procedure area. Timeout was completed. A total of 10 trigger point area was marked with a sterile marker. After ChloraPrep used to clean the area. Critical pause was taken. Using 25-gauge 1-1/2 [address] needle [address]. He entered in each market site 2 mL of block solution injected at each level. The block solution containing 19 mL of ropivacaine 0.5% preservative-free bupivacaine with Kenlog 40 MG. Needle removed intact skin cleaned and Band-Aid applied. Patient tolerated the procedure well. Disposition: Patient discharge home after meeting the discharge criteria from the recovery. Patient scheduled to follow up with the pain clinic in 4 weeks for follow-up visit.
[2021-01-13 14:11] VITALS: BP 129/74; PULSE 62
== END 2021-01-13 14:16 | disposition home or self-care (01) ==
LOC: ORPAIN 12:22
DX: M79.18 Myalgia, other site (principal); Z88.2 Allergy status to sulfonamides; Z88.8 Allergy status to other drugs, medicaments and biological substances; Z88.5 Allergy status to narcotic agent; Z91.09 Other allergy status, other than to drugs and biological substances; Z98.84 Bariatric surgery status; Z90.710 Acquired absence of both cervix and uterus; Z79.82 Long term (current) use of aspirin
CPT/HCPCS: 20552; J3301; J2795; 20553

== ENCOUNTER → 2021-01-14 | Outpatient (CLI) | payer MEDICARE ==
--- NOTE | 2021-01-19 10:46 | MM ---
Reason for exam: screening (asymptomatic). Last mammogram was performed 1 year and 11 months ago. History: Patient is postmenopausal. Family history of breast cancer in maternal aunt. Core biopsy of the left breast. Physical Findings: A clinical breast exam by your physician is recommended on an annual basis and results should be correlated with mammographic findings. MG 3D Screening Mammo W/Cad Bilateral CC and MLO view(s) were taken. Prior study comparison: February 05, 2019, bilateral MG 3d screening mammo w/cad. January 12, 2017, mammogram. There are scattered fibroglandular densities. No significant changes when compared with prior studies. ASSESSMENT: Benign, BI-RAD 2 RECOMMENDATION: Routine screening mammogram of both breasts in 1 year.
== END | disposition home or self-care (01) ==
LOC: RADMAMWWP 09:44
PROVIDERS: ATTEND Family Medicine
DX: Z12.31 Encounter for screening mammogram for malignant neoplasm of breast (principal)
CPT/HCPCS: 77063; 77067

== ENCOUNTER → 2021-02-02 | Outpatient (CLI) | payer MEDICARE ==
[2021-02-02 09:28] VITALS: BP 134/89; PULSE 92; RESP 18; TEMP 98.1
--- NOTE | 2021-02-02 14:58 | P.PN ---
Subjective Progress Note Date: 02/02/21 This is a follow-up visit for this 65 years old female, with a history of severe and chronic low back pain , she is diagnosed with failed back surgery syndrome lumbar area, and myofascial pain syndrome, recently with a trigger point injection she gets excellent pain relief, she is currently on Bodega 7.5/325 twice a day, she denies any side effects of the medication, she denies any excessive drowsiness or sleepiness and she reported the current medication and how to control her pain Physical Examinations : -Constitutiona : Cooperative , not in acute distress . -HEENT : nech : supple , no Lymphadenopathy , normal thyroid size . : eyes : no ptosis , no icterus, no photophobia . - neurologic : Cranial nerve II to XII intact , no focal neurological deffecit . -psychatric : alert , oriented X 3 , appropriate affect , intact judgment and insight . -Lymphatic : no Lymphadenopathy . - musculoskeltal : Lumber spine moter stegnth lower extremities ,thigh and legs 5/5 Right side , 5/5 Left side deep tendon reflexes : normal Knee Jerk , normal ankle Jerk lumber facet Loading Test =positive Right , positive Left Range of motion of the lumbar spine Flexion 30 degrees, extension 10 degrees strait leg raising test = positive at 30 degree Fabere test= positive Right , and positive LT . Assessment and plan= chronic low back pain secondary to failed back surgery syndrome and lumbar area, myofascial pain syndrome lumbar area Pain improved after trigger point injections Patient denies any side effects of the current pain medication and the current treatment/medication helping the patient to do activity of daily living , Diagnoses, prognosis, treatment options, including but not limited to physical therapy, medication management, interventional therapies, and surgery, were discussed with the patient All the questions answered The narcotic consent was signed and patient agreed and understood the side effects and complications of opioid treatment. Patient signed the narcotic agreement, and was orally counseled, not to overuse, not to abuse, not to Divert , not tp sell pain medication, and to take it as prescribed only, Patient was counseled not to drive or operate heavy equipment while using narcotic medication, and advised not to use alcohol or any Illicit drugs while using the narcotis. understanding that lack of compliance with any of the above instructions, will likely to cause discharge from, the pain service, not to renew his narcotic prescriptions MAPS Reviwed and it was apropriate . Medication managements= description refills for Bodega 7.5/325 dispense 60 with 1 refill was given She will follow up in the pain clinic in 3 months , Time with Patient: Less than 30 PQRS Measure Charge Sheet Measure #130: Documentation of Current Meds in Medical Chart: Patient's medications documented in chart Measure #226: Tobacco Use: Screen & Cessation Intervention: Pt not a tobacco user Measure #111: Pneumonia Vaccination: Pneumococcal vaccine administered or previously received Measure #47: Advance Care Plan: Advance care planning discussed & documented, pt chose/unable to give Measure #412: Opioid Treatment Agreement: No documentation of signed opioid treatment agreement Measure #408: Opioid Therapy Follow-up Evaluation: Patient had NO f/u eval minimum every 3 months during opioid therapy Measure #317: Preventitive Care & Scrn High Bld Press & F/U: Normal blood pressure, f/u not required Measure #128: Body Mass Index (BMI) Screening & Follow-up: BMI documented ABOVE normal parameters - f/u documented Measure #131: Pain Assessment & Follow-up: Pain positive & plan documented, Follow-up scheduled Measure #431: Unhealthy Alcohol Use Preventative Care & Scrn: Patient not identified as an unhealthy alcohol user PQRS Narrative: Objective - Vital Signs Vital signs: Vital Signs Temp 98.1 F 02/02/21 09:27 Pulse 92 02/02/21 09:27 Resp 18 02/02/21 09:27 BP 134/89 02/02/21 09:27 Pulse Ox 98 02/02/21 09:27
== END ==
LOC: PNWHC3 08:47
PROVIDERS: ATTEND Specialist
DX: M54.5 Low back pain (principal); G89.29 Other chronic pain; M96.1 Postlaminectomy syndrome, not elsewhere classified; M79.18 Myalgia, other site
CPT/HCPCS: 99211

== ENCOUNTER → 2021-04-08 | Outpatient (CLI) | payer MEDICARE ==
--- NOTE | 2021-04-09 11:35 | ECHOF ---
Referral Reason:I49.8 Other specified cardiac arrhythmias MEASUREMENTS -------- HEIGHT: 157.5 cm WEIGHT: 58.5 kg BP: RVIDd: 3.2 cm (< 3.3) IVSd: 1.2 cm (0.6 - 1.1) LVIDd: 3.9 cm (3.9 - 5.3) LVPWd: 1.0 cm (0.6 - 1.1) IVSs: 1.2 cm LVIDs: 3.0 cm LVPWs: 1.7 cm LAESV Index (A-L): 28.17 ml/m Ao Diam: 2.5 cm (2.0 - 3.7) AV Cusp: 1.9 cm (1.5 - 2.6) LA Diam: 3.8 cm (2.7 - 3.8) MV EXCURSION: 22.169 mm (> 18.000) MV EF SLOPE: 124 mm/s (70 - 150) EPSS: 0.6 cm MV E Ernie: 0.60 m/s MV DecT: 211 ms MV A Ernie: 0.86 m/s MV E/A Ratio: 0.70 RAP: 5.00 mmHg RVSP: 36.61 mmHg FINDINGS -------- Sinus rhythm. This was a technically adequate study. The left ventricular size is normal. There is mild concentric left ventricular hypertrophy. Overa ll left ventricular systolic function is mildly impaired with, an EF between 45 - 50 %. Mitral Dopp ler inflow pattern suggests diastolic filling abnormality 10.48. Mid anteroseptal LV wall motion is hypokinetic. The right ventricle is normal in size. Normal LA size by volume 22+/-6 ml/m2. The right atrial size is normal. Interatrial and interventricular septum intact. The aortic valve is trileaflet and appears structurally normal. There is no evidence of aortic regu rgitation. There is no evidence of aortic stenosis. Mild mitral regurgitation is present. Mild tricuspid regurgitation present. There is no evidence of pulmonary hypertension. The right v entricular systolic pressure, as measured by Doppler, is 36.61mmHg. There is no pulmonic regurgitation present. The aortic root size is normal. The inferior vena cava is mildly dilated. There is no pericardial effusion. CONCLUSIONS -------- 1. The left ventricular size is normal. 2. There is mild concentric left ventricular hypertrophy. 3. Overall left ventricular systolic function is mildly impaired with, an EF between 45 - 50 %. 4. Mitral Doppler inflow pattern suggest diastolic filling abnormality 10.48. 5. Mid anteroseptal LV wall motion is hypokinetic. 6. Mild mitral regurgitation is present. 7. Mild tricuspid regurgitation present. 8. The inferior vena cava is mildly dilated. LIME SLAKER: Sobeida German RDCS
== END | disposition home or self-care (01) ==
LOC: RADECHMAIN 16:04
PROVIDERS: ATTEND Internal Medicine Cardiovascular Disease
DX: I08.1 Rheumatic disorders of both mitral and tricuspid valves (principal)
CPT/HCPCS: 93306

== ENCOUNTER → 2021-04-08 | Outpatient (CLI) | payer MEDICARE ==
--- NOTE | 2021-04-08 10:45 | US ---
EXAMINATION TYPE: US venous doppler duplex LE DATE OF EXAM: 04/08/2021 8:36 AM COMPARISON: NONE CLINICAL HISTORY: R60.0 Localized edema. edema SIDE PERFORMED: Bilateral TECHNIQUE: The lower extremity deep venous system is examined utilizing real time linear array sonog miguel with graded compression, doppler sonography and color-flow sonography. VESSELS IMAGED: Common Femoral Vein Deep Femoral Vein Greater Saphenous Vein * Femoral Vein Popliteal Vein Small Saphenous Vein * Proximal Calf Veins (* superficial vessels) No reflux noted. Right Leg: Negative for DVT Left Leg: Negative for DVT Grayscale, color doppler, spectral doppler imaging performed of the deep veins of the bilateral lower extremities. There is normal flow, compressibility, vascular waveforms. IMPRESSION: No ultrasound evidence for acute DVT in either lower extremity.
== END | disposition home or self-care (01) ==
LOC: RADUSWWP 07:32
PROVIDERS: ATTEND Internal Medicine Cardiovascular Disease
DX: R60.0 Localized edema (principal)
CPT/HCPCS: 93970

== ENCOUNTER → 2021-04-27 | Outpatient (CLI) | payer MEDICARE ==
[2021-04-27 08:09] VITALS: BP 115/75; PULSE 74; RESP 16; TEMP 97.9
--- NOTE | 2021-04-27 08:19 | P.PN ---
Subjective Progress Note Date: 04/27/21 This is a follow-up visit for this 66 years old female, with a history of severe and chronic low back pain , she is diagnosed with failed back surgery syndrome lumbar area,sacroiliitis , and myofascial pain syndrome, she is currently on [place]resford 7.5/325 twice a day, she denies any side effects of the medication, she denies any excessive drowsiness or sleepiness and she reported the current medication and how to control her pain, she reported increased pain in the low back area with radiation to the buttock bilaterally Physical Examinations : -Constitutiona : Cooperative , not in acute distress . -HEENT : nech : supple , no Lymphadenopathy , normal thyroid size . : eyes : no ptosis , no icterus, no photophobia . : ENT : normal of hearing , normal oropharynx , no Thrush . - Respiratory : Chest clear to auscultations Bilaterally , no wheezing , no Rhonchi . - Cardiovascula : regular rate and rhythem , S1 , S2 , no S3 , no S4. - Gastrointestina : abdomen soft no tenderness , bowel sounds , no organomegally . - Genitourinary : Defferred . - neurologic : Cranial nerve II to XII intact , no focal neurological deffecit . -psychatric : alert , oriented X 3 , appropriate affect , intact judgment and insight . -Lymphatic : no Lymphadenopathy . - musculoskeltal : Lumber spine moter stegnth lower extremities ,thigh and legs 5/5 Right side , 5/5 Left side deep tendon reflexes : normal Knee Jerk , normal ankle Jerk lumber facet Loading Test =positive Right , positive Left Range of motion of the lumbar spine Flexion 30 degrees, extension 10 degrees strait leg raising test = positive at degree Fabere test= positive Right , and positive LT . Sever tenderness over the Sacroiliac joint on the Right , and Left sides Gaenslen test= positive right ,and positive left . Multiple trigger point identified in the lumbar paraspinal muscles Assessment and plan= chronic low back pain secondary to failed back surgery syndrome and lumbar area, myofascial pain syndrome lumbar area, bilateral sacroiliitis Patient denies any side effects of the current pain medication and the current treatment/medication helping the patient to do activity of daily living , Diagnoses, prognosis, treatment options, including but not limited to physical therapy, medication management, interventional therapies, and surgery, were discussed with the patient All the questions answered The narcotic consent was signed and patient agreed and understood the side effects and complications of opioid treatment. Patient signed the narcotic agreement, and was orally counseled, not to overuse, not to abuse, not to Divert , not tp sell pain medication, and to take it as prescribed only, Patient was counseled not to drive or operate heavy equipment while using narcotic medication, and advised not to use alcohol or any Illicit drugs while using the narcotis. understanding that lack of compliance with any of the above instructions, will likely to cause discharge from, the pain service, not to renew his narcotic prescriptions MAPS Reviwed and it was apropriate . Medication managements= prescription refills for Be[place]ford 7.5/325 dispense 60 with 1 refill was given Patient could benefit from bilateral sacroiliac joint steroid injection, in the future we will consider doing bilaterals medial branch block if possible She will follow up in the pain clinic in 2 months , Time with Patient: Less than 30 PQRS Measure Charge Sheet Measure #130: Documentation of Current Meds in Medical Chart: Patient's medications documented in chart Measure #226: Tobacco Use: Screen & Cessation Intervention: Pt not a tobacco user Measure #111: Pneumonia Vaccination: Pneumococcal vaccine administered or previously received Measure #47: Advance Care Plan: Advance care planning discussed & documented, pt chose/unable to give Measure #412: Opioid Treatment Agreement: No documentation of signed opioid tr eatment agreement Measure #408: Opioid Therapy Follow-up Evaluation: Patient had NO f/u eval minimum every 3 months during opioid therapy Measure #317: Preventitive Care & Scrn High Bld Press & F/U: Normal blood pressure, f/u not required Measure #128: Body Mass Index (BMI) Screening & Follow-up: BMI documented ABOVE normal parameters - f/u documented Measure #131: Pain Assessment & Follow-up: Pain positive & plan documented, Follow-up scheduled Measure #431: Unhealthy Alcohol Use Preventative Care & Scrn: Patient not identified as an unhealthy alcohol user PQRS Narrative: Objective - Vital Signs Vital signs: Vital Signs Temp 97.9 F 04/27/21 08:06 Pulse 74 04/27/21 08:06 Resp 16 04/27/21 08:06 BP 115/75 04/27/21 08:06 Pulse Ox 97 04/27/21 08:06
== END ==
LOC: PNWHC3 07:43
PROVIDERS: ATTEND Specialist
DX: G89.29 Other chronic pain (principal); M96.1 Postlaminectomy syndrome, not elsewhere classified; M79.18 Myalgia, other site; M46.1 Sacroiliitis, not elsewhere classified; Z88.2 Allergy status to sulfonamides; Z91.048 Other nonmedicinal substance allergy status; Z88.6 Allergy status to analgesic agent; Z88.8 Allergy status to other drugs, medicaments and biological substances
CPT/HCPCS: 99211

== ENCOUNTER 2021-05-12 08:37 | Day surgery (SDC) | payer MEDICARE ==
[2021-05-11 10:38] VITALS: BMI 23.3
[2021-05-12 09:33] VITALS: TEMP 97.7
[2021-05-12] MEDS: LACTATED RINGERS 1,000 ML IV SCH ×2 (09:55→10:11)
[2021-05-12] MEDS ORDERED: LIDOCAINE 1% (10MG/ML) FOR IV START INTRADERMA ONE (09:55)
[2021-05-12] MEDS ORDERED: ROPIVACAINE 5MG/ML 20ML VIAL ONE (10:13)
[2021-05-12] MEDS ORDERED: TRIAMCINOLONE ACETONIDE 40 MG/ML 1 ML VIAL ONE (10:13)
[2021-05-12] MEDS ORDERED: fentaNYL (PF) 50 MCG/ML 2 ML AMP ONE (10:13)
[2021-05-12] MEDS ORDERED: MIDAZOLAM 2 MG/2 ML VIAL ONE (10:13)
--- NOTE | 2021-05-12 10:26 | P.PCN ---
Date of Procedure: 05/12/21 Surgeon: Neli Peterson Pathology: none sent Condition: stable Disposition: PACU Description of Procedure: Preoperative diagnoses= bilateral sacroiliac joint dysfunction and sacroiliitis , failed back surgery syndrome Postoperative diagnoses= same as preoperative diagnosis. Procedure= bilateral sacroiliac joint steroid injection under fluoroscopic guidance. Anesthesia= local anesthesia with lidocaine 1% and IV moderate conscious sedation with fentanyl and Versed Estimated blood loss=minimal. Procedure indication= the patient had a history of severe chronic low back pain, diagnosed with sacroiliitis and lumbar sacral facet arthropathy unresponsive to conservative treatment. Procedure description= the patient was seen and identified in the preoperative h olding area, risks and benefits and alternative of the procedure and possible complications discussed with the patient, patient signed the consent. an IV was started, and vital signs were monitored and were stable throughout the procedure, patient was placed in the prone position or table and the lumbosacral area was prepped and draped with a sterile fashion, vital signs were closely monitored during the procedure.The sacroiliac joint was identified on the AP view of fluoroscopy then the C-arm was tilted to the contralateral oblique position to superimpose the anterior and posterior joint lines on each other and to have a unified joint line with the target point at the inferior one third of this line. I used 22-gauge 3-1/2 inch Quincke spinal needle for this procedure and after getting into the sacroiliac joint I injected 20 mg of Kenalog +2 MLS of Ropivacaine 0.5%. Patient tolerated the procedure well without any complication, the procedure was repeated on the opposite side in the same manner. Of note: the patient had lumbar fusion with hardware extending from L2 to L4. The patient returned to supine position after the back was cleaned and a Band- Aid applied, the patient transported to recovery room in stable condition and he was monitored for 30 minutes before she was discharged home in stable condition . patient will follow up with the pain clinic in a few weeks. A copy of the needle placement was saved to the C-arm machine.
[2021-05-12 10:54] VITALS: BP 115/78; PULSE 78; RESP 18
--- NOTE | 2021-05-12 13:55 | FL ---
EXAMINATION TYPE: FL guided pain mgmt statistic DATE OF EXAM: 05/12/2021 CLINICAL HISTORY: Bilateral SI injection TECHNIQUE: Fluoroscopy. COMPARISON: None. FINDINGS: Fluoroscopic guidance was provided during procedure performed by Dr. Peterson. A total of 9 seconds of fluoroscopic time was utilized during the procedure and 2 spot images was acquired. IMPRESSION: As Above.
== END 2021-05-12 11:03 | disposition home or self-care (01) ==
LOC: ORPAIN 08:37
PROVIDERS: ATTEND Anesthesiology
DX: G89.29 Other chronic pain (principal); M46.1 Sacroiliitis, not elsewhere classified; M53.3 Sacrococcygeal disorders, not elsewhere classified; F31.9 Bipolar disorder, unspecified; K21.9 Gastro-esophageal reflux disease without esophagitis; Z88.2 Allergy status to sulfonamides; Z88.5 Allergy status to narcotic agent; Z88.8 Allergy status to other drugs, medicaments and biological substances; Z91.09 Other allergy status, other than to drugs and biological substances
CPT/HCPCS: J2250; J3301; J3010; J2795; G0260

== ENCOUNTER → 2021-05-20 | Outpatient (CLI) | payer MEDICARE ==
--- NOTE | 2021-05-20 10:52 | BD ---
EXAMINATION TYPE: Axial Bone Density DATE OF EXAM: 05/20/2021 COMPARISON: 02.05.2019 CLINICAL HISTORY: 66 YR OLD FEMALE.....ICD-10 CODE: N95.1 POST MENOPAUSAL, [id number] OSTEO SCREENING Height: 61.5 Weight: 125 FRAX RISK QUESTIONS: Glucocorticoids (More than 3mos): YES (Ex: prednisone, prednisolone, methylprednisolone, dexamethasone, and hydrocortisone). Secondary Osteoporosis: YES 3. Menopause before 45: YES RISK FACTORS HISTORY OF: Surgery to Spine CAGE BRACKET FOR S1 L5, AND SCREWS FURTHER UP Family History of Osteoporosis: YES, MOTHER WITH HUMURAL FX Diet low in dairy products/other sources of calcium: YES Postmenopausal woman: YES, AT AGE 35 YRS OLD, TOTAL HYST Take estrogen and/or progesterone medications: YES, FOR ABOUT 1-2 YRS Hyperparathyroidism: NO Adrenal Insufficiency: NO MEDICATIONS: Prednisone or other steroids: YES, INTO HER SPINE, KENALOG, BRO DOSE FOR PAIN Osteoporosis Medications: YES, BONIVA, LAST TAKEN 8 MOS AGO Additional Medications: BP MEDS, LATUDA, XANAX, REFLUX, LIPITOR, VIT D AND CALCIUM Additional History: HYPERTENSION, REFLUX, ANXIETY, REFLUX, CHOLESTEROL EXAM MEASUREMENTS: Bone mineral densitometry was performed using the [employer] System. Bone mineral density about the R hip (g/cm2): 0.694 Bone mineral density about the L hip (g/cm2): 0.671 T Score values are as follows: -----R Neck: -2.8 -----L Neck: -2.7 -----R Total: -2.5 -----L Total: -2.7 Bone mineral density has: Decreased -6.8% since study of: 02.05.2019 FRAX%s: THERE IS A 45.8% CHANCE FOR A MAJOR OSTEOPOROTIC FX AND A 9.9% FOR HIP......PROBABILITY FO R FX IN 10 YRS TIME Bone mineral density about the L Wrist (g/cm2): 0.354 T Score values are as follows: -----Dist. R+U: -4.0 -----Prox. R+U: -4.0 -----Radius total: -5.1 Bone mineral density has: Decreased -3.1% since study of: 02.05.2019 IMPRESSION: Osteoporosis. NOTE: T-SCORE=SD OF THE YOUNG ADULT MEAN.
== END | disposition home or self-care (01) ==
LOC: RADBDWWP 09:41
PROVIDERS: ATTEND Family Medicine
DX: Z13.820 Encounter for screening for osteoporosis (principal); M81.0 Age-related osteoporosis without current pathological fracture
CPT/HCPCS: 77080

== ENCOUNTER → 2021-06-22 | Outpatient (CLI) | payer MEDICARE ==
[2021-06-22 09:50] VITALS: BP 111/73; PULSE 70; RESP 18; TEMP 97.4
--- NOTE | 2021-06-22 09:55 | P.PAINPG ---
Subjective Progress Note Date: 06/22/21 This is a follow-up visit for this 66 years old female, with a history of severe and chronic low back pain , she is diagnosed with failed back surgery syndrome lumbar area,sacroiliitis , and myofascial pain syndrome, she is currently on [place] 7.5/325 twice a day, she denies any side effects of the medication, she denies any excessive drowsiness or sleepiness and she reported the current medication and how to control her pain, she reported increased pain in the low back area with radiation to the buttock bilaterally We recently performed bilateral SI joint injections for her. She said the bilateral sacroiliac joint injections only helped with about 50% of her pain relief for only that today. Overall her pain is a little worse than usual located mostly in the low back and hip area. She mentions a trigger points are very helpful for her in the past and she would like to repeat them. Physical Examinations : -Constitutiona : Cooperative , not in acute distress . -HEENT : nech : supple , no Lymphadenopathy , normal thyroid size . : eyes : no ptosis , no icterus, no photophobia . : ENT : normal of hearing , normal oropharynx , no Thrush . - Respiratory : Chest clear to auscultations Bilaterally , no wheezing , no Rhonchi . - Cardiovascula : regular rate and rhythem , S1 , S2 , no S3 , no S4. - Gastrointestina : abdomen soft no tenderness , bowel sounds , no organomegally . - Genitourinary : Defferred . - neurologic : Cranial nerve II to XII intact , no focal neurological deffecit . -psychatric : alert , oriented X 3 , appropriate affect , intact judgment and insight . -Lymphatic : no Lymphadenopathy . - musculoskeltal : Lumber spine moter stegnth lower extremities ,thigh and legs 5/5 Right side , 5/5 Left side deep tendon reflexes : normal Knee Jerk , normal ankle Jerk lumber facet Loading Test =positive Right , positive Left Range of motion of the lumbar spine Flexion 30 degrees, extension 10 degrees strait leg raising test = positive at degree Fabere test= positive Right , and positive LT . Sever tenderness over the Sacroiliac joint on the Right , and Left sides Gaenslen test= positive right ,and positive left . Multiple trigger point identified in the lumbar paraspinal muscles Assessment and plan= chronic low back pain secondary to failed back surgery syndrome and lumbar area, myofascial pain syndrome lumbar area, bilateral sacroiliitis Patient denies any side effects of the current pain medication and the current treatment/medication helping the patient to do activity of daily living , Diagnoses, prognosis, treatment options, including but not limited to physical therapy, medication management, interventional therapies, and surgery, were discussed with the patient All the questions answered The narcotic consent was signed and patient agreed and understood the side effects and complications of opioid treatment. Patient signed the narcotic agreement, and was orally counseled, not to overuse, not to abuse, not to Divert , not tp sell pain medication, and to take it as prescribed only, Patient was counseled not to drive or operate heavy equipment while using narcotic medication, and advised not to use alcohol or any Illicit drugs while using the narcotis. understanding that lack of compliance with any of the above instructions, will likely to cause discharge from, the pain service, not to renew his narcotic prescriptions MAPS Reviwed and it was apropriate . Medication managements= prescription refills for [place] 7.5/325 dispense 60 with 1 refill was given Schedule for bilateral lumbar paraspinal, quadratus lumborum, latissimus dorsi trigger point injections. , I have spent 25 minutes on patient care today. The time was used to review the medical records including relevant urine studies and prescription history, review of the available imaging, evaluation and examination of the patient, coordination of care with the medical staff and if applicable referring physicians, as well as creation of the medical record. PQRS Measure Charge Sheet Measure #130: Documentation of Current Meds in Medical Chart: Patient's medications documented in chart Measure #226: Tobacco Use: Screen & Cessation Intervention: Pt not a tobacco user Measure #111: Pneumonia Vaccination: Pneumococcal vaccine administered or previously received Measure #47: Advance Care Plan: Advance care planning discussed & documented, pt chose/unable to give Measure #412: Opioid Treatment Agreement: No documentation of signed opioid treatment agreement Measure #408: Opioid Therapy Follow-up Evaluation: Patient had NO f/u eval minimum every 3 months during opioid therapy Measure #317: Preventitive Care & Scrn High Bld Press & F/U: Normal blood pressure, f/u not required Measure #128: Body Mass Index (BMI) Screening & Follow-up: BMI documented ABOVE normal parameters - f/u documented Measure #131: Pain Assessment & Follow-up: Pain positive & plan documented, Follow-up scheduled Measure #431: Unhealthy Alcohol Use Preventative Care & Scrn: Patient not identified as an unhealthy alcohol user PQRS Measure Charge Sheet PQRS Narrative: Smoking Status Never smoker Narcotic Agreement Date Signed 09/29/20 Pain Intensity [Back] 8 Hx Alcohol Use (MH) No Home Medications: Ambulatory Orders Loratadine [Claritin] 10 mg PO DAILY 09/04/19 hydroCHLOROthiazide [Hydrodiuril] 25 mg PO DAILY 09/04/19 Omeprazole 40 mg PO DAILY 01/14/20 Atorvastatin [Lipitor] 40 mg PO HS 03/20/20 Fluticasone Nasal [place] [Flonase Nasal [place]] 1 spray EA NOSTRIL HS 03/20/20 Lurasidone [Latuda] 60 mg PO W/SUPPER 03/20/20 Calcium Carb/Vitamin D3/Vit K1 [Citracal Soft Chew] 1 each PO DAILY 04/17/20 Cyanocobalamin (Vitamin B-12) [Vitamin B-12] 5,000 mcg PO DAILY 04/17/20 Oxybutynin Chloride 5 mg PO BID 04/17/20 Vitamin B Complex 1 each PO DAILY 04/17/20 Multivit-Min/FA/Lycopen/Lutein [Centrum Silver Tablet] 1 each PO DAILY 11/18/20 Cholecalciferol [Vitamin D3 (25 Mcg = 1000 Iu)] 25 mcg PO DAILY 12/01/20 ALPRAZolam [Xanax] 0.5 mg PO BID PRN 01/12/21 DULoxetine HCL [Cymbalta] 60 mg PO BID 01/12/21 Aspirin 81 mg PO DAILY 03/04/21 Zolpidem [Ambien] 5 mg PO HS PRN 05/11/21 Ferrous Fumarate Powder 1 cap PO DAILY 06/16/21 HYDROcodone/APAP 7.5-325MG [[place] 7.5-325] 1 tab PO BID 30 Days #60 tab 06/22/21 HYDROcodone/APAP 7.5-325MG [[place] 7.5-325] 1 tab PO BID PRN 30 Days #60 tab 06/22/21 Controlled Substance Measures - Controlled Substance Measures Is patient prescribed a controlled substance at discharge?: Yes When asked, does pt state using other controlled substances?: No If prescribed controlled substance>3 days was MAPS reviewed?: Yes If Rx opioid, was Start Talking consent form obtained?: Yes If opioid is for acute pain is fill amount 7 days or less?: No Was information provided regarding opioid addiction?: No
== END | disposition home or self-care (01) ==
LOC: PNWHC3 09:37
PROVIDERS: ATTEND Anesthesiology
DX: G89.29 Other chronic pain (principal); M54.5 Low back pain
CPT/HCPCS: 99211

== ENCOUNTER → 2021-08-10 | Outpatient (CLI) | payer MEDICARE ==
[2021-08-10 11:14] VITALS: BP 113/62; PULSE 75; RESP 18; TEMP 96.6
--- NOTE | 2021-08-10 11:28 | P.PN ---
Subjective Progress Note Date: 08/10/21 This is a follow-up visit for this 66 years old female, with a history of severe and chronic low back pain , she is diagnosed with failed back surgery syndrome lumbar area,sacroiliitis , and myofascial pain syndrome, she is currently on [place] 7.5/325 twice a day, she denies any side effects of the medication, she denies any excessive drowsiness or sleepiness and she reported the current medication and how to control her pain, she reported increased pain in the low back area with radiation to the buttock bilaterally, mostly we have done trigger point injection she had benefit from it, previously we have done bilateral sacroiliac joint steroid injection she reported that she had no benefit from, sh e denies any fever or night sweats, she denies any change in the bowel movement or urination. The pain is constant and increases with any activity interference with the quality of life Physical Examinations : -Constitutiona : Cooperative , not in acute distress . -HEENT : nech : supple , no Lymphadenopathy , normal thyroid size . : eyes : no ptosis , no icterus, no photophobia . : ENT : normal of hearing , normal oropharynx , no Thrush . - Respiratory : Chest clear to auscultations Bilaterally , no wheezing , no Rhonchi . - Cardiovascula : regular rate and rhythem , S1 , S2 , no S3 , no S4. - Gastrointestina : abdomen soft no tenderness , bowel sounds , no organomegally . - Genitourinary : Defferred . - neurologic : Cranial nerve II to XII intact , no focal neurological deffecit . -psychatric : alert , oriented X 3 , appropriate affect , intact judgment and insight . -Lymphatic : no Lymphadenopathy . - musculoskeltal : Lumber spine moter stegnth lower extremities ,thigh and legs 5/5 Right side , 5/5 Left side deep tendon reflexes : normal Knee Jerk , normal ankle Jerk lumber facet Loading Test =positive Right , positive Left Range of motion of the lumbar spine Flexion 30 degrees, extension 10 degrees strait leg raising test = positive at degree Fabere test= positive Right , and positive LT . Sever tenderness over the Sacroiliac joint on the Right , and Left sides Gaenslen test= positive right ,and positive left . Multiple trigger point identified in the lumbar paraspinal muscles Assessment and plan= chronic low back pain secondary to failed back surgery syndrome and lumbar area, myofascial pain syndrome lumbar area, bilateral sacroiliitis Patient denies any side effects of the current pain medication and the current treatment/medication helping the patient to do activity of daily living , Diagnoses, prognosis, treatment options, including but not limited to physical therapy, medication management, interventional therapies, and surgery, were discussed with the patient All the questions answered The narcotic consent was signed and patient agreed and understood the side effects and complications of opioid treatment. Patient signed the narcotic agreement, and was orally counseled, not to overuse, not to abuse, not to Divert , not tp sell pain medication, and to take it as prescribed only, Patient was counseled not to drive or operate heavy equipment while using narcotic medication, and advised not to use alcohol or any Illicit drugs while using the narcotis. understanding that lack of compliance with any of the above instructions, will likely to cause discharge from, the pain service, not to renew his narcotic prescriptions MAPS Reviwed and it was apropriate . Medication managements= prescription refills for [place] 7.5/325 dispense 60 with 1 refill was given Patient will be referred for evaluation by a spine surgeon She will follow up in the pain clinic in 2 months UDS ordered today , Time with Patient: Less than 30 PQRS Measure Charge Sheet Measure #130: Documentation of Current Meds in Medical Chart: Patient's medications documented in chart Measure #226: Tobacco Use: Screen & Cessation Intervention: Pt not a tobacco user Measure #111: Pneumonia Vaccination: Pneumococcal vaccine administered or previously received Measure #47: Advance Care Plan: Advance care planning discussed & documented, pt chose/unable to give Measure #412: Opioid Treatment Agreement: No documentation of signed opioid treatment agreement Measure #408: Opioid Therapy Follow-up Evaluation: Patient had NO f/u eval minimum every 3 months during opioid therapy Measure #317: Preventitive Care & Scrn High Bld Press & F/U: Normal blood pressure, f/u not required Measure #128: Body Mass Index (BMI) Screening & Follow-up: BMI documented within the normal parameters - f/u documented Measure #131: Pain Assessment & Follow-up: Pain positive & plan documented, Follow-up scheduled Measure #431: Unhealthy Alcohol Use Preventative Care & Scrn: Patient not identified as an unhealthy alcohol user PQRS Narrative: Objective - Vital Signs Vital signs: Vital Signs Temp 96.6 F L 08/10/21 11:10 Pulse 75 08/10/21 11:10 Resp 18 08/10/21 11:10 BP 113/62 08/10/21 11:10 Pulse Ox 100 08/10/21 11:10
== END | disposition home or self-care (01) ==
LOC: PNWHC3 10:54
PROVIDERS: ATTEND Specialist
DX: G89.29 Other chronic pain (principal); M54.59 Other low back pain
CPT/HCPCS: 80307; G0482; G0463; 99212

== ENCOUNTER → 2021-10-05 | Outpatient (CLI) | payer MEDICARE ==
[2021-10-05 10:54] VITALS: BP 118/77; PULSE 68; RESP 18; TEMP 98
--- NOTE | 2021-10-05 12:12 | P.PN ---
Subjective Progress Note Date: 10/05/21 This is a follow-up visit for this 66 years old female, with a history of severe and chronic low back pain , she is diagnosed with failed back surgery syndrome lumbar area,sacroiliitis , and myofascial pain syndrome, she is currently on [place] 7.5/325 twice a day, she denies any side effects of the medication, she denies any excessive drowsiness or sleepiness and she reported the current medication and how to control her pain, she reported increased pain in the low back area with radiation to the buttock bilaterally, mostly we have done trigger point injection she had benefit from it, previously we have done bilateral sacroiliac joint steroid injection she reported that she had no benefit from, sh e denies any fever or night sweats, she denies any change in the bowel movement or urination. The pain is constant and increases with any activity interference with the quality of life, he was referred to Dr. Magaña (spine surgeon )for evaluation, he ordered a computed tomography scan of the thoracic and lumbar spine for possible surgical interventions and revision of her fusion Physical Examinations : -Constitutiona : Cooperative , not in acute distress . -HEENT : nech : supple , no Lymphadenopathy , normal thyroid size . : eyes : no ptosis , no icterus, no photophobia . : ENT : normal of hearing , normal oropharynx , no Thrush . - Respiratory : Chest clear to auscultations Bilaterally , no wheezing , no Rhonchi . - Cardiovascula : regular rate and rhythem , S1 , S2 , no S3 , no S4. - Gastrointestina : abdomen soft no tenderness , bowel sounds , no organomegally . - Genitourinary : Defferred . - neurologic : Cranial nerve II to XII intact , no focal neurological deffecit . -psychatric : alert , oriented X 3 , appropriate affect , intact judgment and insight . -Lymphatic : no Lymphadenopathy . - musculoskeltal : Lumber spine moter stegnth lower extremities ,thigh and legs 5/5 Right side , 5/5 Left side deep tendon reflexes : normal Knee Jerk , normal ankle Jerk lumber facet Loading Test =positive Right , positive Left Range of motion of the lumbar spine Flexion 30 degrees, extension 10 degrees strait leg raising test = positive at degree Fabere test= positive Right , and positive LT . Sever tenderness over the Sacroiliac joint on the Right , and Left sides Gaenslen test= positive right ,and positive left . Multiple trigger point identified in the lumbar paraspinal muscles Assessment and plan= chronic low back pain secondary to failed back surgery syndrome and lumbar area, myofascial pain syndrome lumbar area, bilateral sacroiliitis Patient denies any side effects of the current pain medication and the current treatment/medication helping the patient to do activity of daily living , Diagnoses, prognosis, treatment options, including but not limited to physical therapy, medication management, interventional therapies, and surgery, were discussed with the patient All the questions answered The narcotic consent was signed and patient agreed and understood the side effects and complications of opioid treatment. Patient signed the narcotic agreement, and was orally counseled, not to overuse, not to abuse, not to Divert , not tp sell pain medication, and to take it as prescribed only, Patient was counseled not to drive or operate heavy equipment while using narcotic medication, and advised not to use alcohol or any Illicit drugs while using the narcotis. understanding that lack of compliance with any of the above instructions, will likely to cause discharge from, the pain service, not to renew his narcotic prescriptions MAPS Reviwed and it was apropriate . Medication managements= prescription refills for [place] 7.5/325 dispense 90 with 1 refill was given [place] drug screen ordered today She will follow up in the pain clinic in 2 months , Time with Patient: Less than 30 PQRS Measure Charge Sheet Measure #130: Documentation of Current Meds in Medical Chart: Patient's medications documented in chart Measure #226: Tobacco Use: Screen & Cessation Intervention: Pt not a tobacco user Measure #111: Pneumonia Vaccination: Pneumococcal vaccine administered or previously received Measure #47: Advance Care Plan: Advance care planning discussed & documented, pt chose/unable to give Measure #412: Opioid Treatment Agreement: No documentation of signed opioid treatment agreement Measure #408: Opioid Therapy Follow-up Evaluation: Patient had NO f/u eval minimum every 3 months during opioid therapy Measure #317: Preventitive Care & Scrn High Bld Press & F/U: Normal blood pressure, f/u not required Measure #128: Body Mass Index (BMI) Screening & Follow-up: BMI documented within the normal parameters - f/u documented Measure #131: Pain Assessment & Follow-up: Pain positive & plan documented, Follow-up scheduled Measure #431: Unhealthy Alcohol Use Preventative Care & Scrn: Patient not identified as an unhealthy alcohol user PQRS Narrative: Objective - Vital Signs Vital signs: Vital Signs Temp 98 F 10/05/21 10:45 Pulse 68 10/05/21 10:45 Resp 18 10/05/21 10:45 BP 118/77 10/05/21 10:45 Pulse Ox 98 10/05/21 10:45
[2021-10-06 09:51] LABS: Serum Amphetamine Negative; Serum Barbiturates Positive; Serum Benzodiazepine Negative; Serum Cocaine Negative; Serum Methadone Negative; Serum Opiates Negative; Serum Phencyclidine Negative; Serum Propoxyphene Negative; Serum THC (Cannabis) Negative
== END | disposition home or self-care (01) ==
LOC: PNWHC3 09:44
PROVIDERS: ATTEND Specialist
DX: F11.20 Opioid dependence, uncomplicated (principal); M79.18 Myalgia, other site; M46.1 Sacroiliitis, not elsewhere classified
CPT/HCPCS: 80307; G0463; 99211

== ENCOUNTER → 2021-10-23 | Outpatient (CLI) | payer MEDICARE ==
--- NOTE | 2021-10-23 13:04 | MR ---
EXAMINATION TYPE: MR tspine/lspine wo con DATE OF EXAM: 10/23/2021 COMPARISON: CT thoracic and lumbar spine same day. HISTORY: T/L spine pain TECHNIQUE: Multiplanar, multisequence imaging of the thoracic and lumbar spine are performed without IV contrast. FINDINGS: T-SPINE: FINDINGS: Localizer shows grade 1 retrolisthesis C5 on C6 sagittal image 5. Spinal cord shows normal course, caliber, and signal as it courses the thoracic spine. Vertebral body heights and alignment a re satisfactory. Mild multilevel disc space narrowing in the mid to lower thoracic spine along with mild multilevel anterior spurring. Prominent Schmorl node in the inferior T10 and inferior T7 endplat e along the superior-posterior T7 endplate sagittal image 9. Posterior disc herniations mildly efface the anterior thecal sac T6-T7 through the T11-T12 levels on sagittal images. Review of the axial images confirm multilevel left paracentral disc protrusion mildly effacing the a nterolateral thecal sac with findings greatest at the T9-T10 level sagittal image 6 and axial image 1 1. No suspicious incidental finding the visualized thorax or upper abdomen. IMPRESSION: Multilevel mild to moderate degenerative changes mid to lower thoracic spine as detailed above L-SPINE: Sagittal images of the lumbar spine show vertebral body heights to appear satisfactory. There is grad e 1 retrolisthesis L1 on L2 redemonstrated. Laazmyzo-hp-qdjqob disc space narrowing at this level is seen. Artificial disc material L4-L5 level is present. Fedc-bn-gkywczwj disc space narrowing at L2-L3 and L3-L4 levels redemonstrated. Mild disc space narrowing L5-S1 level. Artifact from posterior fusi on hardware L1-L4 levels is noted. The conus medullaris is difficult to identify likely ending at L1 vertebral body level. Spinal canal is patulous and as there is multilevel posterior spinous process resection noted. Axial images are significantly degraded by susceptibility artifact in the upper to mid lumbar spine. At L4-L5 level there is a patent spinal canal and bilateral neural foramina with artificial disc mate rial. Moderate facet arthropathy is present. Axial images at L5-S1 level show mild facet arthropathy with central disc protrusion with spinal ilene l is preserved, there is roao-am-vzsvnixw bilateral neural foraminal narrowing. Paraspinal muscle bulk is maintained. IMPRESSION: Extensive metallic surgical change of the lumbar spine makes the evaluation on MRI subopt imal. Grade 1 retrolisthesis L1 on L2. Most prominent degenerative changes noted at this level. Other findings as noted above.
== END | disposition home or self-care (01) ==
LOC: RADMRIMAIN 10:35
PROVIDERS: ATTEND Orthopaedic Surgery
DX: M43.16 Spondylolisthesis, lumbar region (principal); M54.6 Pain in thoracic spine
CPT/HCPCS: 72146; 72148

== ENCOUNTER → 2021-10-23 | Outpatient (CLI) | payer MEDICARE ==
--- NOTE | 2021-10-23 11:39 | CT ---
EXAMINATION TYPE: CT thoracic spine wo con DATE OF EXAM: 10/23/2021 COMPARISON: None HISTORY: 66-year-old female M54.6,M54.9 Back pain TECHNIQUE: Contiguous axial scanning of the thoracic spine without IV contrast. Coronal and sagittal reconstructions performed. CT DLP: 451.40 mGycm Automated exposure control for dose reduction was used. FINDINGS: Small hiatal hernia. Surgical change below the GE junction may relate to Erica-en-Y gastric bypass. Calcified left hilar lymph nodes compatible with prior granulomatous disease. Partially visualized posterior change of posterior lumbar fusion from L1 down. Moderate degenerative disc disease mid thoracic spine from T6 through T10 levels with disc space narr owing, endplate spondylosis, and some scattered vacuum phenomenon. Vertebral body heights are preserved. Alignment is maintained. Alignment for CT technique, no large focal disc herniation is identified. Small herniations are sugge sted such as left paracentral and T9-T10, sagittal image 19. No evident canal compromise by CT. Scattered facet arthropathy. Mild bony neural foraminal narrowing towards the right at T9-T10 and T10 -T11. No high-grade foraminal compromise is identified. No acute fracture of the thoracic spine. IMPRESSION: 1. MODERATE DEGENERATIVE DISC DISEASE MID TO LOWER THORACIC SPINE ESPECIALLY FROM T6 THROUGH T10 LEVE LS. SCATTERED MILD FACET ARTHROPATHY. 2. A FEW SMALL DISC PROTRUSIONS SUGGEST TOWARDS THE LEFT AT T9-T10. NO EVIDENT CANAL COMPROMISE BY CT . NO HIGH-GRADE NEUROFORAMINAL NARROWING. 3. NO VERTEBRAL COMPRESSION COLLAPSE. 4. SMALL HIATAL HERNIA. SUSPECT PRIOR ERICA-EN-Y GASTRIC BYPASS.
--- NOTE | 2021-10-23 11:45 | CT ---
EXAMINATION TYPE: CT lumbar spine wo con DATE OF EXAM: 10/23/2021 COMPARISON: 11/21/2019 HISTORY: 66-year-old female with back pain and previous lumbar surgery. M54.6, M54.9 TECHNIQUE: Contiguous axial scanning of the lumbar spine without IV contrast. Coronal and sagittal re constructions performed. CT DLP: 353.90 mGycm Automated exposure control for dose reduction was used. FINDINGS: Postoperative change within the gastric bypass. No prevertebral soft tissue quality. Post surgical change of L1-L4 posterior lumbar fusion with corresponding laminectomies. There is also interbody and lateral osseous fusion at L4-L5. Previous orthopedic hardware at the L5 level has been removed. Screw tracks remain. Fixed, there is a grade 2 retrolisthesis L1-L2. Moderate degenerative disc disease above the fusion at T12-L1 with disc bulge and some vacuum phenome non. Disc pubis to mild narrowing of the spinal canal. By CT, no significant spinal canal narrowing elsewhere within the lumbar spine. On the left, there is mild bony neuroforaminal narrowing at the fused L1-L2 level. On the right, there is more mild to moderate narrowing at the fused L1-L2 level and also mild to mode rate at L5-S1. IMPRESSION: 1. STATUS POST L1-L4 POSTERIOR LUMBAR FUSION WITH CORRESPONDING LAMINECTOMIES. ADDITIONAL INTERBODY A ND LATERAL OSSEOUS FUSION AT L4-L5. 2. UNCHANGED FIXED, NEARLY GRADE 2 RETROLISTHESIS AT THE FUSED L1-L2 LEVEL. 3. PROGRESSIVE DEGENERATIVE DISC DISEASE ABOVE THE FUSION AT T12-L1 NOW WITH DISC BULGE AND DISC JENNIFER CCATION. THIS RESULTS IN A MILD SPINAL CANAL STENOSIS HERE. 4. MILD NEUROFORAMINAL NARROWING OUTLINED ABOVE, PARTICULARLY AT L1-L2 ON THE LEFT AND MILD-TO-MOD ERATE ON THE RIGHT AT L1-L2 AND L5-S1.
== END | disposition home or self-care (01) ==
LOC: RADCTMAIN 10:28
PROVIDERS: ATTEND Orthopaedic Surgery
DX: M43.16 Spondylolisthesis, lumbar region (principal); M48.061 Spinal stenosis, lumbar region without neurogenic claudication; M51.34 Other intervertebral disc degeneration, thoracic region; K44.9 Diaphragmatic hernia without obstruction or gangrene
CPT/HCPCS: 72128; 72131

== ENCOUNTER → 2021-12-31 | Outpatient (CLI) | payer MEDICARE ==
[2021-12-31 08:30] VITALS: BP 111/56; PULSE 64; RESP 18; TEMP 98.2
--- NOTE | 2021-12-31 08:34 | P.PN ---
Subjective Progress Note Date: 12/31/21 Principal diagnosis: A 66 yr old female with a history of severe and chronic low back pain secondary to lumbar degenerative disc diseases and lumbar spondylosis with facet arthropathy presents today for mid and lower back pain with accompanying paraspinal muscle spasms. Pain level is 8 out of 10 in intensity, achy, throbbing, dull in the bilateral aspects of the thoracic and lumbar spine. No radiation of pain. Pain is provoked by sitting for periods of 30 minutes or more. Pain is alleviated with Tylenol OTC, topicals, injections, heat, physical therapy in the past which was painful to the patient, home stretching regimen, use of a cane for ambulation, repositioning and rest. Patient is currently on Tylenol OTC Patient denies any side effects of the medication(s), denies excessive drowsiness or sleepiness, denies suicidal ideation and reports that the current pain medication is helping to control the pain and improve activities of daily living. Patient denies any motor or sensory deficits. Patient denies any fever or night sweats, denies any change in the bowel movements or urination. Physical Examination: -Constitutional: Cooperative. Not in acute distress . -HEENT: Neck is supple. No lymphadenopathy. No thyromegaly. Normal thyroid size. Eyes: No ptosis , no icterus, no photophobia. ENT: No auditory deficits. Normal oropharynx. No Thrush. - Respiratory: Chest clear to auscultations bilaterally. No wheezing. No rhonchi. - Cardiovascular: Regular rate and rhythm. S1 / S2 , no S3 , no S4. - Gastrointestinal: Abdomen soft no tenderness. Bowel sounds positive in all four quadrants. No organomegaly. - Genitourinary: Deferred. - Neurologic: Cranial nerve II to XII intact. No focal neurological deficits. - Psychatric: Alert & oriented x 3. Matching mood & appropriate affect. Judgment and insight intact. - Lymphatic: No Lymphadenopathy. - Musculoskeletal: Cervical spine: Muscle bulk/ tone/ strength in the bilateral upper extremities normal. Facet loading test cervical area positive. Thoracic spine: Tenderness to palpation over the bilateral paraspinal muscles T6 to T12 Lumbar spine: Motor bulk/ tone/ strength lower extremities , thigh and legs : 5/5 Deep tendon reflexes : Normal Knee Jerk. Normal Ankle Jerk . Vertebral body tenderness to palpation over Lumbar Facet Loading Test positive Tenderness to palpation over the bilateral paraspinal muscles L1 to L5 Bilateral paraspinal muscle spasms L1 to L3 Straight Leg Raise: positive at 30 degrees right side/ left side Gaenslen's Test positive Sacral spine : Severe tenderness over the Sacroiliac joint: right side / left side Range of motion: Flexion of the lumbar spine <60 degrees Range of motion: Extension of the lumbar spine <20 degrees Gaenslen's Test positive Shayna test: positive right side / left side Assessment and plan: Chronic low back pain secondary to lumbar degenerative disc disease , lumbar spondylosis with facet arthropathy without myelopathy Recommendation of TPI bilateral T6- L5 Risks, benefits of procedure discussed and patient verbalized understanding. Denies anticoagulant use. Denies medical history diabetes mellitus. All patient questions answered MAPS reviewed and it was appropriate. I have spent 31 minutes on patient care today. Dr Rico was available by phone for the evaluation of this patient. The time was used to review the medical records including relevant urine studies and Prescription history (MAPs), review of the available imaging, evaluation and examination of the patient, coordination of care with the medical staff and if applicable referring physicians, as well as creation of the medical record Objective - Vital Signs Vital signs: Vital Signs Temp 98.2 F 12/31/21 08:25 Pulse 64 12/31/21 08:25 Resp 18 12/31/21 08:25 BP 111/56 12/31/21 08:25 Pulse Ox 99 12/31/21 08:25 PQRS Measure Charge Sheet Mode of Arrival: Ambulatory - Pain Location Lower Back Non-Pharmacological Interventions: Heat, Inactivity, Physical Therapy, Position/Reposition, Stretching Pharmacological Interventions: PRN Medication, Topical Medication PQRS Narrative: Smoking Status Never smoker Narcotic Agreement Date Signed 08/10/21 Blood Pressure 111/56 Pain Intensity [Lower Back] 8 Scale Used Numeric (1 - 10) Hx Alcohol Use (MH) No Home Medications: Ambulatory Orders Loratadine [Claritin] 10 mg PO DAILY 09/04/19 hydroCHLOROthiazide [Hydrodiuril] 25 mg PO DAILY 09/04/19 Omeprazole 40 mg PO DAILY 01/14/20 Atorvastatin [Lipitor] 40 mg PO HS 03/20/20 Fluticasone Nasal [place] [Flonase Nasal [place]] 1 spray EA NOSTRIL HS 03/20/20 Lurasidone [Latuda] 60 mg PO W/SUPPER 03/20/20 Calcium Carb/Vitamin D3/Vit K1 [Citracal Soft Chew] 1 each PO DAILY 04/17/20 Cyanocobalamin (Vitamin B-12) [Vitamin B-12] 5,000 mcg PO DAILY 04/17/20 Oxybutynin Chloride 5 mg PO BID 04/17/20 Vitamin B Complex 1 each PO DAILY 04/17/20 Multivit-Min/FA/Lycopen/Lutein [Centrum Silver Tablet] 1 each PO DAILY 11/18/20 Cholecalciferol [Vitamin D3 (25 Mcg = 1000 Iu)] 25 mcg PO DAILY 12/01/20 ALPRAZolam [Xanax] 1 mg PO BID PRN 01/12/21 DULoxetine HCL [Cymbalta] 60 mg PO BID 01/12/21 Aspirin 81 mg PO DAILY 03/04/21 Zolpidem [Ambien] 5 mg PO HS PRN 05/11/21 Ferrous Fumarate Powder 1 applic PO DAILY 06/16/21 Denosumab [Prolia] 60 mg SQ Q180D 09/30/21 Primidone [Mysoline] 50 mg PO TID 09/30/21
== END | disposition home or self-care (01) ==
LOC: PNWHC3 07:54
PROVIDERS: ATTEND Physician Assistant Medical
DX: M47.896 Other spondylosis, lumbar region (principal); M51.36 Other intervertebral disc degeneration, lumbar region
CPT/HCPCS: 99211

== ENCOUNTER 2022-01-02 18:43 | Emergency (ER) | payer MEDICARE ==
[2022-01-02] MEDS ORDERED: DIPH,PERTUS(ACELL)TETVAC-LF 0.5 ML VIAL IM ONE (19:03)
[2022-01-02] MEDS ORDERED: TOPICAL SKIN ADHESIVE 1 EACH AMP TOPICAL ONE (19:30)
--- NOTE | 2022-01-02 19:35 | CT ---
EXAMINATION TYPE: CT brain caridad wo con DATE OF EXAM: 01/02/2022 COMPARISON: CT brain 09/04/2019 HISTORY: fall CT DLP: 1280.8 mGycm Automated exposure control for dose reduction was used. Ventricles and sulci appear normal. There is no mass effect or midline shift. There is no evidence of intracranial hemorrhage. There is mild left frontal scalp hematoma. Calvarium is intact. Skull base is intact. There is osteotomy of the medial rubio of the maxillary sinuses. Cervical vertebra have normal alignment. Posterior elements are intact. Facet joints are intact. Ther e is slight narrowing of C5-6 disc space. IMPRESSION: Small left frontal scalp hematoma. No acute intracranial abnormality. Negative CT scan of the cervical spine. No fracture.
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
[2022-01-02 20:53] VITALS: BP 123/80; PULSE 78; RESP 20; TEMP 97.9
== END 2022-01-02 20:53 | disposition home or self-care (01) ==
LOC: EC 18:43
DX: S01.81XA Laceration without foreign body of other part of head, initial encounter (principal); Z79.83 Long term (current) use of bisphosphonates; K21.9 Gastro-esophageal reflux disease without esophagitis; Z88.8 Allergy status to other drugs, medicaments and biological substances; Z91.048 Other nonmedicinal substance allergy status; Z88.2 Allergy status to sulfonamides; Y93.K1 Activity, walking an animal; W19.XXXA Unspecified fall, initial encounter
CPT/HCPCS: 70450; 72125; 90715

== ENCOUNTER 2022-01-14 15:50 | Emergency (ER) | payer MEDICARE ==
[2022-01-14 16:10] VITALS: BP 113/69; PULSE 83; RESP 16; TEMP 97.5
[2022-01-14] MEDS ORDERED: FLUORESCEIN STRIPS 1 MG STRIP BOTH EYES STA (18:31)
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
--- NOTE | 2022-01-14 19:09 | CT ---
EXAMINATION TYPE: CT facial bones wo con CT DLP: 1406 mGycm, Automated exposure control for dose reduction was used. DATE OF EXAM: 01/14/2022 7:02 PM COMPARISON: None. CLINICAL INDICATION:Female, 66 years old with history of fall, head injury, vision changes;, double v ision, fell TECHNIQUE: Multiple unenhanced axial CT images were obtained of the facial bones soft tissue and bone windows. Coronal, axial and sagittal reformatted images were also provided in soft tissue and bone windows and submitted for interpretation. FINDINGS: There is no evidence of fracture, subluxation, dislocation, or significant soft tissue swelling. The orbital contents are unremarkable.The temporal-mandibular joints appear symmetric. The visualized por tion of the paranasal sinuses demonstrate mild paranasal sinus disease with antrostomy changes bilate rally. The lenses are not visualized in the globes. IMPRESSION: No evidence of fracture. Mild paranasal sinus disease.
--- NOTE | 2022-01-14 19:10 | CT ---
EXAMINATION TYPE: CT brain wo con DATE OF EXAM: 01/14/2022 COMPARISON: 01/02/2022 HISTORY: double vision, fell CT DLP: mGycm Automated exposure control for dose reduction was used. Ventricles of normal size. There is no mass effect or midline shift. There is no sign of intracranial hemorrhage. Calvarium is intact. There is normal aeration of the mastoid sinuses. There are small le ft frontal scalp hematoma smaller than last exam. IMPRESSION: Negative unenhanced head CT scan. No change.
== END 2022-01-14 20:29 | disposition home or self-care (01) ==
LOC: EC 15:50
DX: H53.8 Other visual disturbances (principal); E78.5 Hyperlipidemia, unspecified; M19.90 Unspecified osteoarthritis, unspecified site; K21.9 Gastro-esophageal reflux disease without esophagitis; Z86.73 Personal history of transient ischemic attack (TIA), and cerebral infarction without residual deficits; Z88.1 Allergy status to other antibiotic agents; Z91.09 Other allergy status, other than to drugs and biological substances; Z88.2 Allergy status to sulfonamides; Z79.899 Other long term (current) drug therapy; Z79.82 Long term (current) use of aspirin
CPT/HCPCS: 70450; 70486; 99283

== ENCOUNTER → 2022-02-24 | Outpatient (CLI) | payer MEDICARE | END | disposition home or self-care (01) | LOC: LABPAT 09:29 | PROVIDERS: ATTEND Orthopaedic Surgery | DX: Z01.812 Encounter for preprocedural laboratory examination (principal); T84.296A Other mechanical complication of internal fixation device of vertebrae, initial encounter | CPT/HCPCS: 36415; 86850; 86900; 86901 ==

== ENCOUNTER 2022-03-02 05:45 | Inpatient (IN) | payer MEDICARE, OTHER ==
[2022-02-26 15:59] VITALS: BMI 22.8
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
[~2022-03-02 05:45] MED LIST changes: +ACETAMINOPHEN TAB 500 MG TAB PO PRN; +DEXAMETHASONE SOD PHOSPHATE 4 MG/ML 1 ML VIAL IV ONE; +GABAPENTIN 300 MG CAP PO PRN; -LACTATED RINGERS 1,000 ML IV SCH; +LIDOCAINE 1% (10MG/ML) FOR IV START INTRADERMA PRN; +ONDANSETRON 4 MG/2 ML VIAL IVP ONE; +ONDANSETRON 4 MG/2 ML VIAL IVP PRN; +TRANEXAMIC ACID IN NACL,ISO-OS 1,000 MG in SALINE 1 100ML.BAG IVPB PRN
[2022-03-02] MEDS ORDERED: LACTATED RINGERS 1,000 ML IV ONE ×4 (06:13→13:52)
[2022-03-02] MEDS ORDERED: TRANEXAMIC ACID IN NACL,ISO-OS 1,000 MG in SALINE 1 100ML.BAG IVPB PRN (07:00)
[2022-03-02] MEDS ORDERED: ONDANSETRON 4 MG/2 ML VIAL IVP PRN ×2 (07:00→16:10)
[2022-03-02] MEDS ORDERED: MIDAZOLAM 2 MG/2 ML VIAL IVP ONE ×2 (07:17→07:30)
[2022-03-02] MEDS ORDERED: PROPOFOL 10 MG/ML 20 ML VIAL IV ONE (07:45)
[2022-03-02] MEDS ORDERED: GLYCOPYRROLATE 0.2 MG/ML 2 ML VIAL ONE (07:45)
[2022-03-02] MEDS ORDERED: ROCURONIUM 10 MG/ML (5 ML VIAL) IV ONE (07:45)
[2022-03-02] MEDS ORDERED: NEOSTIGMINE 1 MG/ML 10 ML VIAL ONE (07:45)
[2022-03-02] MEDS ORDERED: SUCCINYLCHOLINE CHLORIDE 100 MG/5 ML SYR IV ONE (07:45)
[2022-03-02] MEDS ORDERED: MIDAZOLAM 2 MG/2 ML VIAL ONE (07:45)
[2022-03-02] MEDS ORDERED: LIDOCAINE 2% INJ 20 MG/ML (2 ML VIAL) ONE (07:45)
[2022-03-02] MEDS ORDERED: WATER FOR INJECTION, STERILE 10 ML VIAL IV ONE (07:45)
[2022-03-02] MEDS ORDERED: ALBUMIN HUMAN 5% (25gm) 500 ML VIAL IVPB ONE (07:45)
[2022-03-02] MEDS ORDERED: PHENYLEPHRINE-0.9% NACL SYG 1,000 MCG/10 ML SYRINGE ONE (07:45)
[2022-03-02] MEDS ORDERED: TRANEXAMIC ACID IN NACL,ISO-OS 1,000 MG/100 ML BAG ONE (07:45)
[2022-03-02] MEDS ORDERED: ePHEDrine 50 MG/ML 1 ML VIAL ONE (07:45)
[2022-03-02] MEDS ORDERED: HYDROmorphone (PF) 1 MG/ML ONE (07:45)
[2022-03-02] MEDS ORDERED: fentaNYL (PF) 50 MCG/ML 2 ML AMP ONE (07:45)
[2022-03-02] MEDS ORDERED: VASOPRESSIN 20 UNIT/ML 1 ML VIAL ONE (07:45)
--- NOTE | 2022-03-02 07:59 | P.PN ---
Progress Note - Text Progress Note Date: 03/02/22 History and Physical UPDATE I have seen and examined the patient and reviewed the history and physical. There appear to be no significant changes in the patient's current medical status as outlined in the current History and Physical.
--- NOTE | 2022-03-02 08:01 | XR ---
EXAMINATION TYPE: XR chest 1V portable DATE OF EXAM: 03/02/2022 CLINICAL HISTORY: Dizziness and giddiness.. TECHNIQUE: Single AP portable upright view of the chest is obtained. COMPARISON: Chest x-ray from January 09, 2021 FINDINGS: There is new right internal jugular Mediport catheter terminating in right atrium. Lungs r emain clear what without pneumothorax seen bilaterally. Cardiac silhouette size remains within normal limits. Partial visualization of surgical change to the lumbar spine. Cholecystectomy clips are pres ent. IMPRESSION: No acute pulmonary process.
[2022-03-02] MEDS ORDERED: GELATIN SPONGE,ABSORB (LARGE) 1 EACH SPONGE TOPICAL ONE (08:51)
[2022-03-02] MEDS ORDERED: THROMBIN (BOVINE) 5,000 UNIT VIAL TOPICAL ONE (08:52)
[2022-03-02] MEDS ORDERED: BUPIVACAINE (PF) 0.5% 30 ML VIAL SQ ONE (08:52)
[2022-03-02] MEDS ORDERED: ceFAZolin 3,000 MG in SODIUM CHLORIDE 0.9% IRRIGATIO 3,000 ML IRRIGATION ONE (09:20)
[2022-03-02] MEDS ORDERED: SODIUM CHLORIDE 0.9% 100 ML with ceFAZolin 2,000 MG IV ONE ×2 (12:30)
--- NOTE | 2022-03-02 15:14 | XR ---
Fluoroscopy HISTORY: Spinal fusion 3 minutes 45 seconds fluoroscopy time supplied to the referring clinician. 28 intraoperative C-arm i mages document the procedure. See dictated report from orthopedic surgery.
[2022-03-02] MEDS ORDERED: VANCOMYCIN 1,000 MG VIAL MISCELLANE ONE (15:37)
--- NOTE | 2022-03-02 15:46 | FL ---
Fluoroscopy and limited lumbar spine HISTORY: Spinal fusion 3 minutes 45 seconds fluoroscopy time supplied to the referring clinician. 28 intraoperative C-arm i mages document the procedure. See dictated report from orthopedic surgery.
[2022-03-02] MEDS ORDERED: HYDROcodone/APAP 10-325MG 1 EACH TAB PO PRN (16:10)
[2022-03-02] MEDS ORDERED: HYDROmorphone 0.5 MG/0.5 ML SYRINGE IVP PRN (16:10)
[2022-03-02] MEDS ORDERED: HYDROcodone/APAP 5-325MG 1 EACH TAB PO PRN (16:10)
[2022-03-02] MEDS ORDERED: MAGNESIUM HYDROXIDE 2,400 MG/10 ML CUP PO PRN (16:10)
[2022-03-02] MEDS ORDERED: SENNOSIDES-DOCUSATE SODIUM 1 EACH TAB PO PRN (16:10)
[2022-03-02] MEDS ORDERED: VANCOMYCIN IV PER PHARMACY 1 EACH MISC MISCELLANE PRN (16:20)
[2022-03-02] MEDS ORDERED: HYDROmorphone PCA 10 MG/50 ML BAG IV PRN (16:21)
[2022-03-02] MEDS ORDERED: NALOXONE 0.4 MG/ML 1 ML VIAL IV PRN (16:21)
[2022-03-02] MEDS ORDERED: ONDANSETRON 4 MG/2 ML VIAL IVP ONE (16:52)
[2022-03-02] MEDS: HYDROmorphone 0.5 MG/0.5 ML SYRINGE IVP PRN ×2 (16:55→17:18)
--- NOTE | 2022-03-02 17:51 | P.PN ---
Progress Note - Text Progress Note Date: 03/02/22 Postop: . Patient seen and examined they are doing well. Their pain is under control at this time. They are moving all 4 extremities without any issues. Vital signs are stable.. They are currently recovering and will be transferred to the floor once deemed stable by the PACU team and anesthesiologist. No Other issues at this time they deny fever chills shortness of breath or chest pain. Medical management pending Continue with intravenous fluids, pain medication, muscle relaxers, home medication Soft diet to start to advance as tolerated We will evaluate the patient in the morning.
[2022-03-02] MEDS ORDERED: SODIUM CHLORIDE 0.9% 1,000 ML IV ONE (17:53)
[2022-03-02] MEDS: HYDROmorphone 1 MG/ML 1 ML SYRINGE IVP PRN ×2 (18:11→22:17)
[2022-03-02] MEDS: VANCOMYCIN 1,000 MG in SODIUM CHLORIDE 0.9% 250 ML IVPB SCH (18:22)
[2022-03-02] MEDS: SODIUM CHLORIDE 0.9% 1,000 ML IV SCH (20:03)
[2022-03-02] MEDS: CYCLOBENZAPRINE 5 MG TAB PO SCH (21:28)
[2022-03-02] MEDS: GABAPENTIN 300 MG CAP PO SCH (21:28)
[2022-03-02] MEDS: LACTATED RINGERS 1,000 ML IV SCH ×2 (22:56→22:57)
[2022-03-03] MEDS: SODIUM CHLORIDE 0.9% 1,000 ML IV SCH ×3 (01:26→22:24)
[2022-03-03] MEDS: VANCOMYCIN 1,000 MG in SODIUM CHLORIDE 0.9% 250 ML IVPB SCH ×2 (06:12→17:38)
--- NOTE | 2022-03-03 07:39 | CT ---
EXAMINATION TYPE: CT brain wo con DATE OF EXAM: 03/03/2022 COMPARISON: 01/14/2022 INDICATION: Altered mental status and aphasia DLP: 1067.4 mGycm, Automated exposure control for dose reduction was used. CONTRAST: None CT of the brain is performed utilizing 3 mm thick sections through the posterior fossa and 3 mm thick sections through the remaining calvarium. Study is performed within 24 hours of arrival to the hosp [facility]. No abnormal hyperdensity is present to suggest an acute intracranial hemorrhage. No mass lesion is evident. No acute infarcts are evident. Ventricles and sulci are appropriate for the patient age. Paranasal sinuses and mastoid air cells within the [id number]-yl-sgnf are clear. IMPRESSIONS: 1. Unremarkable CT brain. MRI can be performed if additional evaluation is clinically indicated.
--- NOTE | 2022-03-03 08:04 | P.OP ---
Date of Procedure: 03/02/22 Preoperative Diagnosis: 1. S/P L5-S1 fusion 2.L1-L2 proximal junction failure 3. 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 Neurogenic claudication 6. Mechanical back pain 7. b/l SI joint pain Postoperative Diagnosis: 1. S/P L5-S1 fusion 2.L1-L2 proximal junction failure 3. 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 Neurogenic claudication 6. Mechanical back pain 7. B/L SI joint pain 8. Dural tear Procedure(s) Performed: 1. Posterior midline approach to qxujxmw-bzjzz-vsllz-pelvic spine 2. Exploration of fusion L1-L4 (08290) 3. Removal of hardware L1-L4 (14910) 4. Segmental instrumentation [id number]-Bmyfjj (35890) 5. Pelvic fixation (attachment of the caudal end of the instrumentation to pelvic bony structures other than sacrum) (03426) 6. L1-2 intradiscal osteotomy for kyphotic deformity correction (3 column osteotomy) (59830) 7. L1-2 combined posteriolateral and interbody fusion (35033) 8. L5-S1 transforaminal lumbar interbody fusion (29827) 9. Insertion of biomechanical device L1-2 and L5-S1 (48582t5) 10. T10-L2 posteriolateral fusion (40553) 11. Revision posteriolateral fusion L2-5 (98182) 12. Formal Open bilateral sacroilliac joint fusion (06322/50) 13. T10-L1 bilateral decompressive laminectomy, partial facetecomty and foraminotomy (59772, 82735) 14. Repair of dural fluid leak with fat patch graft (00655, 62632) 15. Use of intraoperative neuromonitoring 16. Intraoperative interpretation of fluoroscopic imaging less than 1 hour (52359) Implants: -Globus Creo screw system -x3 cross links -SI bone Torq screws x2 55mm and 60 mm x 10 mm -Globus Sable Cage x1 8 x 6-12 x 10 deg lord -Amplify cage x1 8-10 mm 8 deg lord -Magnatos 10cc x3 -Bio 4 -Autrograft -Allograft Anesthesia: GETA Surgeon: Jose A Magaña Homeopathic Doctor #1: Lilibeth Peterson (Was present for the entire case and assisted with positioning opening hardware placement decompression cage placement reduction grafting as well as closure dressing placement and transfer.) Estimated Blood Loss (ml): 1,500 IV fluids (ml): 3,800 Urine output (ml): 380 Pathology: none sent Condition: stable Disposition: PACU Indications for Procedure: Alana Viramontes is a 67 year old female presenting for evaluation of onset of low back pain, mid pack pain, Si joint pain bilateral, debility, LE weakness, inability to perform ADLs. It was my pleasure to have seen and examined Ms. Viramontes. In our visit today we have had a chance to go over subjective complaints, physical examination findings and treatments, including the natural course history without intervention and various interventional options. The imaging demonstrates Xrays from 09/30/2021 of the lumbar spine and pelvis demonstrate: 's postsurgical changes with posterior stabilized fusion from L1 to L4. There is 45 interbody which is noted however screws of been removed out of L5 at some point. There is junctional failure at L1-L2 T12-L1 as well as kyphosis in this area. Segmental kyphosis noted above this. L5-S1 appears to be stable however there is spondylosis hears well. There is no fracture or other dislocation which is noted AP pelvis demonstrates congruent level pelvis no fracture dislocation historical CT scans are reviewed and demonstrate similar findings with haloing around the screws likely loose upper L1 screws and L2 screws. There is posterior fusion which is noted at L3-L4 L4 5 is potentially a pseudoarthrosis there is no screws in L5 any longer but tracks are seen. CT scan from 10/23/2021 of the thoracic and lumbar spine are reviewed and demonstrate: CT is reviewed in the office. The symmetry is postsurgical changes again from L1 to L4 with screw and carlito construct and posterior lateral fusion. Her pseudoarthrosis noted at L1-L2. There is interbody arthrodesis L4-L5 there is interval screw removal L5 which is noted. There is likely haloing and loosening around the L1 screws bilaterally. There is no acute fracture or dislocation noted. There is kyphosis T12-L1 segmental which is noted due to proximal judi ctional failure. Distal junctional failure L5-S1 is normal with disc desiccation as well as height loss. MRI scan from 10/23/2021 of the thoracic and lumbar spine are reviewed and demonstrate: This is reviewed in the office and demonstrates in the thoracic spine minor disc bulges as well as minor stenotic lesions related to disc bulges throughout the lumbar thoracic spine however no acute or severe stenotic lesions. In the lumbar spinous to structures postsurgical changes with fusion noted from L1 to L4 with screw and carlito construct there is a cage at L4-L5 which is noted there is likely pseudoarthrosis at L4-L5 screws were then removed from L5 at some point. There is proximal junctional failure with T12-L1 kyphosis as well as stenosis. There is distal junctional issues with adjacent segment disease L5-S1 which is noted there is disc bulge at L5-S1 causing moderate bilateral foraminal stenosis. There are no acute fractures or dislocations noted. Lumbar lordosis is maintained however this is superimposed on a kyphotic T12-L1 segment due to the proximal junctional failure. . On physical exam, Ms. Viramontes demonstrates LE weakness, mechanical low back pain, increasing debility, neurogenic claudication . I explained to the patient that as her condition progresses it could cause Continued or worsening symptoms, worsening deformity of the spine . At this time, based on the patients imaging and physical exam, I recommend surgery in the form or a: Revision decompression and fusion from [id number] . I discussed the risk and benefits of this procedure at length with Ms. Viramontes. The patient agreed to consider pursuing the procedure mentioned above. Plan: 1. Revision decompression and fusion from [id number] with hardware removal 2. Follow up with PCP for surgical clearance 3. Review of surgical risks and benefits as well as an educational packet on the proposed surgical procedure. Description of Procedure: The patient was seen and examined in the preoperative area. All preoperative protocols were followed. Informed consent was obtained risks and benefits of the procedure were discussed at length. Risks including bleeding infection damage to the surrounding tissue and risk of reoperation were discussed with the patient. Risk of anesthesia up to and including was a discussed with the patient. These are outlined in the risk review. They were willing to accept these risks and all of the risks of surgery. The patient was given a weight- based dose of antibiotics in the form of 2 g Ancef redosed every 4 hours. TXA 1000 followed by infusion followed by thousand and closure. The patient was seen and evaluated by the anesthesia team who deemed them fit for surgery. The site was marked, the patient was willing to proceed with the procedure. The patient was transferred to the operative suite by the Department of anesthesia. They were then drifted off to sleep by the department anesthesia and GETA was performed. The patient tolerated this well. Phillips catheter was placed by nursing staff, atraumatically. Once confirmation of lines and ventilation the patient was transferred to a prone Khalif table very carefully. All bony prominences including wrists, elbows, axilla, chest, hips, and thighs, and feet were padded very well. Special attention was paid to the genitalia and these were padded accordingly. SCDs were placed on bilateral lower extremities and were connected. Arms were well padded and placed on arm boards up and out in the 90/90 position. Once in position, again we confirmed good ventilation capabilities and that lines were running appropriately. The patient's thoracolumbar and lumbosacral pelvic spine was then exposed. 1010s were placed outlining the incision site. Standard alcohol was used to clean the incision site and allowed to dry. C-arm was used to biomark the patient and confirm level for incision which was marked with a skin marker. Operative briefing was performed with all teams and everyone in agreement to proceed. The patient was then prepped and draped in a normal sterile fashion. Timeout was then performed and all parties were in agreement with the procedure to be performed. The previous scar was identified skin incision was made over the previously marked area midline and a posterior midline dissection was taken out to the thoracolumbar lumbosacral and pelvic fascia which was identified cleared with a Santoro. We then identified the cranial portion of the previous laminectomy caudal portion of the previous laminectomy and outlined this midline fasciotomy was then made and subperiosteal dissection taken out over the lamina facet joints and transverse processes of T9 through L1 the hardware was identified at L1. We then turned our attention caudally to the caudal portion where there were still bony midline structures and dissection was taken out over the lamina of L5 S1 S2 and the pelvis pelvic screw entry points over the PSIS were identified SI joints were identified bilaterally and cauterized. Sacral ala was identified bilaterally. Midline fasciotomy was then made over the previous laminectomy site and careful midline dissection was taken down to the previous laminectomy site and dura which was cleaned with a Santoro. We then dissected out laterally identifying the previous hardware which was exposed entirely. We then inspected and explored the previous posterior lateral fusion. There was some bone formation but a lot of fibrous scar tissue formation in this area which was removed with Daniel. We debrided the previous scar tissue in the posterior lateral gutters and identify the transverse processes of L1 through L4 and L5 in this region. Once exposed we irrigated and then proceeded with hardware removal hardware was removed from L1 through L4 set screws removed followed by rods followed by a pedicle screws. Pedicle screws at L4 were loose bilaterally along with pedicle screws at L2 which were loose bilaterally. We excised the screws upon removal and marked them down we planned on upsizing screws at L1 L3 and L4. L2 screws could not be upsized due to the size of the pedicles. We then proceeded with placement of hardware segmental screw placement was done starting at T10 bilaterally this performed in a freehand technique with lateral fluoroscopy. Lateral fluoroscopy was obtained a high-speed bur was used to make a agricultural aircraft pilot hole followed by a feeler to ensure within the pedicle rubio were then passed a pedicle finder under fluoroscopic guidance and using anatomic alignment. Once this pedicle finder was passed within use a feeler to ensure within the 4 rubio of the pedicle. We then sized and placed screws at T10 bilat erally this was repeated T10 through T12. We then took a AP fluoroscopic image to confirm placement of screws the screw at T11 on the right-hand side appeared slightly medial and so this was removed and replaced and once this was performed it was in a good position. We then tested the screws all tested above 10 mA except for the T11 screw on the right-hand side which tested below however this is likely due to the previous medial breach. We did check the screw later on which will be noted below and it was in good position. We then proceeded with replacement of screws at L1 through L4 bilaterally following the trajectories and has previously as these were adequately felt with a ball feeler PRIOR and they were within the pedicle rubio. Using lateral fluoroscopic guidance then we placed these pedicle screws upsizing the L1 L3 and L4 screws. L2 screws did not upsize secondary to the pedicles being small in this area. We then Tested the screws the screws tested above 20 mA. We then placed screws at L5 bilaterally with the same freehand technique S1 bilaterally with the same freehand technique followed by pelvic screws. Pelvic screws were placed using a lateral fluoroscopic image making a hilar hole and placing a duckbill pedicle finder and then obtaining a 30 by 30 iliac oblique view to view the teardrop once the pedicle finder was confirmed within the teardrop we then tapped the beginning threads and then placed an 8 5 x 80 mm screw bilaterally. We then proceeded with formal open SI fusion for extra stability in this area and due to the patient's poor bone quality and previous pain to stabilize the SI joint most completely. Taking and S2 1 I approach a pin was placed on the right-hand side and tapped into position we then repeated imaging taking iliac oblique view to confirm within the teardrop followed by inlet and outlet views which confirmed within the pelvis and across the SI joint. We then tapped and placed on the right-hand side a 55 mm screw. We then repeated this on the left-hand side and placed a 16 mm screw. We then took AP images inlet and outlet images as well as iliac oblique images which confirmed good placement of screws. Using a high- speed bur we then decorticated the SI joints bilaterally entirely up to the sacral ala which was also decorticated bilaterally. Meticulous hemostasis was then performed. Then turned our attention to the interbody placement and reduction at L1-L2. At L1-L2 we performed bilateral laminectomy and facetectomy and foraminotomies using high-speed bur complete facetectomy was performed of the L1 and L2 region to allow for bilateral access to the L1-L2 interspace. There was a lot of scar in this area secondary to the previous laminectomy site this was cleaned from the dura. This was done very carefully with the Zephyr and a curet. Once this was performed we were able to access the disc space bilaterally. Starting on the left-hand side we accessed the disc space with an osteotome and performed an intradiscal osteotomy using osteotome and lateral fluoroscopic imaging. This allowed for initial loosening of this level we then placed an Oskouian Split Leather Department Supervisor in the disc space which was tapped forward under lateral fluoroscopic guidance and provisionally expanded to hold it in place. We then turned our attention to the opposite side where intradiscal osteotomy was performed on this side as well with perform sequential shaving on the opposite side until good bleeding endplates were encountered and the L1-L2 space was mobilized. Once mobilized we then replaced the Oskouian advertising analyst on the right-hand side and expanded it which allowed for reduction in this area of the kyphosis. We then perform sequential shaving on the left-hand side until the desired height and bleeding endplates were encountered. Once this was accomplished and reduction was adequate we placed a mixture of autograft and allograft and Magnatos anteriorly within the disc space. This was then impacted into place using a blunt trial. We then selected a stable cage and this was impacted into place under lateral fluoroscopic guidance. We then expanded the cage which allowed for reduction of the kyphosis at L1-L2. Once the cage was expanded and in good position was tested and was stable. We then remove the screw in advertising analyst the reduction held. We then thoroughly irrigated the area perform meticulous hemostasis placed FloSeal and patties bilaterally and turned her attention to the L5-S1 interspace. L5-S1 performed transforaminal lumbar interbody fusion performed complete facetectomy laminectomy and foraminotomy of the L5-S1 region. Once this was complete who are able to visualize the dura as well as the exiting nerve root which were protected. We then under lateral fluoroscopic guidance entered the disc space and knife was used to make an annulotomy followed by sequential ed. We performed a complete discectomy of this area using sequential shaving down-biting curet and pituitary to remove fragments. Once good bleeding endplates were encountered we sized for An Amplify cage. Once this was the adequate height and size we irrigated the disc space placed autograft allograft and Magnatos anterior within the disc space. While protecting the neural elements the amplify cage was then selected and impacted into place under lateral fluoroscopic guidance. The cages then expanded confirmed to be anterior and in good position on AP image. Once the cage was expanded with an back filled the cage with DBM. We then locked the cage in place with a screw. We tested the cage was stable. We then copiously irrigated the area perform meticulous hemostasis. We then turned our attention to the laminectomy of T10 through L1 to allow for decompression of the neural elements and reduction without cord pinching in this area upon laminectomy at T11-T12 interspace we encountered a dural erosion on the right-hand side at the root of T11. Further laminectomy was performed and complete facetectomy to visualize this meticulous hemostasis performed around it we irrigated the area. We then performed dural repair with 5-0 Prolene and 6-0 Prolene respectively. Watertight closure was obtained. We performed a Valsalva maneuver to 40 mmHg and held for 20 seconds and there was no leak. We then harvested subcutaneous fat and sewed this into place over the repair in order to patch the area and hold tight. We then performed another Valsalva and there was no leaks. We then sized and selected rods and bent them accordingly. Rods were cut to size. We then secured the rods into the pelvic screws bilaterally and sequentially reduced the rods into the lumbar region using reducers. Set screws were then placed. We then sequentially reduced the rods into L2 L1 and T12 which allowed for reduction of the kyphosis in this area. There were no neuro monitoring changes during this reduction. Once reduced we are able to place setscrews in this area and the remainder of the setscrews were then placed up to T10. We then perform distraction between L1 and L2 for further reduction in this area. There are no neuro monitoring changes during this all set screws were then final tightened with the final doughnut icer. We then selected cross- links [address] them and final tightened them into position. We then copiously irrigated the wound with 3 L of antibiotic saline solution followed by 6 L of normal sterile saline. Meticulous hemostasis again was performed. We then placed Surgicel over the dura. Tisseel was placed over the dural patch and dural repair followed by Surgicel and a sandwich fashion to allow for watertight seal. We then decorticated posterior lateral gutters transverse processes and facet joints of T10 through L1. Autograft allograft and Magnatos were placed in the posterior lateral gutters here and compacted. We then performed revision of she lateral fusion at L1 through L4 we decorticated posterior lateral gutters posterior lateral elements and transverse processes bilaterally and placed allograft autograft and Magnatos in this region as well. We then turned our attention distally to the pelvic region and sacral region bone graft as well as synthetics were placed over the sacral Kayla as well as the L5-S1 region. We then again using a high-speed bur further decorticated the SI joints bilaterally we then placed and impacted bone graft into the SI joints bilaterally along with Magnatos. Surgicel was placed over the grafts. We then placed 2 g of vancomycin within the wound deep a deep drain was placed and secured into position with a stitch. We then proceeded with layered closure first in the fascial layer with #1 PDS in a kxecjj-ga-vubjy fashion followed by 0 PDS in a simple fashion. OPS was then placed in the deep subcu tissue 2-0 PDS placed in the superficial subcu tissue and genoveva placed in the skin. The wound edges approximated very well without tension. The wound was then cleaned and dressed sterilely with an operative foam dressing drain sponge and Tegaderm. The patient was transferred back to their hospital bed atraumatically. Drain continued to hold suction and were in good position. Patient was then awakened and extubated by the department of anesthesia having tolerated the procedure very well with no complications. They were transferred to the postoperative care unit in stable condition.
--- NOTE | 2022-03-03 08:07 | P.PN ---
Subjective Progress Note Date: 03/03/22 Principal diagnosis: Spinal Hardware Failure Patient seen and examined at bedside. Patient is currently laying flat in bed, and is tolerating well. Ms. Viramontes states that her pain is well controlled at this time. There was an incident reported early this morning the patient was having altered mental status with aphasia. Medical consult had ordered stat head CT without contrast, and consult to neurology. Brain CT reports: unremarkable CT brain. We believe due to the length of her procedure and being under anesthesia for that period of time, this may have contributed to her incident. Patient is currently aware of her surroundings and answering questions appropriately. Patient is following commands and able to move all extremities. Spoke with day shift RN, instructed that patient may have HOB elevated to 15 this morning. If patient continues to report no headache or blurred vision, she may have her HOB elevated 10 every 4 hours as patient tolerates. Patient denies any numbness/tingling to upper and lower extremities. Patient denies fevers/chills, nausea/vomiting, or chest pain. Objective - Vital Signs Vital signs: Vital Signs Temp 98.4 F 03/03/22 03:19 Pulse 96 03/03/22 06:24 Resp 18 03/03/22 06:24 BP 123/75 03/03/22 06:24 Pulse Ox 95 03/03/22 06:24 Intake & Output 03/02/22 03/03/22 03/03/22 18:59 06:59 18:59 Intake Total 4462 Output Total 1925 600 Balance 2537 -600 Weight 56.699 kg Intake: IV 3901 Blood Product 561 Rc Pheresis As-3 Unit 281 [id number] Rc Pheresis As-3 Unit 280 [id number] Other 0 Rc Pheresis As-3 Unit 0 [id number] Rc Pheresis As-3 Unit 0 [id number] Output: Urine 425 600 Estimated Blood Loss 1500 - Exam Physical Examination General: The patient is awake and alert, in no acute distress Skin: Skin is warm and dry with no obvious rashes or lesions. Hairy patches absent, no dorsal skin dimples, no cafe au lait spots. Surgical incision to thoracic and lumbar spine. Hemovac present with minimal sanguineous drainage. Eye: Pupils are equal, round and reactive to light, extra-ocular movements are intact; there is normal conjunctiva bilaterally. Neck: The neck is supple, there is no tenderness and ROM intact. Cardiovascular: There is a regular rate and rhythm. No murmur, rub or gallop is appreciated. Respiratory: Lungs are clear to auscultation, respirations are non-labored, breath sounds are equal. Gastrointestinal: Soft, non-distended, non-tender abdomen . Back: There tenderness to palpation in the midline, paralumbar, parathoracic region. There is no obvious deformity . Musculoskeletal: ROM limited secondary to pain and stiffness from surgical procedure. Shoulder abduction 5/5, elbow flexors 5/5, wrist dorsiflexors 5/5. finger abductor 5/5, environmental studies program director 5/5, hip flexor 4/5, knee flexor 4/5, ankle dorsiflexor 4/5, ankle plantarflexion 4/5 and extensor hallucis 4/5. Neurological: CN 2-12 intact. There are no obvious motor or sensory deficits. Movement and coordination equal and intact. Sensory exam to light touch intact C5-T1 and intact from L2-S1. Reflexes 2/4 in bilateral upper and lower extremities. Negative Hoffmans, babinski, and clonus signs. Psychiatric: Cooperative, appropriate mood & affect, normal judgment. - Labs Labs: Abnormal Lab Results - Last 24 Hours (Table) 02/24/22 Range/Units 09:41 Crossmatch See Detail Assessment and Plan Assessment: 1. Postop day 1: Hardware removal with revision T10 to pelvis decompression and fusion 2. Spinal hardware failure Plan: Plan: -Appreciate employment consultant and team management. -Activity: Start patient with HOB raised to 15 degrees this morning. If no report of headache or blurred vision increase by 10 degrees every 4hrs or as pt tolerates. Goal for today will be to dangle feet at bedside if patient can tolerate. -Pain control: Adequate at this time -Meds: reviewed -GI ppx: senna, milk of mag -DC huggins when up and about, bedside commode if needed -DVT PPX: OK to restart Heparin tonight -Hygiene: Maintain dressing clean and dry. Meticulous cleaning after BMs away from the incision site -Drains: Maintain for now. If any clear output clamp and notify Dr. Magaña. -Encourage IS 10x/hr -Dispo: Anticipate home vs [facility] in the next 48-72hrs. *I reviewed and discussed this case with my attending Dr. Magaña, whom has reviewed this chart and films and is in agreement with assessment and plan of care as outlined above. I have personally seen and examined the patient, performed the documentation and the assessment and plan as written. Number of minutes spent on the visit: 20 minutes. Time with Patient: Less than 30
[2022-03-03 08:36] LABS: Basophils % (A) 0 %; Eosinophils % (A) 0 %; HCT 29.6 % (34.0-46.0); HGB 9.9 gm/dL (11.4-16.0); Lymphocytes # (A) 0.6 k/uL (1.0-4.8); Lymphocytes % (A) 5 %; MCH 30.9 pg (25.0-35.0); MCHC 33.5 g/dL (31.0-37.0); MCV 92.1 fL (80.0-100.0); Mean Platelet Volume 6.6; Monocytes # (A) 0.5 k/uL (0-1.0); Monocytes % (A) 4 %; Neutrophils # (A) 10.3 k/uL (1.3-7.7); Neutrophils % (A) 89 %; Platelet Count 188 k/uL (150-450); RBC 3.22 m/uL (3.80-5.40); RDW 14.8 % (11.5-15.5); WBC 11.5 k/uL (3.8-10.6)
[2022-03-03] MEDS: GABAPENTIN 300 MG CAP PO SCH ×3 (08:42→23:00)
[2022-03-03] MEDS: HEPARIN SODIUM,PORCINE/PF 5,000 UNIT/0.5 ML SYRINGE SQ SCH ×2 (08:42→21:21)
[2022-03-03] MEDS: CYCLOBENZAPRINE 5 MG TAB PO SCH ×2 (08:45→17:39)
[2022-03-03 08:47] LABS: African American GFR (CKD) >90 (>60 ml/min/1.73 sqM); Anion Gap 5 mmol/L; Blood Urea Nitrogen 11 mg/dL (7-17); Calcium 6.9 mg/dL (8.4-10.2); Carbon Dioxide 23 mmol/L (22-30); Chloride 105 mmol/L (98-107); Glucose 116 mg/dL (74-99); Non-African American GFR(CKD) >90 (>60 ml/min/1.73 sqM); Potassium 3.9 mmol/L (3.5-5.1); Sodium 133 mmol/L (137-145)
--- NOTE | 2022-03-03 09:26 | CT ---
EXAMINATION TYPE: CT thor lumbar spine wo con DATE OF EXAM: 03/03/2022 COMPARISON: 10/23/2021 HISTORY: S/P Revision T10-S1 decompression and fusion CT DLP: 1596 mGycm Automated exposure control for dose reduction was used. Unenhanced CT of the thoracolumbar spine was performed from T10 through L5 -S1. Bone and soft tissue window settings are submitted. Images are rev iewed in the axial coronal and sagittal planes. FINDINGS: Identified are interconnecting pedicular screws extending from T11 with sacral and iliac components n oted caudally. Streak artifact limits evaluation. There is decompression noted extending from T12 thr ough L5 -S1. Postsurgical soft tissue air is identified. Previously noted retrolisthesis of L1 and L2 is improved with normal alignment identified at this time. There is mild persistent retrolisthesis o f L2 on L3 measuring 2.7 mm versus 2.7 mm previously. Alignment is otherwise stable and within normal limits. IMPRESSION: POSTOPERATIVE DECOMPRESSION DISCUSSED ABOVE.
[2022-03-03 09:40] LABS: African American GFR (CKD) 110.9 (60.0-200.0); Anion Gap 9.2 mmol/L (10.00-18.00); BUN/Creat Ratio 19.33 Ratio (12.00-20.00); Blood Urea Nitrogen 11.6 mg/dL (9.0-27.0); Calcium 7.1 mg/dL (8.7-10.3); Carbon Dioxide 24.8 mmol/L (20.0-27.5); Non-African American GFR(CKD) 95.7 (60.0-200.0); Potassium 3.7 mmol/L (3.5-5.5)
[2022-03-03 10:09] LABS: Basophils # (A) 0.01 X 10*3/uL (0.00-0.10); Basophils % (A) 0.1 %; Eosinophils # (A) 0 X 10*3/uL (0.04-0.35); Eosinophils % (A) 0 %; HCT 28.5 % (37.2-46.3); HGB 9.3 g/dL (12.0-15.0); Immature Grans, Automated 0.7 %; Lymphocytes # (A) 0.74 X 10*3/uL (0.90-5.00); Lymphocytes % (A) 6.1 %; MCH 29.7 pg (27.0-32.0); MCHC 32.6 g/dL (32.0-37.0); MCV 91.1 fL (80.0-97.0); Mean Platelet Volume 9.1 fL (9.5-12.2); Monocytes % (A) 8.3 %; NRBC Per 100 WBC 0 /100 WBCS (0.0-0.0); Neutrophils # (A) 10.29 X 10*3/uL (1.80-7.70); Neutrophils % (A) 84.8 %; Platelet Count 177 X 10*3/uL (140-440); RBC 3.13 X 10*6/uL (4.10-5.20); RDW 14.8 % (11.5-14.5); WBC 12.12 X 10*3/uL (4.50-10.00)
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
[2022-03-03 14:32] LABS: Glucose,Whole Blood 114 mg/dL (75-99)
[2022-03-03] MEDS ORDERED: BUTALB/APAP/CAFF 50-325-40MG TAB PO PRN (16:24)
[2022-03-03] MEDS: ACETAMINOPHEN TAB 325 MG TAB PO PRN (17:03)
[2022-03-03] MEDS: oxyCODONE-APAP 5-325MG 1 EACH TAB PO PRN (21:28)
[2022-03-03] MEDS: CYCLOBENZAPRINE 10 MG TAB PO SCH (22:25)
[2022-03-04] MEDS: SODIUM CHLORIDE 0.9% 1,000 ML IV SCH ×3 (00:35→15:58)
[2022-03-04] MEDS: oxyCODONE-APAP 5-325MG 1 EACH TAB PO PRN ×3 (03:52→13:18)
[2022-03-04] MEDS: VANCOMYCIN 1,000 MG in SODIUM CHLORIDE 0.9% 250 ML IVPB SCH ×2 (05:12→17:25)
[2022-03-04 06:36] LABS: Basophils % (A) 0 %; Eosinophils % (A) 0 %; HCT 26.7 % (34.0-46.0); HGB 8.9 gm/dL (11.4-16.0); Lymphocytes # (A) 0.7 k/uL (1.0-4.8); Lymphocytes % (A) 6 %; MCH 30.5 pg (25.0-35.0); MCHC 33.1 g/dL (31.0-37.0); MCV 92.1 fL (80.0-100.0); Monocytes # (A) 0.6 k/uL (0-1.0); Monocytes % (A) 6 %; Neutrophils # (A) 9.8 k/uL (1.3-7.7); Neutrophils % (A) 87 %; Platelet Count 170 k/uL (150-450); RDW 14.1 % (11.5-15.5); WBC 11.2 k/uL (3.8-10.6)
[2022-03-04 06:56] LABS: African American GFR (CKD) >90 (>60 ml/min/1.73 sqM); Anion Gap 4 mmol/L; Blood Urea Nitrogen 7 mg/dL (7-17); Carbon Dioxide 24 mmol/L (22-30); Chloride 105 mmol/L (98-107); Glucose 100 mg/dL (74-99); Non-African American GFR(CKD) >90 (>60 ml/min/1.73 sqM); Potassium 2.9 mmol/L (3.5-5.1); Sodium 133 mmol/L (137-145)
[2022-03-04 07:15] LABS: Calcium 6.3 mg/dL (8.4-10.2)
--- NOTE | 2022-03-04 07:41 | P.PN ---
Subjective Progress Note Date: 03/04/22 Principal diagnosis: Spinal Hardware Failure Patient seen and examined at bedside. Patient is currently laying flat in bed HOB 10-15 degrees, and is tolerating well. Ms. Viramontes states that her pain is well controlled at this time. She has c/o slight headache and some sensitivity to light. Patient verbalizes she feels better today. She is acknowledges that she was confused yesterday, but she states she seems more together today. 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 Patient verbalizes understanding. Ice chips and encouragement provided to increase oral hydration. She states she is hungry this morning and looking forward to eating because she didn't have an appetite before. Ms. Viramontes is moving all extremities in bed. Patient denies any numbness/tingling to upper and lower extremities. Patient denies fevers/chills, nausea/vomiting, or chest pain. Objective - Vital Signs Vital signs: Vital Signs Temp 99.4 F 03/04/22 05:59 Pulse 98 03/04/22 03:50 Resp 16 03/04/22 03:50 BP 116/72 03/04/22 03:50 Pulse Ox 97 03/04/22 03:50 Intake & Output 03/03/22 03/04/22 03/04/22 18:59 06:59 18:59 Intake Total 1560 1550 Output Total 1335 1050 Balance 225 500 Intake: Intake, IV Titration 1560 1550 Amount Sodium Chloride 0.9% 1, 1560 1300 000 ml @ 130 mls/hr IV . [id number] MARIE Rx#:[id number] Vancomycin 1,000 mg In 250 Sodium Chloride 0.9% 250 ml @ 125 mls/hr IVPB Q12H MARIE Rx#:[id number] Output: Drainage 135 50 Back 135 50 Urine 1200 1000 Other: Voiding Method Indwelling Catheter Indwelling Catheter - Exam Physical Examination General: The patient is awake and alert, in no acute distress Skin: Skin is warm and dry with no obvious rashes or lesions. Hairy patches absent, no dorsal skin dimples, no cafe au lait spots. Surgical incision to thoracic and lumbar spine. Hemovac present with minimal sanguineous drainage. Eye: Pupils are equal, round and reactive to light, extra-ocular movements are intact; there is normal conjunctiva bilaterally. Neck: The neck is supple, there is no tenderness and ROM intact. Cardiovascular: There is a regular rate and rhythm. No murmur, rub or gallop is appreciated. Respiratory: Lungs are clear to auscultation, respirations are non-labored, breath sounds are equal. Gastrointestinal: Soft, non-distended, non-tender abdomen . Back: There is tenderness to palpation in the paralumbar, parathoracic region. There is no obvious deformity . Musculoskeletal: ROM limited secondary to pain and stiffness from surgical procedure. Shoulder abduction 5/5, elbow flexors 5/5, wrist dorsiflexors 5/5. finger abductor 5/5, loss prevention analyst 5/5, hip flexor 4/5, knee flexor 4/5, ankle dors iflexor 4/5, ankle plantarflexion 4/5 and extensor hallucis 4/5. Neurological: CN 2-12 intact. There are no obvious motor or sensory deficits. Movement and coordination equal and intact. Sensory exam to light touch intact C5-T1 and intact from L2-S1. Reflexes 2/4 in bilateral upper and lower extr emities. Negative Hoffmans, babinski, and clonus signs. Psychiatric: Cooperative, appropriate mood & affect, normal judgment. - Labs CBC & Chem 7: 03/04/22 05:52 03/04/22 05:52 Labs: Abnormal Lab Results - Last 24 Hours (Table) 02/24/22 03/03/22 03/03/22 Range/Units 09:41 04:04 04:04 WBC 12.12 H (4.50-10.00) X 10*3/uL RBC 3.13 L (4.10-5.20) X 10*6/uL Hgb 9.3 L (12.0-15.0) g/dL Hct 28.5 L (37.2-46.3) % RDW 14.8 H (11.5-14.5) % MPV 9.1 L (9.5-12.2) fL Immature Gran # 0.08 H (0.00-0.04) X 10*3/uL Neutrophils # 10.29 H (1.80-7.70) X 10*3/uL Lymphocytes # 0.74 L (0.90-5.00) X 10*3/uL Eosinophils # 0 L (0.04-0.35) X 10*3/uL Sodium (137-145) mmol/L Potassium (3.5-5.1) mmol/L Anion Gap 9.20 L (10.00-18.00) mmol/L Glucose 116 H (70-110) mg/dL POC Glucose (mg/dL) (75-99) mg/dL Calcium 7.1 L (8.7-10.3) mg/dL Crossmatch See Detail 03/03/22 03/03/22 03/03/22 Range/Units 07:39 07:39 14:31 WBC 11.5 H (4.50-10.00) X 10*3/uL RBC 3.22 L (4.10-5.20) X 10*6/uL Hgb 9.9 L (12.0-15.0) g/dL Hct 29.6 L (37.2-46.3) % RDW (11.5-14.5) % MPV (9.5-12.2) fL Immature Gran # (0.00-0.04) X 10*3/uL Neutrophils # 10.3 H (1.80-7.70) X 10*3/uL Lymphocytes # 0.6 L (0.90-5.00) X 10*3/uL Eosinophils # (0.04-0.35) X 10*3/uL Sodium 133 L (137-145) mmol/L Potassium (3.5-5.1) mmol/L Anion Gap (10.00-18.00) mmol/L Glucose 116 H (70-110) mg/dL POC Glucose (mg/dL) 114 H (75-99) mg/dL Calcium 6.9 L (8.7-10.3) mg/dL Crossmatch 03/04/22 03/04/22 Range/Units 05:52 05:52 WBC 11.2 H (4.50-10.00) X 10*3/uL RBC 2.90 L (4.10-5.20) X 10*6/uL Hgb 8.9 L (12.0-15.0) g/dL Hct 26.7 L (37.2-46.3) % RDW (11.5-14.5) % MPV (9.5-12.2) fL Immature Gran # (0.00-0.04) X 10*3/uL Neutrophils # 9.8 H (1.80-7.70) X 10*3/uL Lymphocytes # 0.7 L (0.90-5.00) X 10*3/uL Eosinophils # (0.04-0.35) X 10*3/uL Sodium 133 L (137-145) mmol/L Potassium 2.9 L (3.5-5.1) mmol/L Anion Gap (10.00-18.00) mmol/L Glucose 100 H (70-110) mg/dL POC Glucose (mg/dL) (75-99) mg/dL Calcium 6.3 L* (8.7-10.3) mg/dL Crossmatch Assessment and Plan Assessment: 1. Postop day 2: Hardware removal with revision T10 to pelvis decompression and fusion 2. Spinal hardware failure Plan: Plan: -Appreciate teamcenter consultant and team management. -Activity: HOB raised to 10-15 degrees. If no report of headache or blurred vision increase by 5 degrees every 4hrs or as pt tolerates. Goal for today will be to dangle feet at bedside if patient can tolerate. -Pain control: Adequate at this time -Meds: reviewed -GI ppx: senna, milk of mag -DC huggins when up and about, bedside commode if needed -DVT PPX: heparin. -Hygiene: Maintain dressing clean and dry. Meticulous cleaning after BMs away from the incision site -Drains: Maintain for now. If any clear output clamp and notify Dr. Magaña. -Encourage IS 10x/hr -Dispo: Anticipate home vs [facility] in the next 48-72hrs. *I reviewed and discussed this case with my attending Dr. Magaña, whom has reviewed this chart and films and is in agreement with assessment and plan of care as outlined above. I have personally seen and examined the patient, performed the documentation and the assessment and plan as written. Number of minutes spent on the visit: 20 minutes.
[2022-03-04] MEDS ORDERED: Potassium Replacement Protocol 1 EACH MISC MISCELLANE PRN (08:41)
[2022-03-04] MEDS ORDERED: POTASSIUM CHLORIDE ER 20 MEQ TAB.ER PO STA (08:45)
[2022-03-04] MEDS: GABAPENTIN 300 MG CAP PO SCH ×3 (09:03→21:22)
[2022-03-04] MEDS: CYCLOBENZAPRINE 10 MG TAB PO SCH ×3 (09:03→21:22)
[2022-03-04] MEDS: POTASSIUM CHLORIDE 10 MEQ in WATER FOR INJECTION 1 100ML.BAG IVPB SCH ×6 (09:03→15:59)
[2022-03-04] MEDS: HEPARIN SODIUM,PORCINE/PF 5,000 UNIT/0.5 ML SYRINGE SQ SCH ×2 (09:03→21:22)
--- NOTE | 2022-03-04 09:31 | XR ---
EXAMINATION TYPE: XR chest 1V portable DATE OF EXAM: 03/04/2022 HISTORY: Shortness of breath. COMPARISON: 03/02/2022 TECHNIQUE: Single view of the chest is submitted. FINDINGS: Subcutaneous air is noted about the right neck. . There is no evidence for pneumothorax. Right IJ eusebia tral venous line unchanged in position. Midline skin genoveva are noted overlying the upper abdomen an d lower chest. Linear atelectasis left lower lobe with small pleural effusion. IMPRESSION: 1. Subcutaneous air right neck. 2. Linear atelectasis and small left-sided pleural effusion.
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
--- NOTE | 2022-03-04 11:18 | US ---
EXAMINATION TYPE: US carotid duplex BILAT DATE OF EXAM: 03/04/2022 COMPARISON: NONE CLINICAL HISTORY: speech difficulty. Exam done portable EXAM MEASUREMENTS: RIGHT: Peak Systolic Velocity (PSV) cm/sec Not evaluated RIGHT: End Diastole cm/sec Not evaluated LEFT: Peak Systolic Velocity (PSV) cm/sec ----- Left CCA: 78.4 ----- Left ICA: 95.8 ----- Left ECA: 82.7 ICA/CCA ratio: 1.2 LEFT: End Diastole cm/sec ----- Left CCA: 21.7 ----- Left ICA: 39.1 ----- Left ECA: 15.9 VERTEBRALS (direction of flow): Right Vertebral: Nondiagnostic Left Vertebral: Antegrade Rhythm: Normal Right carotid not scanned due to central Line bandage covering right side of neck Left carotid - no significant stenosis. Mild atherosclerotic plaque IMPRESSION: 1. No evidence of significant hemodynamic stenosis of the left carotid artery. 2. Nondiagnostic assessment of the right carotid artery as discussed above. Criteria for Assigning % of Stenosis / Diameter reduction (Estimation based on the indirect measurements of the internal carotid artery velocities (ICA PSV). 1. Normal (no stenosis)=ICA PSV < 125 cm/s: ratio < 2.0: ICA EDV<40 cm/s. 2. Less than 50% stenosis=ICA PSV < 125 cm/s: ratio < 2.0: ICA EDV<40 cm/s. 3. 50 to 69% stenosis=ICA PSV of 125 to 230 cm/s: ration 2.0 ? 4.0: ICA EDV 40-100 cm/s. 4. Greater than 70% stenosis to near occlusion= ICA PSV > 230 cm/s: ratio > 4.0: ICA EDV > 100 cm/s. 5. Near occlusion= ICA PSV velocities may be low or undetectable: variable ratio and ICA EDV. 6. Total occlusion=unable to detect flow.
[2022-03-04 12:39] LABS: Appearance,Urine Clear (Clear); Bilirubin,Urine Negative (Negative); Blood,Urine Negative (Negative); Color,Urine Light Yellow; Glucose,Urine (UA) Negative (Negative); Ketones,Urine 2+ (Negative); Leukocyte Esterase,Urine Negative (Negative); Nitrite,Urine Negative (Negative); PH, Urine 5.5 (5.0-8.0); Protein,Urine Negative (Negative); Urobilinogen,Urine <2.0 mg/dL (<2.0)
[2022-03-04] MEDS: ACETAMINOPHEN TAB 325 MG TAB PO PRN (14:17)
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
[2022-03-04] MEDS ORDERED: VANCOMYCIN TROUGH DUE 1 EACH MISC MISCELLANE ONE (17:00)
[2022-03-04] MEDS: HYDROcodone/APAP 10-325MG 1 EACH TAB PO PRN (20:39)
[2022-03-04] MEDS: IPRATROPIUM-ALBUTEROL 3 ML NEB INHALATION SCH (20:44)
[2022-03-04] MEDS: ZOLPIDEM 5 MG TAB PO PRN (22:39)
[2022-03-05] MEDS: SODIUM CHLORIDE 0.9% 1,000 ML IV SCH ×3 (00:40→08:08)
[2022-03-05] MEDS: ACETAMINOPHEN TAB 325 MG TAB PO PRN ×2 (02:13→15:38)
[2022-03-05 05:06] LABS: Basophils % (A) 0 %; Eosinophils % (A) 0 %; HCT 26.8 % (34.0-46.0); HGB 8.8 gm/dL (11.4-16.0); Lymphocytes % (A) 10 %; MCH 30.4 pg (25.0-35.0); MCHC 32.9 g/dL (31.0-37.0); MCV 92.5 fL (80.0-100.0); Mean Platelet Volume 6.8; Monocytes # (A) 0.6 k/uL (0-1.0); Monocytes % (A) 6 %; Neutrophils % (A) 82 %; Platelet Count 198 k/uL (150-450); RDW 14.6 % (11.5-15.5); WBC 9.7 k/uL (3.8-10.6)
[2022-03-05 05:19] LABS: African American GFR (CKD) >90 (>60 ml/min/1.73 sqM); Anion Gap 2 mmol/L; Blood Urea Nitrogen 6 mg/dL (7-17); Calcium 6.8 mg/dL (8.4-10.2); Carbon Dioxide 22 mmol/L (22-30); Chloride 106 mmol/L (98-107); Glucose 99 mg/dL (74-99); Magnesium 1.9 mg/dL (1.6-2.3); Non-African American GFR(CKD) >90 (>60 ml/min/1.73 sqM); Potassium 3.7 mmol/L (3.5-5.1); Sodium 130 mmol/L (137-145)
[2022-03-05] MEDS: VANCOMYCIN 1,000 MG in SODIUM CHLORIDE 0.9% 250 ML IVPB SCH ×2 (05:23→16:57)
[2022-03-05] MEDS: HYDROcodone/APAP 10-325MG 1 EACH TAB PO PRN ×4 (05:59→21:14)
--- NOTE | 2022-03-05 08:02 | P.PN ---
Subjective Progress Note Date: 03/05/22 Principal diagnosis: Spinal Hardware Failure Patient seen and examined at bedside. Patient is currently sitting up in bed at 40 degrees and is tolerating well. Ms. Viramontes states that her pain is well controlled at this time. She denies headache and light sensitivity. Patient verbalizes she feels better today and that she is back to being "Alana". Patient was able to turn to her left side for drain removal and inspection of surgical dressing. Dressing CDI. Patient tolerated activity well. Ms. Viramontes is moving all extremities in bed. Patient denies any numbness/tingling to upper and lower extremities. She is looking forward to working with physical therapy. Instructed patient if headaches present then to limit her activity. Patient denies fevers/chills, nausea/vomiting, or chest pain. Objective - Vital Signs Vital signs: Vital Signs Temp 98.2 F 03/05/22 02:33 Pulse 104 H 03/05/22 02:33 Resp 16 03/05/22 02:33 BP 128/81 03/05/22 02:33 Pulse Ox 97 03/05/22 02:33 Intake & Output 03/04/22 03/05/22 03/05/22 18:59 06:59 18:59 Intake Total 850 Output Total 1590 1675 Balance -740 -1675 Intake: Intake, IV Titration 850 Amount Potassium Chloride 10 meq 600 In Water For Injection 1 100ml.bag @ 100 mls/hr IVPB Q1HR [facility] Rx#: [id number] Vancomycin 1,000 mg In 250 Sodium Chloride 0.9% 250 ml @ 125 mls/hr IVPB Q12H [facility] Rx#:[id number] Output: Drainage 90 Back 90 Urine 1500 1675 Other: Voiding Method Indwelling Catheter Indwelling Catheter - Exam Physical Examination General: The patient is awake and alert, in no acute distress Skin: Skin is warm and dry with no obvious rashes or lesions. Hairy patches absent, no dorsal skin dimples, no cafe au lait spots. Surgical incision to thoracic and lumbar spine, dressing CDI. Hemovac removed, dressing applied. Eye: Pupils are equal, round and reactive to light, extra-ocular movements are intact; there is normal conjunctiva bilaterally. Neck: The neck is supple, there is no tenderness and ROM intact. Cardiovascular: There is a regular rate and rhythm. No murmur, rub or gallop is appreciated. Respiratory: Lungs are clear to auscultation, respirations are non-labored, breath sounds are equal. Gastrointestinal: Soft, non-distended, non-tender abdomen . Back: There is tenderness to palpation in the paralumbar, parathoracic region. There is no obvious deformity . Musculoskeletal: ROM limited secondary to pain and stiffness from surgical procedure. Shoulder abduction 5/5, elbow flexors 5/5, wrist dorsiflexors 5/5. finger abductor 5/5, molder trimmer 5/5, hip flexor 4/5, knee flexor 4/5, ankle dorsifle xor 4/5, ankle plantarflexion 4/5 and extensor hallucis 4/5. Neurological: CN 2-12 intact. There are no obvious motor or sensory deficits. Movement and coordination equal and intact. Sensory exam to light touch intact C5-T1 and intact from L2-S1. Reflexes 2/4 in bilateral upper and lower extremit ies. Negative Hoffmans, babinski, and clonus signs. Psychiatric: Cooperative, appropriate mood & affect, normal judgment. - Labs CBC & Chem 7: 03/05/22 04:33 03/05/22 04:33 Labs: Abnormal Lab Results - Last 24 Hours (Table) 03/04/22 03/05/22 03/05/22 Range/Units 12:15 04:33 04:33 RBC 2.90 L (3.80-5.40) m/uL Hgb 8.8 L (11.4-16.0) gm/dL Hct 26.8 L (34.0-46.0) % Neutrophils # 8.0 H (1.3-7.7) k/uL Sodium 130 L (137-145) mmol/L BUN 6 L (7-17) mg/dL Creatinine 0.48 L (0.52-1.04) mg/dL Calcium 6.8 L (8.4-10.2) mg/dL Urine Ketones 2+ H (Negative) Assessment and Plan Assessment: 1. Postop day 3: Hardware removal with revision T10 to pelvis decompression and fusion 2. Spinal hardware failure Plan: Plan: -Appreciate data center consultant and team management. -Activity: Pt to increase activity as tolerated. Up with brace with PT. -Pain control: Adequate at this time -Meds: reviewed -GI ppx: bridgette milk of mag -DC huggins today 03/05/22 if patient tolerates working with PT -DVT PPX: heparin. -Hygiene: Maintain dressing clean and dry. Meticulous cleaning after BMs away from the incision site -Drains: Hemovac removed today 03/05/22 and dressing applied. -Encourage IS 10x/hr -Dispo: Anticipate home vs [facility] in the next 24-48hrs. *I reviewed and discussed this case with my attending Dr. Magaña, whom has reviewed this chart and films and is in agreement with assessment and plan of care as outlined above. I have personally seen and examined the patient, performed the documentation and the assessment and plan as written. Number of minutes spent on the visit: 20 minutes. Time with Patient: Less than 30
[2022-03-05] MEDS: HEPARIN SODIUM,PORCINE/PF 5,000 UNIT/0.5 ML SYRINGE SQ SCH ×2 (08:07→20:32)
[2022-03-05] MEDS: GABAPENTIN 300 MG CAP PO SCH ×3 (08:07→21:06)
[2022-03-05] MEDS: CYCLOBENZAPRINE 10 MG TAB PO SCH ×3 (08:07→21:06)
[2022-03-05] MEDS: IPRATROPIUM-ALBUTEROL 3 ML NEB INHALATION SCH ×3 (08:29→20:15)
--- NOTE | 2022-03-05 09:53 | P.PN ---
Subjective Progress Note Date: 03/04/22 Patient's mentation is much improved. She is able to talk in sentences, explaining, telling stories which are all appropriate. No paraphasic errors. No aphasia. Patient states that earlier at 8 AM she was laying down in her bed, when she had a headache which she rated 6-7/10, which was quite intense. She was given Percocet. Now she feels better. She is concerned about the dural tear that she had. Patient says that she does take super B, vitamin D 50,000 units once a week and vitamin B12 since she has undergone bypass surgery. Objective - Vital Signs Vital signs: Vital Signs Temp 99.5 F 03/04/22 16:20 Pulse 97 03/04/22 14:00 Resp 16 03/04/22 03:50 BP 111/62 03/04/22 14:00 Pulse Ox 96 03/04/22 14:00 Intake & Output 03/03/22 03/04/22 03/04/22 18:59 06:59 18:59 Intake Total 1560 1550 850 Output Total 1335 1050 90 Balance 225 500 760 Intake: Intake, IV Titration 1560 1550 850 Amount Potassium Chloride 10 meq 600 In Water For Injection 1 100ml.bag @ 100 mls/hr IVPB Q1HR [facility] Rx#: [id number] Sodium Chloride 0.9% 1, 1560 1300 000 ml @ 130 mls/hr IV . Q7H42M [facility] Rx#:[id number] Vancomycin 1,000 mg In 250 250 Sodium Chloride 0.9% 250 ml @ 125 mls/hr IVPB Q12H [facility] Rx#:[id number] Output: Drainage 135 50 90 Back 135 50 90 Urine 1200 1000 Other: Voiding Method Indwelling Catheter Indwelling Catheter Indwelling Catheter - Exam Patient is alert and awake, fully oriented. Speech and language functions are normal. Patient is very pleasant. Cranial nerves are normal. Patient is laying on the left lateral side, and the bed is flat. Muscle strength appears normal in the arms. Detailed testing of the legs deferred. Sensations equal. No ataxia. - Labs CBC & Chem 7: 03/05/22 04:33 03/05/22 04:33 Labs: Abnormal Lab Results - Last 24 Hours (Table) 02/24/22 03/04/22 03/04/22 Range/Units 09:41 05:52 05:52 WBC 11.2 H (3.8-10.6) k/uL RBC 2.90 L (3.80-5.40) m/uL Hgb 8.9 L (11.4-16.0) gm/dL Hct 26.7 L (34.0-46.0) % Neutrophils # 9.8 H (1.3-7.7) k/uL Lymphocytes # 0.7 L (1.0-4.8) k/uL Sodium 133 L (137-145) mmol/L Potassium 2.9 L (3.5-5.1) mmol/L Glucose 100 H (74-99) mg/dL Calcium 6.3 L* (8.4-10.2) mg/dL Urine Ketones (Negative) Crossmatch See Detail 03/04/22 Range/Units 12:15 WBC (3.8-10.6) k/uL RBC (3.80-5.40) m/uL Hgb (11.4-16.0) gm/dL Hct (34.0-46.0) % Neutrophils # (1.3-7.7) k/uL Lymphocytes # (1.0-4.8) k/uL Sodium (137-145) mmol/L Potassium (3.5-5.1) mmol/L Glucose (74-99) mg/dL Calcium (8.4-10.2) mg/dL Urine Ketones 2+ H (Negative) Crossmatch Assessment and Plan Assessment: * Status post hardware removal with revision of T10 to pelvis decompression and fusion. * Altered mental status, likely due to postoperative delirium, or related to pain medication, now seems to have resolved. Patient's mentation is normal. * Speech difficulty, likely also related to metabolic encephalopathy. Doubt central process. * Intermittent cephalgia, possibly related to the dural tear and spinal leak. Patient is status post dural tear repair along with the lumbar surgery. * Possible tardive dyskinesia Plan: * Carotid Doppler revealed no significant stenosis of the left ICA. Antegrade flow in the left vertebral artery. Nondiagnostic assessment of the right carotid or right vertebral artery due to presence of central line catheter. Left carotid artery was more important to be checked for, to rule out any stenosis resulting in speech deficits. No need to repeat carotid Doppler this point. * B12 917, folate 17.10, TSH 2.27. All normal. * CT head showed no acute process. * For intermittent headache, patient will stay flat in the bed for now. Watch for recurrence of any positional headache. We will follow.
[2022-03-05] MEDS ORDERED: ALPRAZolam 0.5 MG TAB PO PRN (14:26)
[2022-03-05] MEDS ORDERED: DENOSUMAB 60 MG/ML 1 ML SYRINGE SQ SCH (14:30)
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
[2022-03-05] MEDS: LURASIDONE 20 MG TAB PO SCH (15:39)
[2022-03-05] MEDS: OXYBUTYNIN CHLORIDE 5 MG TAB PO SCH (20:32)
[2022-03-05] MEDS: traZODone HCL 100 MG TAB PO SCH (20:32)
[2022-03-05] MEDS: DULoxetine HCL 60 MG CAPSULE.DR PO SCH (20:32)
[2022-03-05] MEDS: ATORVASTATIN 40 MG TAB PO SCH (20:32)
[2022-03-05] MEDS: ZOLPIDEM 5 MG TAB PO PRN (21:56)
[2022-03-06] MEDS: ACETAMINOPHEN TAB 325 MG TAB PO PRN (02:48)
[2022-03-06 05:56] LABS: Basophils % (A) 0 %; Eosinophils # (A) 0.2 k/uL (0-0.7); Eosinophils % (A) 2 %; HCT 24.7 % (34.0-46.0); Lymphocytes % (A) 15 %; MCH 30.1 pg (25.0-35.0); MCHC 32.2 g/dL (31.0-37.0); MCV 93.5 fL (80.0-100.0); Mean Platelet Volume 7.2; Monocytes # (A) 0.5 k/uL (0-1.0); Monocytes % (A) 7 %; Neutrophils # (A) 5.1 k/uL (1.3-7.7); Neutrophils % (A) 74 %; Platelet Count 224 k/uL (150-450); RBC 2.65 m/uL (3.80-5.40); RDW 14.3 % (11.5-15.5); WBC 6.9 k/uL (3.8-10.6)
[2022-03-06 06:07] LABS: African American GFR (CKD) >90 (>60 ml/min/1.73 sqM); Anion Gap 4 mmol/L; Blood Urea Nitrogen 9 mg/dL (7-17); Carbon Dioxide 22 mmol/L (22-30); Chloride 106 mmol/L (98-107); Glucose 113 mg/dL (74-99); Non-African American GFR(CKD) >90 (>60 ml/min/1.73 sqM); Potassium 3.9 mmol/L (3.5-5.1); Sodium 132 mmol/L (137-145)
[2022-03-06 06:27] LABS: Calcium 6.4 mg/dL (8.4-10.2)
[2022-03-06] MEDS: IPRATROPIUM-ALBUTEROL 3 ML NEB INHALATION SCH ×3 (07:19→20:37)
--- NOTE | 2022-03-06 07:25 | P.PN ---
Subjective Progress Note Date: 03/06/22 Principal diagnosis: s/p [id number] decompression/fusion Patient was evaluated today at bedside, she is resting comfortably in her hospital bed. She states that she was able to get up to the chair with some assistance yesterday. She has not ambulated yet with physical therapy. She is very eager to do that today. The urinary cath remains intact. She denies any headaches at this time. She denies any chest pain, shortness of breath, nausea or vomiting, fever or chills. Objective - Vital Signs Vital signs: Vital Signs Temp 99.1 F 03/06/22 01:09 Pulse 112 H 03/06/22 01:09 Resp 18 03/06/22 01:09 BP 103/73 03/06/22 01:09 Pulse Ox 91 L 03/06/22 01:09 Intake & Output 03/05/22 03/06/22 03/06/22 18:59 06:59 18:59 Intake Total 250 Output Total 2000 Balance 250 -2000 Intake: Intake, IV Titration 250 Amount Vancomycin 1,000 mg In 250 Sodium Chloride 0.9% 250 ml @ 125 mls/hr IVPB Q12H [facility] Rx#:[id number] Output: Urine 2000 Other: Voiding Method Indwelling Catheter - Exam Gen: AOx3, NAD VSS stable at this time Integument: Incision is clean, dry and intact, no drainage noted Palpation: Mild tenderness with palpation to the lower thoracic and lumbar spine in the midline and paraspinal region ROM: Full range of motion in all major muscle groups of the bilateral upper and lower extremities Sensory Exam: Senory exam to light touch is intact C5-T1 Senosry exam to light touch is intact L2-S1 Motor: 55 strength appreciated in the bilateral upper extremities with shoulder elevation, shoulder abduction, elbow extension, elbow flexion, wrist extension, wrist flexion, finger intrinsics 45 strength appreciated in the bilateral lower extremities with hip flexion, knee extension, knee flexion, plantar flexion, dorsiflexion, EHL, FHL Reflexes: 2/4 in all UE and LE Negative Bibiana's bilaterally Negative Babinski bilaterally Negative clonus bilaterally - Labs CBC & Chem 7: 03/06/22 05:20 03/06/22 05:20 Labs: Abnormal Lab Results - Last 24 Hours (Table) 05/07/22 05/07/22 Range/Units 05:20 05:20 RBC 2.65 L (3.80-5.40) m/uL Hgb 8.0 L (11.4-16.0) gm/dL Hct 24.7 L (34.0-46.0) % Sodium 132 L (137-145) mmol/L Glucose 113 H (74-99) mg/dL Calcium 6.4 L* (8.4-10.2) mg/dL Microbiology - Last 24 Hours (Table) 03/04/22 09:26 Blood Culture - Preliminary Blood No Growth after 24 hours Assessment and Plan Assessment: Postoperative day #4 status post [id number] decompression and fusion Plan: Pain control, continue with current medication DVT prophylaxis, continue with SCDs and ARNEL hose compression Wound care, we'll continue to monitor, likely change bandage upon discharge Encourage incentive spirometer Out of bed for all meals TLSO brace when up and ambulatory PT/OT evaluation today, ambulating with walker at all times Discussed with nursing to discontinue the urinary catheter today for bladder trial Medical recommendations Discharge planning: Anticipate discharge on 03/08/2022 to home Time with Patient: Less than 30
[2022-03-06] MEDS: VANCOMYCIN 1,000 MG in SODIUM CHLORIDE 0.9% 250 ML IVPB SCH ×2 (07:31→17:41)
[2022-03-06] MEDS: LORATADINE 10 MG TAB PO SCH (08:08)
[2022-03-06] MEDS: HEPARIN SODIUM,PORCINE/PF 5,000 UNIT/0.5 ML SYRINGE SQ SCH ×2 (08:08→21:05)
[2022-03-06] MEDS: DULoxetine HCL 60 MG CAPSULE.DR PO SCH ×2 (08:08→21:06)
[2022-03-06] MEDS: CALCIUM CARBONATE 500 MG CHEWABLE PO SCH (08:08)
[2022-03-06] MEDS: PANTOPRAZOLE 40 MG TABLET PO SCH (08:08)
[2022-03-06] MEDS: ASCORBIC ACID 500 MG TAB PO SCH (08:08)
[2022-03-06] MEDS: CYCLOBENZAPRINE 10 MG TAB PO SCH ×3 (08:08→21:06)
[2022-03-06] MEDS: GABAPENTIN 300 MG CAP PO SCH ×3 (08:09→21:06)
[2022-03-06] MEDS: OXYBUTYNIN CHLORIDE 5 MG TAB PO SCH ×2 (08:09→21:06)
[2022-03-06] MEDS: MULTIVITAMINS, THERA 1 EACH TAB PO SCH (08:09)
[2022-03-06 08:23] LABS: Albumin 2.1 g/dL (3.5-5.0); Magnesium 1.9 mg/dL (1.6-2.3)
[2022-03-06] MEDS: HYDROcodone/APAP 10-325MG 1 EACH TAB PO PRN ×3 (08:27→22:39)
--- NOTE | 2022-03-06 08:28 | P.PN ---
Subjective Progress Note Date: 03/05/22 Patient's mentation is completely back to normal. Patient states that she sat in her recliner from 10:30 AM to 1 PM. Did not have any headache. Now she is reclining in the bed about 60 and is feeling fine. No headache. Her Percocets has been changed to [place]. Patient states that she probably will be walking around from the morning. She did spike temperature 102.2 earlier today. Blood cultures are negative. White cells are normal. Patient says that she does take super B, vitamin D 50,000 units once a week and vitamin B12 since she has undergone bypass surgery. Objective - Vital Signs Vital signs: Vital Signs Temp 99.1 F 03/06/22 01:09 Pulse 104 H 03/06/22 07:29 Resp 18 03/06/22 01:09 BP 103/73 03/06/22 01:09 Pulse Ox 91 L 03/06/22 01:09 Intake & Output 03/05/22 03/06/22 03/06/22 18:59 06:59 18:59 Intake Total 250 Output Total 2000 Balance 250 -2000 Intake: Intake, IV Titration 250 Amount Vancomycin 1,000 mg In 250 Sodium Chloride 0.9% 250 ml @ 125 mls/hr IVPB Q12H [facility] Rx#:[id number] Output: Urine 2000 Other: Voiding Method Indwelling Catheter - Exam Patient is alert and awake, fully oriented. Speech and language functions are normal. Patient is very pleasant. Cranial nerves are normal. Patient is reclining in the bed 60. Muscle strength appears normal in the arms. Detailed testing of the legs deferred. Sensations equal. No ataxia. - Labs CBC & Chem 7: 03/06/22 05:20 03/06/22 05:20 Labs: Abnormal Lab Results - Last 24 Hours (Table) 03/06/22 03/06/22 Range/Units 05:20 05:20 RBC 2.65 L (3.80-5.40) m/uL Hgb 8.0 L (11.4-16.0) gm/dL Hct 24.7 L (34.0-46.0) % Sodium 132 L (137-145) mmol/L Glucose 113 H (74-99) mg/dL Calcium 6.4 L* (8.4-10.2) mg/dL Microbiology - Last 24 Hours (Table) 03/04/22 09:26 Blood Culture - Preliminary Blood No Growth after 24 hours Assessment and Plan Assessment: * Status post hardware removal with revision of T10 to pelvis decompression and fusion. * Altered mental status, likely due to postoperative delirium, or related to pain medication, now seems to have resolved. Patient's mentation is normal. * Speech difficulty, likely also related to metabolic encephalopathy. Doubt central process. * Intermittent cephalgia, possibly related to the dural tear and spinal leak. Patient is status post dural tear repair along with the lumbar surgery. Plan: * Carotid Doppler revealed no significant stenosis of the left ICA. Antegrade flow in the left vertebral artery. Nondiagnostic assessment of the right carotid or right vertebral artery due to presence of central line catheter. Left carotid artery was more important to be checked for, to rule out any stenosis resulting in speech deficits. No need to repeat carotid Doppler this point. * B12 917, folate 17.10, TSH 2.27. All normal. * CT head showed no acute process. * Patient did not suffer from any headache while she was sitting in the recliner for 2.5 hours. No positional headache reported. Increase ambulation as per orthopedic surgery recommendations.
[2022-03-06] MEDS ORDERED: NON FORMULARY DRUG (Vitamin B Complex [Vitamin B Complex] 1 EACH Capsule) PO SCH (09:00)
[2022-03-06] MEDS ORDERED: CALCIUM GLUCONATE IN NACL 1 GM in SALINE 1 100ML.BAG IVPB ONE (10:00)
[2022-03-06] MEDS ORDERED: MAGNESIUM SULFATE-D5W PMX 1 GM in DEXTROSE/WATER 1 100ML.BAG IVPB ONE (11:00)
[2022-03-06] MEDS: ALPRAZolam 1 MG TAB PO SCH ×2 (14:14→21:19)
[2022-03-06] MEDS: LURASIDONE 20 MG TAB PO SCH (17:40)
--- NOTE | 2022-03-06 19:15 | PN ---
PROGRESS NOTE DATE OF SERVICE: 03/06/2022 This 67-year-old woman who was admitted after surgery also had some atelectasis. The patient also complains of weakness. PT/OT has evaluated the patient. No chest pain. No palpitation. PHYSICAL EXAMINATION: Pulse 90, blood pressure 112/69, respirations 16. HEENT: Conjunctivae normal. NECK: No jugular venous distention. CARDIOVASCULAR: S1, S2 muffled. RESPIRATION: A few scattered rhonchi and crackles. ABDOMEN: Soft. NERVOUS SYSTEM: Diffusely weak. LABS: Hemoglobin 8 and calcium is 6.4. ASSESSMENT: 1. Postoperative hardware removal, revision of T10. 2. Hypocalcemia. 3. History of cerebrovascular accident, transient ischemic attack. 4. Gastroesophageal reflux disease. 5. Hyperlipidemia. RECOMMENDATIONS AND DISCUSSION: I recommend to continue current medications, continue with the monitoring, symptomatic treatment. Continue with PT/OT evaluation. Supplement calcium. Closely follow with Orthopedic Surgery. Further recommendations to follow. MMODL / IJN: [id number] /
[2022-03-06] MEDS: traZODone HCL 100 MG TAB PO SCH (21:06)
[2022-03-06] MEDS: ATORVASTATIN 40 MG TAB PO SCH (21:06)
[2022-03-06] MEDS: ZOLPIDEM 5 MG TAB PO PRN (21:23)
[2022-03-07] MEDS: ACETAMINOPHEN TAB 325 MG TAB PO PRN (02:12)
[2022-03-07] MEDS ORDERED: VANCOMYCIN TROUGH DUE 1 EACH MISC MISCELLANE ONE (05:00)
[2022-03-07] MEDS: VANCOMYCIN 1,000 MG in SODIUM CHLORIDE 0.9% 250 ML IVPB SCH ×2 (05:22→17:56)
[2022-03-07 05:51] LABS: African American GFR (CKD) >90 (>60 ml/min/1.73 sqM); Non-African American GFR(CKD) >90 (>60 ml/min/1.73 sqM)
[2022-03-07] MEDS: IPRATROPIUM-ALBUTEROL 3 ML NEB INHALATION SCH ×3 (07:09→19:19)
[2022-03-07] MEDS: ALPRAZolam 1 MG TAB PO SCH (08:01)
[2022-03-07] MEDS: HEPARIN SODIUM,PORCINE/PF 5,000 UNIT/0.5 ML SYRINGE SQ SCH ×2 (08:01→21:21)
[2022-03-07] MEDS: CYCLOBENZAPRINE 10 MG TAB PO SCH ×3 (08:01→21:21)
[2022-03-07] MEDS: MULTIVITAMINS, THERA 1 EACH TAB PO SCH (08:01)
[2022-03-07] MEDS: DULoxetine HCL 60 MG CAPSULE.DR PO SCH ×2 (08:01→21:21)
[2022-03-07] MEDS: OXYBUTYNIN CHLORIDE 5 MG TAB PO SCH ×2 (08:01→21:21)
[2022-03-07] MEDS: LORATADINE 10 MG TAB PO SCH (08:01)
[2022-03-07] MEDS: CALCIUM CARBONATE 500 MG CHEWABLE PO SCH (08:02)
[2022-03-07] MEDS: GABAPENTIN 300 MG CAP PO SCH ×3 (08:02→21:21)
[2022-03-07] MEDS: PANTOPRAZOLE 40 MG TABLET PO SCH (08:02)
[2022-03-07] MEDS: ASCORBIC ACID 500 MG TAB PO SCH (08:02)
--- NOTE | 2022-03-07 09:30 | P.PN ---
Subjective Progress Note Date: 03/07/22 Principal diagnosis: s/p [id number] decompression/fusion Patient was evaluated today at bedside, she is resting comfortably in her hospital chair. Patient was actually ambulating with physical therapy and coming out of the bathroom and came in the room. She's been urinating with no difficulties. She is utilizing the TLSO brace. She feels a lot better since she is unable to get up and move around. She denies any chest pain, shortness of breath, nausea or vomiting, fever or chills. Objective - Vital Signs Vital signs: Vital Signs Temp 98.3 F 03/07/22 08:00 Pulse 106 H 03/07/22 08:00 Resp 16 03/07/22 08:00 BP 99/60 03/07/22 08:00 Pulse Ox 92 L 03/07/22 08:00 Intake & Output 03/06/22 03/07/22 03/07/22 18:59 06:59 18:59 Output Total 850 Balance -850 Output: Urine 850 Other: Voiding Method Indwelling Catheter Indwelling Catheter # Voids 2 # Bowel Movements 0 - Exam Gen: AOx3, NAD VSS stable at this time Integument: Incision is clean, dry and intact, no drainage noted Palpation: Mild tenderness with palpation to the lower thoracic and lumbar spine in the midline and paraspinal region ROM: Full range of motion in all major muscle groups of the bilateral upper and lower extremities Sensory Exam: Senory exam to light touch is intact C5-T1 Senosry exam to light touch is intact L2-S1 Motor: 55 strength appreciated in the bilateral upper extremities with shoulder elevation, shoulder abduction, elbow extension, elbow flexion, wrist extension, wrist flexion, finger intrinsics 45 strength appreciated in the bilateral lower extremities with hip flexion, knee extension, knee flexion, plantar flexion, dorsiflexion, EHL, FHL Reflexes: 2/4 in all UE and LE Negative Bibiana's bilaterally Negative Babinski bilaterally Negative clonus bilaterally - Labs CBC & Chem 7: 03/06/22 05:20 03/07/22 05:05 Labs: Microbiology - Last 24 Hours (Table) 03/04/22 09:26 Blood Culture - Preliminary Blood No Growth after 48 hours Assessment and Plan Assessment: Postoperative day #5 status post [id number] decompression and fusion Acute blood loss anemia, expected surgical outcome Plan: Pain control, continue with current medication DVT prophylaxis, continue with SCDs and ARNEL hose compression Wound care, we'll continue to monitor, likely change bandage upon discharge Ferrous sulfate 325 mg twice a day started today, we'll continue to monitor hemoglobin Encourage incentive spirometer Out of bed for all meals TLSO brace when up and ambulatory PT/OT evaluation today, ambulating with walker at all times Discussed with nursing to continue with her stool softeners Medical recommendations Discharge planning: Anticipate discharge on 03/08/2022 to home Time with Patient: Less than 30
[2022-03-07] MEDS: HYDROcodone/APAP 10-325MG 1 EACH TAB PO PRN ×3 (10:33→20:19)
[2022-03-07 11:33] LABS: Basophils # (A) 0.02 X 10*3/uL (0.00-0.10); Basophils % (A) 0.4 %; Eosinophils # (A) 0.34 X 10*3/uL (0.04-0.35); Eosinophils % (A) 6.5 %; HCT 22.2 % (37.2-46.3); Immature Grans, Automated 0.8 %; MCH 29.4 pg (27.0-32.0); MCHC 31.5 g/dL (32.0-37.0); MCV 93.3 fL (80.0-97.0); Monocytes % (A) 15.2 %; NRBC Per 100 WBC 0 /100 WBCS (0.0-0.0); Neutrophils # (A) 3.07 X 10*3/uL (1.80-7.70); Neutrophils % (A) 58.1 %; Platelet Count 251 X 10*3/uL (140-440); RBC 2.38 X 10*6/uL (4.10-5.20); RDW 14.9 % (11.5-14.5); WBC 5.27 X 10*3/uL (4.50-10.00)
[2022-03-07] MEDS: LURASIDONE 20 MG TAB PO SCH (17:15)
[2022-03-07] MEDS: FERROUS SULFATE 325 MG TAB PO SCH (17:15)
--- NOTE | 2022-03-07 18:30 | PN ---
PROGRESS NOTE DATE OF SERVICE: 03/07/2022 This 67-year-old woman who was admitted postoperative hardware removal is being closely monitored. No chest pain. No palpitations. No fever. PHYSICAL EXAMINATION: Pulse is 89, blood pressure 109/62, respiration 14. CHEST: A few scattered rhonchi. CARDIOVASCULAR: S1, S2 muffled. ABDOMEN: Soft. NERVOUS SYSTEM: No focal deficit. LABS: Hemoglobin ntd ASSESSMENT: 1. Postoperative hardware removal, revision T10. 2. Hypocalcemia. 3. History of cerebrovascular accident, transient ischemic attack. 4. Gastroesophageal reflux disease. 5. Hyperlipidemia. RECOMMENDATIONS AND DISCUSSION: I recommend to continue current medications, continue with the monitoring, symptomatic treatment. Repeat labs. Monitor hemoglobin closely. Continue the rest of the medications. Closely follow with Orthopedic Surgery. Possible ECF rehab. Further recommendations to follow. ROSA / YING: [id number] / MTDD
--- NOTE | 2022-03-07 20:22 | P.PN ---
Progress Note - Text Progress Note Date: 03/07/22 Spoke to the nurse on phone. Patient is doing better. Patient has been ambulatory. Just having postoperative back pain. Patient not complaining of any headaches. Mentation is normal. Neurology will sign off. Please reconsult neurology if any concerns. Dr. Meño Cantu starting neurology service in the morning.
[2022-03-07] MEDS: ATORVASTATIN 40 MG TAB PO SCH (21:21)
[2022-03-07] MEDS: ZOLPIDEM 5 MG TAB PO PRN (21:22)
[2022-03-07] MEDS: traZODone HCL 100 MG TAB PO SCH (21:30)
[2022-03-08] MEDS: ALPRAZolam 1 MG TAB PO SCH ×3 (01:26→21:39)
[2022-03-08] MEDS: ACETAMINOPHEN TAB 325 MG TAB PO PRN (01:27)
[2022-03-08 05:34] LABS: African American GFR (CKD) >90 (>60 ml/min/1.73 sqM); Non-African American GFR(CKD) >90 (>60 ml/min/1.73 sqM)
[2022-03-08] MEDS: VANCOMYCIN 1,000 MG in SODIUM CHLORIDE 0.9% 250 ML IVPB SCH ×2 (05:42→17:24)
[2022-03-08] MEDS: FERROUS SULFATE 325 MG TAB PO SCH ×2 (07:33→17:23)
[2022-03-08] MEDS: PANTOPRAZOLE 40 MG TABLET PO SCH (07:33)
[2022-03-08] MEDS: GABAPENTIN 300 MG CAP PO SCH ×3 (07:33→21:39)
[2022-03-08] MEDS: CALCIUM CARBONATE 500 MG CHEWABLE PO SCH (07:33)
[2022-03-08] MEDS: CYCLOBENZAPRINE 10 MG TAB PO SCH ×3 (07:33→21:39)
[2022-03-08] MEDS: LORATADINE 10 MG TAB PO SCH (07:34)
[2022-03-08] MEDS: ASCORBIC ACID 500 MG TAB PO SCH (07:34)
[2022-03-08] MEDS: HYDROcodone/APAP 10-325MG 1 EACH TAB PO PRN ×3 (07:34→17:23)
[2022-03-08] MEDS: DULoxetine HCL 60 MG CAPSULE.DR PO SCH ×2 (07:34→21:39)
[2022-03-08] MEDS: OXYBUTYNIN CHLORIDE 5 MG TAB PO SCH ×2 (07:34→21:39)
[2022-03-08] MEDS: HEPARIN SODIUM,PORCINE/PF 5,000 UNIT/0.5 ML SYRINGE SQ SCH ×2 (07:35→21:39)
[2022-03-08] MEDS: MULTIVITAMINS, THERA 1 EACH TAB PO SCH (07:35)
--- NOTE | 2022-03-08 07:53 | P.PN ---
Subjective Progress Note Date: 03/08/22 Patient seen and examined this morning. She is doing very well. She is lying in bed with nursing at bedside. She states she feels well and she almost would like to go home as opposed to rehab that she has been doing well with physical therapy. States yesterday she got up under her own power and nursing confirm this out of bed and got to the bathroom as well as to the hallway. She states that she has good help at home with her daughter and her grandson at home. She may do okay with just home care. Her labs did show that her hemoglobin dropped from 8.0-7.0 this morning from yesterday and she is having a little bit of tachycardia this morning. A unit was ordered for her. She is currently on iron as well. She has no symptoms she is neurovascularly intact distally she denies any fevers chills shortness of breath or chest patient has any headaches nausea vomiting blurred vision or change in vision at this time no peroneal numbness or tingling. States she has not had a bowel movement And is passing gas. Urinating on her own. Objective - Vital Signs Vital signs: Vital Signs Temp 99.9 F H 03/08/22 00:56 Pulse 103 H 03/08/22 00:56 Resp 14 03/08/22 00:56 BP 97/54 03/08/22 00:56 Pulse Ox 93 L 03/08/22 00:56 Intake & Output 03/07/22 03/08/22 03/08/22 18:59 06:59 18:59 Intake Total 250 Balance 250 Intake: IV 250 Vancomycin 1,000 mg In 250 Sodium Chloride 0.9% 250 ml @ 125 mls/hr IVPB Q12H [facility] Rx#:[id number] Other: # Voids 3 1 - Exam Patient is alert and oriented 3 appears well-nourished well-hydrated is in no acute distress. They do not appear septic. On exam the patient has no tenderness to palpation of her thoracic or lumbar spine. There is no edema or ballottement sign. Lower extremities with 4+/5 strength in all major muscle groups Upper extremities show 5/5 strength in all major muscle groups. No focal deficits normal postoperative course 2/4DTR all UE and LE b/l Patient shows a negative Homans, Villanueva's, negative Babinski's negative clonus bilaterally. negative straight leg raise bilaterally. No tensioning signs. Cranial nerves II through XII are grossly intact. There is FROM that is painless of the b/l UE and LE in all major joints w/o pain. They are intact to light touch sensation in L2 to S1 nerve distribution. Patient has palpable dorsalis pedis was posterior tibial pulses. Compartments are soft and compressible. - Labs CBC & Chem 7: 03/07/22 05:05 03/08/22 04:22 Labs: Abnormal Lab Results - Last 24 Hours (Table) 03/07/22 03/08/22 Range/Units 05:05 04:22 RBC 2.38 L (4.10-5.20) X 10*6/uL Hgb 7.0 L (12.0-15.0) g/dL Hct 22.2 L (37.2-46.3) % MCHC 31.5 L (32.0-37.0) g/dL RDW 14.9 H (11.5-14.5) % MPV 9.0 L (9.5-12.2) fL Creatinine 0.45 L (0.52-1.04) mg/dL Microbiology - Last 24 Hours (Table) 03/04/22 09:26 Blood Culture - Preliminary Blood No Growth after 72 hours Assessment and Plan Assessment: 67-year-old female postoperative day 6 from revision fusion T10 to pelvis. ABLA a expected outcome from surgery status post 3 units 1. S/P L5-S1 fusion 2.L1-L2 proximal junction failure 3. 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 Neurogenic claudication 6. Mechanical back pain Plan: -Appreciate internet sales consultant and team management. -Activity: Ambulate QID, OOB all meals, up and about, limit lifting bending twisting to less than 5 lbs. Use walker or cane if needed for stability. -Daily PT/OT, increase ambulation strength and balance. -[Brace when up and about, not needed in bed or chair] -Pain control: [Adequate at this time] -Meds: [reviewed] -GI ppx: senna, Miralax -DVT PPX: Continue heparin -Hygiene: Shower today. Maintain dressing clean and dry. Meticulous cleaning after BMs away from incision site -1 unit PRBCs ordered for one point drop in hemoglobin overnight as well as tachycardia -Encourage IS 10x/hr -Dispo: Discussed with patient home versus [facility]. At this time she is mobilizing fairly well and we would like her to go home with home health care as long as this is safe for her to do. She would prefer this as well. She states that she has her daughter and grandson at home that can help her. We will see how she continues to progress today and if she passes physical therapy milestones for home we could potentially get her there tomorrow.
[2022-03-08] MEDS ORDERED: ERGOCALCIFEROL 1,250 MCG (50,000 IU) CAPSULE PO SCH (09:00)
[2022-03-08] MEDS: IPRATROPIUM-ALBUTEROL 3 ML NEB INHALATION SCH ×3 (09:01→20:30)
[2022-03-08] MEDS: LURASIDONE 20 MG TAB PO SCH (18:24)
[2022-03-08] MEDS: ATORVASTATIN 40 MG TAB PO SCH (21:39)
[2022-03-08] MEDS: traZODone HCL 100 MG TAB PO SCH (21:39)
[2022-03-09] MEDS: HYDROcodone/APAP 10-325MG 1 EACH TAB PO PRN ×3 (01:47→13:05)
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
[2022-03-09 05:15] LABS: Basophils % (A) 0 %; Eosinophils # (A) 0.4 k/uL (0-0.7); Eosinophils % (A) 7 %; HCT 27.8 % (34.0-46.0); HGB 8.9 gm/dL (11.4-16.0); Lymphocytes # (A) 0.7 k/uL (1.0-4.8); Lymphocytes % (A) 14 %; MCH 29.7 pg (25.0-35.0); Mean Platelet Volume 7.1; Monocytes # (A) 0.4 k/uL (0-1.0); Monocytes % (A) 9 %; Neutrophils # (A) 3.3 k/uL (1.3-7.7); Neutrophils % (A) 68 %; Platelet Count 430 k/uL (150-450); Poikilocytosis Slight; RBC 2.99 m/uL (3.80-5.40); RDW 14.7 % (11.5-15.5); WBC 4.8 k/uL (3.8-10.6)
[2022-03-09] MEDS: VANCOMYCIN 1,000 MG in SODIUM CHLORIDE 0.9% 250 ML IVPB SCH (05:39)
[2022-03-09 09:28] VITALS: RESP 16; TEMP 98.3
[2022-03-09] MEDS: IPRATROPIUM-ALBUTEROL 3 ML NEB INHALATION SCH ×2 (09:40→13:05)
[2022-03-09] MEDS: FERROUS SULFATE 325 MG TAB PO SCH (10:08)
[2022-03-09] MEDS: DULoxetine HCL 60 MG CAPSULE.DR PO SCH (10:08)
[2022-03-09] MEDS: MULTIVITAMINS, THERA 1 EACH TAB PO SCH (10:08)
[2022-03-09] MEDS: OXYBUTYNIN CHLORIDE 5 MG TAB PO SCH (10:08)
[2022-03-09] MEDS: LORATADINE 10 MG TAB PO SCH (10:08)
[2022-03-09] MEDS: PANTOPRAZOLE 40 MG TABLET PO SCH (10:08)
[2022-03-09] MEDS: CYCLOBENZAPRINE 10 MG TAB PO SCH ×2 (10:08→15:25)
[2022-03-09] MEDS: HEPARIN SODIUM,PORCINE/PF 5,000 UNIT/0.5 ML SYRINGE SQ SCH (10:08)
[2022-03-09] MEDS: ASCORBIC ACID 500 MG TAB PO SCH (10:08)
[2022-03-09] MEDS: GABAPENTIN 300 MG CAP PO SCH ×2 (10:08→15:25)
[2022-03-09] MEDS: CALCIUM CARBONATE 500 MG CHEWABLE PO SCH (10:09)
[2022-03-09] MEDS: ALPRAZolam 1 MG TAB PO SCH (10:09)
--- NOTE | 2022-03-09 10:25 | P.PN ---
Subjective Progress Note Date: 03/09/22 Principal diagnosis: s/p N11-[id number] decompression/fusion Patient was evaluated today at bedside, she is resting comfortably in her hospital chair. Patient is very eager to go home. She has continued to improve during the hospital stay. She's not had a bowel movement yet, but she is moving gas often she states. She denies any headaches or lightheadedness at this time. Her pain is well-controlled with the current medication. She has expressed concern to not take gabapentin, we discussed tapering dose upon discharge. Dr. Magaña was also an early to examine the patient. She denies any chest pain, shortness of breath, nausea or vomiting, fever or chills. Objective - Vital Signs Vital signs: Vital Signs Temp 98.3 F 03/09/22 08:00 Pulse 94 03/09/22 08:00 Resp 16 03/09/22 08:00 BP 111/64 03/09/22 08:00 Pulse Ox 92 L 03/09/22 08:00 Intake & Output 03/08/22 03/09/22 03/09/22 18:59 06:59 18:59 Intake Total 730 Balance 730 Intake: Oral 420 Blood Product 310 Rc As-1 Unit 310 [id number] Other: Voiding Method Indwelling Catheter Toilet # Voids 1 - Exam Gen: AOx3, NAD VSS stable at this time Integument: Incision is clean, dry and intact, no drainage noted Palpation: Mild tenderness with palpation to the lower thoracic and lumbar spine in the midline and paraspinal region ROM: Full range of motion in all major muscle groups of the bilateral upper and lower extremities Sensory Exam: Senory exam to light touch is intact C5-T1 Senosry exam to light touch is intact L2-S1 Motor: 55 strength appreciated in the bilateral upper extremities with shoulder elevation, shoulder abduction, elbow extension, elbow flexion, wrist extension, wrist flexion, finger intrinsics 45 strength appreciated in the bilateral lower extremities with hip flexion, knee extension, knee flexion, plantar flexion, dorsiflexion, EHL, FHL Reflexes: 2/4 in all UE and LE Negative Bibiana's bilaterally Negative Babinski bilaterally Negative clonus bilaterally - Labs CBC & Chem 7: 03/09/22 04:31 03/08/22 04:22 Labs: Abnormal Lab Results - Last 24 Hours (Table) 03/08/22 03/09/22 Range/Units 07:52 04:31 RBC 2.99 L (3.80-5.40) m/uL Hgb 8.9 L (11.4-16.0) gm/dL Hct 27.8 L (34.0-46.0) % Lymphocytes # 0.7 L (1.0-4.8) k/uL Crossmatch See Detail Microbiology - Last 24 Hours (Table) 03/04/22 09:26 Blood Culture - Preliminary Blood No Growth after 96 hours Assessment and Plan Assessment: Postoperative day #7 status post [id number] decompression and fusion Acute blood loss anemia, expected surgical outcome Plan: Pain control, we'll discharge home on [place] 10 mg/325 mg. I did discuss the patient a tapering gabapentin dose that we will utilize over the next 1014 da ys, and also a Flexeril as needed. Wound care, we discussed showering instructions and use a basic gauze We'll continue ferrous sulfate 325 mg twice a day for the next 30 days, CBC blood draws will be scheduled for later this week TLSO brace when up and ambulatory Home health care, this including therapy and nursing Medical recommendations Discharge planning: Planning for discharge home today Time with Patient: Less than 30
--- NOTE | 2022-03-09 10:42 | P.DS ---
Providers Date of admission: 03/02/22 05:45 Expected date of discharge: 03/09/22 Attending physician: Jose A Magaña DO Consults: 03/02/22 16:20 Consult Physician Routine Consulting Provider: Julianne Moon Consult Reason/Comments: Medical Management Do you want consulting provider notified?: Yes 03/03/22 06:32 Consult Physician Urgent Consulting Provider: Awais Ch Consult Reason/Comments: AMS and aphasia Do you want consulting provider notified?: Yes Primary care physician: Kana Bateman [facility] Course: Date of admission: 03/02/2022 Date of discharge: 03/09/2022 Admission diagnosis: Low back pain, bilateral lower extremity weakness, bilateral lower extremity radiculopathy, history of previous lumbar fusion and revision surgeries Discharge diagnosis: Status post [id number] decompression and fusion Attending physician: Dr. Magaña Surgical procedures: Please see operative note for description detail Brief history: Patient is a 67-year-old female with a history of chronic low back pain with previous lumbar surgeries. Patient was evaluated in the outpatient setting by Dr. Magaña. Initial conservative management was not satisfactory, patient underwent multiple imaging test. Treatment options were discussed, this concluded surgical intervention. She was scheduled for a revision [id number] decompression and fusion with hardware removal. Hospital course: Details of patient's surgery can be found in operative report. Patient tolerated the procedure well and was subsequently transported to orthopedic floor. Patient's orthopeidc and medical care was provided daily. Patient had daily laboratory tests performed for evaluation of overall blood counts . Patient had daily physical therapy to include strengthening range of motion as well as education with walker ambulation. Patient was treated with heparin for their postoperative DVT prophylaxis during their inpatient stay. Patient was noted to have a relatively uneventful postoperative course. Patient reported satisfactory pain control with oral pain medications by postoperative day 2. Patient showed satisfactory progress with physical therapy. Patient moved steadily through the program and had no difficulty meeting the goals by postoperative day 7. Given patient's otherwise satisfactory course and having met physical therapy goals, plan is to discharge patient home on postoperative day 7. Discharge condition/disposition: Patient will be discharged home in stable condition. Discharge medications: Instructions are given on resumption of patient's normal daily medications per primary care recommendation, in addition patient will be prescribed [place] 10 mg/325 mg, Flexeril 10 mg, gabapentin 3 mg, polyethylene glycol 17 g, Senokot-S, para sulfate 325 mg. ischarge instructions: 1. Okay to shower directly over the incision, utilize basic gauze to cover genoveva. 2. Weight-bear as tolerated with walker / cane until follow-up, utilize TLSO brace and ambulating 3. Ice and elevate when necessary. Do not exceed 20 minutes per hour with ice pack. 4. Utilize compression sleeve until seen at first follow up appointment. 5. Visiting nursing care. 6. Home physical therapy 7. Pain meds and anticoagulants per prescription. 8. Pain medication has potential to cause constipation. Increase oral fluid and fiber intake. Contact primary care provider if you have not had a bowel movement within 48 hours after discharge 9. No anti-inflammatory medication until discussed at first post operative visit, this including Motrin, Aleve, Mobic, Diclofenac 10. Follow up in office at [address] Magaña 11. Follow up with your primary care doctor 7-10 days after discharge. 12. Contact [facility] with any questions, . Procedures: [id number] decompression and fusion Please see operative note for detailed description of procedure Plan - Discharge Summary Discharge Rx Participant: Yes New Discharge Prescriptions: New Cyclobenzaprine [Flexeril] 10 mg PO BID PRN #40 tab PRN Reason: Muscle Spasm Gabapentin 300 mg PO TID #16 cap Ferrous Sulfate [Iron (65 MG Elemental)] 325 mg PO BID #60 tab polyethylene glycoL 3350 [Miralax] 17 gm PO DAILY PRN #21 packet PRN Reason: Constipation HYDROcodone/APAP 10-325MG [Berkeley 10-325] 1 tab PO Q4HR PRN 7 Days #42 tab PRN Reason: Pain Sennosides/Docusate Sodium [Senna-S 8.6-50 mg Tablet] 2 each PO DAILY PRN #30 tablet PRN Reason: Constipation No Action hydroCHLOROthiazide [Hydrodiuril] 25 mg PO DAILY Loratadine [Claritin] 10 mg PO DAILY Omeprazole 40 mg PO DAILY Atorvastatin [Lipitor] 40 mg PO HS Lurasidone [Latuda] 60 mg PO W/SUPPER Oxybutynin Chloride 5 mg PO BID Vitamin B Complex 1 each PO DAILY DULoxetine HCL [Cymbalta] 60 mg PO BID ALPRAZolam [Xanax] 1 mg PO BID Aspirin 81 mg PO DAILY Primidone [Mysoline] 50 mg PO TID Multivit-Min/Iron/Folic/Lutein [Centrum Silver Women Tablet] 1 each PO DAILY Acetaminophen Tab [Tylenol] 975 mg PO BID PRN PRN Reason: Pain traZODone HCL 200 mg PO HS Zolpidem [Ambien] 10 mg PO HS PRN PRN Reason: Insomnia Denosumab [Prolia] 60 mg SQ Q180D Ascorbic Acid [Vitamin C] 500 mg PO DAILY Ergocalciferol [Vitamin D2 (1250 Mcg = 86272 Iu)] 50,000 unit PO WEEKLY Calcium Carbonate [Calcium] 1,100 mg PO DAILY Vitamin B-12 Unknown Dose 1 tab PO DAILY Discharge Medication List Loratadine [Claritin] 10 mg PO DAILY 09/04/19 [History] hydroCHLOROthiazide [Hydrodiuril] 25 mg PO DAILY 09/04/19 [History] Omeprazole 40 mg PO DAILY 01/14/20 [History] Atorvastatin [Lipitor] 40 mg PO HS 03/20/20 [History] Lurasidone [Latuda] 60 mg PO W/SUPPER 03/20/20 [History] Oxybutynin Chloride 5 mg PO BID 04/17/20 [History] Vitamin B Complex 1 each PO DAILY 04/17/20 [History] ALPRAZolam [Xanax] 1 mg PO BID 01/12/21 [History] DULoxetine HCL [Cymbalta] 60 mg PO BID 01/12/21 [History] Aspirin 81 mg PO DAILY 03/04/21 [History] Zolpidem [Ambien] 10 mg PO HS PRN 05/11/21 [History] Denosumab [Prolia] 60 mg SQ Q180D 09/30/21 [History] Primidone [Mysoline] 50 mg PO TID 09/30/21 [History] Acetaminophen Tab [Tylenol] 975 mg PO BID PRN 02/26/22 [History] Ascorbic Acid [Vitamin C] 500 mg PO DAILY 02/26/22 [History] Calcium Carbonate [Calcium] 1,100 mg PO DAILY 02/26/22 [History] Ergocalciferol [Vitamin D2 (1250 Mcg = 23505 Iu)] 50,000 unit PO WEEKLY 02/26/22 [History] Multivit-Min/Iron/Folic/Lutein [Centrum Silver Women Tablet] 1 each PO DAILY 02/26/22 [History] Vitamin B-12 Unknown Dose 1 tab PO DAILY 02/26/22 [History] traZODone HCL 200 mg PO HS 02/26/22 [History] Cyclobenzaprine [Flexeril] 10 mg PO BID PRN #40 tab 03/09/22 [Rx] Ferrous Sulfate [Iron (65 MG Elemental)] 325 mg PO BID #60 tab 03/09/22 [Rx] Gabapentin 300 mg PO TID #16 cap 03/09/22 [Rx] HYDROcodone/APAP 10-325MG [[place] 10-325] 1 tab PO Q4HR PRN 7 Days #42 tab 03/09/22 [Rx] Sennosides/Docusate Sodium [Senna-S 8.6-50 mg Tablet] 2 each PO DAILY PRN #30 tablet 03/09/22 [Rx] polyethylene glycoL 3350 [Miralax] 17 gm PO DAILY PRN #21 packet 03/09/22 [Rx] Follow up Appointment(s)/Referral(s): [facility], [NON-STAFF] - ([facility] will call you to schedule your in home care visits. ) Jose A Magaña DO [Doctor of Osteopathic Medicine] - 2 Weeks Awais Ch MD [STAFF PHYSICIAN] - 1 Week Jam Forrest [NON-STAFF] - (Please contact Adi if you have questions regarding the TLSO brace. ) Patient Instructions/Handouts: Lumbar Spinal Fusion (DC) Activity/Diet/Wound Care/Special Instructions: Spine Discharge and Recovery Instructions Medications: See medication list All medication refills should be obtained through your primary care doctor or your clinic spine surgeon. Please discuss prescription refills at your follow up appointment. Do not call the hospital for medication refills. Dressing: Leave your dressing in place for a total of 5 days post operatively. Then you may remove your dressing and leave open to air. Keep the area clean and if not able to keep area clean, then cover with sterile gauze and tape. Showering: You may shower 3 days after your procedure allowing soap and water to run over incision. Do not scrub. Do not soak. Blot dry. Follow up: Please confirm a follow up appointment with your surgeon 3 weeks post operatively. Please make an appointment to follow up with your PCP in 1-2 weeks after surgery for evaluation 3 phase, 3-week plan POST OP WEEKS 1-3 1. Lifting/carrying/pushing/pulling limited to less than 5 pounds. 2. Do not sit for longer than 15 minutes at one time. Get up and walk around. Prolonged sitting is NOT advised. If you lay down, see if you can tolerate laying down on you front (belly side) 3. Walk for periods of 15 minutes = 1 mile but no longer; do it multiple times times each day. 4. Ice your low back after activity. POST OP WEEKS 3-6 1. Lifting limited to less than 20 pounds. 2. Do not sit for longer than 30 minutes at a time. Frequently change positions. Use a sit-to stand workstation or take frequent breaks from sitting if you have returned to work. 3. Walk for 30 minutes each day. If possible, do these three or more times a day POST OP WEEKS 6+ At your 6-week appointment we will give you a physical therapy referral to focus on a core stabilization and strengthening program. You should also work on leg & buttock strengthening, hamstring & quadriceps stretching, and continue a low impact aerobic activity program such as swimming, walking, or riding a stationary bicycle. During the initial 6 weeks after your surgery, you are at the highest risk of re-injuring your spine. You should generally avoid BLTs (bending, lifting and twisting combination motions) and follow the above guidelines to reduce the chance of reinjury. You can anticipate post op appointments in our office at approximately 3 weeks and 6 weeks after your surgery. INCISION CARE: If your incision is not draining you do NOT need to cover it with a dressing. Keep your incision clean, dry and intact. In most cases, we apply skin glue, genoveva or sutures to the incision at the time of surgery. This will be like a crust or have the appearance of a scab and will fall off in time on its own. The stitches or genoveva need to be removed at 3 weeks post op appointment. You may begin to shower 3 days after surgery (this allows the glue to [place] well). However, please avoid scrubbing the incision site or peeling off any of the skin glue. This will ensure optimal healing of your incision. Also, during this time avoid soaking the incision area in water - this includes swimming pools, hot tubs or baths. No ointments, lotions or oils on the incision until your surgeon allows. Leave genoveva, sutures or glue in place. Neurological dysfunction that comes on suddenly can also be a sign of a stroke. Below some common symptoms of a stroke are listed: B - balance difficulty such as sudden onset walking or leaning to one side - NEW E - eye problem such as sudden double vision or trouble seeing on one side - NEW F - Facial weakness or numbness on one side - NEW A - Arm or leg weakness or numbness on one side - NEW S - Slurred speech or difficulty with word finding - NEW T - Time is BRAIN! Call 911 as soon as you recognize these symptoms Diet: Consume a regular diet rich in vegetables and lean protein such as chicken or fish. You should consume in a ratio of approximately 20% fats|40% carbohydrates|40%protein. Vegetables, sweet potatoes, brown rice or quinoa are examples of good carbohydrates. Chips, white bread, cookies and sweets/sugar are examples of bad carbohydrates. Limit your bad carbs, go wild with good carbs. "Life's Simple 7" Guidelines as per [place] [employer] These will help you reclaim your life after surgery and structural steel worker helper in your recovery, keeping in mind your restrictions. (1) Get Active. Physical activity can help people lose weight, control high blood pressure and cholesterol, feel emotionally better, and sleep better. (2) Control Cholesterol. Avoid a diet high in saturated fat, trans fat, & cholesterol. Limit whole milk & cream, ice cream, butter, egg yolks, processed meats (like sausage and hot dogs), and fatty meats. Choose healthy foods that are low in saturated fat, trans fat and cholesterol which include: Fruits and vegetables, fiber rich grain products (like whole grain pasta and brown rice), lean meat such as chicken, fish, nuts, seeds, and legumes. (3) Eat Better. Eat small portions. Shop at the grocery with a list and do not stray from it. Tips for a healthy diet include: Limit sodium intake to less than 1500mg daily, avoid prepackaged, processed, and fast foods, choose a diet rich in fruits, vegetables, and whole grain, high fiber foods, and limit s aturated & cholesterol in your diet. (4) Manage Blood Pressure. If you have high blood pressure, you should have a cuff at home so that you can check your blood pressure regularly. Be sure you have a good cuff. An arm one is generally better than a wrist one. Bring the cuff to a doctor's appointment to validate that the measurements that your cuff are taking are accurate. Take your blood pressure twice daily when you are sitting down and relaxing. Record the numbers in a log and bring this log with you to your doctors' appointments. (5) Lose Weight if your BMI is above 25. A healthy BMI is between 19-25. To calculate Your BMI, you may use a Standard BMI Calculator on the NIH BMI website: <www.nhlbi.nih.gov/guidelines/obesity/BMI/bmicalc.htm>. Weigh oneself daily. If you are overweight, set a goal to lose weight. A pound a week loss if needed is a good target. (6) Reduce Blood Sugar. Limit foods and liquids with "added sugars." (Added sugars include sucrose, fructose, glucose, maltose, dextrose, high fructose corn syrup, corn syrup, concentrated fruit juice and honey). (7) Stop Smoking. If you smoke, quitting smoking is one of the best things that you can do for your health. Smoking increases your risk of heart attack, stroke, and peripheral vascular disease, which is a build-up of plaque in your arteries. Please discard all the cigarettes and lighters in your house. Have a plan for what you will do when you have the urge to smoke. Direct and second- hand smoke shortens your life as well as the lives of your family, friends and others around you. For your health and the health of those around you, please consider quitting! Proper Bending Body Mechanics: Maintain a wide stance with one foot slightly in front of the other. Keep your back straight. Bend utilizing the strength in your hips and knees. Do not bend at the waist. Maintain the lifted object at your waist-level close to your body. Avoid lifting weight that causes immediately pain or pain anywhere in the body afterwards. Smoking/Nicotine If there was ever one thing that you could do to increase your overall health, decrease your risk of cardiovascular problems by about 39% the second you make the choice, it is to STOP SMOKING. Your body's most instant gratification is the second you stop smoking. We have all heard the studies, read the articles but it is true, smoking is extremely bad for your overall health, and moreover it is detrimental to your bone health. Nicotine, IN ANY FORM, kills bone cells, prevents your body from healing fractures, and significantly prolongs healing after surgery. In spine surgery specifically, it increases your risk of not healing your bones to create a fusion and increases your risk of having a revision surgery due to this up to 60%. I know it is hard. I know it feels impossible. But there are ways. Take control of your life. We are here to help you through it. And when you are ready, ask us and we can direct you to help if you desire. Use the START Plan to Quit Smoking (please visit the Helpguide.org website listed below for more information): S = Set a quit date. Choose a date within the next 2 weeks, so you have enough time to prepare without losing your motivation to quit. If you mainly smoke at work, quit on the weekend, so you have a few days to adjust to the change. T = Tell family, friends, and co-workers that you plan to quit. Let your friends and family in on your plan to quit smoking and tell them you n eed their support and encouragement to stop. Look for a quit raissa who wants to stop smoking as well. You can help each other get through the rough times. A = Anticipate and plan for the challenges you'll face while quitting. Most people who begin smoking again do so within the first 3 months. You can help yourself make it through by preparing ahead for common challenges, such as nicotine withdrawal and cigarette cravings. R = Remove cigarettes and other tobacco products from your home, car, and work. Throw away all your cigarettes (no emergency pack!), lighters, ashtrays, and matches. Wash your clothes and freshen up anything that smells like smoke. Shampoo your car, clean your drapes and carpet, and steam your furniture. T = Talk to your doctor about getting help to quit. Your doctor can prescribe medication to help with withdrawal and suggest other alternatives. If you can't see a doctor, you can get many products over the counter at your local pharmacy or grocery store, including the nicotine patch, nicotine lozenges, and nicotine gum. Resources for Quitting Smoking: <https://www.[place].gov/documents/[facility]/Quit_Tobacco_Resources_for_patients_313 480_7.pdf> Supplementation: Take recommended dosages of Vitamin D and Calcium to help fortify your bones and help them to heal. See your health maintenance packet for dosages and recommended levels. DVT/VTE prophylaxis: You will be given compression stockings from the hospital. Wear these daily for the first two weeks after surgery. You may take them off at night. You may be prescribed a medication to help thin your blood. Take this as directed. If you are not prescribed this medication, early and frequent ambulation has been shown to be the best prophylaxis to deep vein thrombosis and sequelae related to this event. Discharge Disposition: HOME WITH HOME HEALTH SERVICES
[2022-03-09 11:13] VITALS: BP 124/81; PULSE 69
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
[2022-03-10] MEDS ORDERED: VANCOMYCIN TROUGH DUE 1 EACH MISC MISCELLANE ONE (05:00)
== END 2022-03-09 16:08 | disposition home health service (06) | DRG 907 ==
LOC: 2ORMAIN 05:45 → 2SICU 16:15 → 4SSUR 17:04
PROVIDERS: ADMIT Orthopaedic Surgery; ATTEND Orthopaedic Surgery
PROC: 0SG00AJ Fusion of Lumbar Vertebral Joint with Interbody Fusion Device, Posterior Approach, Anterior Column, Open Approach (ICD-10-PCS; 2022-03-02)
PROC: 0SG00K1 Fusion of Lumbar Vertebral Joint with Nonautologous Tissue Substitute, Posterior Approach, Posterior Column, Open Approach (ICD-10-PCS; 2022-03-02)
PROC: 00UT0KZ Supplement Spinal Meninges with Nonautologous Tissue Substitute, Open Approach (ICD-10-PCS; principal; 2022-03-02 07:30)
PROC: 0SG30AJ Fusion of Lumbosacral Joint with Interbody Fusion Device, Posterior Approach, Anterior Column, Open Approach (ICD-10-PCS; principal; 2022-03-02 07:30)
PROC: 0SG704Z Fusion of Right Sacroiliac Joint with Internal Fixation Device, Open Approach (ICD-10-PCS; principal; 2022-03-02 07:30)
PROC: 0SG804Z Fusion of Left Sacroiliac Joint with Internal Fixation Device, Open Approach (ICD-10-PCS; principal; 2022-03-02 07:30)
PROC: 30233N1 Transfusion of Nonautologous Red Blood Cells into Peripheral Vein, Percutaneous Approach (ICD-10-PCS; 2022-03-08)
DX: T85.698A Other mechanical complication of other specified internal prosthetic devices, implants and grafts, initial encounter (principal); G93.41 Metabolic encephalopathy; M96.0 Pseudarthrosis after fusion or arthrodesis; D62 Acute posthemorrhagic anemia; G97.41 Accidental puncture or laceration of dura during a procedure; Y83.8 Other surgical procedures as the cause of abnormal reaction of the patient, or of later complication, without mention of misadventure at the time of the procedure; K21.9 Gastro-esophageal reflux disease without esophagitis; M19.90 Unspecified osteoarthritis, unspecified site; M53.3 Sacrococcygeal disorders, not elsewhere classified; M54.15 Radiculopathy, thoracolumbar region; M48.05 Spinal stenosis, thoracolumbar region; G89.29 Other chronic pain; Y79.3 Surgical instruments, materials and orthopedic devices (including sutures) associated with adverse incidents; E78.5 Hyperlipidemia, unspecified; E83.51 Hypocalcemia; E87.6 Hypokalemia; F31.9 Bipolar disorder, unspecified; G24.01 Drug induced subacute dyskinesia; T43.595A Adverse effect of other antipsychotics and neuroleptics, initial encounter; Z86.73 Personal history of transient ischemic attack (TIA), and cerebral infarction without residual deficits; Z91.81 History of falling; Z88.2 Allergy status to sulfonamides; Z91.048 Other nonmedicinal substance allergy status; Z98.84 Bariatric surgery status; Z79.899 Other long term (current) drug therapy; Z79.82 Long term (current) use of aspirin; Z90.710 Acquired absence of both cervix and uterus; Z90.49 Acquired absence of other specified parts of digestive tract; Z98.890 Other specified postprocedural states; Z98.42 Cataract extraction status, left eye; Z98.41 Cataract extraction status, right eye; Z80.0 Family history of malignant neoplasm of digestive organs; Z82.49 Family history of ischemic heart disease and other diseases of the circulatory system
CPT/HCPCS: 36415; 36430; 70450; 71045; 72100; 72128; 72131; 80048; 80202; 81003; 82040; 82565; 82607; 82746; 83735; 84132; 84443; 85025; 86850; 86900; 86901; 86920; 87040; 93880; 94640

== ENCOUNTER 2022-03-10 14:18 | Observation (INO) | payer MEDICARE, OTHER ==
[2022-03-10] MEDS ORDERED: SODIUM CHLORIDE 0.9% 500 ML 500 ML IV STA (14:39)
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
[2022-03-10 15:14] LABS: Basophils % (A) 0 %; Eosinophils # (A) 0.1 k/uL (0-0.7); Eosinophils % (A) 1 %; HCT 30.6 % (34.0-46.0); HGB 10.1 gm/dL (11.4-16.0); Lymphocytes # (A) 0.5 k/uL (1.0-4.8); Lymphocytes % (A) 5 %; MCH 30.7 pg (25.0-35.0); Mean Platelet Volume 6.6; Monocytes # (A) 0.6 k/uL (0-1.0); Monocytes % (A) 6 %; Neutrophils % (A) 84 %; Platelet Count 592 k/uL (150-450); Poikilocytosis Slight; WBC 9.5 k/uL (3.8-10.6)
[2022-03-10 15:31] LABS: INR 0.9 (<1.2); Prothrombin Time 9.7 sec (9.0-12.0)
[2022-03-10 15:34] LABS: ALT 42 U/L (4-34); AST 50 U/L (14-36); African American GFR (CKD) >90 (>60 ml/min/1.73 sqM); Albumin 3.1 g/dL (3.5-5.0); Alkaline Phosphatase 105 U/L (38-126); Anion Gap 7 mmol/L; Appearance,Urine Clear (Clear); Bilirubin,Urine Negative (Negative); Blood Urea Nitrogen 8 mg/dL (7-17); Blood,Urine Negative (Negative); Calcium 7.6 mg/dL (8.4-10.2); Carbon Dioxide 24 mmol/L (22-30); Chloride 99 mmol/L (98-107); Color,Urine Yellow; Glucose 101 mg/dL (74-99); Glucose,Urine (UA) Negative (Negative); Leukocyte Esterase,Urine Negative (Negative); Magnesium 1.8 mg/dL (1.6-2.3); Nitrite,Urine Negative (Negative); Non-African American GFR(CKD) >90 (>60 ml/min/1.73 sqM); PH, Urine 6.5 (5.0-8.0); Potassium 3.8 mmol/L (3.5-5.1); Protein,Urine Negative (Negative); Sodium 130 mmol/L (137-145); Specific Gravity,Urine 1.012 (1.001-1.035); Total Bilirubin 0.7 mg/dL (0.2-1.3); Total Protein 5.5 g/dL (6.3-8.2); Urobilinogen,Urine <2.0 mg/dL (<2.0)
[2022-03-10 15:36] LABS: Partial Thromboplastin Time 21.6 sec (22.0-30.0)
--- NOTE | 2022-03-10 15:52 | XR ---
EXAMINATION TYPE: XR chest 2V DATE OF EXAM: 03/10/2022 COMPARISON: 03/04/2022 TECHNIQUE: PA and lateral views submitted. HISTORY: Weeks FINDINGS: Heart size is normal. There is subsegmental changes at the left lung base. Postsurgical change involv ing the vertebral column. Degenerative changes of the spine. No overt failure or pneumothorax. Arthro katina of the shoulders. IMPRESSION: 1. Left lower lobe atelectasis or infiltrate correlate clinically.
[2022-03-10 15:54] LABS: Ketones,Urine 2+ (Negative)
[2022-03-10] MEDS ORDERED: ASPIRIN 81 MG PO STA (16:46)
[2022-03-10] MEDS ORDERED: NITROGLYCERIN SL TABS 0.4 MG TAB SUBLINGUAL PRN (16:46)
[2022-03-10] MEDS: NITROGLYCERIN OINT 1 INCH/GM PACKET TOPICAL SCH ×2 (17:38→23:12)
[2022-03-10] MEDS ORDERED: SENNOSIDES-DOCUSATE SODIUM 1 EACH TAB PO PRN (21:10)
[2022-03-10] MEDS ORDERED: polyethylene glycoL 3350 17 GM POWD.PACK PO PRN (21:10)
[2022-03-10] MEDS ORDERED: Magnesium Replacement Protocol 1 EACH MISC MISCELLANE PRN (21:20)
[2022-03-10] MEDS ORDERED: ACETAMINOPHEN TAB 325 MG TAB PO PRN (21:22)
[2022-03-10] MEDS: HYDROcodone/APAP 10-325MG 1 EACH TAB PO PRN (21:36)
[2022-03-10] MEDS: PRIMIDONE 50 MG TAB PO SCH (21:39)
[2022-03-10] MEDS: traZODone HCL 100 MG TAB PO SCH (21:39)
[2022-03-10] MEDS: ATORVASTATIN 40 MG TAB PO SCH (21:39)
[2022-03-10] MEDS: GABAPENTIN 300 MG CAP PO SCH (21:39)
[2022-03-10] MEDS: OXYBUTYNIN CHLORIDE 5 MG TAB PO SCH (21:39)
[2022-03-10] MEDS: DULoxetine HCL 60 MG CAPSULE.DR PO SCH (21:39)
[2022-03-10] MEDS: FERROUS SULFATE 325 MG TAB PO SCH (21:39)
[2022-03-11] MEDS: HYDROcodone/APAP 10-325MG 1 EACH TAB PO PRN (03:43)
[2022-03-11] MEDS: NITROGLYCERIN OINT 1 INCH/GM PACKET TOPICAL SCH ×4 (06:38→22:07)
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
[2022-03-11] MEDS: ALPRAZolam 1 MG TAB PO SCH ×2 (08:35→19:59)
[2022-03-11] MEDS: FOLIC ACID-VIT B COMPLEX-VIT C 1 CAP PO SCH (08:35)
[2022-03-11] MEDS: DULoxetine HCL 60 MG CAPSULE.DR PO SCH ×2 (08:35→20:00)
[2022-03-11] MEDS: ASCORBIC ACID 500 MG TAB PO SCH (08:35)
[2022-03-11] MEDS: VIT A,C & E-LUTEIN-MINERALS 1 EACH TAB PO SCH (08:35)
[2022-03-11] MEDS: LORATADINE 10 MG TAB PO SCH (08:35)
[2022-03-11] MEDS: HYDROcodone/APAP 5-325MG 1 EACH TAB PO PRN ×2 (08:35→20:00)
[2022-03-11] MEDS: CALCIUM CARBONATE 500 MG CHEWABLE PO SCH (08:35)
[2022-03-11] MEDS: FERROUS SULFATE 325 MG TAB PO SCH ×2 (08:36→20:00)
[2022-03-11] MEDS: GABAPENTIN 300 MG CAP PO SCH ×3 (08:36→20:00)
[2022-03-11] MEDS: OXYBUTYNIN CHLORIDE 5 MG TAB PO SCH ×3 (08:36→19:59)
[2022-03-11] MEDS: PANTOPRAZOLE 40 MG TABLET PO SCH (08:36)
[2022-03-11] MEDS: PRIMIDONE 50 MG TAB PO SCH ×3 (08:36→19:59)
[2022-03-11] MEDS: CYANOCOBALAMIN 500 MCG TAB PO SCH (08:36)
[2022-03-11 09:00] LABS: ALT 35 U/L (4-34); AST 40 U/L (14-36); African American GFR (CKD) >90 (>60 ml/min/1.73 sqM); Albumin 2.4 g/dL (3.5-5.0); Alkaline Phosphatase 89 U/L (38-126); Anion Gap 7 mmol/L; Blood Urea Nitrogen 5 mg/dL (7-17); Calcium 7.1 mg/dL (8.4-10.2); Carbon Dioxide 23 mmol/L (22-30); Chloride 103 mmol/L (98-107); Glucose 92 mg/dL (74-99); Magnesium 1.8 mg/dL (1.6-2.3); Non-African American GFR(CKD) >90 (>60 ml/min/1.73 sqM); Potassium 3.8 mmol/L (3.5-5.1); Sodium 133 mmol/L (137-145); Total Bilirubin 0.6 mg/dL (0.2-1.3); Total Protein 4.6 g/dL (6.3-8.2)
[2022-03-11] MEDS ORDERED: ASPIRIN 325 MG TAB PO SCH (09:00)
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
[2022-03-11] MEDS: SODIUM CHLORIDE 0.9% 1,000 ML IV SCH (11:19)
--- NOTE | 2022-03-11 11:23 | CA ---
Transthoracic Echo Report Name: Alana Viramontes Age: 67 Gender: F : 1955 Exam Date: 03/11/2022 10:09 Exam Location: [facility] Ht (in): 62 Wt (lb): 131 Ordering Physician: Tatum Machado Attending/Referring Phys: Medical Support Assistant Norma Cleaning RDCS Procedure CPT: Indications: elevated troponin Cardiac Hx: Technical Quality: Excellent Contrast 1: Total Dose (mL): Contrast 2: Total Dose (mL): MEASUREMENTS (Male / Female) Normal Values 2D ECHO LV Diastolic Diameter PLAX 4.8 cm 4.2 - 5.9 / 3.9 - 5.3 cm LV Systolic Diameter PLAX 3.3 cm IVS Diastolic Thickness 1.0 cm 0.6 - 1.0 / 0.6 - 0.9 cm LVPW Diastolic Thickness 1.1 cm 0.6 - 1.0 / 0.6 - 0.9 cm LV Relative Wall Thickness 0.4 RV Internal Dim ED PLAX 2.8 cm LA Systolic Diameter LX 3.6 cm 3.0 - 4.0 / 2.7 - 3.8 cm LA Volume 61.8 cm??? 18 - 58 / 22 - 52 cm??? M-MODE Aortic Root Diameter MM 2.9 cm MV E Point Septal Separation 0.7 cm AV Cusp Separation MM 2.3 cm DOPPLER AV Peak Velocity 166.0 cm/s AV Peak Gradient 11.0 mmHg MV Area PHT 4.8 cm??? Mitral E Point Velocity 85.3 cm/s Mitral A Point Velocity 115.4 cm/s Mitral E to A Ratio 0.7 MV Deceleration Time 159.6 ms MV E' Velocity 6.2 cm/s Mitral E to MV E' Ratio 13.7 TR Peak Velocity 257.3 cm/s TR Peak Gradient 26.5 mmHg Right Ventricular Systolic Press 30.8 mmHg FINDINGS Left Ventricle Left ventricular ejection fraction is estimated at 60-65 %. Left ventricular cavity size normal. Borderline left ventricular hypertrophy. Right Ventricle Normal right ventricular size and function. Right ventricular systolic pressure within normal limits. Right Atrium Normal right atrial size. Left Atrium Mildly increased left atrial volume. No evidence for an atrial septal defect. Mitral Valve Mild mitral regurgitation. Aortic Valve Trileaflet aortic valve. No aortic valve stenosis or regurgitation. Tricuspid Valve Mild tricuspid regurgitation. Pulmonic Valve Trace pulmonic regurgitation. Pericardium Normal pericardium. Aorta Normal size aortic root and proximal ascending aorta. CONCLUSIONS Normal LV systolic function Mild mitral regurgitation Mild tricuspid regurgitation Previewed by: Dr. Denton Andrade MD (Electronically Signed) Final Date: 11 Mar 2022 11:22
--- NOTE | 2022-03-11 13:01 | CT ---
EXAMINATION TYPE: CT thoracic spine wo con, CT lumbar spine wo con DATE OF EXAM: 03/11/2022 COMPARISON: CT dated 03/03/2022 HISTORY: Fall, s/p fusion CT DLP: 742.2 (accession [id number]), 1023.0 (accession [id number]) mGycm Automated exposure control for dose reduction was used. TECHNIQUE: Multiplanar CT scan of the thoracic and lumbar spine without IV contrast administration. FINDINGS: Minimal upper endplate depression of T1 vertebral body with mild sclerotic changes, likely chronic. S imilar changes are seen involving the upper endplate of T4 vertebral body, possibly chronic. No separ ated bone fragment or spinal canal stenosis at these levels. No other definite vertebral body collaps e or acute displaced fracture. Degenerative changes of the mid to lower thoracic spine most evident at T6-7 down to T8-9 levels. Pre vious lower thoracic and lumbosacral fixation extending from T10 down to S1 and iliac bones with post erior spinal decompression, stable. Multilevel disc spacers are also noted. Suboptimal assessment of the spinal canal and neuroforamina at the operative bed. Persistent soft tissue swelling, gas and edema at the operative bed with overlying skin genoveva. Pers istent mild retrolisthesis of T12 over L1, anterolisthesis of L1 over L2 and minimal retrolisthesis o f L2 over L3. Bulky liver and spleen. Bilateral pleural effusions. Suspected cardiomegaly. Scattered arterial atherosclerotic calcifications. Previous gastric surgery. Previous cholecystectomy. IMPRESSION: Subtle upper endplate depression and sclerotic changes of T1 and T4 vertebral bodies as described abo ve, likely chronic, please correlate clinically. Otherwise no definite acute fracture identified with the limitation of the artifactual images. No convincing evidence of prosthesis break or significant displacement. Other findings as described above.
--- NOTE | 2022-03-11 14:59 | HP ---
HISTORY AND PHYSICAL DATE OF SERVICE: 03/11/2022 CHIEF COMPLAINTS: Weakness and fall. HISTORY OF PRESENT ILLNESS: This 67-year-old woman with a past medical history of multiple medical problems had recently removal of hardware with revision of T10 decompression and fusion. The patient is rather drowsy. The patient has multiple medical issues but subsequently improved very much. The patient was sent home; however, at home the patient apparently had weakness and a fall. Apparently the patient also had poor social support. The patient came back to the hospital. Troponins were slightly elevated and the patient was admitted for further evaluation and treatment. There is no history of any chest pain, palpitation, headache, loss of consciousness, seizures. The creatine kinase is not available. PAST MEDICAL HISTORY: History of recent surgery, as mentioned earlier. Otherwise, GERD, hyperlipidemia. MEDICATIONS: Home medications are reviewed and include trazodone, Tylenol. Doses and the rest of the medications are reviewed. ALLERGIES: ALLERGIES are reviewed and include FLEXERIL. FAMILY HISTORY: History of myocardial infarction. SOCIAL HISTORY: No history of smoking. REVIEW OF SYSTEMS: Fourteen-point review of systems negative except as mentioned earlier. PHYSICAL EXAMINATION: Pulse is 84, blood pressure 144/70, respiration 17. HEENT: Conjunctivae normal. NECK: No jugular venous distention. CARDIOVASCULAR: S1, S2 muffled. RESPIRATION: Breath sounds diminished at the bases. No rhonchi. No crackles. ABDOMEN: Soft, nontender. LEGS: No edema. No swelling. NERVOUS SYSTEM: No focal deficit. EXAMINATION OF THE BACK: Status post surgery. LABS: Reviewed. Hemoglobin 10, sodium 133. ASSESSMENT: 1. Fall and weakness. 2. History of recent hardware removal and revision of T10 decompression and fusion. 3. Elevated troponin, 0.023. 4. Gait dysfunction. 5. Hyperlipidemia. 6. History of cerebrovascular accident, transient ischemic attack. RECOMMENDATIONS AND DISCUSSION: This 67-year-old woman who presented with multiple medical issues also had had elevated troponin. Recommend cardiology consultation. Two-D echo with Doppler. Rule out acute coronary syndrome. I would also recommend creatine kinase to rule out the possibility of rhabdomyolysis. Continue with IV fluids. Otherwise, repeat labs tomorrow. PT/OT evaluation, possible ECF rehab. Follow with Orthopedic Surgery. Prognosis guarded. A copy of this dictation is being forwarded to Dr. Horta, who is the primary physician. MMODL / IJN: [id number] /
[2022-03-11 16:47] LABS: Chol/HDL Ratio 2.46 Ratio; LDL Cholesterol,Calculated 42.6 mg/dL (0.0-131.0); VLDL Calculation 12.68 mg/dL (5.00-40.00)
[2022-03-11] MEDS: LURASIDONE 20 MG TAB PO SCH (17:11)
[2022-03-11] MEDS: ATORVASTATIN 40 MG TAB PO SCH (19:59)
[2022-03-11] MEDS: traZODone HCL 100 MG TAB PO SCH (20:00)
[2022-03-11] MEDS: ZOLPIDEM 5 MG TAB PO SCH (20:26)
[2022-03-11] MEDS: HEPARIN SODIUM,PORCINE/PF 5,000 UNIT/0.5 ML SYRINGE SQ SCH (20:27)
[2022-03-11] MEDS ORDERED: ZOLPIDEM 10 MG TAB PO SCH (21:00)
[2022-03-12] MEDS ORDERED: HYDROcodone/APAP 5-325MG 1 EACH TAB ONE (03:34)
[2022-03-12] MEDS: NITROGLYCERIN OINT 1 INCH/GM PACKET TOPICAL SCH ×3 (05:46→16:53)
[2022-03-12] MEDS: SODIUM CHLORIDE 0.9% 1,000 ML IV SCH ×3 (07:26→14:58)
[2022-03-12] MEDS: ASPIRIN 81 MG PO SCH (08:12)
[2022-03-12] MEDS: FERROUS SULFATE 325 MG TAB PO SCH ×2 (08:12→20:11)
[2022-03-12] MEDS: DULoxetine HCL 60 MG CAPSULE.DR PO SCH ×2 (08:12→20:11)
[2022-03-12] MEDS: HEPARIN SODIUM,PORCINE/PF 5,000 UNIT/0.5 ML SYRINGE SQ SCH ×2 (08:12→22:56)
[2022-03-12] MEDS: LORATADINE 10 MG TAB PO SCH (08:12)
[2022-03-12] MEDS: ALPRAZolam 1 MG TAB PO SCH ×2 (08:12→20:11)
[2022-03-12] MEDS: OXYBUTYNIN CHLORIDE 5 MG TAB PO SCH ×3 (08:13→20:11)
[2022-03-12] MEDS: GABAPENTIN 300 MG CAP PO SCH ×2 (08:13→20:11)
[2022-03-12] MEDS: PRIMIDONE 50 MG TAB PO SCH ×3 (08:13→20:11)
[2022-03-12] MEDS: CALCIUM CARBONATE 500 MG CHEWABLE PO SCH (08:13)
[2022-03-12] MEDS: CYANOCOBALAMIN 500 MCG TAB PO SCH (08:13)
[2022-03-12] MEDS: VIT A,C & E-LUTEIN-MINERALS 1 EACH TAB PO SCH (08:13)
[2022-03-12] MEDS: ASCORBIC ACID 500 MG TAB PO SCH (08:13)
[2022-03-12] MEDS: FOLIC ACID-VIT B COMPLEX-VIT C 1 CAP PO SCH (08:13)
[2022-03-12] MEDS: PANTOPRAZOLE 40 MG TABLET PO SCH (08:13)
--- NOTE | 2022-03-12 08:24 | P.PN ---
Subjective Progress Note Date: 03/12/22 Patient seen and examined she is doing very well today. She has been up and about with her walker and minimal assistance. She has been up to the bathroom. She uses her brace when she is up and about. She complains of no pain. She has a fevers chills shortness of breath or chest pain she denies any paresthesias no numbness or tingling no other symptoms at this time. States she is ready to go to rehab. Objective - Vital Signs Vital signs: Vital Signs Temp 98.2 F 03/12/22 04:00 Pulse 99 03/12/22 04:00 Resp 16 03/12/22 04:00 BP 134/75 03/12/22 04:00 Pulse Ox 92 L 03/12/22 04:00 Intake & Output 03/11/22 03/12/22 03/12/22 18:59 06:59 18:59 Intake Total 540 Output Total 300 Balance -300 540 Intake: Oral 540 Output: Urine 300 Uretheral (Phillips) 300 Other: Voiding Method Indwelling Catheter Indwelling Catheter # Voids 3 2 - Exam Patient is alert and oriented 3 appears well-nourished well-hydrated is in no acute distress. They do not appear septic. On exam the patient has no tenderness to palpation of her thoracic or lumbar spine. There is no edema or ballottement sign. Lower extremities with 4+/5 strength in all major muscle groups deconditioning no focal deficits Upper extremities show [5]/5 strength in all major muscle groups. [] [2]/4DTR all UE and LE b/l Patient shows a negative Homans, Villanueva's, negative Babinski's negative clonus bilaterally. negative straight leg raise bilaterally. No tensioning signs. Cranial nerves II through XII are grossly intact. There is FROM that is painless of the b/l UE and LE in all major joints [w/o pain]. They are intact to light touch sensation in L2 to S1 nerve distribution. Patient has palpable dorsalis pedis was posterior tibial pulses. Compartments are soft and compressible. Incisions are clean and dry and intact no drainage - Labs CBC & Chem 7: 03/10/22 15:01 03/11/22 07:51 Labs: Abnormal Lab Results - Last 24 Hours (Table) 03/11/22 03/11/22 Range/Units 07:51 07:51 Sodium 133 L (137-145) mmol/L BUN 5 L (7-17) mg/dL Creatinine 0.43 L (0.52-1.04) mg/dL Calcium 7.1 L (8.4-10.2) mg/dL AST 40 H (14-36) U/L ALT 35 H (4-34) U/L Creatine Kinase 155 H (30-135) U/L Total Protein 4.6 L (6.3-8.2) g/dL Albumin 2.4 L (3.5-5.0) g/dL HDL Cholesterol 38.00 L (40.00-60.00) mg/dL Assessment and Plan Assessment: 67-year-old female status post T10 to pelvis revision decompression fusion on 03/02/2022 Status post fall from standing at home Elevated troponins In need of placement Plan: -Appreciate medical economics consultant and team management. -Activity: Ambulate QID, OOB all meals, up and about, limit lifting bending twisting to less than 5 lbs. Use walker or cane if needed for stability. -Daily PT/OT, increase ambulation strength and balance. -Brace when up and about, not needed in bed or chair -Pain control: Adequate at this time -Meds: reviewed -GI ppx: senna, Miralax -DVT PPX: OK to restart Heparin tonight -Hygiene: Shower daily. Maintain dressing clean and dry. Meticulous cleaning after BMs away from incision site -Encourage IS 10x/hr -CT thoracic and lumbar spine pending -Dispo: Stable for ANDRES today
[2022-03-12] MEDS: HYDROcodone/APAP 5-325MG 1 EACH TAB PO PRN ×2 (12:46→18:34)
--- NOTE | 2022-03-12 14:27 | P.PN ---
Subjective Progress Note Date: 03/12/22 67-year-old female past medical history significant for hyperlipidemia,hypertension, chronic back pain, prior cardiac gastric bypass surgery, TIA, anxiety. She does not follow with a sander setter, did see Dr. Lambert in 2012. We have been asked to see in consultation for elevated troponin. Patient with recent Hardware removal with revision T10 to pelvis decompression and fusion on 03/02/[address] Magaña. She was home, had difficulty putting her brace on yesterday, she went to the bathroom, tried to apply her brace and tripped and fell. She states this happened two times. She states she felt skyler ewhat weak in her legs before the fall. She states that her grandson was with her and witnessed the fall. She states she initially did not want to come to the hospital, but after the second fall her grandson insisted she come the ER. She states she had a very stressful, yelling conversation with her grandson. She denies any chest pain, shortness of breath, lightheadedness, dizziness, syncope or near syncope. She denies any loss of consciousness. She denies hitting her head. Grandrabia had difficulty getting patient up so the called the ambulance and had her brought to the emergency department. Troponins were drawn, unclear, no documentation on ER why troponins were drawn. They were mildly abnormal at 0.07, 0.08, 0.07. EKG with no acute changes. She denies any history of CAD, WA, diabetes. Family history of CAD father with an WA in his 40s. Patient is evaluated by cardiology with recommendations for 2-D echo to assess left ventricular function; patient will be needing any further cardiac workup if echocardiogram is stable Patient has had multiple falls with marked weakness in the lower extremities; status post T10 to pelvis revision decompression fusion on 03/02/2022 Patient has had computed tomography scan completed of lumbar and thoracic spine which did not show any definite acute fracture Patient has been evaluated by orthopedic surgery with recommendations for patients to ambulate 4 times a day, out of bed for all meals with limited lifting, bending and twisting Patient evaluated by PT/OT and is recommended skilled rehab Objective - Vital Signs Vital signs: Vital Signs Temp 98.8 F 03/12/22 08:28 Pulse 96 03/12/22 08:28 Resp 16 03/12/22 08:28 BP 146/79 03/12/22 08:28 Pulse Ox 95 03/12/22 08:28 Intake & Output 03/11/22 03/12/22 03/12/22 18:59 06:59 18:59 Intake Total 540 240 Output Total 300 Balance -300 540 240 Intake: Oral 540 240 Output: Urine 300 Uretheral (Phillips) 300 Other: Voiding Method Indwelling Catheter Indwelling Catheter # Voids 3 2 2 # Bowel Movements 1 - Exam - Constitutional General appearance: Present: average body habitus, cooperative, no acute distre ss - EENT Eyes: Present: anicteric sclerae, EOMI, PERRLA, normal appearance ENT: Present: hearing grossly normal, normal oropharynx Ears: bilateral: normal - Neck Neck: Present: normal ROM. Absent: lymphadenopathy, rigidity, thyromegaly Carotids: negative: bruit present Thyroid: bilateral: normal size, negative: enlarged, nodule - Respiratory Respiratory: bilateral: CTA, negative: rales, rhonchi, wheezing - Cardiovascular Rhythm: regular Heart sounds: normal: S1, S2 Abnormal Heart Sounds: Absent: systolic murmur, diastolic murmur - Gastrointestinal General gastrointestinal: Present: normal bowel sounds, soft. Absent: distended, organomegaly, tenderness - Genitourinary Genitourinary Comment(s): deferred - Integumentary Integumentary: Present: normal turgor. Absent: jaundiced, rash, ulcer - Neurologic Neurologic: Present: CNII-XII intact. Absent: focal deficits - Musculoskeletal Musculoskeletal: Present: gait normal, strength equal bilaterally - Psychiatric Psychiatric: Present: A&O x's 3, appropriate affect, intact judgment & insight - Labs CBC & Chem 7: 03/10/22 15:01 03/11/22 07:51 Labs: Abnormal Lab Results - Last 24 Hours (Table) 03/11/22 03/11/22 Range/Units 07:51 07:51 HDL Cholesterol 38.00 L (40.00-60.00) mg/dL Primidone 1.4 L (4-12) ug/mL Assessment and Plan Assessment: 1. Multiple falls/weakness. Lower extremities; generalized debility - Patient has been evaluated by PT OT and is recommended skilled rehab - Case management on board for discharge planning 2. Status post T10 to pelvis revision decompression fusion on 03/02/2022 - Patient has been evaluated by orthopedic surgery with CT of the spine which did not reveal any acute fractures - Orthopedic surgery recommendations have been discussed above 3. Elevated troponin; patient is evaluated by cardiology; EKG remains unchanged; 2-D echo is ordered with plans to assess left ventricular function; no further cardiac workup recommended if echocardiogram is stable 4. Hyperlipidemia; continue with home therapy 5. CVA/TIA Discharge planning; patient recommended skilled rehab; we will discharge once stable
[2022-03-12] MEDS: LURASIDONE 20 MG TAB PO SCH (16:49)
[2022-03-12] MEDS: ATORVASTATIN 40 MG TAB PO SCH (20:11)
[2022-03-12] MEDS: ZOLPIDEM 5 MG TAB PO SCH (20:11)
[2022-03-12] MEDS: traZODone HCL 100 MG TAB PO SCH (20:11)
[2022-03-13] MEDS: NITROGLYCERIN OINT 1 INCH/GM PACKET TOPICAL SCH ×3 (01:53→13:16)
[2022-03-13] MEDS: HYDROcodone/APAP 5-325MG 1 EACH TAB PO PRN ×2 (04:49→13:11)
[2022-03-13] MEDS: SODIUM CHLORIDE 0.9% 1,000 ML IV SCH (05:51)
[2022-03-13] MEDS: ASCORBIC ACID 500 MG TAB PO SCH (08:40)
[2022-03-13] MEDS: FERROUS SULFATE 325 MG TAB PO SCH (08:41)
[2022-03-13] MEDS: LORATADINE 10 MG TAB PO SCH (08:41)
[2022-03-13] MEDS: VIT A,C & E-LUTEIN-MINERALS 1 EACH TAB PO SCH (08:41)
[2022-03-13] MEDS: ASPIRIN 81 MG PO SCH (08:41)
[2022-03-13] MEDS: ALPRAZolam 1 MG TAB PO SCH (08:41)
[2022-03-13] MEDS: PRIMIDONE 50 MG TAB PO SCH (08:41)
[2022-03-13] MEDS: DULoxetine HCL 60 MG CAPSULE.DR PO SCH (08:41)
[2022-03-13] MEDS: CYANOCOBALAMIN 500 MCG TAB PO SCH (08:41)
[2022-03-13] MEDS: CALCIUM CARBONATE 500 MG CHEWABLE PO SCH (08:41)
[2022-03-13] MEDS: GABAPENTIN 300 MG CAP PO SCH (08:41)
[2022-03-13] MEDS: PANTOPRAZOLE 40 MG TABLET PO SCH (08:41)
[2022-03-13] MEDS: OXYBUTYNIN CHLORIDE 5 MG TAB PO SCH (08:41)
[2022-03-13] MEDS: FOLIC ACID-VIT B COMPLEX-VIT C 1 CAP PO SCH (08:42)
[2022-03-13] MEDS: HEPARIN SODIUM,PORCINE/PF 5,000 UNIT/0.5 ML SYRINGE SQ SCH (08:42)
[2022-03-13 14:58] VITALS: PULSE 86; RESP 18; TEMP 98.9
[2022-03-13 15:01] VITALS: BP 133/73
[2022-03-14] MEDS ORDERED: GABAPENTIN 300 MG CAP PO SCH (09:00)
[2022-03-15] MEDS ORDERED: ERGOCALCIFEROL 1,250 MCG (50,000 IU) CAPSULE PO SCH (09:00)
--- NOTE | 2022-03-15 12:30 | P.DS ---
Providers Date of admission: 03/10/22 16:46 Expected date of discharge: 03/13/22 Attending physician: Julianne Moon Consults: 03/10/22 16:46 Consult Physician Urgent Consulting Provider: Cardiology Oliva Consult Reason/Comments: Elevated troponin Do you want consulting provider notified?: Yes 03/10/22 16:48 Consult Physician Urgent Consulting Provider: Jose A Magaña Reason/Comments: Status post back surgery, inability to ambulate Do you want consulting provider notified?: Yes Primary care physician: Kana Horta Hospital Course: Final diagnosis Multiple falls/weakness Generalized debility Status post T10 to pelvis revision decompression fusion on 03/02/2022 Elevated troponin, evaluated by cardiology Hyperlipidemia CVA/TIA Discharge disposition Patient is being discharged in a stable condition with guarded prognosis to [facility] for continued PT/OT therapy. Patient will follow-up with Dr. Galeas in the outpatient setting upon discharge. Patient is to follow-up with orthopedics as scheduled. Total time taken is greater than 35 minutes. Hospital course This is a 67-year-old female who was recently admitted under orthopedic service for failed hardware and revision with T10 to pelvis revision decompression fusion and was being closely monitored. Orthopedics following as patient returned to the hospital after multiple falls and increased weakness at home and was evaluated by physical therapy recommending subacute rehab with case management and social work following working on ECF. Patient was accepted at [facility] and will be discharged today. Patient will need to follow-up with orthopedics in the outpatient setting along with cardiology outpatient. Patient had a mildly elevated troponin and was evaluated by cardiology while hospitalized an EF is 60-65% with borderline left ventricular hypertrophy and there is some mild mitral regurgitation noted. Again patient will follow-up in the outpatient setting with cardiology once discharged. Patient is agreeable to rehab and will be discharged today. Currently no reports of chest pain, shortness of breath, or palpitations. Patient is afebrile. No reports of nausea or vomiting and patient is tolerating diet. Patient will be going to [facility] today. Guarded prognosis. On exam vital signs are stable. Cardio S1, S2 are muffled. Respiratory system shows diminished breath sounds at the bases with no wheezing or rhonchi noted. Abdomen is soft and nontender. Nervous system shows diffuse weakness. Please refer to medication reconciliation sheet for a list of medications. The impression and plan of care has been dictated by Milana Workman, Nurse Practitioner as directed. Dr. Lorenza MD I have performed a history and examination and MDM of this patient, discussed the same with the dictator, and agree with the dictator's assessment and plan as written ,documented as a scribe. Based on total visit time, I have performed more than 50% of the visit. Patient Condition at Discharge: Stable Plan - Discharge Summary Discharge Rx Participant: No New Discharge Prescriptions: New Aspirin 81 mg PO DAILY HYDROcodone/APAP 5-325MG [[place] 5-325] 1 tab PO Q6HR PRN #42 tab PRN Reason: Pain Gabapentin [Neurontin] 300 mg PO BID 10 Days #20 cap Continue hydroCHLOROthiazide [Hydrodiuril] 25 mg PO DAILY Loratadine [Claritin] 10 mg PO DAILY Atorvastatin [Lipitor] 40 mg PO HS Oxybutynin Chloride 5 mg PO TID Vitamin B Complex 1 cap PO DAILY DULoxetine HCL [Cymbalta] 60 mg PO BID Primidone [Mysoline] 50 mg PO TID Multivit-Min/Iron/Folic/Lutein [Centrum Silver Women Tablet] 1 tab PO DAILY Acetaminophen Tab [Tylenol] 975 mg PO BID PRN PRN Reason: Pain traZODone HCL 200 mg PO HS Cyclobenzaprine [Flexeril] 10 mg PO BID PRN #40 tab PRN Reason: Muscle Spasm Ferrous Sulfate [Iron (65 MG Elemental)] 325 mg PO BID #60 tab Cyanocobalamin (Vitamin B-12) [Vitamin B-12] 1,000 mcg PO DAILY Sennosides/Docusate Sodium [Senna-S 8.6-50 mg Tablet] 2 tab PO DAILY PRN PRN Reason: Constipation Omeprazole 40 mg PO DAILY Gabapentin [Neurontin] 100 mg PO DIRECTED HYDROcodone/APAP 10-325MG [[place] 10-325] 1 tab PO Q4HR PRN 7 Days #42 tab PRN Reason: Pain Zolpidem [Ambien] 10 mg PO HS 7 Days #7 tab Denosumab [Prolia] 60 mg SQ Q180D Ascorbic Acid [Vitamin C] 500 mg PO DAILY Ergocalciferol [Vitamin D2 (1250 Mcg = 26504 Iu)] 1,250 mcg PO MO Calcium Carbonate [Calcium] 1,200 mg PO DAILY polyethylene glycoL 3350 [Miralax] 17 gm PO DAILY PRN #21 packet PRN Reason: Constipation Lurasidone HCl [Latuda] 60 mg PO W/SUPPER ALPRAZolam [Xanax] 1 mg PO BID 7 Days #14 tab Discontinued Gabapentin See Taper PO DIRECTED Discharge Medication List Loratadine [Claritin] 10 mg PO DAILY 09/04/19 [History] hydroCHLOROthiazide [Hydrodiuril] 25 mg PO DAILY 09/04/19 [History] Atorvastatin [Lipitor] 40 mg PO HS 03/20/20 [History] Oxybutynin Chloride 5 mg PO TID 04/17/20 [History] Vitamin B Complex 1 cap PO DAILY 04/17/20 [History] DULoxetine HCL [Cymbalta] 60 mg PO BID 01/12/21 [History] Denosumab [Prolia] 60 mg SQ Q180D 09/30/21 [History] Primidone [Mysoline] 50 mg PO TID 09/30/21 [History] Acetaminophen Tab [Tylenol] 975 mg PO BID PRN 02/26/22 [History] Ascorbic Acid [Vitamin C] 500 mg PO DAILY 02/26/22 [History] Calcium Carbonate [Calcium] 1,200 mg PO DAILY 02/26/22 [History] Ergocalciferol [Vitamin D2 (1250 Mcg = 31487 Iu)] 1,250 mcg PO MO 02/26/22 [History] Multivit-Min/Iron/Folic/Lutein [Centrum Silver Women Tablet] 1 tab PO DAILY 02/26/22 [History] traZODone HCL 200 mg PO HS 02/26/22 [History] Cyclobenzaprine [Flexeril] 10 mg PO BID PRN #40 tab 03/09/22 [Rx] Ferrous Sulfate [Iron (65 MG Elemental)] 325 mg PO BID #60 tab 03/09/22 [Rx] polyethylene glycoL 3350 [Miralax] 17 gm PO DAILY PRN #21 packet 03/09/22 [Rx] Cyanocobalamin (Vitamin B-12) [Vitamin B-12] 1,000 mcg PO DAILY 03/10/22 [History] Gabapentin [Neurontin] 100 mg PO DIRECTED 03/10/22 [History] Lurasidone HCl [Latuda] 60 mg PO W/SUPPER 03/10/22 [History] Omeprazole 40 mg PO DAILY 03/10/22 [History] Sennosides/Docusate Sodium [Senna-S 8.6-50 mg Tablet] 2 tab PO DAILY PRN 2 [History] HYDROcodone/APAP 5-325MG [[place] 5-325] 1 tab PO Q6HR PRN #42 tab 03/12/22 [Rx] ALPRAZolam [Xanax] 1 mg PO BID 7 Days #14 tab 03/13/22 [Rx] Aspirin 81 mg PO DAILY 03/13/22 [Rx] Gabapentin [Neurontin] 300 mg PO BID 10 Days #20 cap 03/13/22 [Rx] HYDROcodone/APAP 10-325MG [[place] 10-325] 1 tab PO Q4HR PRN 7 Days #42 tab 03/13/22 [Rx] Zolpidem [Ambien] 10 mg PO HS 7 Days #7 tab 03/13/22 [Rx] Follow up Appointment(s)/Referral(s): Bryant Watson MD [STAFF PHYSICIAN] - 6 Weeks Kana Horta III, MD [Primary Care Provider] - 1-2 days Jose A Magaña DO [Doctor of Osteopathic Medicine] - 10 Days Activity/Diet/Wound Care/Special Instructions: Spine Discharge and Recovery Instructions All medication refills should be obtained through your primary care doctor or your clinic spine surgeon. Please discuss prescription refills at your follow up appointment. Do not call the hospital for medication refills. Dressing: Leave your dressing in place for a total of 5 days post operatively. Then you may remove your dressing and leave open to air. Keep the area clean and if not able to keep area clean, then cover with sterile gauze and tape. Showering: You may shower 3 days after your procedure allowing soap and water to run over incision. Do not scrub. Do not soak. Blot dry. Follow up: Please confirm a follow up appointment with your surgeon 3 weeks post operatively. Please make an appointment to follow up with your PCP in 1-2 weeks after surgery for evaluation 3 phase, 3-week plan POST OP WEEKS 1-3 1. Lifting/carrying/pushing/pulling limited to less than 5 pounds. 2. Do not sit for longer than 15 minutes at one time. Get up and walk around. Prolonged sitting is NOT advised. If you lay down, see if you can tolerate laying down on you front (belly side) 3. Walk for periods of 15 minutes = 1 mile but no longer; do it multiple times times each day. 4. Ice your low back after activity. POST OP WEEKS 3-6 1. Lifting limited to less than 20 pounds. 2. Do not sit for longer than 30 minutes at a time. Frequently change p ositions. Use a sit-to stand workstation or take frequent breaks from sitting if you have returned to work. 3. Walk for 30 minutes each day. If possible, do these three or more times a day POST OP WEEKS 6+ At your 6-week appointment we will give you a physical therapy referral to focus on a core stabilization and strengthening program. You should also work on leg & buttock strengthening, hamstring & quadriceps stretching, and continue a low impact aerobic activity program such as swimming, walking, or riding a stationary bicycle. During the initial 6 weeks after your surgery, you are at the highest risk of re-injuring your spine. You should generally avoid BLTs (bending, lifting and twisting combination motions) and follow the above guidelines to reduce the chance of reinjury. You can anticipate post op appointments in our office at approximately 3 weeks and 6 weeks after your surgery. INCISION CARE: If your incision is not draining you do NOT need to cover it with a dressing. Keep your incision clean, dry and intact. In most cases, we apply skin glue, genoveva or sutures to the incision at the time of surgery. This will be like a crust or have the appearance of a scab and will fall off in time on its own. The stitches or genoveva need to be removed at 3 weeks post op appointment. You may begin to shower 3 days after surgery (this allows the glue to l[place] well). However, please avoid scrubbing the incision site or peeling off any of the skin glue. This will ensure optimal healing of your incision. Also, during this time avoid soaking the incision area in water - this includes swimming pools, hot tubs or baths. No ointments, lotions or oils on the incision until your surgeon allows. Leave genoveva, sutures or glue in place. Neurological dysfunction that comes on suddenly can also be a sign of a stroke. Below some common symptoms of a stroke are listed: B - balance difficulty such as sudden onset walking or leaning to one side - NEW E - eye problem such as sudden double vision or trouble seeing on one side - NEW F - Facial weakness or numbness on one side - NEW A - Arm or leg weakness or numbness on one side - NEW S - Slurred speech or difficulty with word finding - NEW T - Time is BRAIN! Call 911 as soon as you recognize these symptoms Diet: Consume a regular diet rich in vegetables and lean protein such as chicken or fish. You should consume in a ratio of approximately 20% fats|40% carbohydrates|40%protein. Vegetables, sweet potatoes, brown rice or quinoa are examples of good carbohydrates. Chips, white bread, cookies and sweets/sugar are examples of bad carbohydrates. Limit your bad carbs, go wild with good carbs. "Life's Simple 7" Guidelines as per [place] [employer] These will help you reclaim your life after surgery and tile layer helper in your recovery, keeping in mind your restrictions. (1) Get Active. Physical activity can help people lose weight, control high blood pressure and cholesterol, feel emotionally better, and sleep better. (2) Control Cholesterol. Avoid a diet high in saturated fat, trans fat, & cholesterol. Limit whole milk & cream, ice cream, butter, egg yolks, processed meats (like sausage and hot dogs), and fatty meats. Choose healthy foods that are low in saturated fat, trans fat and cholesterol which include: Fruits and vegetables, fiber rich grain products (like whole grain pasta and brown rice), lean meat such as chicken, fish, nuts, seeds, and legumes. (3) Eat Better. Eat small portions. Shop at the grocery with a list and do not stray from it. Tips for a healthy diet include: Limit sodium intake to less than 1500mg daily, avoid prepackaged, processed, and fast foods, choose a diet rich in fruits, vegetables, and whole grain, high fiber foods, and limit saturated & cholesterol in your diet. (4) Manage Blood Pressure. If you have high blood pressure, you should have a cuff at home so that you can check your blood pressure regularly. Be sure you have a good cuff. An arm one is generally better than a wrist one. Bring the cuff to a doctor's appointment to validate that the measurements that your cuff are taking are accurate. Take your blood pressure twice daily when you are sitting down and relaxing. Record the numbers in a log and bring this log with you to your doctors' appointments. (5) Lose Weight if your BMI is above 25. A healthy BMI is between 19-25. To calculate Your BMI, you may use a Standard BMI Calculator on the NIH BMI website: <www.nhlbi.nih.gov/guidelines/obesity/BMI/bmicalc.htm>. Weigh oneself daily. If you are overweight, set a goal to lose weight. A pound a week loss if needed is a good target. (6) Reduce Blood Sugar. Limit foods and liquids with "added sugars." (Added sugars include sucrose, fructose, glucose, maltose, dextrose, high fructose corn syrup, corn syrup, concentrated fruit juice and honey). (7) Stop Smoking. If you smoke, quitting smoking is one of the best things that you can do for your health. Smoking increases your risk of heart attack, stroke, and peripheral vascular disease, which is a build-up of plaque in your arteries. Please discard all the cigarettes and lighters in your house. Have a plan for what you will do when you have the urge to smoke. Direct and second- hand smoke shortens your life as well as the lives of your family, friends and others around you. For your health and the health of those around you, please consider quitting! Proper Bending Body Mechanics: Maintain a wide stance with one foot slightly in front of the other. Keep your back straight. Bend utilizing the strength in your hips and knees. Do not bend at the waist. Maintain the lifted object at your waist-level close to your body. Avoid lifting weight that causes immediately pain or pain anywhere in the body afterwards. Smoking/Nicotine If there was ever one thing that you could do to increase your overall health, decrease your risk of cardiovascular problems by about 39% the second you make the choice, it is to STOP SMOKING. Your body's most instant gratification is the second you stop smoking. We have all heard the studies, read the articles but it is true, smoking is extremely bad for your overall health, and moreover it is detrimental to your bone health. Nicotine, IN ANY FORM, kills bone cells, prevents your body from healing fractures, and significantly prolongs healing after surgery. In spine surgery specifically, it increases your risk of not healing your bones to create a fusion and increases your risk of having a revision surgery due to this up to 60%. I know it is hard. I know it feels impossible. But there are ways. Take control of your life. We are here to help you through it. And when you are ready, ask us and we can direct you to help if you desire. Use the START Plan to Quit Smoking (please visit the [employer].org website listed below for more information): S = Set a quit date. Choose a date within the next 2 weeks, so you have enough time to prepare without losing your motivation to quit. If you mainly smoke at work, quit on the weekend, so you have a few days to adjust to the change. T = Tell family, friends, and co-workers that you plan to quit. Let your friends and family in on your plan to quit smoking and tell them you need their support and encouragement to stop. Look for a quit raissa who wants to stop smoking as well. You can help each other get through the rough times. A = Anticipate and plan for the challenges you'll face while quitting. Most people who begin smoking again do so within the first 3 months. You can help yourself make it through by preparing ahead for common challenges, such as nicotine withdrawal and cigarette cravings. R = Remove cigarettes and other tobacco products from your home, car, and work. Throw away all your cigarettes (no emergency pack!), lighters, ashtrays, and matches. Wash your clothes and freshen up anything that smells like smoke. Shampoo your car, clean your drapes and carpet, and steam your furniture. T = Talk to your doctor about getting help to quit. Your doctor can prescribe medication to help with withdrawal and suggest other alternatives. If you can't see a doctor, you can get many products over the counter at your local pharmacy or grocery store, including the nicotine patch, nicotine lozenges, and nicotine gum. Resources for Quitting Smoking: <https://www.[place].gov/documents/[facility]/Quit_Tobacco_Resources_for_patients_313 480_7.pdf> Supplementation: Take recommended dosages of Vitamin D and Calcium to help fortify your bones and help them to heal. See your health maintenance packet for dosages and recommended levels. DVT/VTE prophylaxis: You will be given compression stockings from the hospital. Wear these daily for the first two weeks after surgery. You may take them off at night. You may be prescribed a medication to help thin your blood. Take this as directed. If you are not prescribed this medication, early and frequent ambulation has been shown to be the best prophylaxis to deep vein thrombosis and sequelae related to this event. Discharge Disposition: TRANSFER TO SNF/ECF
[2022-03-16] MEDS ORDERED: GABAPENTIN 100 MG CAP PO SCH (09:00)
== END 2022-03-13 15:10 ==
LOC: EC 14:18 → INTOOBSV 16:46 → 3SCARD 16:46 → UNDODISIN 03-13 15:10
PROVIDERS: ADMIT Hospitalist; ATTEND Hospitalist
DX: R53.1 Weakness (principal); R79.89 Other specified abnormal findings of blood chemistry; R53.81 Other malaise; R29.6 Repeated falls; Z98.1 Arthrodesis status; I11.9 Hypertensive heart disease without heart failure; I43 Cardiomyopathy in diseases classified elsewhere; I08.1 Rheumatic disorders of both mitral and tricuspid valves; E78.5 Hyperlipidemia, unspecified; M19.90 Unspecified osteoarthritis, unspecified site; K44.9 Diaphragmatic hernia without obstruction or gangrene; R26.9 Unspecified abnormalities of gait and mobility; J98.11 Atelectasis; G89.29 Other chronic pain; M54.50 Low back pain, unspecified; G62.9 Polyneuropathy, unspecified; K21.9 Gastro-esophageal reflux disease without esophagitis; F31.9 Bipolar disorder, unspecified; F41.0 Panic disorder [episodic paroxysmal anxiety]; F41.9 Anxiety disorder, unspecified; W01.0XXA Fall on same level from slipping, tripping and stumbling without subsequent striking against object, initial encounter; Y92.009 Unspecified place in unspecified non-institutional (private) residence as the place of occurrence of the external cause; Z79.82 Long term (current) use of aspirin; Z79.899 Other long term (current) drug therapy; Z88.2 Allergy status to sulfonamides; Z88.8 Allergy status to other drugs, medicaments and biological substances; Z91.048 Other nonmedicinal substance allergy status; Z91.81 History of falling; Z98.84 Bariatric surgery status; Z90.49 Acquired absence of other specified parts of digestive tract; Z90.710 Acquired absence of both cervix and uterus; Z98.49 Cataract extraction status, unspecified eye; Z86.73 Personal history of transient ischemic attack (TIA), and cerebral infarction without residual deficits; Z98.890 Other specified postprocedural states; Z80.0 Family history of malignant neoplasm of digestive organs; Z82.49 Family history of ischemic heart disease and other diseases of the circulatory system
CPT/HCPCS: 96372 ×2; 96360; 96361; 99285; 36415; 93005; 93306; 97116; 97162; 97530; 97535; 97166; 80188; 80061; 80053 ×2; 82550; 83605; 83735 ×2; 84484; 85025; 85610; 85730; 81003; 71046; 72128; 72131; G0378 ×4; J1644 ×2

== ENCOUNTER 2022-03-28 20:04 | Inpatient (IN) | payer MEDICARE ==
[2022-03-28 20:29] LABS: Glucose,Whole Blood 124 mg/dL (75-99)
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
--- NOTE | 2022-03-28 20:42 | CT ---
EXAMINATION TYPE: CT brain wo con for TPA DATE OF EXAM: 03/28/2022 COMPARISON: 03/03/2022 HISTORY: Neuro deficits, dysphasia, stroke suspected. CT DLP: 1192.6 mGycm Automated exposure control for dose reduction was used. Images obtained of the brain with no contrast. Ventricles are of normal size. There is no mass effect or midline shift. No sign of intracranial hemo rrhage. Skull base is intact. There is normal aeration of the mastoid sinuses. There is mucosal thick ening right maxillary sinus. Previous sinus surgery. IMPRESSION: No acute intracranial abnormality. Sinusitis. No change.
--- NOTE | 2022-03-28 20:50 | CT ---
EXAMINATION TYPE: CT angio head neck DATE OF EXAM: 03/28/2022 COMPARISON: 09/04/2019 HISTORY: Neuro deficits, dysphasia, CT DLP: 339.3 mGycm Automated exposure control for dose reduction was used. CONTRAST: Performed with IV Contrast, patient injected with 65 mL of Isovue 370. There are Three-D postprocessed images. Images obtained from the aortic arch to the vertex of the bra in with IV contrast. There is normal branching pattern of the great vessels on the aortic arch. There is arterial flow in both subclavian arteries. There is arterial flow in the common internal and external carotid arteries bilaterally. There is wide patency of the carotid artery bifurcations. There is arterial flow in bot h vertebral arteries. No evidence of carotid or vertebral artery aneurysm or dissection. There is arterial flow in the anterior middle and posterior cerebral arteries. There is filling of ash th anterior cerebral arteries from the right side through the anterior communicating artery. There is no flow seen in the A1 segment left anterior cerebral artery. There is no mass effect. No evidence of intracranial aneurysm or neovascularity. There is normal enha ncement of the venous sinuses. I do not see definite stenosis of the middle cerebral arteries. IMPRESSION: Negative CT angiogram of the neck. Negative CT angiogram of the brain. No flow seen in the A1 segment of the left anterior cerebral artery there is probably developmental. No change compared to old exam . No evidence of right middle cerebral artery stenosis that is suggested by the previous report.
[2022-03-28 20:52] LABS: Basophils % (A) 1 %; Eosinophils % (A) 0 %; HCT 37.2 % (34.0-46.0); HGB 12.3 gm/dL (11.4-16.0); Lymphocytes # (A) 0.8 k/uL (1.0-4.8); Lymphocytes % (A) 14 %; MCH 29.4 pg (25.0-35.0); MCV 89.1 fL (80.0-100.0); Mean Platelet Volume 6.5; Monocytes # (A) 0.6 k/uL (0-1.0); Monocytes % (A) 11 %; Neutrophils # (A) 3.9 k/uL (1.3-7.7); Neutrophils % (A) 71 %; Platelet Count 453 k/uL (150-450); RBC 4.17 m/uL (3.80-5.40); RDW 13.8 % (11.5-15.5); WBC 5.5 k/uL (3.8-10.6)
[2022-03-28 20:56] LABS: Partial Thromboplastin Time 23.5 sec (22.0-30.0); Prothrombin Time 11.1 sec (9.0-12.0)
--- NOTE | 2022-03-28 21:11 | XR ---
EXAMINATION TYPE: XR chest 2V DATE OF EXAM: 03/28/2022 COMPARISON: 03/10/2022 HISTORY: Weakness TECHNIQUE: FINDINGS: Heart and mediastinum are normal. Lungs are clear. Diaphragm is normal. There is posterior fusion surgery in the lower thoracic and upper lumbar spine. IMPRESSION: No active cardiopulmonary disease. No change.
[2022-03-28] MEDS ORDERED: ASPIRIN 81 MG PO STA (21:12)
[2022-03-28] MEDS ORDERED: NALOXONE 0.4 MG/ML 1 ML VIAL IV PRN (21:12)
[2022-03-28 21:25] LABS: ALT 25 U/L (4-34); AST 43 U/L (14-36); African American GFR (CKD) >90 (>60 ml/min/1.73 sqM); Albumin 4.1 g/dL (3.5-5.0); Alkaline Phosphatase 312 U/L (38-126); Anion Gap 12 mmol/L; Blood Urea Nitrogen 12 mg/dL (7-17); Calcium 8.7 mg/dL (8.4-10.2); Carbon Dioxide 23 mmol/L (22-30); Chloride 94 mmol/L (98-107); Glucose 112 mg/dL (74-99); Non-African American GFR(CKD) >90 (>60 ml/min/1.73 sqM); Potassium 2.9 mmol/L (3.5-5.1); Sodium 129 mmol/L (137-145); Total Bilirubin 0.6 mg/dL (0.2-1.3); Total Protein 6.8 g/dL (6.3-8.2)
[2022-03-28] MEDS ORDERED: Potassium Replacement Protocol 1 EACH MISC MISCELLANE PRN (21:49)
[2022-03-28] MEDS: POTASSIUM CHLORIDE ER 20 MEQ TAB.ER PO SCH ×2 (23:15→23:27)
[2022-03-28] MEDS: POTASSIUM CHLORIDE 10 MEQ in WATER FOR INJECTION 1 100ML.BAG IVPB SCH (23:16)
[2022-03-28] MEDS: SODIUM CHLORIDE 0.9% 1,000 ML IV SCH (23:17)
[2022-03-28] MEDS ORDERED: ONDANSETRON 4 MG/2 ML VIAL IVP PRN (23:35)
[2022-03-29] MEDS: POTASSIUM CHLORIDE 10 MEQ in WATER FOR INJECTION 1 100ML.BAG IVPB SCH ×2 (00:57→00:58)
[2022-03-29] MEDS: POTASSIUM CHLORIDE ER 20 MEQ TAB.ER PO SCH ×5 (00:58→21:17)
[2022-03-29] MEDS: SODIUM CHLORIDE 0.9% 1,000 ML IV SCH ×2 (06:45→21:18)
[2022-03-29] MEDS ORDERED: SENNOSIDES-DOCUSATE SODIUM 1 EACH TAB PO PRN (07:03)
[2022-03-29] MEDS ORDERED: polyethylene glycoL 3350 17 GM POWD.PACK PO PRN (07:03)
[2022-03-29] MEDS ORDERED: Magnesium Replacement Protocol 1 EACH MISC MISCELLANE PRN (07:13)
[2022-03-29] MEDS ORDERED: Potassium Replacement Protocol 1 EACH MISC MISCELLANE PRN (07:13)
[2022-03-29] MEDS ORDERED: ERGOCALCIFEROL 1,250 MCG (50,000 IU) CAPSULE PO SCH (09:00)
[2022-03-29] MEDS ORDERED: hydroCHLOROthiazide 25 MG TAB PO SCH (09:00)
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
[2022-03-29] MEDS: ASPIRIN 81 MG PO SCH (11:30)
[2022-03-29] MEDS: DULoxetine HCL 60 MG CAPSULE.DR PO SCH ×2 (11:30→21:18)
[2022-03-29] MEDS: PRIMIDONE 50 MG TAB PO SCH ×3 (11:31→21:17)
[2022-03-29] MEDS: FERROUS SULFATE 325 MG TAB PO SCH ×2 (11:31→21:16)
[2022-03-29] MEDS: CYANOCOBALAMIN 500 MCG TAB PO SCH (11:31)
[2022-03-29] MEDS: FAMOTIDINE 20 MG/2 ML VIAL IV SCH ×2 (11:32→21:17)
[2022-03-29] MEDS: HEPARIN SODIUM,PORCINE/PF 5,000 UNIT/0.5 ML SYRINGE SQ SCH ×2 (11:32→21:18)
[2022-03-29 13:16] LABS: African American GFR (CKD) >90 (>60 ml/min/1.73 sqM); Anion Gap 10 mmol/L; Blood Urea Nitrogen 14 mg/dL (7-17); Calcium 8.4 mg/dL (8.4-10.2); Carbon Dioxide 27 mmol/L (22-30); Chloride 94 mmol/L (98-107); Glucose 116 mg/dL (74-99); Non-African American GFR(CKD) >90 (>60 ml/min/1.73 sqM); Sodium 131 mmol/L (137-145)
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
[2022-03-29 13:46] LABS: Potassium 2.6 mmol/L (3.5-5.1)
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
[2022-03-29] MEDS ORDERED: HYDROcodone/APAP 5-325MG 1 EACH TAB PO STA (20:27)
[2022-03-29] MEDS ORDERED: QUEtiapine 50 MG TAB PO SCH (21:00)
[2022-03-29] MEDS: ATORVASTATIN 40 MG TAB PO SCH (21:17)
[2022-03-29] MEDS: ALPRAZolam 1 MG TAB PO PRN (21:22)
[2022-03-30] MEDS: MAGNESIUM SULFATE-D5W PMX 1 GM in DEXTROSE/WATER 1 100ML.BAG IVPB SCH ×2 (00:20→02:13)
[2022-03-30] MEDS: POTASSIUM CHLORIDE ER 20 MEQ TAB.ER PO SCH (00:20)
[2022-03-30 04:01] LABS: Amorphous Sediment,Urine Rare /hpf; Appearance,Urine Turbid (Clear); Bacteria,Urine Many /hpf; Bilirubin,Urine Negative (Negative); Blood,Urine Small (Negative); Color,Urine Yellow; Glucose,Urine (UA) Negative (Negative); Hyaline Casts,Urine 3 /lpf (0-2); Ketones,Urine 1+ (Negative); Leukocyte Esterase,Urine Large (Negative); Mucus,Urine Few /hpf; Nitrite,Urine Positive (Negative); Protein,Urine 1+ (Negative); RBC,Urine 6 /hpf (0-5); Specific Gravity,Urine 1.028 (1.001-1.035); Squamous Epithelial Cell,Urine 1 /hpf (0-4); WBC,Urine >182 /hpf (0-5)
[2022-03-30] MEDS: SODIUM CHLORIDE 0.9% 1,000 ML IV SCH ×2 (06:57→20:15)
[2022-03-30] MEDS: HEPARIN SODIUM,PORCINE/PF 5,000 UNIT/0.5 ML SYRINGE SQ SCH ×2 (08:32→20:14)
[2022-03-30] MEDS: DULoxetine HCL 60 MG CAPSULE.DR PO SCH ×2 (08:32→20:14)
[2022-03-30] MEDS: ASPIRIN 81 MG PO SCH (08:32)
[2022-03-30] MEDS: FERROUS SULFATE 325 MG TAB PO SCH ×2 (08:32→20:14)
[2022-03-30] MEDS: PRIMIDONE 50 MG TAB PO SCH ×3 (08:33→20:13)
[2022-03-30] MEDS: CYANOCOBALAMIN 500 MCG TAB PO SCH (08:33)
[2022-03-30] MEDS: FAMOTIDINE 20 MG/2 ML VIAL IV SCH ×2 (08:34→20:14)
[2022-03-30 10:05] LABS: African American GFR (CKD) >90 (>60 ml/min/1.73 sqM); Anion Gap 8 mmol/L; Blood Urea Nitrogen 10 mg/dL (7-17); Calcium 7.7 mg/dL (8.4-10.2); Carbon Dioxide 24 mmol/L (22-30); Chloride 98 mmol/L (98-107); Glucose 98 mg/dL (74-99); Magnesium 2.1 mg/dL (1.6-2.3); Non-African American GFR(CKD) >90 (>60 ml/min/1.73 sqM); Potassium 4.2 mmol/L (3.5-5.1); Sodium 130 mmol/L (137-145)
[2022-03-30] MEDS: ALPRAZolam 1 MG TAB PO PRN ×2 (10:05→20:13)
--- NOTE | 2022-03-30 11:05 | MR ---
EXAMINATION TYPE: MR brain wo/w con DATE OF EXAM: 03/30/2022 COMPARISON: CT brain 03/28/2022, MR brain 09/06/2019 HISTORY: Episode of mental confusion, rule out TIA/CVA/mass. TECHNIQUE: Multiplanar, multisequence images of the brain and brainstem is performed without and with IV contras t, utilizing 5.5 mL intravenous Gadavist . FINDINGS: Diffusion weighted images demonstrate no evidence of a recent infarct or other diffusion ab normality. There is no extra-axial fluid collection. There are 2 foci of hyperintensity one of whic h is in the deep white matter in the centrum semiovale ovale on the left image 23 series 501 and the second in the periventricular white matter adjacent to the posterior horn right lateral ventricle chilango ge 16 series 501, hyperintensity on inversion recovery T2-weighted sequences which is thought to repr esent T2 shine through rather than restricted diffusion with corresponding hypointensity seen on T1 w eighted images, possible small foci of encephalomalacia. Some additional scattered hyperintensities a re present within the deep white matter similar to prior exam. The ventricular system and cisternal s paces are normal in size and appearance. The brain volume is age appropriate. Midline structures demonstrate normal morphology. The craniocervical junction appears within normal limits. Post contrast images demonstrate no abnormal enhancement. The dural venous sinuses appear pa tent. The visualized sinuses are showing inflammatory change in the bilateral maxillary sinuses, ethm oid air cells, and the globes are intact. IMPRESSION: Probable chronic small vessel ischemic changes, age related atrophy, sinus disease
--- NOTE | 2022-03-30 11:27 | P.PN ---
Subjective This is a pleasant 67 years old female with past medical history of CVA/TIA, GERD/Reflux, Hyperlipidemia, Osteoarthritis , chronic back pain with neuropathy, uses cane & walker prn., states fall in December 2021 with concussion.,Erica-en-y., Hiatal Hernia, status post Bariatric Surgery, Anxiety, Bipolar, Depression, Panic Disorder Presents because of confusion and words finding difficulty as per records. Patient is awake and alert up in bed, she knows she is in the hospital but she thinks she is at or near, she knows the year but not the date or month. She noted name of the president, she looks to have insight into her illness and follows commands clearly. However she has some memory problems. Patient states she came to the hospital because she was not thinking well and she follows she is not herself. However she denies any word finding difficulty for me, although she has some hesitancy and slow to answer questions but this looks more related to her memory problem. She has bitemporal headache with no visual problems, her headache since yesterday, mild to moderate focal plaque pressure and nonradiating. She vomited once. She's been complaining of from dysuria and increased frequency of urination and she was brought in to see Dr. Horta her PCP tomorrow. She denies any blurred vision, no weakness or numbness or dizziness. She denies any hopelessness or helplessness. No suicidal or homicidal ideation, no visual or auditory hallucinations. She thinks that is helping her symptoms. She states she has no new medication over the last 2 weeks and she's been taking chlorthalidone for a while for hypertension, however patient looks dehydrated today. She's been complaining of from band insomnia and looks like she has some lip sma cking movements. She denies smoking, alcohol or illicit tracts Patient is hemodynamically stable. Labs including CBC is unremarkable except for mild lymphopenia. INR is 1.0. Sodium is low at 129, potassium low at 2.9. Rest of BMP and liver enzymes are unremarkable. Troponin is negative at 0.013. MAPS was checked and patient is on Xanax 1 mg on Sarona 5 mg Emergency room she was started on normal saline with 30 mL per hour Today patient is mentation improved back to baseline, she is fully awake and oriented, she is calm, no more smacking only small twitching in her lip area which still could be related to mild tardive dyskinesia, case was discussed with the psychiatrist. Most likely patient has metabolic encephalopathy secondary to UTI and other metabolic problems. Patient was started on ceftriaxone for UTI, and cultures pending. Sodium improved to 1:30. Potassium is normal today 4.2. Patient is eating 25% of her diet We will lower her IV fluids of normal saline down to 40 mL/h. MRI of the brain is showing chronic changes. EEG is pending Objective - Vital Signs Vital signs: Vital Signs Temp 98 F 03/30/22 08:00 Pulse 94 03/30/22 08:00 Resp 20 03/30/22 08:00 BP 126/60 03/30/22 08:00 Pulse Ox 100 03/30/22 08:00 FiO2 Intake & Output 03/29/22 03/30/22 03/30/22 18:59 06:59 18:59 Intake Total 120 Output Total 0 Balance 120 Weight 54.5 kg Intake: Oral 120 Output: Urine 0 Other: Voiding Method Toilet Toilet # Voids 5 2 # Bowel Movements 1 - Exam GENERAL: The patient is alert and oriented x3, not in any acute distress. Well developed, well nourished. HEENT: Pupils are round and equally reacting to light. EOMI. No scleral icterus. No conjunctival pallor. Normocephalic, atraumatic. No pharyngeal erythema. No thyromegaly. CARDIOVASCULAR: S1 and S2 present. No murmurs, rubs, or gallops. PULMONARY: Chest is clear to auscultation, no wheezing or crackles. ABDOMEN: Soft, nontender, nondistended, normoactive bowel sounds. No palpable organomegaly. MUSCULOSKELETAL: No joint swelling or deformity. EXTREMITIES: No cyanosis, clubbing, or pedal edema. NEUROLOGICAL: Gross neurological examination did not reveal any focal deficits. SKIN: No rashes. no petechiae. - Labs CBC & Chem 7: 03/28/22 20:35 03/30/22 09:12 Labs: Abnormal Lab Results - Last 24 Hours (Table) 03/29/22 03/29/22 03/29/22 Range/Units 07:37 07:37 17:58 Sodium 131 L (137-145) mmol/L Potassium 2.6 L* (3.5-5.1) mmol/L Chloride 94 L (98-107) mmol/L Creatinine (0.52-1.04) mg/dL Glucose 116 H (74-99) mg/dL Plasma Lactic Acid Sadi (0.7-2.0) mmol/L Calcium (8.4-10.2) mg/dL Magnesium 1.5 L (1.6-2.3) mg/dL Vitamin B12 1974.0 H (200.0-944.0) pg/mL Urine Appearance (Clear) Urine Protein (Negative) Urine Ketones (Negative) Urine Blood (Negative) Urine Nitrite (Negative) Ur Leukocyte Esterase (Negative) Urine RBC (0-5) /hpf Urine WBC (0-5) /hpf Urine WBC Clumps (None) /hpf Amorphous Sediment (None) /hpf Urine Bacteria (None) /hpf Hyaline Casts (0-2) /lpf Urine Mucus (None) /hpf 03/29/22 03/30/22 03/30/22 Range/Units 17:58 03:00 09:12 Sodium 130 L (137-145) mmol/L Potassium 3.3 L (3.5-5.1) mmol/L Chloride (98-107) mmol/L Creatinine 0.49 L (0.52-1.04) mg/dL Glucose (74-99) mg/dL Plasma Lactic Acid Sadi (0.7-2.0) mmol/L Calcium 7.7 L (8.4-10.2) mg/dL Magnesium (1.6-2.3) mg/dL Vitamin B12 (200.0-944.0) pg/mL Urine Appearance Turbid H (Clear) Urine Protein 1+ H (Negative) Urine Ketones 1+ H (Negative) Urine Blood Small H (Negative) Urine Nitrite Positive H (Negative) Ur Leukocyte Esterase Large H (Negative) Urine RBC 6 H (0-5) /hpf Urine WBC >182 H (0-5) /hpf Urine WBC Clumps Many H (None) /hpf Amorphous Sediment Rare H (None) /hpf Urine Bacteria Many H (None) /hpf Hyaline Casts 3 H (0-2) /lpf Urine Mucus Few H (None) /hpf 03/30/22 Range/Units 09:12 Sodium (137-145) mmol/L Potassium (3.5-5.1) mmol/L Chloride (98-107) mmol/L Creatinine (0.52-1.04) mg/dL Glucose (74-99) mg/dL Plasma Lactic Acid Sadi 2.4 H* (0.7-2.0) mmol/L Calcium (8.4-10.2) mg/dL Magnesium (1.6-2.3) mg/dL Vitamin B12 (200.0-944.0) pg/mL Urine Appearance (Clear) Urine Protein (Negative) Urine Ketones (Negative) Urine Blood (Negative) Urine Nitrite (Negative) Ur Leukocyte Esterase (Negative) Urine RBC (0-5) /hpf Urine WBC (0-5) /hpf Urine WBC Clumps (None) /hpf Amorphous Sediment (None) /hpf Urine Bacteria (None) /hpf Hyaline Casts (0-2) /lpf Urine Mucus (None) /hpf Microbiology - Last 24 Hours (Table) 03/30/22 03:00 Urine Culture - Preliminary Urine,Voided Assessment and Plan Assessment: Metabolic encephalopathy secondary to hyponatremia, and UTI, resolved Acute urinary tract infection Hyponatremia and hypokalemia secondary to hydrochlorothiazide. Improving Mild Lip smacking movements, Possible tardive dyskinesia Hyperlipidemia Chronic back pain with neuropathy History of GERD History of CVA/TIA History of fall History of hiatal hernia History of anxiety, depression and bipolar, not in active tissue Plan: This is a pleasant 67 years old female who presents with AMS, though secondary to metabolic encephalopathy, TIA less likely We will continue with gentle hydration Hold hydrochlorothiazide Start ceftriaxone follow-up urine culture Neurology consult Continue with aspirin Discussed with bed side nurse Jud to check for bladder scan We will consult psychiatrist for she is on multiple psych medication, history of mental illness and possible tardive-type dyskinesia Labs and medication were reviewed.. Continue same treatment. Continue with sym ptomatic treatment. Resume home medication. Monitor lytes and vitals. DVT and GI prophylaxis. Further recommendationsas per clinical course of the patient DVT prophylaxis: Subcutaneous heparin GI Prophylaxis: Pepcid PT/OT: Pending Prognosis is guarded
--- NOTE | 2022-03-30 13:36 | P.PN ---
Progress Note - Text Progress Note Date: 03/30/22 Interval History: Patient was seen today for psychiatric follow-up. Patient was seen lying in her bed today and awoke from a nap. She states that she has been doing several test today and feels "overwhelmed" and also teeth states that she is feeling tired afterwards. She states that she had an EEG and MRI done today. She appears to be more directable during conversation and speech is improving. She claims that she is doing better overall in terms of her mood and anxiety. She states that the racing thoughts have been improving. She states that she slept about 4 hours last night and awoke early at around 3 AM and couldn't go back to sleep. She was agreeable to have her medication increased. At this time patient denies any suicidal or homical ideations, intent or plan. Patient denies any auditory, visual hallucinations and denies any paranoia or delusions. Patient denies any side effects from the medications and has been compliant with meds. Mental Status Exam: General Appearance: Patient appears to be thin, short hair, stated age is alert, pleasant, and cooperative. Patient appears to have fair hygiene and grooming wearing hospital gown with fair eye contact. Behavior: Patient is calmly lying in bed without any agitated behavior. Speech: Patient's speech is fluent. Rambles. Improving mildly Mood/Affect: Patient reports their mood is "better", affect is congruent Suicidality/Homicidality: Patient denies having any suicidal or homicidal ideation intent or plan. Perceptions: Patient denies any visual hallucinations and denies any auditory hallucinations Though content/process: There is no evidence of any delusional thought content. Rambles. Tangential/circumstantial, improving mildly Memory and concentration: AOX3, grossly intact for the purposes of this session Judgment and insight: Fair IMPRESSIONS: Bipolar disorder, hypomanic episode Rule out TIA Generalized anxiety disorder PLAN: -At this time patient DOES NOT meet criteria for inpatient psychiatric admission. -Would recommend the following medication changes/additions: Can Cymbalta 60 mg bid. Xanax when necessary for anxiety although this can be titrated down as an outpatient. increase Seroquel 75 mg daily at bedtime for stabilization/insomnia. Added melatonin 6 mg daily at bedtime for insomnia. -sawmill worker to provide patient with outpatient mental health/psychiatry resources for appropriate follow up upon discharge -Communicated plan to patient's nurse -At this time psychiatry will sign off. -Please contact with any questions.
[2022-03-30] MEDS ORDERED: LIDOCAINE 5% PATCH TOPICAL SCH (15:15)
--- NOTE | 2022-03-30 16:14 | EEG ---
ELECTROENCEPHALOGRAM REPORT DATE OF SERVICE: 03/30/2022 PREAMBLE: This is a 67-year-old female with episodes of mental confusion. This study is performed to evaluate for any epileptiform activity. EEG FINDINGS: This is a 21-channel digital EEG recorded with video component, utilizing 10/20 international system with referential and bipolar montages. The recording starts and continues with presence of somewhat disorganized background with mixed frequencies of 6 hertz theta, mixed with some alpha and fast frequency beta activity. Background does not seem to be clearly reactive to eye opening and closing. Patient was somewhat restless, with frequent myogenic activity seen during most of the study. Driving response was not seen. Hyperventilation was not performed. No focal or generalized epileptiform activity was seen. Different stages of sleep were not clearly seen. EKG channel showed no obvious arrhythmia. IMPRESSION: This is a mildly abnormal EEG due to disorganized background, with some slow and fast frequency activity, suggestive of nonspecific generalized cerebral dysfunction as can be seen with metabolic encephalopathy or medication effect. No definitive epileptiform activity was seen. The study was slightly technically limited because of frequent myogenic activity during most of the study. Clinical correlation is recommended. MMODL / IJN: [id number] / ANA
[2022-03-30] MEDS: ACETAMINOPHEN TAB 325 MG TAB PO PRN ×2 (16:50→20:13)
[2022-03-30] MEDS: LORATADINE 10 MG TAB PO SCH (16:50)
[2022-03-30] MEDS: QUEtiapine 25 MG TAB PO SCH (20:13)
[2022-03-30] MEDS: MELATONIN 3 MG TABLET PO SCH (20:14)
[2022-03-30] MEDS: ATORVASTATIN 40 MG TAB PO SCH (20:14)
[2022-03-31] MEDS: ACETAMINOPHEN TAB 325 MG TAB PO PRN ×2 (07:11→12:20)
[2022-03-31] MEDS: FAMOTIDINE 20 MG/2 ML VIAL IV SCH ×2 (09:53→20:04)
[2022-03-31] MEDS: FERROUS SULFATE 325 MG TAB PO SCH ×2 (09:54→20:06)
[2022-03-31] MEDS: DULoxetine HCL 60 MG CAPSULE.DR PO SCH ×2 (09:54→20:05)
[2022-03-31] MEDS: ASPIRIN 81 MG PO SCH (09:54)
[2022-03-31] MEDS: CYANOCOBALAMIN 500 MCG TAB PO SCH (09:54)
[2022-03-31] MEDS: LORATADINE 10 MG TAB PO SCH (09:54)
[2022-03-31] MEDS: HEPARIN SODIUM,PORCINE/PF 5,000 UNIT/0.5 ML SYRINGE SQ SCH ×2 (09:54→20:04)
[2022-03-31] MEDS: PRIMIDONE 50 MG TAB PO SCH ×3 (09:54→20:05)
--- NOTE | 2022-03-31 10:06 | P.PN ---
Subjective Progress Note Date: 03/30/22 Patient was seen for a follow-up. Patient is laying comfortably in the bed. Patient believes that her mental confusion was likely from UTI and Xanax. Her Xanax dose is being decreased. She admits that as she is getting older, she may have to cut back on some medications. Denies any focal symptoms. Telemetry monitoring showing sinus rhythm, sinus tachycardia in the low 100s. Some PVCs. Objective - Vital Signs Vital signs: Vital Signs Temp 97.8 F 03/30/22 16:00 Pulse 89 03/30/22 16:00 Resp 18 03/30/22 16:00 BP 123/65 03/30/22 16:00 Pulse Ox 99 03/30/22 16:00 FiO2 Intake & Output 03/29/22 03/30/22 03/30/22 18:59 06:59 18:59 Intake Total 740 Output Total 258 Balance 482 Weight 54.5 kg Intake: Intake, IV Titration 500 Amount Sodium Chloride 0.9% 1, 450 000 ml @ 40 mls/hr IV . Q24H MARIE Rx#:[id number] cefTRIAXone 1 gm In 50 Sodium Chloride 0.9% 50 ml @ 100 mls/hr IVPB Q24HR MARIE Rx#:[id number] Oral 240 Output: Urine 150 Post Void Residual 108 Other: Voiding Method Toilet Toilet # Voids 5 2 # Bowel Movements 1 - Exam Patient's mental status, speech-language functions are normal. Examination is unchanged. - Labs CBC & Chem 7: 03/28/22 20:35 03/30/22 09:12 Labs: Abnormal Lab Results - Last 24 Hours (Table) 03/29/22 03/29/22 03/29/22 Range/Units 07:37 17:58 17:58 Sodium (137-145) mmol/L Potassium 3.3 L (3.5-5.1) mmol/L Creatinine (0.52-1.04) mg/dL Plasma Lactic Acid Sadi (0.7-2.0) mmol/L Calcium (8.4-10.2) mg/dL Magnesium 1.5 L (1.6-2.3) mg/dL Vitamin B12 1974.0 H (200.0-944.0) pg/mL Urine Appearance (Clear) Urine Protein (Negative) Urine Ketones (Negative) Urine Blood (Negative) Urine Nitrite (Negative) Ur Leukocyte Esterase (Negative) Urine RBC (0-5) /hpf Urine WBC (0-5) /hpf Urine WBC Clumps (None) /hpf Amorphous Sediment (None) /hpf Urine Bacteria (None) /hpf Hyaline Casts (0-2) /lpf Urine Mucus (None) /hpf 03/30/22 03/30/22 03/30/22 Range/Units 03:00 09:12 09:12 Sodium 130 L (137-145) mmol/L Potassium (3.5-5.1) mmol/L Creatinine 0.49 L (0.52-1.04) mg/dL Plasma Lactic Acid Sadi 2.4 H* (0.7-2.0) mmol/L Calcium 7.7 L (8.4-10.2) mg/dL Magnesium (1.6-2.3) mg/dL Vitamin B12 (200.0-944.0) pg/mL Urine Appearance Turbid H (Clear) Urine Protein 1+ H (Negative) Urine Ketones 1+ H (Negative) Urine Blood Small H (Negative) Urine Nitrite Positive H (Negative) Ur Leukocyte Esterase Large H (Negative) Urine RBC 6 H (0-5) /hpf Urine WBC >182 H (0-5) /hpf Urine WBC Clumps Many H (None) /hpf Amorphous Sediment Rare H (None) /hpf Urine Bacteria Many H (None) /hpf Hyaline Casts 3 H (0-2) /lpf Urine Mucus Few H (None) /hpf Microbiology - Last 24 Hours (Table) 03/30/22 03:00 Urine Culture - Preliminary Urine,Voided Assessment and Plan Assessment: * 67-year-old female admitted to the hospital with episode of altered mental status, consisting of some confusion, using incorrect words/sentences. The symptoms now has resolved. Her current examination is nonfocal. This similar episode happened exactly in the recent past postoperatively after her back surgery on 03/02/2022, which was at that time felt to be related to postoperative encephalopathy or medication side effect. With recurrence of symptoms without any provoking factor now, need to rule out TIA. Rule out focal seizure. Rule out metabolic encephalopathy. Rule out manic episodes re lated to bipolar disorder. * Acute UTI * Recent history of removal with revision of T10 to pelvis decompression and fusion on 03/02/2022. * Bipolar disorder Plan: * MRI of the brain with and without contrast revealed probable chronic small vessel ischemic changes, age-related atrophy, sinus disease. I reviewed MRI of the brain, the slightly abnormal signal in the DWI involving the left centrum semiovale, with associated abnormal signal on the FLAIR, but not involving the ADC mapping. Radiologist felt it was a T2 shine through. Will review MRI with the radiologist * Patient currently on aspirin 81 mg daily, which will be continued. Hold off on DAP pending workup as below. * EEG was mildly abnormal due to disorganized background, with some slow and fast frequency activity, suggestive of nonspecific generalized cerebral dysfunction as can be seen with metabolic encephalopathy or medication effect. No epileptiform activity was seen. Study was technically limited due to myogenic activity. * CTA of head and neck revealed no significant stenosis. * 2-D echo from 03/11/2022 revealed normal left ventricular systolic function, mild mitral regurgitation, mild TR, mildly increased left atrial volume. EF 60-65%. Borderline left ventricular hypertrophy. * Hemoglobin A1c 5.3, * Fasting lipid panel 03/11/2022 with cholesterol 93, LDL 42, HDL 38 and triglycerides 63. Continue Lipitor 40 mg. * Telemetry monitoring showing sinus rhythm, with sinus tachycardia, in the lower 100. Some PVCs. No other arrhythmia. * Psychiatry also following, suspect hypomanic episode. Medications adjusted. Addendum: Reviewed MRI with Dr. Choi. There are 2 hyperintensity seen which could represent subacute ischemia, ADC map shows some questionable low signal for the smaller anterior lesion not mentioned on the original report. Findings may be indicative of subacute ischemia. Please refer to addendum of the report. As there are 2 different possible ischemic events, patient may benefit from ARDEN rule out any embolic source.
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
[2022-03-31] MEDS: HYDROcodone/APAP 5-325MG 1 EACH TAB PO PRN (16:19)
[2022-03-31] MEDS: CLOPIDOGREL 75 MG TAB PO SCH (18:30)
--- NOTE | 2022-03-31 19:26 | P.PN ---
Subjective This is a pleasant 67 years old female with past medical history of CVA/TIA, GERD/Reflux, Hyperlipidemia, Osteoarthritis , chronic back pain with neuropathy, uses cane & walker prn., states fall in December 2021 with concussion.,Erica-en-y., Hiatal Hernia, status post Bariatric Surgery, Anxiety, Bipolar, Depression, Panic Disorder Presents because of confusion and words finding difficulty as per records. Patient is awake and alert up in bed, she knows she is in the hospital but she thinks she is at or near, she knows the year but not the date or month. She noted name of the president, she looks to have insight into her illness and follows commands clearly. However she has some memory problems. Patient states she came to the hospital because she was not thinking well and she follows she is not herself. However she denies any word finding difficulty for me, although she has some hesitancy and slow to answer questions but this looks more related to her memory problem. She has bitemporal headache with no visual problems, her headache since yesterday, mild to moderate focal plaque pressure and nonradiating. She vomited once. She's been complaining of from dysuria and increased frequency of urination and she was brought in to see Dr. Horta her PCP tomorrow. She denies any blurred vision, no weakness or numbness or dizziness. She denies any hopelessness or helplessness. No suicidal or homicidal ideation, no visual or auditory hallucinations. She thinks that is helping her symptoms. She states she has no new medication over the last 2 weeks and she's been taking chlorthalidone for a while for hypertension, however patient looks dehydrated today. She's been complaining of from band insomnia and looks like she has some lip sma cking movements. She denies smoking, alcohol or illicit tracts Patient is hemodynamically stable. Labs including CBC is unremarkable except for mild lymphopenia. INR is 1.0. Sodium is low at 129, potassium low at 2.9. Rest of BMP and liver enzymes are unremarkable. Troponin is negative at 0.013. MAPS was checked and patient is on Xanax 1 mg on [place] 5 mg Emergency room she was started on normal saline with 30 mL per hour Today patient is mentation improved back to baseline, she is fully awake and oriented, she is calm, no more smacking only small twitching in her lip area which still could be related to mild tardive dyskinesia, case was discussed with the psychiatrist. Most likely patient has metabolic encephalopathy secondary to UTI and other metabolic problems. Patient was started on ceftriaxone for UTI, and cultures pending. Sodium improved to 1:30. Potassium is normal today 4.2. Patient is eating 25% of her diet We will lower her IV fluids of normal saline down to 40 mL/h. MRI of the brain is showing chronic changes. EEG is pending 03/31/2022 Patient complaining of from mild suprapubic tenderness and pain and [place] as needed for pain control. She remains on ceftriaxone and urine culture is pending. There is addendum to the MRI of the brain showing possible to subacute strokes I discussed this with the neurologist recommended to change aspirin to Plavix. 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 Physical therapy recommended home Bladder scan 108 Objective - Vital Signs Vital signs: Vital Signs Temp 98.0 F 03/31/22 08:00 Pulse 78 03/31/22 16:00 Resp 18 03/31/22 16:00 BP 110/69 03/31/22 16:00 Pulse Ox 98 03/31/22 16:00 FiO2 Intake & Output 03/30/22 03/31/22 03/31/22 18:59 06:59 18:59 Intake Total 740 480 Output Total 258 500 Balance 482 -500 480 Intake: Intake, IV Titration 500 Amount Sodium Chloride 0.9% 1, 450 000 ml @ 40 mls/hr IV . Q24H MARIE Rx#:[id number] cefTRIAXone 1 gm In 50 Sodium Chloride 0.9% 50 ml @ 100 mls/hr IVPB Q24HR MARIE Rx#:[id number] Oral 240 480 Output: Urine 150 500 Post Void Residual 108 Other: # Voids 1 - Exam GENERAL: The patient is alert and oriented x3, not in any acute distress. Well developed, well nourished. HEENT: Pupils are round and equally reacting to light. EOMI. No scleral icterus. No conjunctival pallor. Normocephalic, atraumatic. No pharyngeal erythema. No thyromegaly. CARDIOVASCULAR: S1 and S2 present. No murmurs, rubs, or gallops. PULMONARY: Chest is clear to auscultation, no wheezing or crackles. -ABDOMEN: Soft, mild suprapubic tenderness, nondistended, normoactive bowel sounds. No palpable organomegaly. MUSCULOSKELETAL: No joint swelling or deformity. EXTREMITIES: No cyanosis, clubbing, or pedal edema. NEUROLOGICAL: Gross neurological examination did not reveal any focal deficits. SKIN: No rashes. no petechiae. - Labs CBC & Chem 7: 03/28/22 20:35 03/30/22 09:12 Assessment and Plan Assessment: Subacute stroke 2 Metabolic encephalopathy secondary to hyponatremia, and subacute stroke, re solved Acute urinary tract infection Hyponatremia and hypokalemia secondary to hydrochlorothiazide. Improving Mild Lip smacking movements, Possible tardive dyskinesia Hyperlipidemia Chronic back pain with neuropathy History of GERD History of CVA/TIA History of fall History of hiatal hernia History of anxiety, depression and bipolar, not in active tissue Plan: This is a pleasant 67 years old female who presents with AMS, though secondary to metabolic encephalopathy, TIA less likely Discontinue IV fluids Hold hydrochlorothiazide Continue with ceftriaxone follow-up urine culture Neurology consult Continue with Plavix and discontinue aspirin per neurologist recommendation We will consult psychiatrist for she is on multiple psych medication, history of mental illness and possible tardive-type dyskinesia Labs and medication were reviewed.. Continue same treatment. Continue with symptomatic treatment. Resume home medication. Monitor lytes and vitals. DVT and GI prophylaxis. Further recommendations as per clinical course of the patient DVT prophylaxis: Subcutaneous heparin GI Prophylaxis: Pepcid PT/OT: Pending Prognosis is guarded
[2022-03-31] MEDS: MELATONIN 3 MG TABLET PO SCH (20:05)
[2022-03-31] MEDS: ATORVASTATIN 40 MG TAB PO SCH (20:05)
[2022-03-31] MEDS: QUEtiapine 25 MG TAB PO SCH (20:06)
[2022-03-31] MEDS: ALPRAZolam 1 MG TAB PO PRN (20:08)
--- NOTE | 2022-04-01 09:24 | P.PN ---
Subjective Progress Note Date: 03/31/22 Patient was seen for a follow-up. Patient is laying comfortably in the bed. Patient is very pleasant. Complains of some stomach hurting which she attributes to the UTI. Patient states that she has been taking aspirin 325 mg for almost a year. Patient believes that her mental confusion was likely from UTI and Xanax. Her Xanax dose is being decreased. She admits that as she is getting older, she may have to cut back on some medications. Denies any focal symptoms. Objective - Vital Signs Vital signs: Vital Signs Temp 98.0 F 03/31/22 08:00 Pulse 86 03/31/22 12:00 Resp 18 03/31/22 12:00 BP 106/69 03/31/22 12:00 Pulse Ox 97 03/31/22 12:00 FiO2 Intake & Output 03/30/22 03/31/22 03/31/22 18:59 06:59 18:59 Intake Total 740 480 Output Total 258 500 Balance 482 -500 480 Intake: Intake, IV Titration 500 Amount Sodium Chloride 0.9% 1, 450 000 ml @ 40 mls/hr IV . Q24H MARIE Rx#:[id number] cefTRIAXone 1 gm In 50 Sodium Chloride 0.9% 50 ml @ 100 mls/hr IVPB Q24HR MARIE Rx#:[id number] Oral 240 480 Output: Urine 150 500 Post Void Residual 108 Other: # Voids 1 - Exam Patient's mental status, speech-language functions are normal. Examination is unchanged. - Labs CBC & Chem 7: 03/28/22 20:35 03/30/22 09:12 Assessment and Plan Assessment: * 67-year-old female admitted to the hospital with episode of altered mental status, consisting of some confusion, using incorrect words/sentences. The symptoms now has resolved. Her current examination is nonfocal. This similar episode happened exactly in the recent past postoperatively after her back surgery on 03/02/2022, which was at that time felt to be related to postoperative encephalopathy or medication side effect. With recurrence of symptoms without any provoking factor now, need to rule out stroke/TIA. Rule out focal seizure. Rule out metabolic encephalopathy. Rule out manic episodes related to bipolar disorder. * MRI of the brain reported two areas of hyperintensity which could represent subacute ischemia. * Acute UTI * Recent history of removal with revision of T10 to pelvis decompression and fusion on 03/02/2022. * Bipolar disorder Plan: * MRI of the brain with and without contrast reviewed with radiologist Dr. Choi. He agreed there are 2 hyperintensity seen could represent subacute ischemia. Please refer to the addendum of the report of MRI. Patient tells me that she has been on aspirin 325 mg daily for 1 year. With these recurrent stroke/TIA symptoms, would consider switching from aspirin to Plavix 75 mg daily. Patient is complaining of abdominal pain. Would defer to IM. Discussed with Dr. Ochoa. * ARDEN was considered, but patient declined. Patient had a ARDEN on 09/06/2019, which revealed no intracardiac thrombus, normal left-ventricular systolic function. No evidence of shunting across the septum. * EEG was mildly abnormal due to disorganized background, with some slow and fast frequency activity, suggestive of nonspecific generalized cerebral dysfunction as can be seen with metabolic encephalopathy or medication effect. No epileptiform activity was seen. Study was technically limited due to myogenic activity. * CTA of head and neck revealed no significant stenosis. * 2-D echo from 03/11/2022 revealed normal left ventricular systolic function, mild mitral regurgitation, mild TR, mildly increased left atrial volume. EF 60-65%. Borderline left ventricular hypertrophy. * Hemoglobin A1c 5.3, * Fasting lipid panel 03/11/2022 with cholesterol 93, LDL 42, HDL 38 and triglycerides 63. Continue Lipitor 40 mg. * Psychiatry also following, suspect hypomanic episode. Medications adjusted.
[2022-04-01] MEDS: HYDROcodone/APAP 5-325MG 1 EACH TAB PO PRN (09:44)
[2022-04-01] MEDS: PRIMIDONE 50 MG TAB PO SCH ×3 (09:45→19:49)
[2022-04-01] MEDS: DULoxetine HCL 60 MG CAPSULE.DR PO SCH ×2 (09:45→19:48)
[2022-04-01] MEDS: CLOPIDOGREL 75 MG TAB PO SCH (09:45)
[2022-04-01] MEDS: FAMOTIDINE 20 MG/2 ML VIAL IV SCH ×2 (09:45→19:47)
[2022-04-01] MEDS: LORATADINE 10 MG TAB PO SCH (09:45)
[2022-04-01] MEDS: FERROUS SULFATE 325 MG TAB PO SCH ×2 (09:45→19:48)
[2022-04-01] MEDS: CYANOCOBALAMIN 500 MCG TAB PO SCH (09:45)
[2022-04-01] MEDS: HEPARIN SODIUM,PORCINE/PF 5,000 UNIT/0.5 ML SYRINGE SQ SCH ×2 (09:45→19:46)
[2022-04-01] MEDS: ALPRAZolam 1 MG TAB PO PRN (09:47)
[2022-04-01 09:52] LABS: Basophils % (A) 1 %; Eosinophils # (A) 0.1 k/uL (0-0.7); Eosinophils % (A) 2 %; HCT 40.2 % (34.0-46.0); HGB 12.8 gm/dL (11.4-16.0); Hypochromasia Slight; Lymphocytes # (A) 0.7 k/uL (1.0-4.8); Lymphocytes % (A) 17 %; MCH 29.3 pg (25.0-35.0); MCHC 31.8 g/dL (31.0-37.0); Mean Platelet Volume 6.5; Monocytes # (A) 0.3 k/uL (0-1.0); Monocytes % (A) 6 %; Neutrophils # (A) 2.9 k/uL (1.3-7.7); Neutrophils % (A) 70 %; Platelet Count 356 k/uL (150-450); RBC 4.37 m/uL (3.80-5.40); RDW 13.9 % (11.5-15.5); WBC 4.2 k/uL (3.8-10.6)
[2022-04-01 10:08] LABS: African American GFR (CKD) >90 (>60 ml/min/1.73 sqM); Anion Gap 8 mmol/L; Blood Urea Nitrogen 10 mg/dL (7-17); Calcium 7.8 mg/dL (8.4-10.2); Carbon Dioxide 23 mmol/L (22-30); Chloride 101 mmol/L (98-107); Glucose 98 mg/dL (74-99); Magnesium 1.6 mg/dL (1.6-2.3); Non-African American GFR(CKD) >90 (>60 ml/min/1.73 sqM); Potassium 3.6 mmol/L (3.5-5.1); Sodium 132 mmol/L (137-145)
[2022-04-01] MEDS ORDERED: HYDROcodone/APAP 5-325MG 1 EACH TAB PO STA (11:15)
[2022-04-01] MEDS ORDERED: fentaNYL (PF) 50 MCG/ML 2 ML AMP ONE (11:45)
[2022-04-01] MEDS ORDERED: IV FLUID CONTINUATION 1,000 ML IV ONE (11:55)
[2022-04-01] MEDS ORDERED: MIDAZOLAM 2 MG/2 ML VIAL IV ONE (12:02)
[2022-04-01] MEDS ORDERED: BENZOCAINE SPRAY 1 CAN MUCOUS MEM ONE (12:02)
[2022-04-01] MEDS ORDERED: fentaNYL (PF) 50 MCG/ML 2 ML AMP IV ONE (12:02)
--- NOTE | 2022-04-01 13:26 | ECHOT ---
TRANSESOPHAGEAL ECHOCARDIOGRAM INDICATION: CVA. PROCEDURE NOTE: After obtaining informed consent, transesophageal echocardiogram was performed in left lateral position using an Omniplane probe. Local and IV sedation were obtained using Xylocaine spray, 2 mg of Versed and 25 mcg of fentanyl. The patient tolerated the procedure well without any obvious immediate complications. Patient received moderate conscious sedation. Total sedation time was 10 minutes. Patient had 2D color Doppler and spectral analysis. FINDINGS: 1. There is no intracardiac thrombus within the left atrial appendage, left atrium, right atrium, right ventricle or left ventricle. 2. Left ventricle appears mildly enlarged with severe LV systolic dysfunction with an ejection fraction of around 20% to 25%. There is extensive apical hypokinesis; in fact, base of the heart is the only one that is moving. The echo appearance is consistent with Takotsubo syndrome. 3. Mitral valve appears normal. There is mild mitral regurgitation noted. 4. Aortic valve is a 3-leaflet valve. There is no evidence of regurgitation. 5. Tricuspid valve appears normal. There is mild tricuspid regurgitation noted. 6. Interatrial septum appears aneurysmal. There is no evidence of cwng-aw-sdrhy shunt by color-flow Doppler or [id number] shunt by agitated saline contrast study. CONCLUSIONS: 1. Severe LV systolic dysfunction; could be from Takotsubo syndrome. 2. No intracardiac thrombus within the left atrial appendage, left atrium, right atrium or right ventricle. 3. No evidence of shunting across the interatrial septum, which appears aneurysmally dilated. MMODL / IJN: [id number] /
--- NOTE | 2022-04-01 14:49 | P.PN ---
Subjective This is a pleasant 67 years old female with past medical history of CVA/TIA, GERD/Reflux, Hyperlipidemia, Osteoarthritis , chronic back pain with neuropathy, uses cane & walker prn., states fall in December 2021 with concussion.,Erica-en-y., Hiatal Hernia, status post Bariatric Surgery, Anxiety, Bipolar, Depression, Panic Disorder Presents because of confusion and words finding difficulty as per records. Patient is awake and alert up in bed, she knows she is in the hospital but she thinks she is at or near, she knows the year but not the date or month. She noted name of the president, she looks to have insight into her illness and follows commands clearly. However she has some memory problems. Patient states she came to the hospital because she was not thinking well and she follows she is not herself. However she denies any word finding difficulty for me, although she has some hesitancy and slow to answer questions but this looks more related to her memory problem. She has bitemporal headache with no visual problems, her headache since yesterday, mild to moderate focal plaque pressure and nonradiating. She vomited once. She's been complaining of from dysuria and increased frequency of urination and she was brought in to see Dr. Horta her PCP tomorrow. She denies any blurred vision, no weakness or numbness or dizziness. She denies any hopelessness or helplessness. No suicidal or homicidal ideation, no visual or auditory hallucinations. She thinks that is helping her symptoms. She states she has no new medication over the last 2 weeks and she's been taking chlorthalidone for a while for hypertension, however patient looks dehydrated today. She's been complaining of from band insomnia and looks like she has some lip sma cking movements. She denies smoking, alcohol or illicit tracts Patient is hemodynamically stable. Labs including CBC is unremarkable except for mild lymphopenia. INR is 1.0. Sodium is low at 129, potassium low at 2.9. Rest of BMP and liver enzymes are unremarkable. Troponin is negative at 0.013. MAPS was checked and patient is on Xanax 1 mg on Butte 5 mg Emergency room she was started on normal saline with 30 mL per hour Today patient is mentation improved back to baseline, she is fully awake and oriented, she is calm, no more smacking only small twitching in her lip area which still could be related to mild tardive dyskinesia, case was discussed with the psychiatrist. Most likely patient has metabolic encephalopathy secondary to UTI and other metabolic problems. Patient was started on ceftriaxone for UTI, and cultures pending. Sodium improved to 1:30. Potassium is normal today 4.2. Patient is eating 25% of her diet We will lower her IV fluids of normal saline down to 40 mL/h. MRI of the brain is showing chronic changes. EEG is pending 03/31/2022 Patient complaining of from mild suprapubic tenderness and pain and Butte as needed for pain control. She remains on ceftriaxone and urine culture is pending. There is addendum to the MRI of the brain showing possible to subacute strokes I discussed this with the neurologist recommended to change aspirin to Plavix. ARDEN was also recommended and classroom instructional aide team were consulted but patient declined to do the ARDEN. Physical therapy recommended home Bladder scan 108 04/01/2022 patient informed about her to stroke, she looks as symptomatic from these troches. She underwent ARDEN which was basically in remarkable for source of thrombosis, no intracardiac thrombus found, no shunts or valvular lesion. However patient was found to have severe LV dysfunction 20-25% with extensive hypokinesia consistent with takotsubo syndrome per classroom instructional aide Urine culture is growing gram-negative bacilli and she is responding to treatment with ceftriaxone. She has less suprapubic tenderness today but we will keep monitoring. Metoprolol is added for her heart problem. Objective - Vital Signs Vital signs: Vital Signs Temp 97.8 F 04/01/22 08:00 Pulse 86 04/01/22 08:00 Resp 18 04/01/22 08:00 BP 114/71 04/01/22 08:00 Pulse Ox 100 04/01/22 09:03 FiO2 Intake & Output 03/31/22 04/01/22 04/01/22 18:59 06:59 18:59 Intake Total 720 240 Output Total 500 Balance 220 240 Intake: Oral 720 240 Output: Urine 500 Other: Voiding Method Toilet # Voids 1 - Exam GENERAL: The patient is alert and oriented x3, not in any acute distress. Well developed, well nourished. HEENT: Pupils are round and equally reacting to light. EOMI. No scleral icterus. No conjunctival pallor. Normocephalic, atraumatic. No pharyngeal erythema. No thyromegaly. CARDIOVASCULAR: S1 and S2 present. No murmurs, rubs, or gallops. PULMONARY: Chest is clear to auscultation, no wheezing or crackles. -ABDOMEN: Soft, mild suprapubic tenderness, nondistended, normoactive bowel sounds. No palpable organomegaly. MUSCULOSKELETAL: No joint swelling or deformity. EXTREMITIES: No cyanosis, clubbing, or pedal edema. NEUROLOGICAL: Gross neurological examination did not reveal any focal deficits. SKIN: No rashes. no petechiae. - Labs CBC & Chem 7: 04/01/22 09:26 04/01/22 09:26 Labs: Abnormal Lab Results - Last 24 Hours (Table) 04/01/22 04/01/22 Range/Units 09:26 09:26 Lymphocytes # 0.7 L (1.0-4.8) k/uL Sodium 132 L (137-145) mmol/L Calcium 7.8 L (8.4-10.2) mg/dL Microbiology - Last 24 Hours (Table) 03/30/22 03:00 Urine Culture - Preliminary Urine,Voided Gram Neg Bacilli Assessment and Plan Assessment: Subacute stroke 2 Acute urinary tract infection severe LV dysfunction 20-25% with extensive hypokinesia consistent with takotsubo syndrome Metabolic encephalopathy secondary to hyponatremia, and subacute stroke, resolved Hyponatremia and hypokalemia secondary to hydrochlorothiazide. Improving Mild Lip smacking movements, Possible tardive dyskinesia Hyperlipidemia Chronic back pain with neuropathy History of GERD History of CVA/TIA History of fall History of hiatal hernia History of anxiety, depression and bipolar, not in active tissue Plan: This is a pleasant 67 years old female who presents with AMS, though secondary to metabolic encephalopathy, TIA less likely Continue with Plavix. Hold aspirin Continue with ceftriaxone follow-up urine culture Continue with metoprolol Hold hydrochlorothiazide cardiology consult Neurology consult Labs and medication were reviewed.. Continue same treatment. Continue with symptomatic treatment. Resume home medication. Monitor lytes and vitals. DVT and GI prophylaxis. Further recommendations as per clinical course of the patient DVT prophylaxis: Subcutaneous heparin GI Prophylaxis: Pepcid PT/OT: Home
[2022-04-01] MEDS: METOPROLOL SUCCINATE (ER) 25 MG TAB.ER.24H PO SCH (17:30)
[2022-04-01] MEDS: MAGNESIUM SULFATE-D5W PMX 1 GM in DEXTROSE/WATER 1 100ML.BAG IVPB SCH ×2 (19:46→21:25)
[2022-04-01] MEDS: QUEtiapine 25 MG TAB PO SCH (19:48)
[2022-04-01] MEDS: MELATONIN 3 MG TABLET PO SCH (19:49)
[2022-04-01] MEDS: ATORVASTATIN 40 MG TAB PO SCH (19:49)
[2022-04-01] MEDS ORDERED: POTASSIUM CHLORIDE ER 20 MEQ TAB.ER PO SCH (20:00)
[2022-04-02] MEDS: HYDROcodone/APAP 5-325MG 1 EACH TAB PO PRN ×2 (05:40→17:50)
[2022-04-02] MEDS: HEPARIN SODIUM,PORCINE/PF 5,000 UNIT/0.5 ML SYRINGE SQ SCH ×2 (08:18→21:08)
[2022-04-02] MEDS: CLOPIDOGREL 75 MG TAB PO SCH (08:19)
[2022-04-02] MEDS: PRIMIDONE 50 MG TAB PO SCH ×3 (08:19→21:09)
[2022-04-02] MEDS: LORATADINE 10 MG TAB PO SCH (08:19)
[2022-04-02] MEDS: FAMOTIDINE 20 MG/2 ML VIAL IV SCH ×2 (08:19→21:09)
[2022-04-02] MEDS: CYANOCOBALAMIN 500 MCG TAB PO SCH (08:19)
[2022-04-02] MEDS: DULoxetine HCL 60 MG CAPSULE.DR PO SCH ×2 (08:19→21:10)
[2022-04-02] MEDS: FERROUS SULFATE 325 MG TAB PO SCH ×2 (08:19→21:10)
[2022-04-02] MEDS: METOPROLOL SUCCINATE (ER) 25 MG TAB.ER.24H PO SCH (08:19)
[2022-04-02] MEDS: ALPRAZolam 1 MG TAB PO PRN (08:27)
--- NOTE | 2022-04-02 09:39 | P.PN ---
Subjective Progress Note Date: 04/01/22 Patient was seen for a follow-up. Patient is laying comfortably in the bed. Patient is very pleasant. He offers no complaints. Patient states that she has been taking aspirin 325 mg for almost a year. Patient believes that her mental confusion was likely from UTI and Xanax. Her Xanax dose is being decreased. She admits that as she is getting older, she may have to cut back on some medications. Denies any focal symptoms. Objective - Vital Signs Vital signs: Vital Signs Temp 98.0 F 04/02/22 03:21 Pulse 76 04/02/22 03:21 Resp 18 04/02/22 03:21 BP 108/62 04/02/22 03:21 Pulse Ox 98 04/02/22 03:21 FiO2 Intake & Output 04/01/22 04/02/22 04/02/22 18:59 06:59 18:59 Intake Total 200 250 Balance 200 250 Intake: IV 200 Oral 250 Other: Voiding Method Toilet # Voids 2 # Bowel Movements 0 - Exam Patient's mental status, speech-language functions are normal. Examination is unchanged. - Labs CBC & Chem 7: 04/01/22 09:26 04/01/22 09:26 Labs: Abnormal Lab Results - Last 24 Hours (Table) 04/01/22 04/01/22 Range/Units 09:26 09:26 Lymphocytes # 0.7 L (1.0-4.8) k/uL Sodium 132 L (137-145) mmol/L Calcium 7.8 L (8.4-10.2) mg/dL Microbiology - Last 24 Hours (Table) 03/30/22 03:00 Urine Culture - Final Urine,Voided Escherichia coli Assessment and Plan Assessment: * 67-year-old female admitted to the hospital with episode of altered mental status, consisting of some confusion, using incorrect words/sentences. The symptoms now has resolved. Her current examination is nonfocal. This similar episode happened exactly in the recent past postoperatively after her back surgery on 03/02/2022, which was at that time felt to be related to postoperative encephalopathy or medication side effect. With recurrence of symptoms without any provoking factor now, need to rule out stroke/TIA. * MRI of the brain reported two areas of hyperintensity which could represent subacute ischemia. * Acute UTI * Recent history of removal with revision of T10 to pelvis decompression and fusion on 03/02/2022. * Bipolar disorder Plan: * MRI of the brain with and without contrast reviewed with radiologist Dr. Choi. He agreed there are 2 hyperintensity seen could represent subacute ischemia. Please refer to the addendum of the report of MRI. Patient tells me that she has been on aspirin 325 mg daily for 1 year. With these recurrent stroke/TIA symptoms, would consider switching from aspirin to Plavix 75 mg daily. * ARDEN 04/01/2022 revealed severe left-ventricular systolic dysfunction with EF around 20% to 25%. This could be from Takotsubo syndrome. Cardiology to address abnormal ARDEN results and further treatment. * EEG was mildly abnormal due to disorganized background, with some slow and fast frequency activity, suggestive of nonspecific generalized cerebral d ysfunction as can be seen with metabolic encephalopathy or medication effect. No epileptiform activity was seen. Study was technically limited due to myogenic activity. * CTA of head and neck revealed no significant stenosis. * 2-D echo from 03/11/2022 revealed normal left ventricular systolic function, mild mitral regurgitation, mild TR, mildly increased left atrial volume. EF 60-65%. Borderline left ventricular hypertrophy. * Hemoglobin A1c 5.3, * Fasting lipid panel 03/11/2022 with cholesterol 93, LDL 42, HDL 38 and triglycerides 63. Continue Lipitor 40 mg. * Psychiatry also following, suspect hypomanic episode. Medications adjusted.
[2022-04-02 09:59] LABS: African American GFR (CKD) >90 (>60 ml/min/1.73 sqM); Anion Gap 5 mmol/L; Blood Urea Nitrogen 12 mg/dL (7-17); Carbon Dioxide 25 mmol/L (22-30); Chloride 102 mmol/L (98-107); Glucose 106 mg/dL (74-99); Non-African American GFR(CKD) >90 (>60 ml/min/1.73 sqM); Potassium 4.5 mmol/L (3.5-5.1); Sodium 132 mmol/L (137-145)
[2022-04-02 10:58] VITALS: BMI 21.2
--- NOTE | 2022-04-02 13:43 | P.PN ---
Subjective HISTORY OF PRESENTING ILLNESS This is a pleasant 67-year-old female past medical history significant for hypertension, dyslipidemia, chronic back pain, family history of coronary artery disease in her father who of a myocardial infarction at the age of 46. She states she saw a medical doctor nuclear medicine in [place], [place] about 1 year ago for panel monitor and echocardiogram which she states was normal. We have been asked to see in consultation for ARDEN. She presents to the emergency department on 03/29/2022 for evaluation for confusion and trouble word findings, she also states she had a urinary tract infection. Her symptoms have resolved. On admission, she presented with hypokalemia Na 2.6, hyponatremia Na 129, and lactic acidosis. MRI of the brain report revealed 2 hyperintensity is seen which could represent subacute ischemia. Neurology recommended ARDEN. DIAGNOSTICS: * In [address] Lambert in the office as a follow-up. She had a false positive stress test in 2009 underwent a cardiac catheterization which revealed normal coronary arteries. * Recent echocardiogram 03/11/2022 revealed an EF of 6065%, mild mitral regurgitation, mild tricuspid regurgitation 04/01/2022- patient underwent ARDEN which revealed EF 20-25%, extensive apical hypokinesis, consistent with Takotsubo syndrome 04/02/2022 Patient seen and examined at bedside, no acute distress. She denies any chest pain or shortness of breath. She denies any orthopnea or PND. Her vital signs are stable. Telemetry reviewed patient is maintaining sinus mechanism with heart rates in the 70s80s. Troponin 0.04. PHYSICAL EXAMINATION Blood pressure 106/69, heart rate 86, afebrile, saturation 97% on room air CONSTITUTIONAL: No apparent distress. HEENT: Neck supple No JVD. CHEST EXAMINATION: Lungs are clear to auscultation. No chest wall tenderness is noted on palpation or with deep breathing. HEART EXAMINATION: Regular rate and rhythm. S1, S2 heard. No murmurs, gallops or rub. ABDOMEN: Soft, nontender. Positive bowel sounds. EXTREMITIES: 2+ peripheral pulses, no lower extremity edema and no calf tenderness. NEUROLOGIC EXAMINATION: Patient is awake, alert and oriented x3. ASSESSMENT Altered mental status MRI Brain Report revealed 2 hyperintensity seen which could represent subacute ischemia. Cardiomyopathy EF 20-25%, ischemic vs non-ischemic Hyponatremia, improved Hypokalemia, improved Lactic acidosis, improved Urinary tract infection History of hypertension History of hyperlipidemia Chronic back pain Recent removal with revision of T10 to pelvis decompression and fusion on 03/02/2022 PLAN Metoprolol succinate 25mg daily Add Losartan 12.5mg nightly Obtain 2D echocardiogram Repeat EKG Continue aspirin, statin, and plavix Monitor patient for additional 24 hours Further recommendations based on clinical course Nurse practitioner note has been reviewed by physician. Signing provider agrees with the documented findings, assessment, and plan of care. Objective - Vital Signs Vital signs: Vital Signs Temp 98.1 F 04/02/22 08:08 Pulse 72 04/02/22 13:10 Resp 18 04/02/22 11:49 BP 112/73 04/02/22 11:49 Pulse Ox 100 04/02/22 11:49 FiO2 Intake & Output 04/01/22 04/02/22 04/02/22 18:59 06:59 18:59 Intake Total 200 250 Balance 200 250 Weight 54.5 kg Intake: IV 200 Oral 250 Other: Voiding Method Toilet Toilet # Voids 2 2 # Bowel Movements 0 - Labs CBC & Chem 7: 04/01/22 09:26 04/02/22 09:15 Labs: Abnormal Lab Results - Last 24 Hours (Table) 04/02/22 04/02/22 Range/Units 09:15 09:15 Sodium 132 L (137-145) mmol/L Glucose 106 H (74-99) mg/dL Calcium 8.0 L (8.4-10.2) mg/dL Troponin I 0.045 H* (0.000-0.034) ng/mL Microbiology - Last 24 Hours (Table) 03/30/22 03:00 Urine Culture - Final Urine,Voided Escherichia coli
--- NOTE | 2022-04-02 18:32 | CA ---
Transthoracic Echo Report Name: Alana Viramontes Age: 67 Gender: F : 1955 Exam Date: 04/01/2022 12:28 Exam Location: [facility] Ht (in): 63 Wt (lb): 120 Ordering Physician: Denton Andrade MD ([id number]) Attending/Referring Phys: Lupe ATKINS Small Engine Trainer Anabell Busch RDCS Procedure CPT: Indications: DECREASED HEART FUNCTION Cardiac Hx: Technical Quality: Good Contrast 1: Total Dose (mL): Contrast 2: Total Dose (mL): MEASUREMENTS (Male / Female) Normal Values 2D ECHO LV Diastolic Diameter PLAX 5.2 cm 4.2 - 5.9 / 3.9 - 5.3 cm LV Systolic Diameter PLAX 4.5 cm IVS Diastolic Thickness 0.8 cm 0.6 - 1.0 / 0.6 - 0.9 cm LVPW Diastolic Thickness 0.8 cm 0.6 - 1.0 / 0.6 - 0.9 cm LV Relative Wall Thickness 0.3 LA Volume 36.0 cm??? 18 - 58 / 22 - 52 cm??? M-MODE Aortic Root Diameter MM 3.5 cm LA Systolic Diameter MM 3.4 cm LA Ao Ratio MM 1.0 MV E Point Septal Separation 2.5 cm AV Cusp Separation MM 1.9 cm DOPPLER AV Peak Velocity 121.2 cm/s AV Peak Gradient 5.9 mmHg MV Area PHT 3.1 cm??? MR Peak Velocity 287.8 cm/s MR Peak Gradient 33.1 mmHg Mitral E Point Velocity 49.7 cm/s Mitral A Point Velocity 88.0 cm/s Mitral E to A Ratio 0.6 MV Deceleration Time 245.7 ms MV E' Velocity 3.9 cm/s Mitral E to MV E' Ratio 12.7 TR Peak Velocity 219.2 cm/s TR Peak Gradient 19.2 mmHg Right Ventricular Systolic Press 24.2 mmHg FINDINGS Left Ventricle Global hypokinesis. Possible Takosubo. Left ventricular ejection fraction is estimated at 20 %. Grade 1 diastolic dysfunction. Right Ventricle The right ventricle is normal in size and function. Right Atrium The right atrium is normal in size. Left Atrium The left atrium is normal in size. Mitral Valve Structurally normal mitral valve without significant stenosis or prolapse. There is mild mitral regurgitation. Aortic Valve Structurally normal aortic valve without significant sclerosis or stenosis. There is no aortic regurgitation. Tricuspid Valve Structurally normal tricuspid valve without significant stenosis. Pulmonary artery systolic pressure is normal. Mild tricuspid regurgitation. Pulmonic Valve Structurally normal pulmonic valve without significant stenosis. There is no pulmonic regurgitation. Pericardium Small pericardial effusion. Aorta Normal aortic root dimension. CONCLUSIONS Left ventricular ejection fraction 20% with predominantly global hypokinesis with mild sparing of the base which can be seen with Takotsubo's cardiomyopathy. Mild mitral regurgitation RVSP 24 Mild tricuspid regurgitation Small pericardial effusion Previewed by: Dr. Jaun Mendez DO (Electronically Signed) Final Date: 02 April 2022 18:31
--- NOTE | 2022-04-02 19:48 | P.PN ---
Subjective This is a pleasant 67 years old female with past medical history of CVA/TIA, GERD/Reflux, Hyperlipidemia, Osteoarthritis , chronic back pain with neuropathy, uses cane & walker prn., states fall in December 2021 with concussion.,Erica-en-y., Hiatal Hernia, status post Bariatric Surgery, Anxiety, Bipolar, Depression, Panic Disorder Presents because of confusion and words finding difficulty as per records. Patient is awake and alert up in bed, she knows she is in the hospital but she thinks she is at or near, she knows the year but not the date or month. She noted name of the president, she looks to have insight into her illness and follows commands clearly. However she has some memory problems. Patient states she came to the hospital because she was not thinking well and she follows she is not herself. However she denies any word finding difficulty for me, although she has some hesitancy and slow to answer questions but this looks more related to her memory problem. She has bitemporal headache with no visual problems, her headache since yesterday, mild to moderate focal plaque pressure and nonradiating. She vomited once. She's been complaining of from dysuria and increased frequency of urination and she was brought in to see Dr. Horta her PCP tomorrow. She denies any blurred vision, no weakness or numbness or dizziness. She denies any hopelessness or helplessness. No suicidal or homicidal ideation, no visual or auditory hallucinations. She thinks that is helping her symptoms. She states she has no new medication over the last 2 weeks and she's been taking chlorthalidone for a while for hypertension, however patient looks dehydrated today. She's been complaining of from band insomnia and looks like she has some lip sma cking movements. She denies smoking, alcohol or illicit tracts Patient is hemodynamically stable. Labs including CBC is unremarkable except for mild lymphopenia. INR is 1.0. Sodium is low at 129, potassium low at 2.9. Rest of BMP and liver enzymes are unremarkable. Troponin is negative at 0.013. MAPS was checked and patient is on Xanax 1 mg on Madison 5 mg Emergency room she was started on normal saline with 30 mL per hour Today patient is mentation improved back to baseline, she is fully awake and oriented, she is calm, no more smacking only small twitching in her lip area which still could be related to mild tardive dyskinesia, case was discussed with the psychiatrist. Most likely patient has metabolic encephalopathy secondary to UTI and other metabolic problems. Patient was started on ceftriaxone for UTI, and cultures pending. Sodium improved to 1:30. Potassium is normal today 4.2. Patient is eating 25% of her diet We will lower her IV fluids of normal saline down to 40 mL/h. MRI of the brain is showing chronic changes. EEG is pending 03/31/2022 Patient complaining of from mild suprapubic tenderness and pain and Madison as needed for pain control. She remains on ceftriaxone and urine culture is pending. There is addendum to the MRI of the brain showing possible to subacute strokes I discussed this with the neurologist recommended to change aspirin to Plavix. ARDEN was also recommended and lumber handler team were consulted but patient declined to do the ARDEN. Physical therapy recommended home Bladder scan 108 04/01/2022 patient informed about her to stroke, she looks as symptomatic from these troches. She underwent ARDEN which was basically in remarkable for source of thrombosis, no intracardiac thrombus found, no shunts or valvular lesion. However patient was found to have severe LV dysfunction 20-25% with extensive hypokinesia consistent with takotsubo syndrome per lumber handler Urine culture is growing gram-negative bacilli and she is responding to treatment with ceftriaxone. She has less suprapubic tenderness today but we will keep monitoring. Metoprolol is added for her heart problem. 04/02/2022 Patient today is more lax and this distress compared to yesterday. She denies any new complaints. No headache or weakness or numbness he had no blurred vision. No chest pain or dyspnea. Vitals and labs are stable. Urine culture is finalized as sensitive E. coli and she remains on ceftriaxone Also she has evidence of takotsubo syndrome, she was started on losartan 12.5 and aspirin 81 mg for her heart, as she has elevated troponin today. Patient remains on Plavix for her new stroke. Echo cardiogram to be repeated and is pending. Keep monitoring for now Objective - Vital Signs Vital signs: Vital Signs Temp 98.1 F 04/02/22 08:08 Pulse 75 04/02/22 08:08 Resp 20 04/02/22 08:08 BP 109/66 04/02/22 08:08 Pulse Ox 97 04/02/22 08:08 FiO2 Intake & Output 04/01/22 04/02/22 04/02/22 18:59 06:59 18:59 Intake Total 200 250 Balance 200 250 Weight 54.5 kg Intake: IV 200 Oral 250 Other: Voiding Method Toilet Toilet # Voids 2 # Bowel Movements 0 - Exam GENERAL: The patient is alert and oriented x3, not in any acute distress. Well developed, well nourished. HEENT: Pupils are round and equally reacting to light. EOMI. No scleral icterus. No conjunctival pallor. Normocephalic, atraumatic. No pharyngeal erythema. No thyromegaly. CARDIOVASCULAR: S1 and S2 present. No murmurs, rubs, or gallops. PULMONARY: Chest is clear to auscultation, no wheezing or crackles. -ABDOMEN: Soft, mild suprapubic tenderness, nondistended, normoactive bowel sounds. No palpable organomegaly. MUSCULOSKELETAL: No joint swelling or deformity. EXTREMITIES: No cyanosis, clubbing, or pedal edema. NEUROLOGICAL: Gross neurological examination did not reveal any focal deficits. SKIN: No rashes. no petechiae. - Labs CBC & Chem 7: 04/01/22 09:26 04/02/22 09:15 Labs: Abnormal Lab Results - Last 24 Hours (Table) 04/02/22 04/02/22 Range/Units 09:15 09:15 Sodium 132 L (137-145) mmol/L Glucose 106 H (74-99) mg/dL Calcium 8.0 L (8.4-10.2) mg/dL Troponin I 0.045 H* (0.000-0.034) ng/mL Microbiology - Last 24 Hours (Table) 03/30/22 03:00 Urine Culture - Final Urine,Voided Escherichia coli Assessment and Plan Assessment: Subacute stroke 2 Acute urinary tract infection, secondary to sensitivity: severe LV dysfunction 20-25% with extensive hypokinesia consistent with takotsubo syndrome Elevated troponin, mild Metabolic encephalopathy secondary to hyponatremia, and subacute stroke, reso lved Hyponatremia and hypokalemia secondary to hydrochlorothiazide. Improving Mild Lip smacking movements, Possible tardive dyskinesia Hyperlipidemia Chronic back pain with neuropathy History of GERD History of CVA/TIA History of fall History of hiatal hernia History of anxiety, depression and bipolar, not in active tissue Plan: This is a pleasant 67 years old female who presents with AMS, though secondary to metabolic encephalopathy, TIA less likely Continue with Plavix. However aspirin was resumed for cardiac reasons and currently patient is on dual antiplatelet therapy Continue with ceftriaxone Continue with metoprolol Hold hydrochlorothiazide cardiology consult Neurology consult Labs and medication were reviewed.. Continue same treatment. Continue with symptomatic treatment. Resume home medication. Monitor lytes and vitals. DVT and GI prophylaxis. Further recommendations as per clinical course of the patient DVT prophylaxis: Subcutaneous heparin GI Prophylaxis: Pepcid PT/OT: Home
[2022-04-02] MEDS: QUEtiapine 25 MG TAB PO SCH (21:09)
[2022-04-02] MEDS: ATORVASTATIN 40 MG TAB PO SCH (21:10)
[2022-04-02] MEDS: MELATONIN 3 MG TABLET PO SCH (21:10)
[2022-04-03] MEDS: ALPRAZolam 1 MG TAB PO PRN ×2 (05:27→12:58)
[2022-04-03] MEDS: LORATADINE 10 MG TAB PO SCH (07:52)
[2022-04-03] MEDS: HEPARIN SODIUM,PORCINE/PF 5,000 UNIT/0.5 ML SYRINGE SQ SCH (07:52)
[2022-04-03] MEDS: FERROUS SULFATE 325 MG TAB PO SCH (07:52)
[2022-04-03] MEDS: METOPROLOL SUCCINATE (ER) 25 MG TAB.ER.24H PO SCH (07:52)
[2022-04-03] MEDS: CLOPIDOGREL 75 MG TAB PO SCH (07:52)
[2022-04-03] MEDS: FAMOTIDINE 20 MG/2 ML VIAL IV SCH (07:52)
[2022-04-03] MEDS: HYDROcodone/APAP 5-325MG 1 EACH TAB PO PRN (07:53)
[2022-04-03] MEDS: CYANOCOBALAMIN 500 MCG TAB PO SCH (07:53)
[2022-04-03] MEDS: PRIMIDONE 50 MG TAB PO SCH ×2 (07:53→15:43)
[2022-04-03] MEDS: DULoxetine HCL 60 MG CAPSULE.DR PO SCH (07:53)
[2022-04-03] MEDS ORDERED: ASPIRIN 81 MG PO SCH (09:00)
[2022-04-03 10:04] VITALS: RESP 18
--- NOTE | 2022-04-03 11:21 | P.PN ---
Subjective Progress Note Date: 04/03/22 HISTORY OF PRESENTING ILLNESS This is a pleasant 67-year-old female past medical history significant for h ypertension, dyslipidemia, chronic back pain, family history of coronary artery disease in her father who of a myocardial infarction at the age of 46. She states she saw a singer back tender in [place], [place] about [address] superintendent and echocardiogram which she states was normal. We have been asked to see in consultation for ARDEN. She presents to the emergency department on 03/29/2022 for evaluation for confusion and trouble word findings, she also states she had a urinary tract infection. Her symptoms have resolved. On admission, she presented with hypokalemia Na 2.6, hyponatremia Na 129, and lactic acidosis. MRI of the brain report revealed 2 hyperintensity is seen which could represent subacute ischemia. Neurology recommended ARDEN. DIAGNOSTICS: * In [address] Lambert in the office as a follow-up. She had a false positive stress test in 2009 underwent a cardiac catheterization which revealed normal coronary arteries. * Recent echocardiogram 03/11/2022 revealed an EF of 6065%, mild mitral regurgitation, mild tricuspid regurgitation 04/01/2022- patient underwent ARDEN which revealed EF 20-25%, extensive apical hypokinesis, consistent with Takotsubo syndrome 04/02/2022 Patient seen and examined at bedside, no acute distress. She denies any chest pain or shortness of breath. She denies any orthopnea or PND. Her vital signs are stable. Telemetry reviewed patient is maintaining sinus mechanism with heart rates in the 70s80s. Troponin 0.04. 04/03/2022 Patient examined this morning at the bedside. She denies chest pain or pressure. Denies shortness of breath. Vital signs are stable. Repeat echocardiogram completed revealing ejection fraction 20% with global hypokinesis, mild MR, mild TR, small pericardial effusion PHYSICAL EXAMINATION Blood pressure 106/69, heart rate 86, afebrile, saturation 97% on room air CONSTITUTIONAL: No apparent distress. HEENT: Neck supple No JVD. CHEST EXAMINATION: Lungs are clear to auscultation. No chest wall tenderness is noted on palpation or with deep breathing. HEART EXAMINATION: Regular rate and rhythm. S1, S2 heard. No murmurs, gallops or rub. ABDOMEN: Soft, nontender. Positive bowel sounds. EXTREMITIES: 2+ peripheral pulses, no lower extremity edema and no calf tenderness. NEUROLOGIC EXAMINATION: Patient is awake, alert and oriented x3. ASSESSMENT Altered mental status MRI Brain Report revealed 2 hyperintensity seen which could represent subacute ischemia. Cardiomyopathy EF 20-25%, ischemic vs non-ischemic Hyponatremia, improved Hypokalemia, improved Lactic acidosis, improved Urinary tract infection History of hypertension History of hyperlipidemia Chronic back pain Recent removal with revision of T10 to pelvis decompression and fusion on 03/02/2022 PLAN Continue current cardiac medications Continue with medical management at this time Recommend close outpatient follow up Patient is currently stable for discharge home today from a cardiac standpoint Nurse practitioner note has been reviewed by physician. Signing provider agrees with the documented findings, assessment, and plan of care. Objective - Vital Signs Vital signs: Vital Signs Temp 98.0 F 04/03/22 07:51 Pulse 91 04/03/22 07:51 Resp 18 04/03/22 07:51 BP 111/71 04/03/22 07:51 Pulse Ox 99 04/03/22 07:51 FiO2 Intake & Output 04/02/22 04/03/22 04/03/22 18:59 06:59 18:59 Intake Total 600 240 Balance 600 240 Weight 54.5 kg Intake: Oral 600 240 Other: Voiding Method Toilet Toilet Toilet # Voids 2 1 - Labs CBC & Chem 7: 04/01/22 09:26 04/02/22 09:15 Labs: Abnormal Lab Results - Last 24 Hours (Table) 04/02/22 Range/Units 09:15 Troponin I 0.045 H* (0.000-0.034) ng/mL Microbiology - Last 24 Hours (Table) 03/30/22 03:00 Urine Culture - Final Urine,Voided Escherichia coli
--- NOTE | 2022-04-03 14:22 | P.PN ---
Subjective Progress Note Date: 04/02/22 Patient was seen for a follow-up. Patient is laying comfortably in the bed. Patient is very pleasant. Patient states that she has been under stress because of getting all these new diagnoses including a diagnosis of stroke, broken heart syndrome. She has been recuperating from back surgery, but now has been diagnosed with strokes and broken heart syndrome. She sometimes gets emotional, but is trying to overcome it. No focal symptoms. Denies headache. Patient states that she has been taking aspirin 325 mg for almost a year. Patient believes that her mental confusion was likely from UTI and Xanax. Her Xanax dose is being decreased. She admits that as she is getting older, she may have to cut back on some medications. Denies any focal symptoms. Objective - Vital Signs Vital signs: Vital Signs Temp 98.0 F 04/03/22 07:51 Pulse 68 04/03/22 13:12 Resp 18 04/03/22 11:05 BP 99/60 04/03/22 11:05 Pulse Ox 100 04/03/22 11:05 FiO2 Intake & Output 04/02/22 04/03/22 04/03/22 18:59 06:59 18:59 Intake Total 600 240 Balance 600 240 Weight 54.5 kg Intake: Oral 600 240 Other: Voiding Method Toilet Toilet Toilet # Voids 2 1 2 - Exam Patient's mental status, speech-language functions are normal. Examination is unchanged. - Labs CBC & Chem 7: 04/01/22 09:26 04/02/22 09:15 Assessment and Plan Assessment: * 67-year-old female admitted to the hospital with episode of altered mental status, consisting of some confusion, using incorrect words/sentences. The symptoms now has resolved. Her current examination is nonfocal. This similar episode happened exactly in the recent past postoperatively after her back surgery on 03/02/2022, which was at that time felt to be related to postoperative encephalopathy or medication side effect. * MRI of the brain reported two areas of hyperintensity on the DWI, probably representing subacute ischemia. * Cardiomyopathy, EF 20-25%, ischemic versus nonischemic. * Acute UTI * Recent history of removal with revision of T10 to pelvis decompression and fusion on 03/02/2022. * Bipolar disorder Plan: * MRI of the brain with and without contrast reviewed with radiologist Dr. Choi. He agreed there are 2 hyperintensity seen could represent subacute ischemia. Please refer to the addendum of the report of MRI. Patient tells me that she has been on aspirin 325 mg daily for 1 year. With these recurrent stroke/TIA symptoms, would consider switching from aspirin to Plavix 75 mg daily. * ARDEN 04/01/2022 revealed severe left-ventricular systolic dysfunction with EF around 20% to 25%. This could be from Takotsubo syndrome. Cardiology following. They are recommending to observe her 1 more night. * EEG was mildly abnormal due to disorganized background, with some slow and fast frequency activity, suggestive of nonspecific generalized cerebral dysfunction as can be seen with metabolic encephalopathy or medication effect. No epileptiform activity was seen. Study was technically limited due to myogenic activity. * CTA of head and neck revealed no significant stenosis. * 2-D echo from 03/11/2022 revealed normal left ventricular systolic function, mild mitral regurgitation, mild TR, mildly increased left atrial volume. EF 60-65%. Borderline left ventricular hypertrophy. * Hemoglobin A1c 5.3, * Fasting lipid panel 03/11/2022 with cholesterol 93, LDL 42, HDL 38 and triglycerides 63. Continue Lipitor 40 mg. * Neurologically cleared for discharge, if cleared by cardiology. * May follow up with neurology in 2-4 weeks as outpatient.
[2022-04-03 16:17] VITALS: BP 94/63; PULSE 77; TEMP 97.7
[2022-04-03] MEDS ORDERED: LOSARTAN 25 MG TAB PO SCH (21:00)
--- NOTE | 2022-04-03 22:32 | P.DS ---
Providers Date of admission: 03/28/22 21:12 Attending physician: Case Britt MD Consults: 03/28/22 21:13 Consult Physician Urgent Consulting Provider: Awais Ch Consult Reason/Comments: stroke Do you want consulting provider notified?: Yes 03/29/22 08:51 Consult Physician Urgent Consulting Provider: Moshe Burton Consult Reason/Comments: on psych meds ,? tardive dyskinesia, h/o depression , bipolar and other Do you want consulting provider notified?: Yes 03/31/22 10:45 Consult Physician Urgent Consulting Provider: Jaun Mendez Consult Reason/Comments: needs ARDEN Do you want consulting provider notified?: Yes Primary care physician: Kana Bateman [facility] Course: Diagnoses: Subacute stroke 2 Acute urinary tract infection, secondary to sensitivity: severe LV dysfunction 20-25% with extensive hypokinesia consistent with takotsubo syndrome Elevated troponin, mild Metabolic encephalopathy secondary to hyponatremia, and subacute stroke, resolved Hyponatremia and hypokalemia secondary to hydrochlorothiazide. Improving Mild Lip smacking movements, Possible tardive dyskinesia Hyperlipidemia Chronic back pain with neuropathy History of GERD History of CVA/TIA History of fall History of hiatal hernia History of anxiety, depression and bipolar, not in active tissue Hospital course: This is a pleasant 67 years old female with past medical history of CVA/TIA, GERD/Reflux, Hyperlipidemia, Osteoarthritis , chronic back pain with neuropathy, uses cane & walker prn., states fall in December 2021 with concussion.,Erica-en-y., Hiatal Hernia, status post Bariatric Surgery, Anxiety, Bipolar, Depression, Panic Disorder Presents because of confusion and words finding difficulty . Patient found to have metabolic encephalopathy secondary to acute urinary tract infection with sensitive E. coli. Patient treated with ceftriaxone and she will be discharged and short course of oral Ceftin. Also neurologist evaluation obtained, her MRI showed new hypodensity region suspicious for subacute stroke. However patient was neurologically intact and patient is back to her baseline and one 2 days after hospitalization and she is with no weakness or numbness. Mentation is back to normal. She was on aspirin 325 mg daily and this was switched to Plavix 75 mg. While aspirin was discontinued however electroencephalograph technologist also evaluated the patient as part of stroke workup she had ARDEN which showed severe left ventricular dysfunction 20-25% with extensive hypokinesia that goes on with takotsubo syndrome , troponin was mildly elevated because of this electroencephalograph technologist suggested medication and he added losartan, metoprolol and restarted her aspirin at a lower dose of 81 mg. Importance of this Antiplatelet therapies explained for the patient, risks of bleeding explained for the patient and she verbalized understanding and acceptance to continue with medications. Patient also with ongoing anxiety disorder and evaluated by psychiatrist and she was started on Seroquel and melatonin and she feels better. On the day of discharge she denies any chest pain or dyspnea. No abdominal pain. No change in urine or bowel habits. No fever. Patient was pleasant and calm and she was eager to go home today. I discussed the case with neurology and cardiology services wbo cleared the patient for discharge and with the staff. Problems and management plan were discussed with the patient and he verbalized understanding and acceptance Patient was found stable and can be discharged home however he needs follow-up as an outpatient. Patient was instructed to follow up with PCP Dr. Horta within one week and patient agrees Patient was instructed to follow up with a neurologist Dr. Rolando Rivera in 1-[address] Lambert electroencephalograph technologist in 1 week and she verbalized understanding and acceptance. Patient is willing to make her own appointment as today is weakened Physical exam Gen: patient is a AAOx3, no distress CVS: S1-S2, RRR, no murmur Lungs: B/L CTA, no wheezing Abdomen: soft, no distention, no tenderness, positive bowel sounds Extremity: no leg edema or induration Time spent more than 35 minutes Patient Condition at Discharge: Serious Plan - Discharge Summary Discharge Rx Participant: Yes New Discharge Prescriptions: New Metoprolol Succinate (ER) [Toprol XL] 25 mg PO DAILY #30 tab Cefuroxime Axetil [Ceftin] 500 mg PO BID 5 Days #10 tab Losartan [Cozaar] 12.5 mg PO HS #15 tab Melatonin 6 mg PO HS #60 tab Clopidogrel [Plavix] 75 mg PO DAILY #30 tab QUEtiapine [SEROquel] 75 mg PO HS #90 tab Continue Loratadine [Claritin] 10 mg PO DAILY Atorvastatin [Lipitor] 40 mg PO HS Oxybutynin Chloride 5 mg PO TID Vitamin B Complex 1 cap PO DAILY DULoxetine HCL [Cymbalta] 60 mg PO BID Primidone [Mysoline] 50 mg PO TID Multivit-Min/Iron/Folic/Lutein [Centrum Silver Women Tablet] 1 tab PO DAILY Cyclobenzaprine [Flexeril] 10 mg PO BID PRN #40 tab PRN Reason: Muscle Spasm Ferrous Sulfate [Iron (65 MG Elemental)] 325 mg PO BID #60 tab Cyanocobalamin (Vitamin B-12) [Vitamin B-12] 1,000 mcg PO DAILY Sennosides/Docusate Sodium [Senna-S 8.6-50 mg Tablet] 2 tab PO DAILY PRN PRN Reason: Constipation Omeprazole 40 mg PO DAILY HYDROcodone/APAP 10-325MG [Mantoloking 10-325] 1 tab PO Q4HR PRN 7 Days #42 tab PRN Reason: Pain Aspirin 81 mg PO DAILY #30 tab Denosumab [Prolia] 60 mg SQ Q180D Ascorbic Acid [Vitamin C] 500 mg PO DAILY Ergocalciferol [Vitamin D2 (1250 Mcg = 81353 Iu)] 1,250 mcg PO MO Calcium Carbonate [Calcium] 1,200 mg PO DAILY polyethylene glycoL 3350 [Miralax] 17 gm PO DAILY PRN #21 packet PRN Reason: Constipation Changed ALPRAZolam [Xanax] 0.5 mg PO BID PRN #0 PRN Reason: Anxiety Discontinued hydroCHLOROthiazide [Hydrodiuril] 25 mg PO DAILY Acetaminophen Tab [Tylenol] 975 mg PO BID PRN PRN Reason: Pain traZODone HCL 200 mg PO HS Zolpidem [Ambien] 10 mg PO HS 7 Days #7 tab No Action Lurasidone HCl [Latuda] 60 mg PO W/SUPPER Discharge Medication List Loratadine [Claritin] 10 mg PO DAILY 09/04/19 [History] Atorvastatin [Lipitor] 40 mg PO HS 03/20/20 [History] Oxybutynin Chloride 5 mg PO TID 04/17/20 [History] Vitamin B Complex 1 cap PO DAILY 04/17/20 [History] DULoxetine HCL [Cymbalta] 60 mg PO BID 01/12/21 [History] Denosumab [Prolia] 60 mg SQ Q180D 09/30/21 [History] Primidone [Mysoline] 50 mg PO TID 09/30/21 [History] Ascorbic Acid [Vitamin C] 500 mg PO DAILY 02/26/22 [History] Calcium Carbonate [Calcium] 1,200 mg PO DAILY 02/26/22 [History] Ergocalciferol [Vitamin D2 (1250 Mcg = 87895 Iu)] 1,250 mcg PO MO 02/26/22 [History] Multivit-Min/Iron/Folic/Lutein [Centrum Silver Women Tablet] 1 tab PO DAILY 02/26/22 [History] Cyclobenzaprine [Flexeril] 10 mg PO BID PRN #40 tab 03/09/22 [Rx] Ferrous Sulfate [Iron (65 MG Elemental)] 325 mg PO BID #60 tab 03/09/22 [Rx] polyethylene glycoL 3350 [Miralax] 17 gm PO DAILY PRN #21 packet 03/09/22 [Rx] Cyanocobalamin (Vitamin B-12) [Vitamin B-12] 1,000 mcg PO DAILY 03/10/22 [History] Lurasidone HCl [Latuda] 60 mg PO W/SUPPER 03/10/22 [History] Omeprazole 40 mg PO DAILY 03/10/22 [History] Sennosides/Docusate Sodium [Senna-S 8.6-50 mg Tablet] 2 tab PO DAILY PRN 03/10/22 [History] HYDROcodone/APAP 10-325MG [Mantoloking 10-325] 1 tab PO Q4HR PRN 7 Days #42 tab 03/13/22 [Rx] ALPRAZolam [Xanax] 0.5 mg PO BID PRN #0 04/03/22 [Rx] Aspirin 81 mg PO DAILY #30 tab 04/03/22 [Rx] Cefuroxime Axetil [Ceftin] 500 mg PO BID 5 Days #10 tab 04/03/22 [Rx] Clopidogrel [Plavix] 75 mg PO DAILY #30 tab 04/03/22 [Rx] Losartan [Cozaar] 12.5 mg PO HS #15 tab 04/03/22 [Rx] Melatonin 6 mg PO HS #60 tab 04/03/22 [Rx] Metoprolol Succinate (ER) [Toprol XL] 25 mg PO DAILY #30 tab 04/03/22 [Rx] QUEtiapine [SEROquel] 75 mg PO HS #90 tab 04/03/22 [Rx] Follow up Appointment(s)/Referral(s): Gustavo Lambert MD [STAFF PHYSICIAN] - 1 Week (Office closed--patient to make appointment.) Laura Marshall MD [REFERRING] - 1 Week (Neurologist. Office closed--patient to make appointment.) Kana Horta III, MD [Primary Care Provider] - 1-2 days (Office closed--patient to make appointment.) [facility], [NON-STAFF] - 1-2 Days Patient Instructions/Handouts: Transient Ischemic Attack (DC) Activity/Diet/Wound Care/Special Instructions: Resume your previous diet Activity is restricted till you see your doctor Discharge/Stand Alone Forms: Community Resources, Outpatient Counseling, Personal Steel Molder Discharge Disposition: HOME SELF-CARE
== END 2022-04-03 16:55 | disposition home or self-care (01) | DRG 64 ==
LOC: EC 20:04 → 6NMEDSUR 21:12 → 3SCARD 21:12 → UNDOADMOB 21:12 → 3SCARD 03-29 03:57
PROVIDERS: ADMIT Internal Medicine; ATTEND Internal Medicine
PROC: B246ZZ4 Ultrasonography of Right and Left Heart, Transesophageal (ICD-10-PCS; principal; 2022-04-01 15:20)
DX: I63.9 Cerebral infarction, unspecified (principal); G93.41 Metabolic encephalopathy; E87.1 Hypo-osmolality and hyponatremia; E87.2 Acidosis; F31.0 Bipolar disorder, current episode hypomanic; I31.3 Pericardial effusion (noninflammatory); I51.81 Takotsubo syndrome; N39.0 Urinary tract infection, site not specified; D72.810 Lymphocytopenia; E78.5 Hyperlipidemia, unspecified; E86.0 Dehydration; E87.6 Hypokalemia; F41.0 Panic disorder [episodic paroxysmal anxiety]; F41.1 Generalized anxiety disorder; G24.01 Drug induced subacute dyskinesia; G47.00 Insomnia, unspecified; G62.9 Polyneuropathy, unspecified; G89.29 Other chronic pain; I10 Essential (primary) hypertension; I25.5 Ischemic cardiomyopathy; I49.3 Ventricular premature depolarization; K44.9 Diaphragmatic hernia without obstruction or gangrene; R77.8 Other specified abnormalities of plasma proteins; M19.90 Unspecified osteoarthritis, unspecified site; M54.9 Dorsalgia, unspecified; T50.2X5A Adverse effect of carbonic-anhydrase inhibitors, benzothiadiazides and other diuretics, initial encounter; Z79.82 Long term (current) use of aspirin; Z79.899 Other long term (current) drug therapy; Z80.0 Family history of malignant neoplasm of digestive organs; Z82.49 Family history of ischemic heart disease and other diseases of the circulatory system; Z86.73 Personal history of transient ischemic attack (TIA), and cerebral infarction without residual deficits; Z90.710 Acquired absence of both cervix and uterus; Z91.81 History of falling; Z98.1 Arthrodesis status; Z98.84 Bariatric surgery status; Z98.890 Other specified postprocedural states; Z98.42 Cataract extraction status, left eye; Z98.41 Cataract extraction status, right eye; Z88.2 Allergy status to sulfonamides; Z88.8 Allergy status to other drugs, medicaments and biological substances; Z83.2 Family history of diseases of the blood and blood-forming organs and certain disorders involving the immune mechanism; Z90.89 Acquired absence of other organs
CPT/HCPCS: 36415; 70450; 70496; 70498; 70553; 71046; 80048; 80053; 81001; 82607; 82746; 83036; 83605; 83735; 84132; 84443; 84484; 85025; 85610; 85730; 87077; 87086; 87186; 93005; 93306; 93312; 93320; 93325; 94760; 95816; 96365; 96366; 96372; 96375; 99285

== ENCOUNTER → 2022-04-10 | Outpatient (CLI) | payer MEDICARE ==
[2022-04-10 16:09] LABS: Basophils # (A) 0.03 X 10*3/uL (0.00-0.10); Basophils % (A) 0.5 %; Eosinophils # (A) 0.13 X 10*3/uL (0.04-0.35); Eosinophils % (A) 2.1 %; HCT 36.4 % (37.2-46.3); HGB 11.3 g/dL (12.0-15.0); Immature Grans, Automated 0.7 %; Lymphocytes % (A) 14.6 %; MCV 93.3 fL (80.0-97.0); Mean Platelet Volume 8.8 fL (9.5-12.2); Monocytes # (A) 0.52 X 10*3/uL (0.20-1.00); Monocytes % (A) 8.5 %; NRBC Per 100 WBC 0 /100 WBCS (0.0-0.0); Neutrophils # (A) 4.53 X 10*3/uL (1.80-7.70); Neutrophils % (A) 73.6 %; Platelet Count 462 X 10*3/uL (140-440); WBC 6.15 X 10*3/uL (4.50-10.00)
[2022-04-10 16:50] LABS: ALT 29 U/L (8-44); AST 28 U/L (13-35); African American GFR (CKD) 110.9 (60.0-200.0); Alkaline Phosphatase 243 U/L (41-126); BUN/Creat Ratio 23.33 Ratio (12.00-20.00); Carbon Dioxide 25.4 mmol/L (20.0-27.5); Chloride 101 mmol/L (96-109); Globulin 2.5 g/dL (1.6-3.3); Glucose 116 mg/dL (70-110); Non-African American GFR(CKD) 95.7 (60.0-200.0); Potassium 4.2 mmol/L (3.5-5.5); Sodium 135 mmol/L (135-145); Total Bilirubin <0.15 mg/dL (0.30-1.20); Total Protein 6.5 g/dL (6.2-8.2)
== END | disposition home or self-care (01) ==
LOC: LABWHC1 10:00
PROVIDERS: ATTEND Family Medicine
DX: I51.81 Takotsubo syndrome (principal); I34.0 Nonrheumatic mitral (valve) insufficiency; I67.9 Cerebrovascular disease, unspecified; E83.51 Hypocalcemia; E87.1 Hypo-osmolality and hyponatremia
CPT/HCPCS: 36415; 80053; 82306; 83735; 85025

== ENCOUNTER 2022-05-21 09:07 | Observation (INO) | payer MEDICARE, OTHER ==
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
[2022-05-21 09:42] LABS: Basophils % (A) 0 %; Eosinophils # (A) 0.5 k/uL (0-0.7); Eosinophils % (A) 10 %; HCT 37.1 % (34.0-46.0); HGB 11.6 gm/dL (11.4-16.0); Hypochromasia Slight; Lymphocytes # (A) 0.7 k/uL (1.0-4.8); Lymphocytes % (A) 16 %; MCH 29.3 pg (25.0-35.0); MCHC 31.2 g/dL (31.0-37.0); MCV 94.1 fL (80.0-100.0); Mean Platelet Volume 6.9; Monocytes # (A) 0.3 k/uL (0-1.0); Monocytes % (A) 7 %; Neutrophils # (A) 3.1 k/uL (1.3-7.7); Neutrophils % (A) 65 %; Platelet Count 395 k/uL (150-450); RBC 3.94 m/uL (3.80-5.40); RDW 14.1 % (11.5-15.5); WBC 4.7 k/uL (3.8-10.6)
[2022-05-21 09:53] LABS: ALT 28 U/L (4-34); AST 28 U/L (14-36); African American GFR (CKD) >90 (>60 ml/min/1.73 sqM); Albumin 3.4 g/dL (3.5-5.0); Alkaline Phosphatase 141 U/L (38-126); Anion Gap 7 mmol/L; Blood Urea Nitrogen 16 mg/dL (7-17); Calcium 8.2 mg/dL (8.4-10.2); Carbon Dioxide 21 mmol/L (22-30); Chloride 110 mmol/L (98-107); Glucose 87 mg/dL (74-99); INR 0.9 (<1.2); Lipase 54 U/L (23-300); Magnesium 1.7 mg/dL (1.6-2.3); Non-African American GFR(CKD) 81 (>60 ml/min/1.73 sqM); Partial Thromboplastin Time 24.1 sec (22.0-30.0); Potassium 3.9 mmol/L (3.5-5.1); Prothrombin Time 9.9 sec (9.0-12.0); Sodium 138 mmol/L (137-145); Total Bilirubin 0.2 mg/dL (0.2-1.3); Total Protein 6.1 g/dL (6.3-8.2)
--- NOTE | 2022-05-21 10:08 | XR ---
EXAMINATION TYPE: XR chest 2V DATE OF EXAM: 05/21/2022 COMPARISON: NONE HISTORY: Shortness of breath TECHNIQUE: Frontal and lateral views of the chest are obtained. FINDINGS: Scattered senescent parenchymal changes noted. Hyperinflation compatible with COPD. No evidence for infiltrate. No evidence for atelectasis. Heart size is stable. Mediastinal structures are stable and grossly unremarkable. No evidence for hilar prominence. Degenerative changes dorsal spine. IMPRESSION: 1. No evidence for acute pulmonary disease.
[2022-05-21] MEDS ORDERED: NITROGLYCERIN SL TABS 0.4 MG TAB SUBLINGUAL PRN (10:44)
[2022-05-21] MEDS ORDERED: ALPRAZolam 0.5 MG TAB PO PRN (10:45)
[2022-05-21] MEDS ORDERED: HYDROcodone/APAP 10-325MG 1 EACH TAB PO PRN (10:45)
[2022-05-21] MEDS ORDERED: PROLIA 60 MG SQ SCH (10:45)
[2022-05-21] MEDS ORDERED: CYCLOBENZAPRINE 10 MG TAB PO PRN (10:45)
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
[2022-05-21] MEDS ORDERED: polyethylene glycoL 3350 17 GM POWD.PACK PO PRN (12:19)
[2022-05-21] MEDS ORDERED: SENNOSIDES-DOCUSATE SODIUM 1 EACH TAB PO PRN (12:19)
[2022-05-21] MEDS ORDERED: NALOXONE 0.4 MG/ML 1 ML VIAL IVP PRN (12:56)
[2022-05-21] MEDS: oxyCODONE-APAP 10-325MG 1 EACH TAB PO SCH ×2 (15:05→20:17)
[2022-05-21] MEDS: ALPRAZolam 1 MG TAB PO SCH ×2 (15:05→22:00)
[2022-05-21] MEDS ORDERED: LURASIDONE 20 MG TAB PO SCH (17:30)
[2022-05-21] MEDS: PRIMIDONE 50 MG TAB PO SCH ×2 (17:49→22:00)
[2022-05-21] MEDS: OXYBUTYNIN CHLORIDE 5 MG TAB PO SCH ×2 (17:49→22:00)
[2022-05-21] MEDS: DULoxetine HCL 60 MG CAPSULE.DR PO SCH (20:18)
[2022-05-21] MEDS ORDERED: ATORVASTATIN 40 MG TAB PO SCH (21:00)
[2022-05-21] MEDS ORDERED: LOSARTAN 25 MG TAB PO SCH (21:00)
[2022-05-21] MEDS ORDERED: QUEtiapine 25 MG TAB PO SCH (21:00)
[2022-05-21] MEDS ORDERED: MELATONIN 3 MG TABLET PO SCH (21:00)
[2022-05-22] MEDS: oxyCODONE-APAP 10-325MG 1 EACH TAB PO SCH ×3 (04:49→12:34)
[2022-05-22 08:10] VITALS: BP 121/73; PULSE 70; RESP 15; TEMP 98.3
[2022-05-22] MEDS ORDERED: ISOSORBIDE MONONITRATE ER 30 MG TAB.ER.24H PO SCH (09:00)
[2022-05-22] MEDS ORDERED: FERROUS SULFATE 325 MG TAB PO SCH (09:00)
[2022-05-22] MEDS ORDERED: METOPROLOL SUCCINATE (ER) 25 MG TAB.ER.24H PO SCH (09:00)
[2022-05-22] MEDS ORDERED: MULTIVITAMINS, THERA 1 EACH TAB PO SCH (09:00)
[2022-05-22] MEDS ORDERED: ASPIRIN 325 MG TAB PO SCH (09:00)
[2022-05-22] MEDS ORDERED: LORATADINE 10 MG TAB PO SCH (09:00)
[2022-05-22] MEDS ORDERED: ASCORBIC ACID 500 MG TAB PO SCH (09:00)
[2022-05-22] MEDS ORDERED: CLOPIDOGREL 75 MG TAB PO SCH (09:00)
[2022-05-22] MEDS ORDERED: PANTOPRAZOLE 40 MG TABLET PO SCH (09:00)
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
[2022-05-22] MEDS: DULoxetine HCL 60 MG CAPSULE.DR PO SCH (09:30)
[2022-05-22] MEDS: ALPRAZolam 1 MG TAB PO SCH (09:30)
[2022-05-22] MEDS: OXYBUTYNIN CHLORIDE 5 MG TAB PO SCH (09:31)
[2022-05-22 09:44] LABS: Chol/HDL Ratio 2.34 Ratio
[2022-05-22] MEDS: PRIMIDONE 50 MG TAB PO SCH (09:44)
--- NOTE | 2022-05-22 10:31 | P.DS ---
Providers Date of admission: 05/21/22 10:58 Expected date of discharge: 05/22/22 Attending physician: Yuko Martinez DO Consults: 05/21/22 10:44 Consult Physician Urgent Consulting Provider: Jaun Mendez Consult Reason/Comments: chest pain Do you want consulting provider notified?: Yes Primary care physician: Kana Horta Hospital Course: Discharge Diagnosis: Chest pain, acute coronary syndrome ruled out Rhinitis Chronic systolic CHF with EF 20-25% HLD GERD Bipolar disorder Recent CVA Chronic pain with neuropathy Hospital Course: Patient is a 67-year-old female with history of recently diagnosed systolic cardiomyopathy with ejection fraction 20-25% and concerns for takotsubo and stroke on hospital stay 03/28 through 04/03/22, dyslipidemia, and GERD who presented to the emergency department with complaints of chest pain. EKG demonstrates normal sinus rhythm with nonspecific ST-T wave changes, chest x-ray demonstrated no acute process. Vital signs were unremarkable. Laboratory analysis showed a troponin of less than 0.012. She had been given a nitroglycerin with some improvement in pain. Arrangements were made for observation. Cardiology was consulted. The remainder of her troponins were negative. She remained chest pain-free during her hospital stay. She was evaluated by cardiology who determined she could continue to follow-up in outpatient having and she has a Lexiscan stress test and Holter monitor scheduled for next week. Patient was able to ambulate remains chest pain-free. She will have an additional medication of Imdur added to her outpatient regiment. She was determined stable for discharge home. Patient seen and examined at bedside. Feeling better no chest pain, mild SOB with walking, no nausea, no vomiting. Vital signs reviewed and stable. General: nontoxic, no distress, appears at stated age Derm: warm, dry Head: atraumatic, normocephalic, symmetric Eyes: EOMI, no lid lag, anicteric sclera Mouth: no lip lesion, mucus membranes moist Cardiovascular: S1S2 reg, no murmur, positive posterior tibial pulse bilateral, Lungs: CTA bilateral, no rhonchi, no rales , no accessory muscle use Abdominal: soft, nontender to palpation, no guarding, no appreciable organomegaly Ext: no gross muscle atrophy, no edema, no contractures Neuro: CN II-XI grossly intact, no focal neuro deficits Psych: Alert, oriented, appropriate affect A total of 25 minutes of time were spent preparing this complex discharge summary. Patient was discharged on 05/22/22. Patient Condition at Discharge: Fair Plan - Discharge Summary New Discharge Prescriptions: New Isosorbide Mononitrate ER [Imdur] 30 mg PO DAILY #30 tab Continue Loratadine [Claritin] 10 mg PO DAILY Atorvastatin [Lipitor] 40 mg PO HS Oxybutynin Chloride 5 mg PO TID DULoxetine HCL [Cymbalta] 60 mg PO BID Primidone [Mysoline] 50 mg PO TID Multivit-Min/Iron/Folic/Lutein [Centrum Silver Women Tablet] 1 tab PO DAILY Cyclobenzaprine [Flexeril] 10 mg PO BID PRN #40 tab PRN Reason: Muscle Spasm Cyanocobalamin (Vitamin B-12) [Vitamin B-12] 1,000 mcg PO DAILY Sennosides/Docusate Sodium [Senna-S 8.6-50 mg Tablet] 2 tab PO DAILY PRN PRN Reason: Constipation Omeprazole 40 mg PO DAILY Metoprolol Succinate (ER) [Toprol XL] 25 mg PO DAILY #30 tab Aspirin 81 mg PO DAILY #30 tab Ferrous Sulfate [Iron (65 MG Elemental)] 325 mg PO DAILY Denosumab [Prolia] 60 mg SQ Q180D Ascorbic Acid [Vitamin C] 500 mg PO DAILY Ergocalciferol [Vitamin D2 (1250 Mcg = 57633 Iu)] 1,250 mcg PO MO Calcium Carbonate [Calcium] 1,200 mg PO DAILY polyethylene glycoL 3350 [Miralax] 17 gm PO DAILY PRN #21 packet PRN Reason: Constipation Lurasidone HCl [Latuda] 60 mg PO W/SUPPER Losartan [Cozaar] 12.5 mg PO HS #15 tab Melatonin 6 mg PO HS #60 tab Clopidogrel [Plavix] 75 mg PO DAILY #30 tab QUEtiapine [SEROquel] 75 mg PO HS #90 tab Super Vitamin B 1 tab PO DAILY EPINEPHrine (Auto Inject) [Epipen] 0.3 mg IM ONCE PRN PRN Reason: Anaphylaxis ALPRAZolam [Xanax] 1 mg PO BID oxyCODONE-APAP 10-325MG [Percocet 10-325 mg] 1 tab PO Q6HR Discharge Medication List Loratadine [Claritin] 10 mg PO DAILY 09/04/19 [History] Atorvastatin [Lipitor] 40 mg PO HS 03/20/20 [History] Oxybutynin Chloride 5 mg PO TID 04/17/20 [History] DULoxetine HCL [Cymbalta] 60 mg PO BID 01/12/21 [History] Denosumab [Prolia] 60 mg SQ Q180D 09/30/21 [History] Primidone [Mysoline] 50 mg PO TID 09/30/21 [History] Ascorbic Acid [Vitamin C] 500 mg PO DAILY 02/26/22 [History] Calcium Carbonate [Calcium] 1,200 mg PO DAILY 02/26/22 [History] Ergocalciferol [Vitamin D2 (1250 Mcg = 23687 Iu)] 1,250 mcg PO MO 02/26/22 [History] Multivit-Min/Iron/Folic/Lutein [Centrum Silver Women Tablet] 1 tab PO DAILY 02/26/22 [History] Cyclobenzaprine [Flexeril] 10 mg PO BID PRN #40 tab 03/09/22 [Rx] polyethylene glycoL 3350 [Miralax] 17 gm PO DAILY PRN #21 packet 03/09/22 [Rx] Cyanocobalamin (Vitamin B-12) [Vitamin B-12] 1,000 mcg PO DAILY 03/10/22 [History] Lurasidone HCl [Latuda] 60 mg PO W/SUPPER 03/10/22 [History] Omeprazole 40 mg PO DAILY 03/10/22 [History] Sennosides/Docusate Sodium [Senna-S 8.6-50 mg Tablet] 2 tab PO DAILY PRN 09/21 [History] Aspirin 81 mg PO DAILY #30 tab 04/03/22 [Rx] Clopidogrel [Plavix] 75 mg PO DAILY #30 tab 04/03/22 [Rx] Losartan [Cozaar] 12.5 mg PO HS #15 tab 04/03/22 [Rx] Melatonin 6 mg PO HS #60 tab 04/03/22 [Rx] Metoprolol Succinate (ER) [Toprol XL] 25 mg PO DAILY #30 tab 04/03/22 [Rx] QUEtiapine [SEROquel] 75 mg PO HS #90 tab 04/03/22 [Rx] ALPRAZolam [Xanax] 1 mg PO BID 05/21/22 [History] EPINEPHrine (Auto Inject) [Epipen] 0.3 mg IM ONCE PRN 05/21/22 [History] Ferrous Sulfate [Iron (65 MG Elemental)] 325 mg PO DAILY 05/21/22 [History] Super Vitamin B 1 tab PO DAILY 05/21/22 [History] oxyCODONE-APAP 10-325MG [Percocet 10-325 mg] 1 tab PO Q6HR 05/21/22 [History] Isosorbide Mononitrate ER [Imdur] 30 mg PO DAILY #30 tab 05/22/22 [Rx] Follow up Appointment(s)/Referral(s): Gustavo Lambert MD [STAFF PHYSICIAN] - 1 Week (as scheduled next week for stress test (Lexiscan) and holter monitor) Kana Horta III, MD [Primary Care Provider] - 1 Week Activity/Diet/Wound Care/Special Instructions: Activity: As tolerated Diet: Heart healthy Special Instructions: You may have some continued shortness of breath due to your new heart failure, if you have significant worsening shortness of breath or recurrent chest pain please return to the emergency department. Keep your appointments with the cardiology office for the Lexiscan stress and holter monitor. Discharge Disposition: HOME SELF-CARE
== END 2022-05-22 14:45 | disposition home or self-care (01) ==
LOC: EC 09:07 → 6NMEDSUR 10:58
PROVIDERS: ADMIT Internal Medicine; ATTEND Internal Medicine
DX: R07.89 Other chest pain (principal); I42.8 Other cardiomyopathies; I50.22 Chronic systolic (congestive) heart failure; J31.0 Chronic rhinitis; J02.9 Acute pharyngitis, unspecified; R11.0 Nausea; E78.5 Hyperlipidemia, unspecified; K21.9 Gastro-esophageal reflux disease without esophagitis; K59.09 Other constipation; T40.2X5A Adverse effect of other opioids, initial encounter; G89.29 Other chronic pain; M54.9 Dorsalgia, unspecified; G62.9 Polyneuropathy, unspecified; M19.90 Unspecified osteoarthritis, unspecified site; K44.9 Diaphragmatic hernia without obstruction or gangrene; F31.9 Bipolar disorder, unspecified; F41.0 Panic disorder [episodic paroxysmal anxiety]; F41.9 Anxiety disorder, unspecified; Z79.82 Long term (current) use of aspirin; Z79.02 Long term (current) use of antithrombotics/antiplatelets; Z79.899 Other long term (current) drug therapy; Z88.2 Allergy status to sulfonamides; Z91.048 Other nonmedicinal substance allergy status; Z86.73 Personal history of transient ischemic attack (TIA), and cerebral infarction without residual deficits; Z87.820 Personal history of traumatic brain injury; Z91.81 History of falling; Z90.49 Acquired absence of other specified parts of digestive tract; Z98.84 Bariatric surgery status; Z90.710 Acquired absence of both cervix and uterus; Z98.1 Arthrodesis status; Z98.49 Cataract extraction status, unspecified eye; Z98.890 Other specified postprocedural states; Z82.49 Family history of ischemic heart disease and other diseases of the circulatory system; Z80.0 Family history of malignant neoplasm of digestive organs
CPT/HCPCS: 99285; 36415; 93005; 83880; 80061; 80053; 83690; 83735; 84484; 85025; 85610; 85730; 71046; G0378 ×2

== ENCOUNTER 2022-06-09 19:25 | Emergency (ER) | payer MEDICARE, OTHER ==
[2022-06-09 20:02] VITALS: BP 109/68; PULSE 70; RESP 18; TEMP 98
--- NOTE | 2022-06-09 21:15 | XR ---
EXAMINATION TYPE: XR chest 2V DATE OF EXAM: 06/09/2022 8:44 PM COMPARISON: Chest radiographs from 05/21/2022 TECHNIQUE: XR chest 2V Frontal and lateral views of the chest. CLINICAL INDICATION:Female, 67 years old with history of syncope; FINDINGS: Lungs/Pleura: There is no evidence of pleural effusion, focal consolidation, or pneumothorax. Pulmonary vascularity: Unremarkable. Heart/mediastinum: Cardiomediastinal silhouette is unremarkable. Musculoskeletal: No acute osseous pathology. Fixation hardware in the thoracolumbar spine. Hardware a ppears intact. IMPRESSION: No acute cardiopulmonary disease/process.
[2022-06-09 21:24] LABS: Basophils # (A) 0.1 k/uL (0-0.2); Basophils % (A) 1 %; Eosinophils # (A) 0.3 k/uL (0-0.7); Eosinophils % (A) 3 %; HCT 40.9 % (34.0-46.0); HGB 12.5 gm/dL (11.4-16.0); Hypochromasia Slight; Lymphocytes # (A) 0.9 k/uL (1.0-4.8); Lymphocytes % (A) 9 %; MCH 28.9 pg (25.0-35.0); MCHC 30.6 g/dL (31.0-37.0); MCV 94.4 fL (80.0-100.0); Monocytes # (A) 0.5 k/uL (0-1.0); Monocytes % (A) 6 %; Neutrophils # (A) 7.6 k/uL (1.3-7.7); Neutrophils % (A) 81 %; Platelet Count 387 k/uL (150-450); RBC 4.34 m/uL (3.80-5.40); RDW 14.2 % (11.5-15.5); WBC 9.4 k/uL (3.8-10.6)
[2022-06-09 21:36] LABS: ALT 49 U/L (4-34); AST 49 U/L (14-36); African American GFR (CKD) >90 (>60 ml/min/1.73 sqM); Albumin 4.3 g/dL (3.5-5.0); Alkaline Phosphatase 161 U/L (38-126); Anion Gap 12 mmol/L; Blood Urea Nitrogen 14 mg/dL (7-17); Calcium 8.5 mg/dL (8.4-10.2); Carbon Dioxide 23 mmol/L (22-30); Chloride 101 mmol/L (98-107); Glucose 100 mg/dL (74-99); Non-African American GFR(CKD) >90 (>60 ml/min/1.73 sqM); Sodium 136 mmol/L (137-145); Total Bilirubin 0.1 mg/dL (0.2-1.3)
[2022-06-09 21:37] LABS: INR 0.9 (<1.2); Partial Thromboplastin Time 23.7 sec (22.0-30.0); Prothrombin Time 9.6 sec (9.0-12.0)
== END 2022-06-09 22:28 | disposition left against medical advice (07) ==
LOC: EC 19:25
DX: Z53.29 Procedure and treatment not carried out because of patient's decision for other reasons (principal); R55 Syncope and collapse
CPT/HCPCS: 36415; 71046; 80053; 84484; 85025; 85610; 85730; 93005; 99499

== ENCOUNTER 2022-07-24 10:30 | Emergency (ER) | payer OTHER ==
[2022-07-24 10:36] VITALS: TEMP 98.1
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
--- NOTE | 2022-07-24 11:25 | XR ---
EXAMINATION TYPE: XR thoracic spine 2V DATE OF EXAM: 07/24/2022 CLINICAL HISTORY: pain TECHNIQUE: Frontal, lateral, and swimmer's view of thoracic spine are obtained. COMPARISON: Comparison is made to outside study of 06/23/2022. FINDINGS: There is an accentuated thoracolumbar kyphosis. Interconnecting pedicular screws are seen e xtending from T10 through the upper lumbar spine. I do not see evidence for compression fracture. Mod erate multilevel degenerative disc space narrowing and scattered spondylosis. Overall stable appearan ce. IMPRESSION: No acute fracture or dislocation is seen in the thoracic spine. ICD 10 NO FRACTURE, INITIAL EVALUATION
[2022-07-24 11:44] LABS: Appearance,Urine Clear (Clear); Bilirubin,Urine Negative (Negative); Blood,Urine Negative (Negative); Color,Urine Yellow; Glucose,Urine (UA) Negative (Negative); Ketones,Urine Negative (Negative); Leukocyte Esterase,Urine Negative (Negative); Nitrite,Urine Negative (Negative); Protein,Urine Negative (Negative); Specific Gravity,Urine 1.008 (1.001-1.035); Urobilinogen,Urine <2.0 mg/dL (<2.0)
[2022-07-24 12:09] LABS: Basophils % (A) 1 %; Eosinophils # (A) 0.1 k/uL (0-0.7); Eosinophils % (A) 2 %; HCT 41.6 % (34.0-46.0); HGB 13.5 gm/dL (11.4-16.0); Lymphocytes % (A) 19 %; MCH 29.1 pg (25.0-35.0); MCHC 32.6 g/dL (31.0-37.0); Mean Platelet Volume 6.8; Monocytes # (A) 0.5 k/uL (0-1.0); Monocytes % (A) 10 %; Neutrophils # (A) 3.4 k/uL (1.3-7.7); Neutrophils % (A) 66 %; Platelet Count 399 k/uL (150-450); RBC 4.65 m/uL (3.80-5.40); RDW 13.1 % (11.5-15.5); WBC 5.1 k/uL (3.8-10.6)
[2022-07-24 12:22] LABS: ALT 47 U/L (4-34); African American GFR (CKD) >90 (>60 ml/min/1.73 sqM); Albumin 4.7 g/dL (3.5-5.0); Anion Gap 12 mmol/L; Blood Urea Nitrogen 13 mg/dL (7-17); Calcium 8.6 mg/dL (8.4-10.2); Carbon Dioxide 28 mmol/L (22-30); Chloride 88 mmol/L (98-107); Glucose 70 mg/dL (74-99); Non-African American GFR(CKD) >90 (>60 ml/min/1.73 sqM); Sodium 128 mmol/L (137-145); Total Bilirubin 0.6 mg/dL (0.2-1.3); Total Protein 7.4 g/dL (6.3-8.2)
[2022-07-24 12:26] LABS: AST 50 U/L (14-36); Alkaline Phosphatase 176 U/L (38-126); Potassium 3.6 mmol/L (3.5-5.1)
--- NOTE | 2022-07-24 12:27 | CT ---
EXAMINATION TYPE: CT brain caridad wo con DATE OF EXAM: 07/24/2022 COMPARISON: 03/18/2022 and 01/02/2022 HISTORY: Fall CT DLP: 308.[address] of the brain was performed. The ventricles, basal cisterns and sulci overlying the cerebral convexities demonstrate mild enlargem ent. There is no evidence for intracranial hemorrhage or sulcal effacement. There is decreased attenuatio n about the periventricular white matter and deep white matter of both cerebral hemispheres, compatib le with chronic small vessel ischemia. No mass effects are seen. If symptoms persist consider MRI. Osseous calvarium is intact. Chronic right maxillary sinusitis. IMPRESSION: 1. Age related atrophic and chronic small vessel ischemic change without acute intracranial process seen at this time. CT Cervical Spine: Unenhanced CT of the cervical spine was performed with bone and soft tissue window settings submitted . Coronal and sagittal reconstruction is obtained. There is normal alignment and prevertebral soft tissues. No evidence for acute cervical fracture . Scattered degenerative disc disease and spondylosis. Biapical scarring. IMPRESSION: 1. No evidence for acute fracture or subluxation of the cervical spine.
[2022-07-24] MEDS ORDERED: KETOROLAC 15 MG/ML 1 ML VIAL IVP STA (12:31)
[2022-07-24 12:35] LABS: MCV 89.3 fL (80.0-100.0)
[2022-07-24] MEDS ORDERED: SODIUM CHLORIDE 0.9% 1,000 ML IV ONE (12:47)
[2022-07-24 13:52] LABS: Glucose,Whole Blood 160 mg/dL (70-110)
[2022-07-24 14:06] VITALS: BP 143/80; PULSE 75; RESP 16
== END 2022-07-24 14:15 | disposition home or self-care (01) ==
LOC: EC 10:30
DX: S20.229A Contusion of unspecified back wall of thorax, initial encounter (principal); E87.1 Hypo-osmolality and hyponatremia; K21.9 Gastro-esophageal reflux disease without esophagitis; E78.5 Hyperlipidemia, unspecified; Z79.899 Other long term (current) drug therapy; Z88.2 Allergy status to sulfonamides; Z91.048 Other nonmedicinal substance allergy status; W01.0XXA Fall on same level from slipping, tripping and stumbling without subsequent striking against object, initial encounter
CPT/HCPCS: 36415; 80053; 85025; 81003; 72070; 72125; 70450; 99284; 96374; 96361; J1885; 96375

== ENCOUNTER → 2022-10-05 | Outpatient (CLI) | payer MEDICARE, OTHER ==
--- NOTE | 2022-10-05 13:00 | MR ---
EXAMINATION TYPE: MR angio head wo con DATE OF EXAM: 10/05/2022 COMPARISON: MR brain 03/30/2022, CTA head neck 03/28/2022. HISTORY: Syncope/stroke TECHNIQUE: Time of flight images focusing on the [place] of [place] were performed without contrast. FINDINGS: No evidence for aneurysm. The vertebral arteries are patent and codominant. The visualized portions of the internal carotid arteries are patent without significant stenosis. Left A1 segment ab sence with patent anterior commuting artery supplying the left A2 segment. The remaining portions of the anterior cerebral arteries are patent. The bilateral middle cerebral arteries are patent. The peter ateral posterior cerebral arteries are patent. 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 IMPRESSION: 1. No evidence for intracranial high-grade stenosis or aneurysm. 2. 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
== END | disposition home or self-care (01) ==
LOC: RADMRIMAIN 11:21
PROVIDERS: ATTEND Psychiatry & Neurology Neurology
DX: R55 Syncope and collapse (principal)
CPT/HCPCS: 70544

== ENCOUNTER → 2022-10-06 | Outpatient (CLI) | payer MEDICARE, OTHER ==
[2022-10-06 14:47] VITALS: BP 119/72; PULSE 86; RESP 18; TEMP 99.2
--- NOTE | 2022-10-06 14:59 | P.PAINPG ---
PQRS Measure Charge Sheet Comment: A 67 yr old female with a history of severe and chronic low back pain secondary to lumbar DDD and spondylosis with facet arthropathy without myelopathy and BL Sacroiliitis presents today for LBP evaluation. Pain level is currently at 8 /10 in intensity, constant, lower lumbar spine, pressure in charcter w shooting towards the LLE. Pain is provoked by standing/ walking for periods of 15 min or more, or bending/ lifting. Pain is alleviated with PT x 12 wks which she is currently in, massage therapy years ago, heat , ice, medications (Cymbalta, Percocet, Flexeril), reclining and rest. Surgical incisional scar over thoracolumbar spine intact. Interventional pain procedures completed include BL SI injection (Apr 2021), Lumbar TPIs Patient is currently on Percocet, Cymbalta, Flexeril Patient denies any side effects of the medication(s), denies excessive drowsiness or sleepiness, denies suicidal ideation and reports that the current pain medication is helping to control the pain and improve activities of daily living. Patient denies any motor or sensory deficits. Patient denies any fever or night sweats, denies any change in the bowel movements or urination. Physical Examination: -Constitutional: Cooperative. Not in acute distress . - Neurologic: Cranial nerve II to XII intact. No focal neurological deficits. - Psychatric: Alert & oriented x 3. Matching mood & appropriate affect. Judgment and insight intact. - Musculoskeletal: Cervical spine: Muscle bulk/ tone/ strength in the bilateral upper extremities normal Vertebral body tenderness to palpation over Spurling test positive Distraction test positive Facet loading test positive Thoracic spine Muscle bulk / tone/ strength in the bilateral paraspinal muscles normal Vertebral body tender to palpation over BL paraspinal TTP over BL T6-T12 Facet loading test positive Lumbar spine: Motor bulk/ tone/ strength lower extremities , thigh and legs : 5/5 Deep tendon reflexes : Normal Knee Jerk. Normal Ankle Jerk . Vertebral body tenderness to palpation over BL paraspinal TTP over L1-L4 Lumbar Facet Loading Test positive Straight Leg Raise: positive at 30 degrees right side/ left side Gaenslen's Test positive Sacral spine : Severe tenderness over the Sacroiliac joint: right side / left side Range of motion: Flexion of the lumbar spine <60 degrees Range of motion: Extension of the lumbar spine <20 degrees Gaenslen's Test positive Shayna test: positive right side / left side Thigh Thrust Test Sacral Thrust Test Assessment and plan: Chronic low back pain secondary to lumbar DDD, spondylosis with facet arthropathy without myelopathy and BL Sacroiliitis Recommendation of BL TPIs of T6-L4. May need a series of injections, up to every 2-3 mo, for optimal pain relief. Risks, benefits of procedure discussed and pt verbalized understanding. Admits anticoagulant use or medical history of diabetes. Protocol for discontinuation/ continuation of medications dustin procedure discussed. All patient questions answered I have spent less than 30 minutes on patient care today. Dr Rico was availa ble by phone for the evaluation of this patient. The time was used to review the medical records including relevant urine studies and Prescription history (MAPs), review of the available imaging, evaluation and examination of the patient, coordination of care with the medical staff and if applicable referring physicians, as well as creation of the medical record PQRS Narrative: Smoking Status Never smoker Narcotic Agreement Date Signed 08/10/21 Hx Alcohol Use (MH) No Home Medications: Ambulatory Orders Loratadine [Claritin] 10 mg PO DAILY 09/04/19 Atorvastatin [Lipitor] 40 mg PO HS 03/20/20 Oxybutynin Chloride 5 mg PO TID 04/17/20 DULoxetine HCL [Cymbalta] 60 mg PO BID 01/12/21 Denosumab [Prolia] 60 mg SQ Q180D 09/30/21 Primidone [Mysoline] 50 mg PO TID 09/30/21 Ascorbic Acid [Vitamin C] 500 mg PO DAILY 02/26/22 Calcium Carbonate [Calcium] 1,200 mg PO DAILY 02/26/22 Ergocalciferol [Vitamin D2 (1250 Mcg = 18684 Iu)] 1,250 mcg PO MO 02/26/22 Multivit-Min/Iron/Folic/Lutein [Centrum Silver Women Tablet] 1 tab PO DAILY 02/26/22 Cyclobenzaprine [Flexeril] 10 mg PO BID PRN #40 tab 03/09/22 polyethylene glycoL 3350 [Miralax] 17 gm PO DAILY PRN #21 packet 03/09/22 Cyanocobalamin (Vitamin B-12) [Vitamin B-12] 1,000 mcg PO DAILY 03/10/22 Lurasidone HCl [Latuda] 60 mg PO W/SUPPER 03/10/22 Omeprazole 40 mg PO DAILY 03/10/22 Sennosides/Docusate Sodium [Senna-S 8.6-50 mg Tablet] 2 tab PO DAILY PRN 03/10/22 Aspirin 81 mg PO DAILY #30 tab 04/03/22 Clopidogrel [Plavix] 75 mg PO DAILY #30 tab 04/03/22 Losartan [Cozaar] 12.5 mg PO HS #15 tab 04/03/22 Melatonin 6 mg PO HS #60 tab 04/03/22 Metoprolol Succinate (ER) [Toprol XL] 25 mg PO DAILY #30 tab 04/03/22 QUEtiapine [SEROquel] 75 mg PO HS #90 tab 04/03/22 ALPRAZolam [Xanax] 1 mg PO BID 05/21/22 EPINEPHrine (Auto Inject) [Epipen] 0.3 mg IM ONCE PRN 05/21/22 Ferrous Sulfate [Iron (65 MG Elemental)] 325 mg PO DAILY 05/21/22 Super Vitamin B 1 tab PO DAILY 05/21/22 oxyCODONE-APAP 10-325MG [Percocet 10-325 mg] 1 tab PO Q6HR 05/21/22 Isosorbide Mononitrate ER [Imdur] 30 mg PO DAILY #30 tab 05/22/22 Controlled Substance Measures - Controlled Substance Measures Is patient prescribed a controlled substance at discharge?: No
== END ==
LOC: PNWHC3 14:11
PROVIDERS: ATTEND Specialist
DX: M47.816 Spondylosis without myelopathy or radiculopathy, lumbar region (principal); M51.36 Other intervertebral disc degeneration, lumbar region; G89.29 Other chronic pain; Z88.2 Allergy status to sulfonamides; Z91.048 Other nonmedicinal substance allergy status
CPT/HCPCS: 99211

== ENCOUNTER 2023-03-01 05:45 | Emergency (ER) | payer MEDICARE, OTHER ==
[2023-03-01 06:03] LABS: Glucose,Whole Blood 96 mg/dL (70-110)
[2023-03-01 06:19] LABS: Basophils % (A) 0 %; Eosinophils # (A) 0.4 k/uL (0-0.7); Eosinophils % (A) 6 %; HCT 39.4 % (34.0-46.0); HGB 12.7 gm/dL (11.4-16.0); Lymphocytes % (A) 14 %; MCH 29.5 pg (25.0-35.0); MCHC 32.3 g/dL (31.0-37.0); MCV 91.3 fL (80.0-100.0); Mean Platelet Volume 6.7; Monocytes # (A) 0.5 k/uL (0-1.0); Monocytes % (A) 7 %; Neutrophils # (A) 5.2 k/uL (1.3-7.7); Neutrophils % (A) 72 %; Platelet Count 337 k/uL (150-450); RBC 4.31 m/uL (3.80-5.40); WBC 7.3 k/uL (3.8-10.6)
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
[2023-03-01 06:34] VITALS: RESP 18
[2023-03-01 06:35] LABS: ALT 29 U/L (4-34); AST 34 U/L (14-36); African American GFR (CKD) >90 (>60 ml/min/1.73 sqM); Albumin 3.8 g/dL (3.5-5.0); Alcohol <10 mg/dL; Alkaline Phosphatase 165 U/L (38-126); Anion Gap 10 mmol/L; Blood Urea Nitrogen 19 mg/dL (7-17); Calcium 8.5 mg/dL (8.4-10.2); Carbon Dioxide 25 mmol/L (22-30); Chloride 99 mmol/L (98-107); Glucose 100 mg/dL (74-99); Non-African American GFR(CKD) >90 (>60 ml/min/1.73 sqM); Potassium 3.3 mmol/L (3.5-5.1); Sodium 134 mmol/L (137-145); Total Bilirubin 0.3 mg/dL (0.2-1.3); Total Protein 6.4 g/dL (6.3-8.2)
--- NOTE | 2023-03-01 06:47 | XR ---
EXAMINATION TYPE: XR chest 2V DATE OF EXAM: 03/01/2023 COMPARISON: Chest x-ray December 13, 2022 HISTORY: Unresponsive. Syncope. TECHNIQUE: Frontal and lateral views of the chest are obtained. FINDINGS: Elevated right hemidiaphragm redemonstrated. There is right basilar opacity favoring atele ctasis. Left lung remains clear. The cardiac silhouette size remains within normal limits. Central in creased markings. Extensive surgical change to the thoracolumbar spine is partially imaged similar to prior. Technique clips are redemonstrated. IMPRESSION: Mild central vascular congestion with patchy right basilar atelectasis.
--- NOTE | 2023-03-01 07:26 | CT ---
EXAMINATION TYPE: CT brain cspine wo con DATE OF EXAM: 03/01/2023 COMPARISON: Prior trauma CT December 13, 2022 HISTORY: Fall injury with headache and neck pain CT DLP: 1345.5 mGycm. Automated Exposure Control for Dose Reduction was Utilized. TECHNIQUE: CT scan of the head and cervical spine are performed without contrast. FINDINGS: There is no acute intracranial hemorrhage or midline shift identified. Ventricles and sul ci within normal limits in size for patient's age. The calvarium is intact. Trotter-white matter differ entiation is preserved. Bilateral aphakia redemonstrated. Mild to moderate mucosal thickening involvi ng bilateral maxillary sinuses is redemonstrated. Cervical spine is visualized in its entirety from C1 through upper thoracic levels and redemonstrates slight grade 1 retrolisthesis C5 on C6 without evidence of acute fracture or dislocation. Preverteb ral soft tissue appears within normal limits. The C1-C2 articulation is within normal limits on the coronal images. Vertebral body heights are preserved. Mild disc space narrowing C5-C6 level. No larg e posterior disc herniations are present. Spinal canal is preserved. Axial images show left-sided unc overtebral facet degenerative change C4-C5 level without significant narrow foraminal narrowing simil ar to prior thyroid gland appears within normal limits. Lung apices show no pneumothorax. IMPRESSION: 1. There is no acute fracture or dislocation evident in the cervical spine. 2. No acute intracranial hemorrhage or midline shift is seen. No significant change from recent prior CT.
[2023-03-01 07:27] LABS: Appearance,Urine Clear (Clear); Bacteria,Urine Rare /hpf; Bilirubin,Urine Negative (Negative); Blood,Urine Negative (Negative); Budding Yeast,Urine Few /hpf; Color,Urine Light Yellow; Glucose,Urine (UA) Negative (Negative); Ketones,Urine Negative (Negative); Leukocyte Esterase,Urine Trace (Negative); Nitrite,Urine Negative (Negative); Protein,Urine Negative (Negative); RBC,Urine <1 /hpf (0-5); Specific Gravity,Urine 1.011 (1.001-1.035); Squamous Epithelial Cell,Urine <1 /hpf (0-4); Urobilinogen,Urine <2.0 mg/dL (<2.0); WBC,Urine 4 /hpf (0-5)
[2023-03-01 07:42] LABS: Amphetamine Screen,Urine Not Detected (NotDetected); Barbiturate Screen,Urine Detected (NotDetected); Benzodiazepines Screen,Urine Not Detected (NotDetected); Cocaine Screen,Urine Not Detected (NotDetected); Methadone Screen, Urine Not Detected (NotDetected); Opiate Screen,Urine Not Detected (NotDetected); Oxycodone Screen, Urine Detected (NotDetected); Phencyclidine Screen,Urine Not Detected (NotDetected); Tricyclic Antidepressant,Urine Detected (NotDetected); Urn Cannabinoid Scrn Not Detected (NotDetected)
[2023-03-01 11:08] VITALS: BP 121/72; PULSE 68; TEMP 97.4
== END 2023-03-01 11:23 | disposition home or self-care (01) ==
LOC: EC 05:45
DX: S80.02XA Contusion of left knee, initial encounter (principal); S80.01XA Contusion of right knee, initial encounter; E78.5 Hyperlipidemia, unspecified; K21.9 Gastro-esophageal reflux disease without esophagitis; M19.90 Unspecified osteoarthritis, unspecified site; Z79.899 Other long term (current) drug therapy; Z88.2 Allergy status to sulfonamides; Z91.048 Other nonmedicinal substance allergy status; Z90.49 Acquired absence of other specified parts of digestive tract; Z86.73 Personal history of transient ischemic attack (TIA), and cerebral infarction without residual deficits; W18.30XA Fall on same level, unspecified, initial encounter; Y92.838 Other recreation area as the place of occurrence of the external cause
CPT/HCPCS: 36415; 70450; 71046; 72125; 80053; 80306; 80320; 81001; 83735; 84484; 85025; 93005; 99285

== ENCOUNTER 2023-03-10 12:17 | Emergency (ER) | payer MEDICARE, OTHER ==
[2023-03-10 12:39] VITALS: RESP 18
[2023-03-10] MEDS ORDERED: MORPHINE SULFATE 2 MG/ML SYRINGE IM STA (13:01)
[2023-03-10] MEDS ORDERED: TOPICAL SKIN ADHESIVE 1 EACH AMP TOPICAL ONE (13:01)
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
[2023-03-10] MEDS ORDERED: GELATIN SPONGE,ABSORB (SMALL) 1 EACH SPONGE TOPICAL STA (13:24)
[2023-03-10] MEDS ORDERED: LIDOCAINE/EPINEPHR/TETRACAINE 5 ML BOTTLE TOPICAL ONE ×2 (13:33)
[2023-03-10 15:49] VITALS: BP 138/61; PULSE 69; TEMP 97.6
== END 2023-03-10 15:48 | disposition home or self-care (01) ==
LOC: EC 12:17
DX: S80.211A Abrasion, right knee, initial encounter (principal); G89.29 Other chronic pain; M54.9 Dorsalgia, unspecified; E78.5 Hyperlipidemia, unspecified; K21.9 Gastro-esophageal reflux disease without esophagitis; M19.90 Unspecified osteoarthritis, unspecified site; F31.9 Bipolar disorder, unspecified; F41.9 Anxiety disorder, unspecified; Z86.73 Personal history of transient ischemic attack (TIA), and cerebral infarction without residual deficits; Z79.899 Other long term (current) drug therapy; Z88.2 Allergy status to sulfonamides; Z90.49 Acquired absence of other specified parts of digestive tract; Z98.84 Bariatric surgery status; Z91.048 Other nonmedicinal substance allergy status; X58.XXXA Exposure to other specified factors, initial encounter; Y92.009 Unspecified place in unspecified non-institutional (private) residence as the place of occurrence of the external cause
CPT/HCPCS: 99283; 96372; J2270

== ENCOUNTER 2023-06-17 11:19 | Observation (INO) | payer MEDICARE, OTHER ==
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
[2023-06-17 13:15] LABS: Basophils % (A) 0 %; Eosinophils # (A) 0.3 k/uL (0-0.7); Eosinophils % (A) 8 %; HGB 13.1 gm/dL (11.4-16.0); Lymphocytes % (A) 23 %; MCH 31.6 pg (25.0-35.0); MCHC 33.5 g/dL (31.0-37.0); MCV 94.2 fL (80.0-100.0); Mean Platelet Volume 7.1; Monocytes # (A) 0.3 k/uL (0-1.0); Monocytes % (A) 7 %; Neutrophils # (A) 2.5 k/uL (1.3-7.7); Neutrophils % (A) 59 %; Platelet Count 257 k/uL (150-450); RBC 4.14 m/uL (3.80-5.40); RDW 13.1 % (11.5-15.5); WBC 4.3 k/uL (3.8-10.6)
[2023-06-17 13:24] LABS: ALT 46 U/L (4-34); AST 49 U/L (14-36); African American GFR (CKD) >90 (>60 ml/min/1.73 sqM); Albumin 4.4 g/dL (3.5-5.0); Alkaline Phosphatase 151 U/L (38-126); Anion Gap 9 mmol/L; Blood Urea Nitrogen 15 mg/dL (7-17); Carbon Dioxide 26 mmol/L (22-30); Chloride 101 mmol/L (98-107); Glucose 88 mg/dL (74-99); Magnesium 1.9 mg/dL (1.6-2.3); Non-African American GFR(CKD) >90 (>60 ml/min/1.73 sqM); Potassium 4.2 mmol/L (3.5-5.1); Sodium 136 mmol/L (137-145); Total Bilirubin 0.4 mg/dL (0.2-1.3); Total Protein 7.4 g/dL (6.3-8.2)
--- NOTE | 2023-06-17 13:57 | XR ---
EXAMINATION TYPE: XR chest 2V DATE OF EXAM: 06/17/2023 COMPARISON: 03/01/2023 TECHNIQUE: PA and lateral views submitted. HISTORY: Shortness of breath FINDINGS: The lungs are clear and there is no pneumothorax, pleural effusion, or focal pneumonia. Heart size normal and no overt failure. Post surgical change vertebral column. There is limited inspiration. Delfina vated right hemidiaphragm. Hypertrophic and degenerative change of the spine. IMPRESSION: 1. No acute process.
[2023-06-17] MEDS ORDERED: NITROGLYCERIN SL TABS 0.4 MG TAB SUBLINGUAL PRN (14:14)
[2023-06-17] MEDS ORDERED: oxyCODONE-APAP 10-325MG 1 EACH TAB PO PRN (14:53)
[2023-06-17] MEDS: PRIMIDONE 50 MG TAB PO SCH ×2 (16:58→21:05)
[2023-06-17] MEDS: oxyBUTYnin chloride 5 MG TAB PO SCH ×2 (16:58→21:05)
[2023-06-17] MEDS: NITROGLYCERIN OINT 1 INCH/GM PACKET TOPICAL SCH ×2 (18:41→23:14)
[2023-06-17] MEDS: MELATONIN 3 MG TABLET PO SCH (21:05)
[2023-06-17] MEDS: ATORVASTATIN 40 MG TAB PO SCH (21:06)
[2023-06-17] MEDS: QUEtiapine 25 MG TAB PO SCH (21:06)
[2023-06-17] MEDS: DULoxetine HCL 60 MG CAPSULE.DR PO SCH (21:07)
[2023-06-18] MEDS: PREGABALIN 75 MG CAP PO SCH ×2 (04:01→14:49)
[2023-06-18] MEDS: ALPRAZolam 1 MG TAB PO PRN ×2 (04:01→16:49)
[2023-06-18] MEDS: NITROGLYCERIN OINT 1 INCH/GM PACKET TOPICAL SCH ×4 (06:34→23:19)
[2023-06-18] MEDS: PANTOPRAZOLE 40 MG TABLET PO SCH (06:34)
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
[2023-06-18] MEDS: METOPROLOL SUCCINATE (ER) 25 MG TAB.ER.24H PO SCH (10:19)
[2023-06-18] MEDS: DULoxetine HCL 60 MG CAPSULE.DR PO SCH ×2 (10:19→20:15)
[2023-06-18] MEDS: LOSARTAN 25 MG TAB PO SCH (10:19)
[2023-06-18] MEDS: hydroCHLOROthiazide 25 MG TAB PO SCH (10:19)
[2023-06-18] MEDS: ASPIRIN 325 MG TAB PO SCH (10:19)
[2023-06-18] MEDS: CLOPIDOGREL 75 MG TAB PO SCH (10:19)
[2023-06-18] MEDS: oxyBUTYnin chloride 5 MG TAB PO SCH ×3 (10:19→20:16)
[2023-06-18 11:03] LABS: Chol/HDL Ratio 1.87 Ratio; LDL Cholesterol,Calculated 64.6 mg/dL (0.0-131.0); VLDL Calculation 11.78 mg/dL (5.00-40.00)
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
[2023-06-18] MEDS: PRIMIDONE 50 MG TAB PO SCH ×3 (14:48→20:16)
[2023-06-18 18:17] LABS: African American GFR (CKD) >90 (>60 ml/min/1.73 sqM); Anion Gap 7 mmol/L; Blood Urea Nitrogen 15 mg/dL (7-17); Calcium 8.2 mg/dL (8.4-10.2); Carbon Dioxide 23 mmol/L (22-30); Chloride 104 mmol/L (98-107); Glucose 86 mg/dL (74-99); Non-African American GFR(CKD) >90 (>60 ml/min/1.73 sqM); Potassium 4.1 mmol/L (3.5-5.1); Sodium 134 mmol/L (137-145)
--- NOTE | 2023-06-18 18:36 | P.PN ---
Subjective Progress Note Date: 06/18/23 68-year-old female presents emergency Department complaining shortness of breath. Patient states she also has been experiencing some chest heaviness. Patient denies any radiation of pain. Patient states she has had an increased cough but no fever no sputum production. Patient states she's had no diaph oretic episode patient denies any nausea vomiting. Patient denies any lightheadedness or dizziness. She is experiencing intermittent episodes of chest pressure/pain radiating to her right arm. No radiation to the neck or shoulders or back. Also she has been experiencing increasing in the shortness of breath and upper and lower extremity is edema. No dizziness or lightheadedness and no feeling of heart racing or fluttering and no presyncope or syncope -- workup including chest x-ray showed no acute abnormalities and EKG showed sinus mechanism was low voltage QRS and no ischemic ST or T-wave abnormalities. The rest of the blood work came in to be unremarkable. Objective - Vital Signs Vital signs: Vital Signs Temp 98.0 F 06/18/23 07:00 Pulse 74 06/18/23 07:00 Resp 16 06/18/23 07:00 BP 102/67 06/18/23 07:00 Pulse Ox 96 06/18/23 07:00 FiO2 Intake & Output 06/17/23 06/18/23 06/18/23 18:59 06:59 18:59 Intake Total 500 Balance 500 Weight 68.946 kg Intake: Oral 500 Other: # Voids 5 - Exam Patient is well-developed and well-nourished. Patient is nontoxic and well- hydrated and is in mild distress. ENT: Neck is soft and supple. No significant lymphadenopathy is noted. Oropharynx is clear. Moist mucous membranes. Neck has full range of motion without eliciting any pain. EYES: The sclera were anicteric and conjunctiva were pink and moist. Extraocular movements were intact and pupils were equal round and reactive to light. Eyelids were unremarkable. PULMONARY: Unlabored respirations. Good breath sounds bilaterally. No audible rales rhonchi or wheezing was noted. CARDIOVASCULAR: There is a regular rate and rhythm without any murmurs gallops or rubs. ABDOMEN: Soft and nontender with normal bowel sounds. SKIN: Skin is clear with no lesions or rashes and otherwise unremarkable. NEUROLOGIC: Patient is alert and oriented x3. Cranial nerves II through XII are grossly intact. Motor and sensory are also intact. Normal speech, volume and content. Symmetrical smile. MUSCULOSKELETAL: Normal extremities with adequate strength and full range of motion. LYMPHATICS: No significant lymphadenopathy is noted PSYCHIATRIC: Normal psychiatric evaluation. - Labs CBC & Chem 7: 06/17/23 13:00 06/18/23 17:33 Labs: Abnormal Lab Results - Last 24 Hours (Table) 06/17/23 06/17/23 06/17/23 Range/Units 13:00 13:00 13:00 Sodium 136 L (137-145) mmol/L Plasma Lactic Acid Sadi 0.5 L (0.7-2.0) mmol/L AST 49 H (14-36) U/L ALT 46 H (4-34) U/L Alkaline Phosphatase 151 H (38-126) U/L HDL Cholesterol 87.60 H (40.00-60.00) mg/dL Assessment and Plan Assessment: 1. Chest pain rule out acute coronary syndrome - Patient is admitted to cardiac telemetry; monitor EKG and trend troponin - Patient is currently chest pain-free - 2-D echo was ordered - Cardiology is consulted for further recommendations; appreciate input 2. Shortness of breath with exertion and bilateral lower extremity edema/ possible CHF - Patient had cardiac workup done in 2021 and was found to have cardiomyopathy - 2-D echo has been ordered to evaluate left ventricular function - Patient has been placed on diuretic therapy - We will monitor strict AYESHA's, daily weights, and low-salt and fluid restricted diet - Cardiology on board and further recommendations after echocardiogram is completed 3. Hypertension; losartan 12.5 mg daily, Hydrea Diuril 25 mg daily, metoprolol 25 mg daily 4. Hyperlipidemia; Lipitor 40 mg by mouth daily at bedtime 5. History of CVA; patient remains on aspirin and Plavix along with statin therapy 6. Chronic back pain/neuropathy; we will continue with home dose of oxycodone and Lyrica DVT prophylaxis; SCDs CODE STATUS; full code
[2023-06-18] MEDS: MELATONIN 3 MG TABLET PO SCH (20:16)
[2023-06-18] MEDS: ATORVASTATIN 40 MG TAB PO SCH (20:16)
[2023-06-18] MEDS: QUEtiapine 25 MG TAB PO SCH (20:16)
[2023-06-19] MEDS: NITROGLYCERIN OINT 1 INCH/GM PACKET TOPICAL SCH ×2 (05:49→11:27)
[2023-06-19] MEDS: PANTOPRAZOLE 40 MG TABLET PO SCH (06:01)
[2023-06-19] MEDS: PREGABALIN 75 MG CAP PO SCH ×2 (06:01→11:27)
[2023-06-19 07:59] VITALS: BP 120/65; PULSE 62; RESP 16; TEMP 98.1
[2023-06-19] MEDS: PRIMIDONE 50 MG TAB PO SCH (08:28)
[2023-06-19] MEDS: hydroCHLOROthiazide 25 MG TAB PO SCH (08:28)
[2023-06-19] MEDS: oxyBUTYnin chloride 5 MG TAB PO SCH (08:28)
[2023-06-19] MEDS: ASPIRIN 325 MG TAB PO SCH (08:29)
[2023-06-19] MEDS: DULoxetine HCL 60 MG CAPSULE.DR PO SCH (08:29)
[2023-06-19] MEDS: CLOPIDOGREL 75 MG TAB PO SCH (08:29)
[2023-06-19] MEDS: METOPROLOL SUCCINATE (ER) 25 MG TAB.ER.24H PO SCH (08:29)
[2023-06-19] MEDS: LOSARTAN 25 MG TAB PO SCH (08:29)
[2023-06-19] MEDS ORDERED: FUROSEMIDE 40 MG TAB PO SCH (09:00)
[2023-06-19 09:53] LABS: Basophils % (A) 1 %; Eosinophils # (A) 0.4 k/uL (0-0.7); Eosinophils % (A) 9 %; HCT 40.6 % (34.0-46.0); HGB 13.2 gm/dL (11.4-16.0); Lymphocytes # (A) 0.9 k/uL (1.0-4.8); Lymphocytes % (A) 24 %; MCH 30.9 pg (25.0-35.0); MCHC 32.6 g/dL (31.0-37.0); MCV 94.8 fL (80.0-100.0); Mean Platelet Volume 8.3; Monocytes # (A) 0.3 k/uL (0-1.0); Monocytes % (A) 7 %; Neutrophils # (A) 2.1 k/uL (1.3-7.7); Neutrophils % (A) 56 %; Platelet Count 256 k/uL (150-450); RBC 4.28 m/uL (3.80-5.40); RDW 13.1 % (11.5-15.5); WBC 3.8 k/uL (3.8-10.6)
[2023-06-19 10:29] LABS: African American GFR (CKD) >90 (>60 ml/min/1.73 sqM); Anion Gap 7 mmol/L; Blood Urea Nitrogen 15 mg/dL (7-17); Calcium 8.4 mg/dL (8.4-10.2); Carbon Dioxide 26 mmol/L (22-30); Chloride 99 mmol/L (98-107); Glucose 87 mg/dL (74-99); Non-African American GFR(CKD) >90 (>60 ml/min/1.73 sqM); Potassium 4.2 mmol/L (3.5-5.1); Sodium 132 mmol/L (137-145)
[2023-06-19] MEDS: ALPRAZolam 1 MG TAB PO PRN (11:27)
--- NOTE | 2023-06-19 11:34 | P.PN ---
Subjective Progress Note Date: 06/19/23 Principal diagnosis: CP This is a 68-year-old female patient was dissected [facility] with hypertension and dyslipidemia and history of cardiomyopathy of unknown etiology and history of stroke. The patient presented to the hospital complaining of chest discomfort and shortness of breath. The symptoms started about 3 days ago. She is experiencing intermittent episodes of chest pressure/pain radiating to her right arm. No radiation to the neck or shoulders or back. Also she has been experiencing increasing in the shortness of breath and upper and lower extremity is edema. No dizziness or lightheadedness and no feeling of heart racing or fluttering and no presyncope or syncope she underwent further workup including chest x-ray showed no acute abnormalities and EKG showed sinus mechanism was low voltage QRS and no ischemic ST or T-wave abnormalities. The rest of the blood work came in to be unremarkable. The patient was seen by our service back in 2021 when she was admitted with chest discomfort and she was found to have cardiomyopathy. At that point a heart catheterization was not performed for further evaluation because she was diagnosed with stroke. She does not recall having any heart catheterization. No recent cardiovascular testing according to her. On exam she has upper and lower extremity edema noted with diminished breathing sounds bilaterally and regular rate and rhythm 06/19/2023 The patient was seen and evaluated this morning. She is feeling better. No chest pain and no shortness of breath today. She has been experiencing intermittent episodes of "flutter in the chest" that she has been maintaining normal sinus mechanism. The echo still pending. She would like to go home. The examination is remarkable for stable vital signs with regular rhythm and systolic murmur at the right upper sternal border and clear breathing sounds peter aterally and no lower extremity is edema noted Assessment Intermittent episodes of chest discomfort Shortness of breath with exertion and bilateral lower extremity is edema Hypertension Dyslipidemia History of stroke Plan Obtain an echo to assess the current status of the ejection fraction Consider coronary angiogram if the echo continues to show evidence of cardiomyopathy Continue oral diuretics The patient would like to go home. Objective - Vital Signs Vital signs: Vital Signs Temp 98.1 F 06/19/23 07:00 Pulse 62 06/19/23 07:00 Resp 16 06/19/23 07:00 BP 120/65 06/19/23 07:00 Pulse Ox 100 06/19/23 09:07 FiO2 Intake & Output 06/18/23 06/19/23 06/19/23 18:59 06:59 18:59 Intake Total 1033 Balance 1033 Intake: Oral 1033 Other: # Voids 2 1 # Bowel Movements 3 - Labs CBC & Chem 7: 06/19/23 07:40 06/19/23 07:40 Labs: Abnormal Lab Results - Last 24 Hours (Table) 06/18/23 06/19/23 06/19/23 Range/Units 17:33 07:40 07:40 Lymphocytes # 0.9 L (1.0-4.8) k/uL Sodium 134 L 132 L (137-145) mmol/L Calcium 8.2 L (8.4-10.2) mg/dL
--- NOTE | 2023-06-19 13:52 | CA ---
Transthoracic Echo Report Name: Alana Viramontes Age: 68 Gender: F : 1955 Exam Date: 06/18/2023 11:01 Exam Location: [facility] Ht (in): 62 Wt (lb): 152 Ordering Physician: Denver Carrasco MD ([id number]) Attending/Referring Phys: [place] Machine Operator Norma Cleaning RDCS Procedure CPT: Indications: SOB CHEST PAIN Cardiac Hx: Technical Quality: Good Contrast 1: Total Dose (mL): Contrast 2: Total Dose (mL): MEASUREMENTS (Male / Female) Normal Values 2D ECHO LV Diastolic Diameter PLAX 5.3 cm 4.2 - 5.9 / 3.9 - 5.3 cm LV Systolic Diameter PLAX 3.7 cm IVS Diastolic Thickness 0.8 cm 0.6 - 1.0 / 0.6 - 0.9 cm LVPW Diastolic Thickness 0.8 cm 0.6 - 1.0 / 0.6 - 0.9 cm LV Relative Wall Thickness 0.3 RV Internal Dim ED PLAX 3.3 cm LA Systolic Diameter LX 4.1 cm 3.0 - 4.0 / 2.7 - 3.8 cm LV Diastolic Volume MOD BP 70.6 cm??? 67 - 155 / 56 - 104 cm??? LV Systolic Volume MOD BP 25.8 cm??? - / 19 - 49 cm??? LV Ejection Fraction MOD BP 63.5 % >= 55 % LV Cardiac Index MOD BP 2144.5 cm???/min???m??? LV Diastolic Volume MOD 4C 60.1 cm??? LV Systolic Volume MOD 4C 25.2 cm??? LV Ejection Fraction MOD 4C 58.1 % LV Cardiac Index MOD 4C 1670.1 cm???/min???m??? LV Diastolic Length 4C 6.3 cm LV Systolic Length 4C 5.3 cm LV Diastolic Volume MOD 2C 77.6 cm??? LV Systolic Volume MOD 2C 26.4 cm??? LV Ejection Fraction MOD 2C 66.0 % LV Cardiac Index MOD 2C 2448.9 cm???/min???m??? LV Diastolic Length 2C 6.8 cm LV Systolic Length 2C 5.6 cm LA Volume 63.2 cm??? 18 - 58 / 22 - 52 cm??? M-MODE Aortic Root Diameter MM 2.6 cm MV E Point Septal Separation 0.4 cm AV Cusp Separation MM 2.0 cm DOPPLER AV Peak Velocity 154.2 cm/s AV Peak Gradient 9.5 mmHg MV Area PHT 4.4 cm??? Mitral E Point Velocity 84.9 cm/s Mitral A Point Velocity 110.0 cm/s Mitral E to A Ratio 0.8 MV Deceleration Time 171.8 ms MV E' Velocity 7.4 cm/s Mitral E to MV E' Ratio 11.5 TR Peak Velocity 262.1 cm/s TR Peak Gradient 27.5 mmHg Right Ventricular Systolic Press 31.6 mmHg FINDINGS Left Ventricle Left ventricular ejection fraction is estimated at 55-60 %. Left ventricular cavity size normal. Left ventricular wall thickness normal. Right Ventricle Mild right ventricular dilatation. Right ventricular systolic pressure within normal limits. Right Atrium Normal right atrial size. Left Atrium Mildly increased left atrial diameter. Moderately increased left atrial volume. Mildly increased left atrial area. Mitral Valve Structurally normal mitral valve. Mild to moderate mitral regurgitation. Aortic Valve Trileaflet aortic valve. No aortic valve stenosis or regurgitation. Tricuspid Valve Structurally normal tricuspid valve. Mild tricuspid regurgitation. Pulmonic Valve Structurally normal pulmonic valve. Trace to mild pulmonic regurgitation. Pericardium No pericardial effusion. Aorta Normal size aortic root and proximal ascending aorta. CONCLUSIONS Normal LV systolic function Mild biatrial enlargement [id number] mitral regurgitation Previewed by: Dr. Denver Carrasco MD (Electronically Signed) Final Date: 19 June 2023 13:51
== END 2023-06-19 14:05 | disposition home or self-care (01) ==
LOC: EC 11:19 → 6NMEDSUR 14:19
PROVIDERS: ADMIT Hospitalist; ATTEND Hospitalist
DX: R07.89 Other chest pain (principal); R06.02 Shortness of breath; R60.0 Localized edema; I42.9 Cardiomyopathy, unspecified; I10 Essential (primary) hypertension; I34.0 Nonrheumatic mitral (valve) insufficiency; R05.9 Cough, unspecified; K21.9 Gastro-esophageal reflux disease without esophagitis; E78.5 Hyperlipidemia, unspecified; M19.90 Unspecified osteoarthritis, unspecified site; G89.29 Other chronic pain; M54.9 Dorsalgia, unspecified; G62.9 Polyneuropathy, unspecified; K44.9 Diaphragmatic hernia without obstruction or gangrene; F31.9 Bipolar disorder, unspecified; F41.0 Panic disorder [episodic paroxysmal anxiety]; Z20.822 Contact with and (suspected) exposure to COVID-19; Z90.710 Acquired absence of both cervix and uterus; Z79.82 Long term (current) use of aspirin; Z79.02 Long term (current) use of antithrombotics/antiplatelets; Z79.899 Other long term (current) drug therapy; Z88.2 Allergy status to sulfonamides; Z91.048 Other nonmedicinal substance allergy status; Z86.73 Personal history of transient ischemic attack (TIA), and cerebral infarction without residual deficits; Z91.81 History of falling; Z87.820 Personal history of traumatic brain injury; Z90.49 Acquired absence of other specified parts of digestive tract; Z98.84 Bariatric surgery status; Z98.1 Arthrodesis status; Z98.890 Other specified postprocedural states; Z98.49 Cataract extraction status, unspecified eye; Z82.49 Family history of ischemic heart disease and other diseases of the circulatory system; Z80.0 Family history of malignant neoplasm of digestive organs
CPT/HCPCS: 99285; 36415; 94760; 93005; 93306; 80061; 80053; 80048 ×2; 83605; 83735; 84484; 85025 ×2; 87636; 71046; G0378 ×3

== ENCOUNTER 2023-07-16 18:04 | Emergency (ER) | payer MEDICARE, OTHER ==
[2023-07-16 18:26] VITALS: TEMP 98.6
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
[2023-07-16 19:54] LABS: Basophils # (A) 0.1 k/uL (0-0.2); Basophils % (A) 1 %; Eosinophils # (A) 0.2 k/uL (0-0.7); Eosinophils % (A) 3 %; HCT 41.9 % (34.0-46.0); HGB 13.9 gm/dL (11.4-16.0); Lymphocytes # (A) 1.6 k/uL (1.0-4.8); Lymphocytes % (A) 22 %; MCH 30.6 pg (25.0-35.0); MCHC 33.3 g/dL (31.0-37.0); MCV 91.9 fL (80.0-100.0); Mean Platelet Volume 6.9; Monocytes # (A) 0.5 k/uL (0-1.0); Monocytes % (A) 7 %; Neutrophils # (A) 4.8 k/uL (1.3-7.7); Neutrophils % (A) 65 %; Platelet Count 373 k/uL (150-450); RBC 4.56 m/uL (3.80-5.40); RDW 12.8 % (11.5-15.5); WBC 7.3 k/uL (3.8-10.6)
[2023-07-16 20:03] LABS: ALT 58 U/L (4-34); AST 56 U/L (14-36); African American GFR (CKD) 88 (>60 ml/min/1.73 sqM); Albumin 4.2 g/dL (3.5-5.0); Alcohol <10 mg/dL; Alkaline Phosphatase 153 U/L (38-126); Anion Gap 12 mmol/L; Blood Urea Nitrogen 40 mg/dL (7-17); Calcium 9.4 mg/dL (8.4-10.2); Carbon Dioxide 29 mmol/L (22-30); Chloride 92 mmol/L (98-107); Glucose 93 mg/dL (74-99); Non-African American GFR(CKD) 76 (>60 ml/min/1.73 sqM); Potassium 3.1 mmol/L (3.5-5.1); Sodium 133 mmol/L (137-145); Total Bilirubin 0.3 mg/dL (0.2-1.3); Total Protein 7.3 g/dL (6.3-8.2)
[2023-07-16 20:19] LABS: T4, Free (Free Thyroxine) 0.75 ng/dL (0.78-2.19)
[2023-07-16 20:21] LABS: INR 0.9 (<1.2); Partial Thromboplastin Time 24.7 sec (22.0-30.0); Prothrombin Time 9.4 sec (9.0-12.0)
[2023-07-16] MEDS ORDERED: POTASSIUM CHLORIDE ER 20 MEQ TAB.ER PO STA (20:21)
[2023-07-16 21:03] LABS: Appearance,Urine Clear (Clear); Bilirubin,Urine Negative (Negative); Blood,Urine Negative (Negative); Color,Urine Light Yellow; Glucose,Urine (UA) Negative (Negative); Hyaline Casts,Urine 16 /lpf (0-2); Ketones,Urine Negative (Negative); Leukocyte Esterase,Urine Trace (Negative); Nitrite,Urine Negative (Negative); PH, Urine 5.5 (5.0-8.0); Protein,Urine Negative (Negative); Specific Gravity,Urine 1.011 (1.001-1.035); Squamous Epithelial Cell,Urine 1 /hpf (0-4); Urobilinogen,Urine <2.0 mg/dL (<2.0); WBC,Urine 4 /hpf (0-5)
[2023-07-16 21:17] LABS: Amphetamine Screen,Urine Not Detected (NotDetected); Barbiturate Screen,Urine Detected (NotDetected); Benzodiazepines Screen,Urine Not Detected (NotDetected); Cocaine Screen,Urine Not Detected (NotDetected); Methadone Screen, Urine Not Detected (NotDetected); Opiate Screen,Urine Not Detected (NotDetected); Oxycodone Screen, Urine Detected (NotDetected); Phencyclidine Screen,Urine Not Detected (NotDetected); Tricyclic Antidepressant,Urine Detected (NotDetected); Urn Cannabinoid Scrn Not Detected (NotDetected)
[2023-07-16 22:25] VITALS: BP 128/78; PULSE 101; RESP 18
== END 2023-07-16 22:37 | disposition home or self-care (01) ==
LOC: EC 18:04
DX: E87.6 Hypokalemia (principal); R25.1 Tremor, unspecified; R42 Dizziness and giddiness; K21.9 Gastro-esophageal reflux disease without esophagitis; E78.5 Hyperlipidemia, unspecified; M19.90 Unspecified osteoarthritis, unspecified site; F41.9 Anxiety disorder, unspecified; F31.9 Bipolar disorder, unspecified; Z86.73 Personal history of transient ischemic attack (TIA), and cerebral infarction without residual deficits; Z88.2 Allergy status to sulfonamides; Z88.8 Allergy status to other drugs, medicaments and biological substances; Z79.899 Other long term (current) drug therapy
CPT/HCPCS: 36415; 93005; 84439; 80053; 84443; 84484; 85025; 85610; 85730; 81001; 80306; 99284; G0480; 80320

== ENCOUNTER 2023-12-17 15:18 | Emergency (ER) | payer MEDICARE, OTHER ==
[2023-12-17 15:37] VITALS: RESP 18
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
[2023-12-17] MEDS: dexAMETHasone 2 MG TAB PO STA (17:59)
[2023-12-17] MEDS: traMADol 50 MG STARTER PACK 3 TAB BTL PO STA (17:59)
[2023-12-17] MEDS: HYDROmorphone 1 MG/ML 1 ML SYRINGE IM STA (18:00)
[2023-12-17] MEDS: IBUPROFEN 600 MG STARTER PACK 4 TAB BTL PO STA (18:00)
[2023-12-17] MEDS: CYCLOBENZAPRINE 10MG STARTER 3 TAB BTL PO STA (18:00)
[2023-12-17] MEDS: LIDOCAINE 4% PATCH TOPICAL STA (18:00)
[2023-12-17] MEDS: ETODOLAC 400 MG TAB PO STA (18:07)
[2023-12-17 19:14] VITALS: BP 127/68; PULSE 67; TEMP 98.1
== END 2023-12-17 18:59 | disposition home or self-care (01) ==
LOC: EC 15:18
DX: M54.9 Dorsalgia, unspecified (principal); K21.9 Gastro-esophageal reflux disease without esophagitis; E78.5 Hyperlipidemia, unspecified; I10 Essential (primary) hypertension; F41.9 Anxiety disorder, unspecified; F31.9 Bipolar disorder, unspecified; M19.90 Unspecified osteoarthritis, unspecified site; Z79.899 Other long term (current) drug therapy; Z88.2 Allergy status to sulfonamides; Z91.09 Other allergy status, other than to drugs and biological substances; Z88.8 Allergy status to other drugs, medicaments and biological substances; Z79.1 Long term (current) use of non-steroidal anti-inflammatories (NSAID); Z88.1 Allergy status to other antibiotic agents
CPT/HCPCS: 99284; 96372; J1170; J8540

== ENCOUNTER → 2024-02-08 | Outpatient (CLI) | payer MEDICARE, OTHER ==
--- NOTE | 2024-02-08 14:35 | BD ---
EXAMINATION TYPE: Axial Bone Density DATE OF EXAM: 02/08/2024 CLINICAL HISTORY: 68 years old Female. ICD-10 CODE: M81.0 KNOWN OSTEOPOROSIS Height: 59.7 in Weight: 148 lbs FRAX RISK QUESTIONS: Family History (Parent hip fracture): yes father Secondary Osteoporosis: 3. Menopause before 45: total hysterectomy age 40 RISK FACTORS HISTORY OF: Surgery to Spine: 3 surgeries on lumbar spine since 2008 MEDICATIONS: Osteoporosis Medications: yes Which medication: Prolia How Lon years EXAM MEASUREMENTS: Bone mineral densitometry was performed using the CXOWARE System. pt has had 3 l-spine surgeries since 2008 Bone mineral density about the R hip (g/cm2): 0.709 Bone mineral density about the L hip (g/cm2): 0.673 T Score values are as follows: -----R Neck: -1.9 -----L Neck: -2.8 -----R Total: -2.4 -----L Total: -2.7 Z Score values are as follows: -----R Neck: -0.4 -----L Neck: -1.3 -----R Total: -1.1 -----L Total: -1.1 Bone mineral density has: Increased 1.3% since study of: 05/20/2021 Bone mineral density about the L Wrist (g/cm2): 0.449 T Score values are as follows: -----Dist. R+U: -4.1 -----Prox. R+U: -2.9 -----Radius total: -3.7 Z Score values are as follows: -----Dist. R+U: -2.6 -----Prox. R+U: -1.4 -----Radius total: -2.2 Bone mineral density has: Increased 22.0% since study of: 05/20/2021 FRAX%s: The graph provided illustrates a 46.9% chance for a major osteoporotic fx and a 13.9% chance for the hips probability for fx in 10 years time. IMPRESSION: Osteoporosis (T Score less than -2.5). There is increased fracture risk and therapy is usually indicated based on age. Re-Screen 1-2 years. NOTE: T-SCORE=SD OF THE YOUNG ADULT MEAN.
--- NOTE | 2024-02-09 09:08 | MM ---
Reason for Exam: Screening (asymptomatic). Last mammogram was performed 3 year(s) and 1 month(s) ago. Patient History: Menarche at age 14. First Full-Term at age 25. Left ovary removed at age 45. Right ovary removed at age 45. Hysterectomy at age 41. Postmenopausal. Patient has history of breast feeding. Core Biopsy on the Left side. Maternal aunt had breast cancer. Sister had breast cancer, age 58. Risk Values: Erma 5 year model risk: 3.8%. Prior Study Comparison: 01/12/2017 Screening Mammogram, Unknown. 01/19/2017 Screening Mammogram, Unknown. 02/05/2019 Bilateral Screening Mammogram, [facility]. 01/14/2021 Bilateral Screening Mammogram, [facility]. Tissue Density: There are scattered areas of fibroglandular density. Findings: Analyzed By CAD. There is no suspicious group of microcalcifications or new suspicious mass in either breast. Benign-appearing calcifications. Overall Assessment: Benign, BI-RAD 2 Management: Screening Mammogram of both breasts in 1 year. . Patient should continue monthly self-breast exams. A clinical breast exam by your physician is recommended on an annual basis. This exam should not preclude additional follow-up of suspicious palpable abnormalities. Note on Erma scores and lifetime risk: 1. A Erma score greater than 3% is considered moderate risk. If this is the case, consider specialist referral to assess eligibility for a risk reducing agent. 2. If overall lifetime risk for the development of breast cancer is 20% or higher, the patient may qualify for future screening with alternating mammogram and breast MRI. Electronically signed and approved by: Lenny Crawford M.D. Radiologis
== END | disposition home or self-care (01) ==
LOC: RADBDWWP 10:58
PROVIDERS: ATTEND Family Medicine
DX: Z12.31 Encounter for screening mammogram for malignant neoplasm of breast (principal); Z78.0 Asymptomatic menopausal state; Z80.3 Family history of malignant neoplasm of breast
CPT/HCPCS: 77063; 77067; 77080

== ENCOUNTER 2024-02-14 09:51 | Observation (INO) | payer MEDICARE, OTHER ==
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
[2024-02-14] MEDS: SODIUM CHLORIDE 0.9% 1,000 ML IV STA (10:57)
[2024-02-14] MEDS: METOCLOPRAMIDE 5 MG/ML 2 ML VIAL IVP STA (10:57)
[2024-02-14 11:20] LABS: Basophils % (A) 1 %; Eosinophils # (A) 0.1 k/uL (0-0.7); Eosinophils % (A) 2 %; HGB 14.2 gm/dL (11.4-16.0); Lymphocytes # (A) 1.2 k/uL (1.0-4.8); Lymphocytes % (A) 26 %; MCH 30.3 pg (25.0-35.0); MCHC 33.1 g/dL (31.0-37.0); MCV 91.5 fL (80.0-100.0); Monocytes # (A) 0.5 k/uL (0-1.0); Monocytes % (A) 10 %; Neutrophils # (A) 2.7 k/uL (1.3-7.7); Neutrophils % (A) 58 %; Platelet Count 444 k/uL (150-450); RDW 12.7 % (11.5-15.5); WBC 4.7 k/uL (3.8-10.6)
[2024-02-14 11:37] LABS: ALT 31 U/L (4-34); AST 40 U/L (14-36); African American GFR (CKD) 86 (>60 ml/min/1.73 sqM); Albumin 4.6 g/dL (3.5-5.0); Alkaline Phosphatase 165 U/L (38-126); Amylase 59 U/L (30-110); Anion Gap 9 mmol/L; Blood Urea Nitrogen 20 mg/dL (7-17); Calcium 8.9 mg/dL (8.4-10.2); Carbon Dioxide 36 mmol/L (22-30); Chloride 90 mmol/L (98-107); Glucose 108 mg/dL (74-99); Lipase 93 U/L (23-300); Non-African American GFR(CKD) 74 (>60 ml/min/1.73 sqM); Sodium 135 mmol/L (137-145); Total Bilirubin 0.5 mg/dL (0.2-1.3); Total Protein 7.7 g/dL (6.3-8.2)
[2024-02-14 12:01] LABS: Potassium 2.5 mmol/L (3.5-5.1)
[2024-02-14 12:09] LABS: Appearance,Urine Cloudy (Clear); Bilirubin,Urine Negative (Negative); Blood,Urine Negative (Negative); Color,Urine Yellow; Glucose,Urine (UA) Negative (Negative); Hyaline Casts,Urine 20 /lpf (0-2); Ketones,Urine Negative (Negative); Leukocyte Esterase,Urine Large (Negative); Mucus,Urine Rare /hpf; Nitrite,Urine Negative (Negative); Protein,Urine Trace (Negative); RBC,Urine 5 /hpf (0-5); Specific Gravity,Urine 1.023 (1.001-1.035); Squamous Epithelial Cell,Urine 11 /hpf (0-4); Urobilinogen,Urine <2.0 mg/dL (<2.0); WBC,Urine 22 /hpf (0-5)
[2024-02-14] MEDS ORDERED: Potassium Replacement Protocol 1 EACH MISC MISCELLANE PRN (12:50)
[2024-02-14] MEDS: POTASSIUM CHLORIDE ER 20 MEQ TAB.ER PO ONE (14:29)
[2024-02-14] MEDS: POTASSIUM CHLORIDE 10 MEQ in WATER FOR INJECTION 1 100ML.BAG IVPB SCH (14:30)
--- NOTE | 2024-02-14 15:15 | CT ---
EXAMINATION TYPE: CT abdomen pelvis wo con DATE OF EXAM: 02/14/2024 COMPARISON: None INDICATION: LT side abdominal pain DLP: 640.7 mGycm, Automated exposure control for dose reduction was used. CONTRAST: 0 mL of Isovue 300. Study performed without Oral Contrast TECHNIQUE: Axial images were obtained from above the diaphragm to the pubic rami in the axial plane a t 5 mm thick sections. Reconstructed images are reviewed on the computer in the coronal plane. FINDINGS: Limited CT sections are obtained the lung bases. The lung bases are clear. CT ABDOMEN: There is limitation due to beam hardening artifact from prior back surgery. Liver: Normal Spleen: Normal Pancreas: Normal Adrenal glands: The adrenal glands are normal. Gallbladder: Surgically absent Kidneys: No masses are evident. No hydronephrosis is present. No cysts are present. No renal stone s are identified. Aorta: Vascular calcification is within the aorta. Inferior vena cava: Normal. CT PELVIS: There is prior surgery to bowel loops in the left abdomen. No definite obstruction. Some mild small b owel prominence may be present. Colon appears patent. The study is without oral contrast limiting bow el evaluation. Appendix: Normal as visualized. Urinary bladder: Normal. Genitourinary structures: Prostate is prominent Osseous structures: No suspicious lytic or sclerotic lesions. IMPRESSION: 1. Postsurgical changes with minimal prominence of left abdominal bowel loops. Zone of transition or obstruction is not identified.
[2024-02-14] MEDS ORDERED: ONDANSETRON 4 MG/2 ML VIAL IVP PRN (16:37)
[2024-02-14] MEDS ORDERED: NALOXONE 0.4 MG/ML 1 ML VIAL IV PRN (16:37)
[2024-02-14] MEDS ORDERED: IBUPROFEN 400 MG TAB PO PRN (16:37)
[2024-02-14] MEDS ORDERED: ACETAMINOPHEN TAB 325 MG TAB PO PRN (16:37)
[2024-02-14] MEDS: POTASSIUM CHLORIDE 20 MEQ in WATER FOR INJECTION 1 100ML.BAG IVPB SCH (18:03)
[2024-02-14] MEDS: POTASSIUM CHLORIDE ER 20 MEQ TAB.ER PO SCH (18:12)
[2024-02-15] MEDS: ZOLPIDEM 5 MG TAB PO PRN (02:27)
[2024-02-15] MEDS ORDERED: DENOSUMAB 60 MG/ML 1 ML SYRINGE SQ SCH (11:45)
[2024-02-15] MEDS: PRIMIDONE 50 MG TAB PO SCH (15:29)
[2024-02-15] MEDS: ONDANSETRON 4 MG TAB PO SCH (15:30)
[2024-02-15] MEDS: ALPRAZolam 1 MG TAB PO SCH (20:37)
[2024-02-15] MEDS: ZOLPIDEM 5 MG TAB PO SCH (20:38)
[2024-02-15] MEDS: ATORVASTATIN 80 MG TAB PO SCH (20:38)
[2024-02-15] MEDS: DULoxetine HCL 60 MG CAPSULE.DR PO SCH (20:38)
--- NOTE | 2024-02-15 22:51 | HP ---
HISTORY AND PHYSICAL CHIEF COMPLAINT: Abdominal pain and hypokalemia. HISTORY OF PRESENT ILLNESS: This lady has been having abdominal pain on and off for 6 weeks. She states it is mostly in the left upper quadrant. She has had no fever, nausea, vomiting, diarrhea, melena, hematemesis, jaundice, renal symptoms, etc. She presented to the emergency room where her potassium was 2.5, and she was admitted. She also was noted to have a UTI. REVIEW OF SYSTEMS: Otherwise unremarkable and noncontributory. She has had a gastrointestinal bypass procedure in the past. PHYSICAL EXAMINATION: VITAL SIGNS: Normal. HEAD, EARS, EYES, NOSE, MOUTH, AND THROAT: Normal. CHEST: Clear. CARDIAC: Normal. ABDOMEN: Soft and nontender. There are no masses. There is no tenderness in the left upper quadrant. Bowel sounds are present. EXTREMITIES: Normal. NEUROLOGICAL: She is intact. ASSESSMENT: She was admitted to the hospital with diagnoses of: 1. Left upper quadrant pain. 2. Hypokalemia. 3. Urinary tract infection. 4. History of Erica-en-Y bypass. PLAN: 1. Bed rest. 2. IV fluids. 3. CT scan of the abdomen. 4. Correct hypokalemia. MMODL / IJN: [id number] /
--- NOTE | 2024-02-15 23:03 | PN ---
PROGRESS NOTE DATE OF SERVICE: 02/15/2024 CHIEF COMPLAINT: Left upper quadrant abdominal pain and hypokalemia. HISTORY OF PRESENT ILLNESS: This lady is doing fairly well. She is still having some left upper quadrant pain. Her hypokalemia is being addressed. She is having no urinary complaints, fever, chills, abdominal pain, etc. PHYSICAL EXAMINATION: VITAL SIGNS: Normal. CHEST: Clear. CARDIAC: Normal. ABDOMEN: Soft, nontender. IMPRESSION: 1. Left upper quadrant abdominal pain. 2. Hypokalemia. 3. Urinary tract infection. PLAN: Continue with current management and repeat electrolytes. She can be discharged once her potassium is in the normal range. MMODL / IJN: [id number] /
[2024-02-16] MEDS: LOSARTAN 25 MG TAB PO SCH (09:08)
[2024-02-16] MEDS: ISOSORBIDE MONONITRATE ER 30 MG TAB.ER.24H PO SCH (09:08)
[2024-02-16] MEDS: CLOPIDOGREL 75 MG TAB PO SCH (09:08)
[2024-02-16] MEDS: METOPROLOL SUCCINATE (ER) 25 MG TAB.ER.24H PO SCH (09:08)
[2024-02-16] MEDS: LORATADINE 10 MG TAB PO SCH (09:08)
[2024-02-16] MEDS: FUROSEMIDE 40 MG TAB PO SCH (09:08)
[2024-02-16 11:05] LABS: African American GFR (CKD) >90 (>60 ml/min/1.73 sqM); Anion Gap 5 mmol/L; Blood Urea Nitrogen 12 mg/dL (7-17); Calcium 8.4 mg/dL (8.4-10.2); Carbon Dioxide 28 mmol/L (22-30); Chloride 105 mmol/L (98-107); Glucose 128 mg/dL (74-99); Non-African American GFR(CKD) >90 (>60 ml/min/1.73 sqM); Potassium 3.1 mmol/L (3.5-5.1); Sodium 138 mmol/L (137-145)
[2024-02-16] MEDS: POTASSIUM CHLORIDE ER 20 MEQ TAB.ER PO SCH (17:17)
[2024-02-16] MEDS ORDERED: POTASSIUM CHLORIDE ER 20 MEQ TAB.ER PO SCH (21:00)
[2024-02-16 22:35] VITALS: BP 139/80; PULSE 75; RESP 20; TEMP 98
--- NOTE | 2024-02-17 23:51 | DS ---
DISCHARGE SUMMARY CHIEF COMPLAINT: Abdominal pain and hypokalemia. HISTORY OF PRESENT ILLNESS AND PHYSICAL EXAMINATION: Details of this lady's history and physical can be found in the initial workup. LABORATORY STUDIES: While she was in the hospital, she had laboratory studies, details of which can be found in the laboratory section of her chart. COURSE IN THE HOSPITAL: After admission, she was placed on bedrest and started on intravenous fluids and potassium replacement protocol. Her abdominal pain disappeared while she was in the hospital, although she has had it on and off for a long time. She had no fever, chills, nausea, vomiting, diarrhea, etc. Potassium was corrected and she was anxious to be discharged and she will be sent home on her usual activity, diet, medication along with oral potassium. FINAL DIAGNOSES: 1. Left upper quadrant pain, etiology unknown. 2. Hypokalemia. 3. Status post gastric bypass. OPERATIONS: None. CONSULTATIONS: None. She is improved. MMMOE / YING: [id number] /
== END 2024-02-16 20:50 | disposition home or self-care (01) ==
LOC: EC 09:51 → 6NMEDSUR 16:37
PROVIDERS: ADMIT Family Medicine; ATTEND Family Medicine
DX: R10.12 Left upper quadrant pain (principal); E87.6 Hypokalemia; E87.1 Hypo-osmolality and hyponatremia; N39.0 Urinary tract infection, site not specified; E78.5 Hyperlipidemia, unspecified; K21.9 Gastro-esophageal reflux disease without esophagitis; G62.9 Polyneuropathy, unspecified; F31.9 Bipolar disorder, unspecified; F41.0 Panic disorder [episodic paroxysmal anxiety]; Z86.73 Personal history of transient ischemic attack (TIA), and cerebral infarction without residual deficits; Z98.84 Bariatric surgery status; Z79.899 Other long term (current) drug therapy; Z79.02 Long term (current) use of antithrombotics/antiplatelets; Z88.2 Allergy status to sulfonamides
CPT/HCPCS: 96366 ×2; 96361; 96365; 96375; 99285; 36415; 93005; 80053; 80048; 82150; 83605; 83690; 83735; 84132; 85025; 81001; 74176; G0378 ×3; J2765; J3480 ×2

== ENCOUNTER 2024-03-22 07:45 | Day surgery (SDC) | payer MEDICARE ==
[2024-03-21 10:39] VITALS: BMI 26.2
[2024-03-22] MEDS: LACTATED RINGERS 1,000 ML IV SCH (08:09)
[2024-03-22] MEDS ORDERED: LIDOCAINE 1% INJ 10MG/ML (20 ML MDV) ONE (08:42)
[2024-03-22] MEDS ORDERED: PROPOFOL 10 MG/ML 20 ML VIAL IV ONE (08:42)
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
--- NOTE | 2024-03-22 09:10 | P.OP ---
Description of Procedure: placed on the endoscopy table in the lateral position. She received IV sedation. The gastroscope placed oropharynx passed in the esophagus. The patient evidence of a gastric bypass. The jejunum was anastomosed just below the GE junction biopsy esophagus performed. Is soft. He minimally inflamed. The proximal esophagus appeared normal. Scope withdrawn for patient. next, digital rectal exam was performed. This revealed no abnormalities. Flexible colonoscope was then placed patient anus and passed throughout the entire colon. The ileocecal valve was visualized. The cecum, ascending and transverse colon appeared normal. the descending and sigmoid colon had diverticular changes. The scope was brought back the rectum and this appeared normal. Scope withdrawn for patient
[2024-03-22 09:14] VITALS: RESP 16; TEMP 98
--- NOTE | 2024-03-22 09:35 | P.OP ---
Date of Procedure: 03/22/24 Preoperative Diagnosis: GERD Screening colonoscopy Postoperative Diagnosis: antral gastritis diverticulosis Procedure(s) Performed: EGD Colonoscopy Anesthesia: MAC Surgeon: Shaheen Salas Pathology: other (antrum) Condition: stable Disposition: PACU Description of Procedure: placed on the endoscopy table in the lateral position. She received IV sedation. The gastroscope placed oropharynx passed in the esophagus. The patient evidence of a gastric bypass. The jejunum was anastomosed just below t he GE junction biopsy esophagus performed. Is soft. He minimally inflamed. The proximal esophagus appeared normal. Scope withdrawn for patient. next, digital rectal exam was performed. This revealed no abnormalities. Flexible colonoscope was then placed patient anus and passed throughout the entire colon. The ileocecal valve was visualized. The cecum, ascending and transverse colon appeared normal. the descending and sigmoid colon had diverticular changes. The scope was brought back the rectum and this appeared normal. Scope withdrawn for patient
[2024-03-22 10:12] VITALS: BP 119/57; PULSE 87
== END 2024-03-22 10:07 | disposition home or self-care (01) ==
LOC: ORWHC2ENDO 07:45
PROVIDERS: ATTEND Surgery
DX: Z12.11 Encounter for screening for malignant neoplasm of colon (principal); K21.9 Gastro-esophageal reflux disease without esophagitis; E78.5 Hyperlipidemia, unspecified; I10 Essential (primary) hypertension; K57.30 Diverticulosis of large intestine without perforation or abscess without bleeding; M19.90 Unspecified osteoarthritis, unspecified site; Z79.02 Long term (current) use of antithrombotics/antiplatelets; Z80.0 Family history of malignant neoplasm of digestive organs; Z86.73 Personal history of transient ischemic attack (TIA), and cerebral infarction without residual deficits; Z88.1 Allergy status to other antibiotic agents; Z88.2 Allergy status to sulfonamides; Z90.49 Acquired absence of other specified parts of digestive tract; Z90.710 Acquired absence of both cervix and uterus; Z98.84 Bariatric surgery status
CPT/HCPCS: 88305; 43239; J2001; J2704; G0121

== ENCOUNTER 2024-04-02 16:31 | Emergency (ER) | payer MEDICARE ==
[2024-04-02] MEDS: PANTOPRAZOLE 40 MG/10 ML VIAL IVP STA (17:26)
[2024-04-02] MEDS: ONDANSETRON 4 MG/2 ML VIAL IVP STA (17:26)
[2024-04-02] MEDS: MORPHINE SULFATE 4 MG/ML SYRINGE IVP STA ×2 (17:26→19:15)
[2024-04-02] MEDS: SODIUM CHLORIDE 0.9% 1,000 ML IV STA (17:27)
[2024-04-02 17:32] LABS: Basophils % (A) 1 %; Eosinophils # (A) 0.1 k/uL (0-0.7); Eosinophils % (A) 3 %; HCT 38.6 % (34.0-46.0); HGB 13.2 gm/dL (11.4-16.0); Lymphocytes # (A) 1.3 k/uL (1.0-4.8); Lymphocytes % (A) 29 %; MCH 31.1 pg (25.0-35.0); MCHC 34.1 g/dL (31.0-37.0); MCV 91.1 fL (80.0-100.0); Mean Platelet Volume 7.4; Monocytes # (A) 0.4 k/uL (0-1.0); Monocytes % (A) 9 %; Neutrophils # (A) 2.4 k/uL (1.3-7.7); Neutrophils % (A) 54 %; Platelet Count 292 k/uL (150-450); RBC 4.24 m/uL (3.80-5.40); RDW 13.1 % (11.5-15.5); WBC 4.4 k/uL (3.8-10.6)
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
[2024-04-02 17:45] LABS: ALT 32 U/L (4-34); AST 37 U/L (14-36); African American GFR (CKD) >90 (>60 ml/min/1.73 sqM); Albumin 4.2 g/dL (3.5-5.0); Alkaline Phosphatase 136 U/L (38-126); Amylase 65 U/L (30-110); Anion Gap 5 mmol/L; Blood Urea Nitrogen 32 mg/dL (7-17); Calcium 8.2 mg/dL (8.4-10.2); Carbon Dioxide 31 mmol/L (22-30); Chloride 97 mmol/L (98-107); Glucose 99 mg/dL (74-99); INR 0.9 (<1.2); Lipase 114 U/L (23-300); Non-African American GFR(CKD) 88 (>60 ml/min/1.73 sqM); Partial Thromboplastin Time 25.5 sec (22.0-30.0); Potassium 3.6 mmol/L (3.5-5.1); Sodium 133 mmol/L (137-145); Total Bilirubin 0.6 mg/dL (0.2-1.3); Total Protein 6.5 g/dL (6.3-8.2)
--- NOTE | 2024-04-02 18:35 | CT ---
EXAMINATION TYPE: CT abdomen pelvis w con CT DLP: 878.9 mGycm, Automated exposure control for dose reduction was used. DATE OF EXAM: 04/02/2024 6:13 PM COMPARISON: 02/14/2024 CLINICAL INDICATION:Female, 69 years old with history of abdominal pain; abdominal pain TECHNIQUE: Axial CT abdomen pelvis w con;Sagittal and coronal reformats were created on a separate w orkstation. Contrast used:100 ml mL of Isovue 300 with IV Contrast, (none if empty) Oral contrast used: without Oral Contrast (none if empty) FINDINGS: LOWER CHEST: Unremarkable ABDOMEN LIVER: Unremarkable GALLBLADDER AND BILE DUCTS: Gallbladder is surgically absent with mild intrahepatic and extra hepatic biliary dilatation likely physiologic and a postcholecystectomy change. No evidence of choledocholit hiasis. PANCREAS: Unremarkable. SPLEEN: Unremarkable. ADRENAL GLANDS: Unremarkable. KIDNEYS AND URETERS: No evidence of hydronephrosis or renal calculus. The ureters are unremarkable. PELVIS BLADDER: Unremarkable REPRODUCTIVE: Unremarkable. ABDOMEN & PELVIS streak artifact limits evaluation of the abdomen. STOMACH AND BOWEL: No evidence of bowel obstruction. Mild gastric wall hyperemia of the excluded gamal [place]oke lumen with suspected gastric bypass surgery. The appendix is normal. PERITONEUM/RETROPERITONEUM: No evidence of pneumoperitoneum or free fluid. VASCULATURE: No evidence of aortic aneurysm. MUSCULOSKELETAL: No acute osseous abnormalities, postsurgical changes spine which are extensive fixat ion screws through the pedicles appear intact. Fixation carltio also appears intact. Discectomy at L5-S1 and L1-L2. Bilateral sacroiliac joint fixation screws are present. Streak artifact limits evaluation of the spine. Moderate amount stool is seen throughout the colon. LYMPH NODES: No gross evidence for lymphadenopathy. SOFT TISSUE/ABDOMINAL WALL: Ventral wall fat-containing hernia. IMPRESSION: 1. Postsurgical changes to the gastric lumen and small bowel without evidence for obstruction. Hyper emia of the excluded gastric lumen correlate for gastritis.. 2. Moderate amount stool is seen throughout the colon. 3. Postsurgical changes spine with hardware intact.
[2024-04-02 19:24] VITALS: BP 124/79; PULSE 86; RESP 18; TEMP 98.1
[2024-04-02 19:32] LABS: Appearance,Urine Clear (Clear); Bilirubin,Urine Negative (Negative); Blood,Urine Negative (Negative); Color,Urine Colorless; Glucose,Urine (UA) Negative (Negative); Ketones,Urine Negative (Negative); Leukocyte Esterase,Urine Negative (Negative); Nitrite,Urine Negative (Negative); PH, Urine 6.5 (5.0-8.0); Protein,Urine Negative (Negative); Specific Gravity,Urine 1.023 (1.001-1.035); Urobilinogen,Urine <2.0 mg/dL (<2.0)
== END 2024-04-02 19:38 | disposition home or self-care (01) ==
LOC: EC 16:31
DX: G89.29 Other chronic pain (principal); R10.12 Left upper quadrant pain; Z88.2 Allergy status to sulfonamides; Z91.048 Other nonmedicinal substance allergy status; Z90.49 Acquired absence of other specified parts of digestive tract; Z86.73 Personal history of transient ischemic attack (TIA), and cerebral infarction without residual deficits
CPT/HCPCS: 36415; 93005; 80053; 82150; 83605; 83690; 85025; 85610; 85730; 81003; 74177; 99285; 96374; 96376; 96375 ×2; 96361; J2270; J2405; C9113; Q9967

== ENCOUNTER 2024-04-13 19:26 | Emergency (ER) | payer MEDICARE ==
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
[2024-04-13] MEDS: MORPHINE SULFATE 4 MG/ML SYRINGE IVP STA (21:11)
[2024-04-13] MEDS: SODIUM CHLORIDE 0.9% 1,000 ML IV ONE (21:14)
[2024-04-13 21:25] LABS: Basophils # (A) 0.1 k/uL (0-0.2); Basophils % (A) 1 %; Eosinophils # (A) 0.2 k/uL (0-0.7); Eosinophils % (A) 4 %; HCT 42.8 % (34.0-46.0); HGB 13.5 gm/dL (11.4-16.0); Lymphocytes # (A) 1.9 k/uL (1.0-4.8); Lymphocytes % (A) 31 %; MCH 29.6 pg (25.0-35.0); MCHC 31.5 g/dL (31.0-37.0); MCV 93.9 fL (80.0-100.0); Monocytes # (A) 0.4 k/uL (0-1.0); Monocytes % (A) 7 %; Neutrophils # (A) 3.4 k/uL (1.3-7.7); Neutrophils % (A) 55 %; Platelet Count 349 k/uL (150-450); RBC 4.56 m/uL (3.80-5.40); RDW 13.1 % (11.5-15.5); WBC 6.2 k/uL (3.8-10.6)
[2024-04-13 21:54] LABS: ALT 31 U/L (4-34); AST 32 U/L (14-36); African American GFR (CKD) >90 (>60 ml/min/1.73 sqM); Albumin 4.5 g/dL (3.5-5.0); Alkaline Phosphatase 135 U/L (38-126); Amylase 70 U/L (30-110); Anion Gap 7 mmol/L; Blood Urea Nitrogen 23 mg/dL (7-17); Calcium 8.4 mg/dL (8.4-10.2); Carbon Dioxide 25 mmol/L (22-30); Chloride 101 mmol/L (98-107); Glucose 79 mg/dL (74-99); Lipase 202 U/L (23-300); Non-African American GFR(CKD) 85 (>60 ml/min/1.73 sqM); Potassium 3.5 mmol/L (3.5-5.1); Sodium 133 mmol/L (137-145); Total Bilirubin 0.3 mg/dL (0.2-1.3); Total Protein 6.9 g/dL (6.3-8.2)
[2024-04-13 22:49] LABS: Appearance,Urine Clear (Clear); Bilirubin,Urine Negative (Negative); Blood,Urine Negative (Negative); Color,Urine Light Yellow; Glucose,Urine (UA) Negative (Negative); Ketones,Urine Negative (Negative); Leukocyte Esterase,Urine Moderate (Negative); Nitrite,Urine Negative (Negative); Protein,Urine Negative (Negative); RBC,Urine <1 /hpf (0-5); Specific Gravity,Urine 1.019 (1.001-1.035); Squamous Epithelial Cell,Urine 1 /hpf (0-4); Urobilinogen,Urine <2.0 mg/dL (<2.0); WBC,Urine 7 /hpf (0-5)
--- NOTE | 2024-04-14 00:09 | CT ---
EXAM: CT Abdomen and Pelvis With Intravenous Contrast CLINICAL HISTORY: ITS.REASON CT Reason: Left sided abdominal pain TECHNIQUE: Axial computed tomography images of the abdomen and pelvis with intravenous contrast. CTDI is 21.3 mGy and DLP is 989.8 mGy-cm. This CT exam was performed using one or more of the following dose reduction techniques: automated exposure control, adjustment of the mA and/or kV according to patient size, and/or use of iterative reconstruction technique. COMPARISON: CT abdomen pelvis February 14, 2024. FINDINGS: Lung bases: Unremarkable. No mass. No consolidation. ABDOMEN: Liver: Intrahepatic biliary ductal dilation. Gallbladder and bile ducts: Cholecystectomy. Pancreas: Unremarkable. No mass. No ductal dilation. Spleen: Unremarkable. No splenomegaly. Adrenals: Unremarkable. No mass. Kidneys and ureters: Unremarkable. No solid mass. No hydronephrosis. Stomach and bowel: Mild wall thickening of small bowel, concerning for mild enteritis. Mild fecal retention, correlate for constipation. Erica- en-Y gastric bypass. No obstruction of the jejunojejunostomy. PELVIS: Appendix: No findings to suggest acute appendicitis. Bladder: Unremarkable. No mass. Reproductive: Unremarkable as visualized. ABDOMEN and PELVIS: Intraperitoneal space: Unremarkable. No free air. No significant fluid collection. Bones/joints: Multilevel posterior thoracolumbosacral fusion hardware. No acute fracture. No dislocation. Soft tissues: Unremarkable. Vasculature: Unremarkable. No abdominal aortic aneurysm. Lymph nodes: Unremarkable. No enlarged lymph nodes. IMPRESSION: 1. Mild wall thickening of small bowel, concerning for mild enteritis. Mild fecal retention, correlate for constipation. 2. Erica-en-Y gastric bypass. No obstruction of the jejunojejunostomy.
[2024-04-14 00:24] VITALS: TEMP 97.8
[2024-04-14] MEDS: MORPHINE SULFATE 2 MG/ML SYRINGE IVP ONE (00:51)
[2024-04-14 00:55] VITALS: BP 130/87; PULSE 67; RESP 18
== END 2024-04-14 00:55 | disposition home or self-care (01) ==
LOC: EC 19:26
DX: K52.9 Noninfective gastroenteritis and colitis, unspecified (principal); K59.00 Constipation, unspecified; E87.1 Hypo-osmolality and hyponatremia; Z91.09 Other allergy status, other than to drugs and biological substances; Z88.2 Allergy status to sulfonamides; Z98.84 Bariatric surgery status; Z86.73 Personal history of transient ischemic attack (TIA), and cerebral infarction without residual deficits
CPT/HCPCS: 36415; 93005; 80053; 82150; 83605; 83690; 85025; 81001; 74177; 99285; 96374; 96376; 96361; J2270 ×2; Q9967

== ENCOUNTER 2024-04-16 09:06 | Day surgery (SDC) | payer MEDICARE ==
[~2024-04-16 09:06] MED LIST changes: -ACETAMINOPHEN TAB 500 MG TAB PO PRN; -DEXAMETHASONE SOD PHOSPHATE 4 MG/ML 1 ML VIAL IV ONE; -GABAPENTIN 300 MG CAP PO PRN; -LIDOCAINE 1% (10MG/ML) FOR IV START INTRADERMA PRN; -ONDANSETRON 4 MG/2 ML VIAL IVP ONE; -ONDANSETRON 4 MG/2 ML VIAL IVP PRN; +Pre Op ABX Message 1 EACH MISC MISCELLANE ONE; -TRANEXAMIC ACID IN NACL,ISO-OS 1,000 MG in SALINE 1 100ML.BAG IVPB PRN
[2024-04-16] MEDS ORDERED: HYDROmorphone 0.5 MG/0.5 ML SYRINGE IVP PRN (09:17)
[2024-04-16] MEDS ORDERED: MIDAZOLAM 2 MG/2 ML VIAL IV PRN (09:17)
[2024-04-16] MEDS: LACTATED RINGERS 1,000 ML IV SCH (09:48)
[2024-04-16] MEDS: IV FLUID CONTINUATION 1,000 ML IV ONE (09:48)
[2024-04-16] MEDS: ONDANSETRON 4 MG/2 ML VIAL IVP ONE (09:49)
[2024-04-16] MEDS: DEXAMETHASONE SOD PHOSPHATE 4 MG/ML 1 ML VIAL IV ONE (09:49)
[2024-04-16] MEDS: MIDAZOLAM 2 MG/2 ML VIAL IVP ONE (10:22)
[2024-04-16] MEDS: fentaNYL (PF) 50 MCG/ML 2 ML AMP IVP ONE (10:22)
[2024-04-16] MEDS ORDERED: SODIUM CHLORIDE 0.9% (PF) 10 ML VIAL ONE (10:58)
[2024-04-16] MEDS ORDERED: fentaNYL (PF) 50 MCG/ML 2 ML AMP ONE (10:58)
[2024-04-16] MEDS ORDERED: LIDOCAINE 1% INJ 10MG/ML (20 ML MDV) ONE (10:58)
[2024-04-16] MEDS ORDERED: NEOSTIGMINE 1 MG/ML 10 ML VIAL ONE (10:58)
[2024-04-16] MEDS ORDERED: ceFAZolin 1 GM/50 ML BAG (PMX) ONE (10:58)
[2024-04-16] MEDS ORDERED: KETOROLAC 15 MG/ML 1 ML VIAL ONE (10:58)
[2024-04-16] MEDS ORDERED: PROPOFOL 10 MG/ML 20 ML VIAL IV ONE (10:58)
[2024-04-16] MEDS ORDERED: GLYCOPYRROLATE 0.2 MG/ML 2 ML VIAL ONE (10:58)
[2024-04-16] MEDS ORDERED: HEPARIN SODIUM,PORCINE 5,000 UNIT/ML 1 ML VIAL ONE (10:58)
[2024-04-16] MEDS ORDERED: ROCURONIUM 10 MG/ML (5 ML VIAL) IV ONE (10:58)
[2024-04-16] MEDS ORDERED: ROPIVACAINE 5 MG/ML 30 ML VIAL ONE (10:58)
[2024-04-16] MEDS: SODIUM CHLORIDE 0.9% 50 ML with ceFAZolin 2,000 MG IV ONE (11:03)
[2024-04-16] MEDS: LIDOCAINE 1%-EPI 1:100,000 20 ML VIAL SQ ONE ×3 (11:12→11:31)
[2024-04-16] MEDS: LACTATED RINGERS 1,000 ML IV ONE (11:59)
--- NOTE | 2024-04-16 12:12 | P.OP ---
Date of Procedure: 04/16/24 Preoperative Diagnosis: adhesions Postoperative Diagnosis: adhesions Incisional hernia Procedure(s) Performed: laparoscopic lysis of adhesions Laparoscopic repair of incarcerated incisional hernia 5 cm Anesthesia: SUSAN Surgeon: Shaheen Salas Estimated Blood Loss (ml): 10 Pathology: none sent Condition: stable Disposition: PACU Description of Procedure: the patient's placed on the operative table in the supine position. She received general endotracheal tube anesthesia. Her abdomen was prepped and draped usual fashion. The patient had a midline scar. In the left upper quadrant the Veress needles placed with a positive drop test. The abdomen was insufflated. And then the peritoneal removed. And then under direct visualization. A catheter. There appeared to be adhesions along the midline scar. Next a 5 mm trochars placed in the left lower quadrant and then another 5 mm trochars placed in the left lateral position. The adhesions along her midline scar with lysed using Harmonic scissors. There was an incisional hernia located in the lower portion scar. The incarcerated omentum was withdrawn with blunt dissection. The skin was incised over the hernia. Then using a Alcon Pretty suture passer and 0 Ethibond suture the hernia was repaired. There is no bleeding seen. The trochars withdrawn. Skin was closed interrupted 3-0 Monocryl suture. Dermabond was applied. Patient top she will. She was sent to recovery in stable condition.
[2024-04-16 12:24] VITALS: TEMP 96.8
[2024-04-16 12:57] VITALS: RESP 16
[2024-04-16 13:40] VITALS: BP 107/54; PULSE 68
--- NOTE | 2024-04-16 14:42 | P.ANPRN ---
Procedure Note - Anesthesia - Nerve Block Performed Bilateral Erector Spinae Single Time Out Performed: Yes (1021) Date of Procedure: 04/16/24 Procedure Start Time: Procedure Stop Time: Location of Patient: PreOp Indication: Acute Post-Operative Pain, Requested by Surgeon Specifically requested for management of pain by DrJana: Shaheen Salas Sedation Type: Sedate with meaningful contact maintained Preparation: Sterile Prep Position: Prone Catheter: None Needle Types: Pajunk Needle Gauge: 21 Ultrasound used to visualize needle placement: Yes Ultrasound used to observe medication spread: Yes Injectate: 0.5% Ropivacaine (see comment for volume) (15cc +10cc nacl pf) Blood Aspirated: No Pain Paresthesia on Injection Noted: No (15cc +10cc nacl I can believe they can let him run pf) Resistance on Injection: Normal Image Stored and Saved: Yes Events: Uneventful and Well Tolerated
== END 2024-04-16 14:26 | disposition home or self-care (01) ==
LOC: OR 09:06
PROVIDERS: ATTEND Surgery
DX: K43.0 Incisional hernia with obstruction, without gangrene (principal); K56.50 Intestinal adhesions [bands], unspecified as to partial versus complete obstruction; G89.18 Other acute postprocedural pain; I10 Essential (primary) hypertension; E78.5 Hyperlipidemia, unspecified; M19.90 Unspecified osteoarthritis, unspecified site; K21.9 Gastro-esophageal reflux disease without esophagitis; F41.9 Anxiety disorder, unspecified; F17.200 Nicotine dependence, unspecified, uncomplicated; Z91.030 Bee allergy status; Z79.899 Other long term (current) drug therapy
CPT/HCPCS: 49594; J2250; J1100; J2405; J0690; J3010; 64999

== ENCOUNTER 2024-05-04 12:46 | Emergency (ER) | payer MEDICARE ==
[2024-05-04 13:03] VITALS: BP 121/81; RESP 18; TEMP 98.1
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
[2024-05-04] MEDS: LORazepam 1 MG TAB PO STA (13:51)
[2024-05-04] MEDS: HYDROmorphone 0.5 MG/0.5 ML SYRINGE IM STA (13:51)
[2024-05-04] MEDS: IPRATROPIUM-ALBUTEROL 3 ML NEB INHALATION STA (14:38)
[2024-05-04 14:56] VITALS: PULSE 80
[2024-05-04] MEDS: traMADol 50 MG STARTER PACK 3 TAB BTL PO STA (17:19)
== END 2024-05-04 17:22 | disposition home or self-care (01) ==
LOC: EC 12:46
DX: R53.1 Weakness (principal); R00.0 Tachycardia, unspecified; M54.9 Dorsalgia, unspecified; F41.9 Anxiety disorder, unspecified; Z91.09 Other allergy status, other than to drugs and biological substances; Z88.2 Allergy status to sulfonamides; Z88.8 Allergy status to other drugs, medicaments and biological substances
CPT/HCPCS: 94640; 99285; 96372; J1170; 93005

== ENCOUNTER 2024-05-08 15:50 | Emergency (ER) | payer MEDICARE, OTHER ==
[2024-05-08 15:55] VITALS: TEMP 97.9
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
[2024-05-08] MEDS: SODIUM CHLORIDE 0.9% 1,000 ML IV ONE (16:37)
[2024-05-08] MEDS: ONDANSETRON 4 MG/2 ML VIAL IVP STA ×2 (16:38→20:27)
[2024-05-08] MEDS: MORPHINE SULFATE 4 MG/ML SYRINGE IV STA (16:38)
[2024-05-08 16:47] LABS: Basophils % (A) 1 %; Eosinophils # (A) 0.2 k/uL (0-0.7); Eosinophils % (A) 5 %; HCT 40.5 % (34.0-46.0); HGB 13.3 gm/dL (11.4-16.0); Lymphocytes # (A) 1.2 k/uL (1.0-4.8); Lymphocytes % (A) 25 %; MCHC 32.7 g/dL (31.0-37.0); MCV 91.8 fL (80.0-100.0); Mean Platelet Volume 7.2; Monocytes # (A) 0.4 k/uL (0-1.0); Monocytes % (A) 9 %; Neutrophils # (A) 2.7 k/uL (1.3-7.7); Neutrophils % (A) 57 %; Platelet Count 375 k/uL (150-450); RBC 4.41 m/uL (3.80-5.40); WBC 4.7 k/uL (3.8-10.6)
[2024-05-08] MEDS: ACETAMINOPHEN IV (For NPO) 1,000 MG in EMPTY BAG 1 BAG IVPB ONE (16:55)
[2024-05-08 16:58] LABS: ALT 30 U/L (4-34); AST 41 U/L (14-36); African American GFR (CKD) 60 (>60 ml/min/1.73 sqM); Albumin 4.2 g/dL (3.5-5.0); Alkaline Phosphatase 109 U/L (38-126); Anion Gap 7 mmol/L; Blood Urea Nitrogen 25 mg/dL (7-17); Calcium 8.5 mg/dL (8.4-10.2); Carbon Dioxide 34 mmol/L (22-30); Chloride 92 mmol/L (98-107); Glucose 95 mg/dL (74-99); Lipase 51 U/L (23-300); Non-African American GFR(CKD) 52 (>60 ml/min/1.73 sqM); Potassium 2.9 mmol/L (3.5-5.1); Sodium 133 mmol/L (137-145); Total Bilirubin 0.5 mg/dL (0.2-1.3); Total Protein 6.7 g/dL (6.3-8.2)
[2024-05-08] MEDS: OFIRMEV PER PHARMACY MISCELLANE PRN (17:02)
[2024-05-08 17:11] LABS: INR 0.9 (<1.2); Partial Thromboplastin Time 24.9 sec (22.0-30.0); Prothrombin Time 10.1 sec (10.0-12.5)
[2024-05-08] MEDS: POTASSIUM BICARBONATE/CIT AC 20 MEQ TABLET.EFF PO ONE (17:53)
[2024-05-08] MEDS: POTASSIUM CHLORIDE 20 MEQ in WATER FOR INJECTION 1 100ML.BAG IVPB STA (17:56)
--- NOTE | 2024-05-08 18:05 | CT ---
EXAMINATION TYPE: CT brain cspine wo con CT DLP: 2477.6 combined DLP mGycm, Automated exposure control for dose reduction was used. DATE OF EXAM: 05/08/2024 5:52 PM COMPARISON: 03/01/2023 CLINICAL INDICATION:Female, 69 years old with history of fall; fall TECHNIQUE: Brain: Multiple axial CT images of the brain were obtained without IV contrast. Cspine: Axial CT images from the skull base to the inferior aspect of T2 we obtained without intraven ous contrast. Coronal and sagittal reformatted images were also reviewed. . FINDINGS: Brain: Extra-axial spaces: No abnormal extra-axial fluid collections. Ventricular system: Within normal limits Cerebral parenchyma: No acute intraparenchymal hemorrhage or mass effect. The payan-white junction is well differentiated. Cerebellum: Unremarkable. Mass effect: No evidence of midline shift. Intracranial vasculature: Atherosclerosis of the intracranial vasculature. Soft tissues: Right frontal scalp hematoma/edema measuring up to 33 x 7 mm Calvarium/osseous structures: No depressed skull fracture. Paranasal sinuses and mastoid air cells: Clear. Visualized orbits: Bilateral aphakia Cervical spine: Fracture: None. Osseous structures: Multilevel degenerative disc disease changes with endplate spurring and disc oste ophyte complex's. Vertebral alignment: Within normal limits. Spinal canal/Neural Foramina: No evidence of significant spinal canal narrowing. No evidence for sign ificant neural foraminal stenosis. Neck soft tissues: Prevertebral soft tissues are within normal limits. Other: The airway is patent. The lung apices are clear. IMPRESSION: 1. No acute intracranial process. 2. Right frontal scalp edema/hematoma. No evidence of fracture. 3. No evidence of cervical spine fracture. 4. Mild multilevel degenerative disc disease.
--- NOTE | 2024-05-08 18:18 | CT ---
EXAMINATION TYPE: CT ChestAbdPelvis w con CT DLP: 2477.6 combined DLP mGycm, Automated exposure control for dose reduction was used. DATE OF EXAM: 05/08/2024 5:52 PM COMPARISON: 04/13/2024 CLINICAL INDICATION:Female, 69 years old with history of fall; Technique: CT ChestAbdPelvis w con; Multiple axial images were obtained. Two-dimensional coronal and sagittal reconstructions were obtained. Contrast used:80ml mL of Isovue 300 with IV Contrast, Oral contrast used: without Oral Contrast Findings: CHEST: LUNGS/ PLEURA: No focal consolidation, pneumothorax or pleural effusion. AIRWAY: Patent and unremarkable. HEART: Size within normal limits. MEDIASTINUM: No gross evidence of adenopathy. VASCULATURE: No aortic aneurysm. MUSCULOSKELETAL: No acute osseous abnormalities. SOFT TISSUES/LYMPH NODES: Unremarkable. LOWER NECK: No significant findings. ABDOMEN: ABDOMEN LIVER: Unremarkable GALLBLADDER AND BILE DUCTS: Gallbladder is surgically absent with mild intrahepatic and extra hepatic biliary dilatation likely physiologic and a postcholecystectomy change. No evidence of choledocholit hiasis. PANCREAS: Unremarkable. SPLEEN: Unremarkable. ADRENAL GLANDS: Unremarkable. KIDNEYS AND URETERS: No evidence of hydronephrosis or renal calculus. The ureters are unremarkable. PELVIS BLADDER: Distended urinary bladder. REPRODUCTIVE: Unremarkable. ABDOMEN & PELVIS STOMACH AND BOWEL: No evidence of bowel obstruction. PERITONEUM: No evidence of pneumoperitoneum or free fluid. VASCULATURE: No evidence of aortic aneurysm. MUSCULOSKELETAL: No acute osseous abnormalities, postsurgical changes of the spine with hardware exte nding multiple levels. Hardware does appear intact. Discectomy at L5-S1 bilateral sacroiliac joint sc rews. LYMPH NODES: No gross evidence for lymphadenopathy. SOFT TISSUE/ABDOMINAL WALL: Unremarkable IMPRESSION: 1. No evidence for acute thoracic or abdominal process. 2. Distended urinary bladder. 3. Post fixation changes of the spine appear intact.
[2024-05-08 18:53] LABS: Appearance,Urine Clear (Clear); Bilirubin,Urine Negative (Negative); Blood,Urine Negative (Negative); Color,Urine Colorless; Glucose,Urine (UA) Negative (Negative); Ketones,Urine Negative (Negative); Leukocyte Esterase,Urine Negative (Negative); Nitrite,Urine Negative (Negative); PH, Urine 6.5 (5.0-8.0); Protein,Urine Negative (Negative); Specific Gravity,Urine 1.009 (1.001-1.035); Urobilinogen,Urine <2.0 mg/dL (<2.0)
--- NOTE | 2024-05-08 19:21 | XR ---
EXAMINATION TYPE: XR knee complete bilateral DATE OF EXAM: 05/08/2024 COMPARISON: None HISTORY: Fall, pain bilateral knees TECHNIQUE: Bilateral knees 3 views each FINDINGS: No acute fractures or dislocations evident. Joint spaces are preserved. No joint effusion i s evident. Follow up exams can be performed 7-10 days from acute trauma for continued pain. IMPRESSION: 1. No acute osseous abnormalities bilateral knees
--- NOTE | 2024-05-08 19:22 | XR ---
EXAMINATION TYPE: XR Hip Complete LT DATE OF EXAM: 05/08/2024 COMPARISON: None HISTORY: Fall, pain TECHNIQUE: 2 view left hip FINDINGS: Femoral head articulates with the acetabulum. No acute fracture or dislocation is evident. Follow up exams can be performed as clinically indicated. Note is made of fixation through the pelvis extending towards the lumbar spine IMPRESSION: 1. No acute osseous abnormality left hip
[2024-05-08] MEDS: MORPHINE SULFATE 4 MG/ML SYRINGE IVP STA (20:28)
[2024-05-08 20:39] VITALS: BP 91/52; PULSE 65; RESP 18
== END 2024-05-08 20:40 | disposition home or self-care (01) ==
LOC: EC 15:50
DX: S06.0X0A Concussion without loss of consciousness, initial encounter (principal); S80.02XA Contusion of left knee, initial encounter; S80.01XA Contusion of right knee, initial encounter; E87.6 Hypokalemia; Z91.09 Other allergy status, other than to drugs and biological substances; Z88.2 Allergy status to sulfonamides; Z88.8 Allergy status to other drugs, medicaments and biological substances; Z88.1 Allergy status to other antibiotic agents; W01.0XXA Fall on same level from slipping, tripping and stumbling without subsequent striking against object, initial encounter; Y92.480 Sidewalk as the place of occurrence of the external cause; Y93.01 Activity, walking, marching and hiking
CPT/HCPCS: 36415; 80053; 83605; 83690; 85025; 85610; 85730; 81003; 73562; 73502; 72125; 70450; 71260; 74177; 99285; 96365; 96366 ×2; 96367; 96361; 96375 ×2; 96376 ×2; J2270; J3480; J2405; J0131; Q9967

== ENCOUNTER → 2024-05-10 | Outpatient (CLI) | payer MEDICARE ==
--- NOTE | 2024-05-10 23:26 | US ---
EXAMINATION TYPE: US thyroid st tissue head/neck DATE OF EXAM: 05/10/2024 COMPARISON: US BX 01/16/2020 US THY 11/14/2019 CLINICAL INDICATION: Female, 69 years old with history of E04.9 NONTOXIC GOITER, UNSPECIFIED; Patient denies any signs or symptoms at this time GLAND SIZE: Right Lobe: 5.9 x 1.5 x 1.6 cm Overall Parenchyma: homogeneous Left Lobe: 5.5 x 1.3 x 1.5 cm Overall Parenchyma: homogeneous Isthmus Thickness: 0.2 cm NODULES RIGHT: # of nodules measured on right: 0 Multiple subcentimeter cystic/ colloid cysts noted. Previous large cystic area not redemonstrated at this time. LEFT: # of nodules measured on left: 2 1. 1.0 X 0.6 x 0.7 cm, mid lateral, spongiform, hypoechoic nodule, which is wider than tall, with l obulated or irregular margins, with echogenic foci. TR4 Prior size: 0.9 x 0.5 x 0.6 cm 2. 0.3 X 0.4 x 0.5 cm, lower mid, solid or almost completely solid, hyperechoic nodule, which is w ider than tall, with smooth margins, without echogenic foci. Prior size: 0.4 x 0.4 x 0.3 cm ISTHMUS: # of nodules measured in the isthmus: 0 Bilateral neck scanned, no evidence of lymphadenopathy. IMPRESSION: 1. Moderately suspicious left lobe thyroid nodule. Follow-up ultrasound in one year is recommended. 2017 ACR TI-RADS LEVEL: *Highest TI-RADS level nodule reported
== END | disposition home or self-care (01) ==
LOC: RADUSWWP 06:52
PROVIDERS: ATTEND Family Medicine
DX: E04.1 Nontoxic single thyroid nodule (principal); R22.0 Localized swelling, mass and lump, head
CPT/HCPCS: 76536

== ENCOUNTER 2024-07-22 19:02 | Observation (INO) | payer MEDICARE, OTHER ==
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
[2024-07-22] MEDS: HYDROmorphone 1 MG/ML 1 ML SYRINGE IVP STA (19:33)
[2024-07-22] MEDS: SODIUM CHLORIDE 0.9% 1,000 ML IV STA (19:33)
[2024-07-22 20:11] LABS: Basophils % (A) 0 %; Eosinophils # (A) 0.1 k/uL (0-0.7); Eosinophils % (A) 2 %; HCT 36.9 % (34.0-46.0); HGB 12.4 gm/dL (11.4-16.0); Lymphocytes # (A) 1.2 k/uL (1.0-4.8); Lymphocytes % (A) 22 %; MCH 30.9 pg (25.0-35.0); MCHC 33.7 g/dL (31.0-37.0); MCV 91.5 fL (80.0-100.0); Mean Platelet Volume 6.8; Monocytes # (A) 0.6 k/uL (0-1.0); Monocytes % (A) 10 %; Neutrophils # (A) 3.6 k/uL (1.3-7.7); Neutrophils % (A) 64 %; Platelet Count 327 k/uL (150-450); RBC 4.03 m/uL (3.80-5.40); RDW 13.3 % (11.5-15.5); WBC 5.6 k/uL (3.8-10.6)
[2024-07-22 20:46] LABS: ALT 36 U/L (4-34); AST 42 U/L (14-36); African American GFR (CKD) 58 (>60 ml/min/1.73 sqM); Albumin 3.9 g/dL (3.5-5.0); Alkaline Phosphatase 124 U/L (38-126); Amylase 52 U/L (30-110); Anion Gap 6 mmol/L; Blood Urea Nitrogen 27 mg/dL (7-17); Calcium 8.7 mg/dL (8.4-10.2); Carbon Dioxide 32 mmol/L (22-30); Chloride 94 mmol/L (98-107); Glucose 91 mg/dL (74-99); Lipase 84 U/L (23-300); Magnesium 1.5 mg/dL (1.6-2.3); Non-African American GFR(CKD) 51 (>60 ml/min/1.73 sqM); Sodium 132 mmol/L (137-145); Total Bilirubin 0.5 mg/dL (0.2-1.3); Total Protein 6.5 g/dL (6.3-8.2)
[2024-07-22 21:11] LABS: Potassium 2.7 mmol/L (3.5-5.1)
[2024-07-22] MEDS: POTASSIUM CHLORIDE 20 MEQ in WATER FOR INJECTION 1 100ML.BAG IVPB STA (21:43)
[2024-07-22] MEDS: MAGNESIUM OXIDE 400 MG TAB PO STA (21:45)
[2024-07-22] MEDS: POTASSIUM CHLORIDE ER 20 MEQ TAB.ER PO STA (21:45)
--- NOTE | 2024-07-22 22:13 | CT ---
EXAMINATION TYPE: CT abdomen pelvis w con DATE OF EXAM: 07/22/2024 COMPARISON: 05/08/2024 INDICATION: Left lower quadrant pain DLP: 799.5 mGycm, Automated exposure control for dose reduction was used. CONTRAST: 0 mL of Isovue 300. Study performed without Oral Contrast TECHNIQUE: Axial images were obtained from above the diaphragm to the pubic rami in the axial plane a t 5 mm thick sections. Reconstructed images are reviewed on the computer in the coronal plane. FINDINGS: Limited CT sections are obtained the lung bases. The lung bases are clear. CT ABDOMEN: Some limitation due to fixation rods and pedicle screws through the thoracolumbar spine Liver: Normal Spleen: Normal Pancreas: Normal Adrenal glands: The adrenal glands are normal. Gallbladder: Surgically absent Kidneys: No masses are evident. No hydronephrosis is present. No suspicious renal stones are eviden t. Delayed images were obtained through the kidneys which remain unremarkable. No cysts are present. Aorta: Vascular calcification is within the aorta. Inferior vena cava: Normal. CT PELVIS: Loops of bowel within the abdomen and pelvis are normal. No acute diverticulitis. No suspicious loo ps of bowel. There appears to be prior bowel surgery in the left midabdomen. No obstruction is eviden t. Appendix: Normal as visualized. Urinary bladder: Normal. Genitourinary structures: Uterus and ovaries are not identified. Osseous structures: No suspicious lytic or sclerotic lesions. IMPRESSION: 1. No suspicious acute abnormality of the left lower quadrant pain. [facility], Workstation: [id number], 07/22/2024 10:10 PM
[2024-07-22] MEDS ORDERED: ONDANSETRON 4 MG/2 ML VIAL IVP PRN (22:14)
[2024-07-22] MEDS ORDERED: ACETAMINOPHEN TAB 325 MG TAB PO PRN (22:14)
[2024-07-22] MEDS ORDERED: NALOXONE 0.4 MG/ML 1 ML VIAL IV PRN (22:14)
[2024-07-22 23:02] LABS: Appearance,Urine Clear (Clear); Bilirubin,Urine Negative (Negative); Blood,Urine Negative (Negative); Color,Urine Colorless; Fatty Casts,Urine 2 /lpf (0); Glucose,Urine (UA) Negative (Negative); Hyaline Casts,Urine 26 /lpf (0-2); Ketones,Urine Negative (Negative); Leukocyte Esterase,Urine Small (Negative); Mucus,Urine Rare /hpf; Nitrite,Urine Negative (Negative); Protein,Urine Negative (Negative); RBC,Urine 1 /hpf (0-5); Specific Gravity,Urine 1.012 (1.001-1.035); Squamous Epithelial Cell,Urine 1 /hpf (0-4); Urobilinogen,Urine <2.0 mg/dL (<2.0); WBC,Urine 8 /hpf (0-5)
[2024-07-23] MEDS: HYDROmorphone 0.5 MG/0.5 ML SYRINGE IVP PRN (00:47)
[2024-07-23 03:43] LABS: Basophils % (A) 1 %; Eosinophils # (A) 0.1 k/uL (0-0.7); Eosinophils % (A) 3 %; HCT 32.7 % (34.0-46.0); HGB 11.3 gm/dL (11.4-16.0); Lymphocytes # (A) 1.3 k/uL (1.0-4.8); Lymphocytes % (A) 28 %; MCH 31.5 pg (25.0-35.0); MCHC 34.6 g/dL (31.0-37.0); MCV 91.1 fL (80.0-100.0); Mean Platelet Volume 8.2; Monocytes # (A) 0.5 k/uL (0-1.0); Monocytes % (A) 12 %; Neutrophils # (A) 2.4 k/uL (1.3-7.7); Neutrophils % (A) 54 %; Platelet Count 286 k/uL (150-450); RBC 3.59 m/uL (3.80-5.40); RDW 13.7 % (11.5-15.5); WBC 4.5 k/uL (3.8-10.6)
[2024-07-23 04:02] LABS: ALT 32 U/L (4-34); AST 35 U/L (14-36); African American GFR (CKD) 63 (>60 ml/min/1.73 sqM); Albumin 3.5 g/dL (3.5-5.0); Alkaline Phosphatase 107 U/L (38-126); Anion Gap 3 mmol/L; Blood Urea Nitrogen 23 mg/dL (7-17); Calcium 8.6 mg/dL (8.4-10.2); Carbon Dioxide 28 mmol/L (22-30); Chloride 102 mmol/L (98-107); Glucose 68 mg/dL (74-99); Magnesium 1.7 mg/dL (1.6-2.3); Non-African American GFR(CKD) 55 (>60 ml/min/1.73 sqM); Phosphorus 3.8 mg/dL (2.5-4.5); Potassium 3.2 mmol/L (3.5-5.1); Sodium 133 mmol/L (137-145); Total Bilirubin 0.4 mg/dL (0.2-1.3); Total Protein 5.7 g/dL (6.3-8.2)
[2024-07-23] MEDS: PANTOPRAZOLE 40 MG/10 ML VIAL IV SCH (07:55)
[2024-07-23] MEDS: HYDROmorphone 1 MG/ML 1 ML SYRINGE IVP PRN (07:55)
[2024-07-23 12:18] LABS: Glucose,Whole Blood 103 mg/dL (70-110)
[2024-07-24] MEDS: KETOROLAC 15 MG/ML 1 ML VIAL IVP PRN (01:05)
[2024-07-24] MEDS: ROPIVACAINE 5 MG/ML 30 ML VIAL MISCELLANE ONE (23:01)
[2024-07-24] MEDS: TRIAMCINOLONE ACETONIDE 40 MG/ML 1 ML VIAL IM ONE (23:01)
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
--- NOTE | 2024-07-24 23:30 | P.PCN ---
Date of Procedure: 07/24/24 Description of Procedure: Pre and postop diagnosis : Lateral lumbar, and thoracic myofascial pain syndrome Procedure : Trigger point injections X 20 Muscle group -bilateral lumbar paraspinal, bilateral iliolumbar muscle, bilateral gluteus rafael muscle, bilateral thoracic paraspinal muscle, bilateral latissimus dorsi muscle, and bilateral lower trapezius muscles. Surgeon: Rosanne Friend Anesthesia: None Complications : None Specimen removed: None Estimated blood loss: None Procedure indications : Patient had a history of chronic lumbar, and thoracic myofascial pain syndrome . Patient tried conservative therapy . Requested for intervention procedure for better pain relief. Procedure description : Patient was seen and identified at the bedside risk benefits competitions alternative discussed with the patient. Patient agreed to proceed for the procedure signed the consent. Patient was monitored with pulse oximetry, blood pressure throughout the procedure. Timeout was completed by patient RN at bedside. 20 - trigger point area were marked with a sterile marker. After ChloraPrep x 2 used to clean the area. Critical pause was taken. Using 23-gauge 1- inch needle bended half way. He entered in each market site 1.5 mL of block solution injected at each level. The block solution containing 20 ml of 0.5% preservative-free ropivacaine with Kenalog 40 MG, and 10 mL of preservative-free normal saline. Needle removed intact skin cleaned and Band- ds applied. Patient tolerated the procedure well. Disposition: Patient stayed in her bed, nurse monitored her pulse oximetry continuously, and blood pressure every 5 minutes for 30 minutes. Patient has no shortness of breath, no complications. patient scheduled to follow up with the pain clinic as needed for follow-up visit.
[2024-07-25 02:54] VITALS: RESP 16
[2024-07-25 09:14] VITALS: BP 154/85; PULSE 69; TEMP 97.9
--- NOTE | 2024-07-26 14:48 | HP ---
HISTORY AND PHYSICAL CHIEF COMPLAINT: Hypokalemia, abdominal pain, and generalized pain. HISTORY OF PRESENT ILLNESS: This is another admission for this 69-year-old female. She has chronic pain. She came in to the emergency room complaining of abdominal pain and was found to have hypokalemia. She had no fever, chills, vomiting, diarrhea, melena, hematemesis, etc. REVIEW OF SYSTEMS: She had no other symptoms. She had no urinary complaints or incontinence. There is no dysuria. She had no hemoptysis or sputum production. Past medical history, family history, personal and social histories are significant, and that she is on trazodone, omeprazole, duloxetine, cyclobenzaprine, atorvastatin, Xanax, hydrochlorothiazide, Prolia, primidone, clopidogrel, isosorbide, losartan, metoprolol, and aspirin. She is allergic to sulfa. She has had a history of hyperlipidemia, TIAs, and osteoarthritis. She does not smoke or drink. She has chronic neck and back pain. PHYSICAL EXAMINATION: VITAL SIGNS: Normal. HEAD, EARS, EYES, NOSE, MOUTH AND THROAT: Normal. She does have ecchymoses in the upper lip and cheeks from recent dental extractions. Neck veins are not distended. CHEST: Clear. CARDIAC EXAM: Normal. ABDOMEN: Soft and nontender. Bowel sounds are present. EXTREMITIES: Normal. NEUROLOGICAL: She is intact. IMPRESSION: She is admitted to the hospital with diagnoses, 1. Hypokalemia. 2. Intractable pain. 3. ASCVD. 4. Previous TIAs. PLAN: 1. Bedrest. 2. IV fluids. 3. Correct electrolyte imbalance. MMODL / IJN: [id number] /
--- NOTE | 2024-07-26 14:49 | PN ---
PROGRESS NOTE CHIEF COMPLAINT: Abdominal pain and generalized pain. HISTORY OF PRESENT ILLNESS: This lady is doing fairly well. She wanted to go home, but she is adamant about pain management and she will be referred to that department. PHYSICAL EXAMINATION: ABDOMEN: Slightly tender in the left upper quadrant. CHEST: Clear. CARDIAC: Normal. IMPRESSION: 1. Abdominal pain. 2. Generalized joint pain and arthritis. PLAN: Referred for pain management and then probably home tomorrow. MMODL / IJN: [id number] /
--- NOTE | 2024-07-26 14:49 | PN ---
PROGRESS NOTE CHIEF COMPLAINT: Abdominal pain, back pain, and hypokalemia. HISTORY OF PRESENT ILLNESS: This lady is doing fairly well, but she is complaining bitterly of pain everywhere. She has abdominal pain, back pain, and extremity pain. She could go home, but she is adamant that she needs to see Dr. Rico for pain management. PHYSICAL EXAMINATION: VITAL SIGNS: Normal. CHEST: Clear. CARDIAC: Normal. ABDOMEN: She is slightly tender in the left upper quadrant where she has pain. IMPRESSION: 1. Hypokalemia. 2. Abdominal pain. 3. Dorsal spine pain. 4. Neck pain. PLAN: I will consult Pain Management in order for them to set up a plan for her discharge. MMODL / IJN: [id number] /
--- NOTE | 2024-07-26 14:50 | DS ---
DISCHARGE SUMMARY CHIEF COMPLAINT: Abdominal and generalized pain. HISTORY OF PRESENT ILLNESS AND PHYSICAL EXAM: Details of this lady's history and physical can be found in the initial workup. LABORATORY STUDIES: While she was in the hospital, she had laboratory studies, details of which were unremarkable. She continued to complain of pain in her abdomen, neck, back and just about everywhere. She insisted on seeing Pain Management. This was arranged and she received a series of injections to back and the next day her pain was miraculously gone. It was felt that she could be discharged and she will go home on her usual activity, diet, medication, and she will be followed up in the office. FINAL DIAGNOSES: 1. Abdominal pain. 2. Intractable generalized arthritic pain. OPERATIONS: None. CONSULTATIONS: Pain management. She is improved. MMJUSTINAL / CHADN: [id number] /
== END 2024-07-25 11:51 | disposition home or self-care (01) ==
LOC: EC 19:02 → 6NMEDSUR 22:15
PROVIDERS: ADMIT Family Medicine; ATTEND Family Medicine
DX: E87.6 Hypokalemia (principal); G89.4 Chronic pain syndrome; M96.1 Postlaminectomy syndrome, not elsewhere classified; M79.18 Myalgia, other site; R10.32 Left lower quadrant pain; M54.6 Pain in thoracic spine; M54.2 Cervicalgia; M54.50 Low back pain, unspecified; E86.0 Dehydration; M19.90 Unspecified osteoarthritis, unspecified site; E78.5 Hyperlipidemia, unspecified; I25.10 Atherosclerotic heart disease of native coronary artery without angina pectoris; G47.00 Insomnia, unspecified; F32.A Depression, unspecified; Z79.02 Long term (current) use of antithrombotics/antiplatelets; Z79.83 Long term (current) use of bisphosphonates; Z79.899 Other long term (current) drug therapy; Z88.2 Allergy status to sulfonamides; Z91.048 Other nonmedicinal substance allergy status; Z88.1 Allergy status to other antibiotic agents; Z86.73 Personal history of transient ischemic attack (TIA), and cerebral infarction without residual deficits
CPT/HCPCS: 36415; 74177; 80053; 81001; 82150; 83605; 83690; 83735; 84100; 85025; 93005; 96365; 96366; 96375; 96376; 99285

== ENCOUNTER 2024-07-28 23:58 | Emergency (ER) | payer MEDICARE, OTHER ==
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
[2024-07-29] MEDS: ZIPRASIDONE 20 MG VIAL IM STA (01:42)
--- NOTE | 2024-07-29 04:17 | CT ---
EXAM: CT Lumbar Spine Without Intravenous Contrast CLINICAL HISTORY: ITS.REASON CT Reason: back pain TECHNIQUE: Axial computed tomography images of the lumbar spine without intravenous contrast. CTDI is 20.9 mGy and DLP is 834.4 mGy-cm. This CT exam was performed using one or more of the following dose reduction techniques: automated exposure control, adjustment of the mA and/or kV according to patient size, and/or use of iterative reconstruction technique. COMPARISON: 03/11/2022 FINDINGS: Extensive thoracolumbar and sacral fusion. Multilevel laminectomies. No acute findings are seen. Chronic degenerative changes. IMPRESSION: No acute findings.
[2024-07-29 04:47] VITALS: BP 128/77; PULSE 91; RESP 17; TEMP 98.1
== END 2024-07-29 04:28 | disposition home or self-care (01) ==
LOC: EC 23:58
CPT/HCPCS: 72131; 96372; 99284

== ENCOUNTER 2024-08-26 11:36 | Observation (INO) | payer MEDICARE, OTHER ==
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
[2024-08-26 12:46] LABS: Appearance,Urine Clear (Clear); Bilirubin,Urine Negative (Negative); Blood,Urine Negative (Negative); Color,Urine Colorless; Glucose,Urine (UA) Negative (Negative); Ketones,Urine Negative (Negative); Leukocyte Esterase,Urine Negative (Negative); Nitrite,Urine Negative (Negative); PH, Urine 5.5 (5.0-8.0); Protein,Urine Negative (Negative); Specific Gravity,Urine 1.008 (1.001-1.035); Urobilinogen,Urine <2.0 mg/dL (<2.0)
[2024-08-26 12:47] LABS: Basophils % (A) 0 %; Eosinophils # (A) 0.3 k/uL (0-0.7); Eosinophils % (A) 3 %; HCT 37.6 % (34.0-46.0); HGB 12.5 gm/dL (11.4-16.0); Lymphocytes % (A) 14 %; MCH 30.4 pg (25.0-35.0); MCHC 33.1 g/dL (31.0-37.0); MCV 91.8 fL (80.0-100.0); Mean Platelet Volume 6.6; Monocytes # (A) 0.5 k/uL (0-1.0); Monocytes % (A) 7 %; Neutrophils # (A) 5.5 k/uL (1.3-7.7); Neutrophils % (A) 74 %; Platelet Count 296 k/uL (150-450); RDW 12.8 % (11.5-15.5); WBC 7.5 k/uL (3.8-10.6)
[2024-08-26] MEDS: KETOROLAC 15 MG/ML 1 ML VIAL IVP STA (12:55)
[2024-08-26] MEDS: MORPHINE SULFATE 4 MG/ML SYRINGE IVP STA (12:55)
[2024-08-26 12:59] LABS: ALT 33 U/L (4-34); AST 39 U/L (14-36); African American GFR (CKD) 69 (>60 ml/min/1.73 sqM); Albumin 3.8 g/dL (3.5-5.0); Alkaline Phosphatase 152 U/L (38-126); Anion Gap 4 mmol/L; Blood Urea Nitrogen 27 mg/dL (7-17); Calcium 8.3 mg/dL (8.4-10.2); Carbon Dioxide 34 mmol/L (22-30); Chloride 95 mmol/L (98-107); Glucose 97 mg/dL (74-99); Non-African American GFR(CKD) 60 (>60 ml/min/1.73 sqM); Sodium 133 mmol/L (137-145); Total Bilirubin 0.4 mg/dL (0.2-1.3); Total Protein 6.3 g/dL (6.3-8.2)
[2024-08-26 13:11] LABS: Potassium 2.7 mmol/L (3.5-5.1)
[2024-08-26] MEDS ORDERED: NALOXONE 0.4 MG/ML 1 ML VIAL IV PRN (13:46)
[2024-08-26] MEDS: POTASSIUM CHLORIDE ER 20 MEQ TAB.ER PO STA (13:51)
[2024-08-26] MEDS: SODIUM CHLORIDE 0.9% 1,000 ML IV SCH (13:52)
[2024-08-26] MEDS: IBUPROFEN 800 MG TAB PO PRN (18:32)
[2024-08-26] MEDS: CYCLOBENZAPRINE 10 MG TAB PO PRN (18:33)
[2024-08-26] MEDS: ACETAMINOPHEN TAB 325 MG TAB PO PRN (18:33)
[2024-08-26] MEDS: ALPRAZolam 1 MG TAB PO SCH (20:28)
[2024-08-26] MEDS: DULoxetine HCL 60 MG CAPSULE.DR PO SCH (20:29)
[2024-08-26] MEDS: ATORVASTATIN 80 MG TAB PO SCH (20:30)
[2024-08-26] MEDS: traZODone HCL 50 MG TAB PO SCH (20:30)
[2024-08-26] MEDS: POTASSIUM CHLORIDE ER 20 MEQ TAB.ER PO SCH (20:31)
[2024-08-26] MEDS: PRIMIDONE 50 MG TAB PO SCH (20:32)
--- NOTE | 2024-08-27 00:36 | HP ---
HISTORY AND PHYSICAL CHIEF COMPLAINT: Back pain, headache. HISTORY OF PRESENT ILLNESS: This 69-year-old female came to emergency room with complaints of low back pain and headache. She is a frequent utilizer of the ER. She was going to be treated and released, but then she was found to have a potassium of only 2.4. She is on Lasix and hydrochlorothiazide. REVIEW OF SYSTEMS: She denies any headache, cramps, weakness, palpitations, abdominal pain, nausea, vomiting, diarrhea, etc. Past medical history, family history, personal and social history are all otherwise unremarkable, noncontributory and otherwise unchanged. PHYSICAL EXAMINATION: VITAL SIGNS: Normal. HEAD, EARS, EYES, NOSE, MOUTH, AND THROAT: Normal. CHEST: Clear. CARDIAC: Normal. ABDOMEN: Soft, nontender. EXTREMITIES: Normal. IMPRESSION: 1. Hypokalemia. 2. Chronic low back pain. 3. Headache. PLAN: 1. Bedrest. 2. IV fluids. 3. Correct electrolyte imbalance. MMODL / CHADN: [id number] /
[2024-08-27] MEDS: LOSARTAN 25 MG TAB PO SCH (09:01)
[2024-08-27] MEDS: ISOSORBIDE MONONITRATE ER 30 MG TAB.ER.24H PO SCH (09:06)
[2024-08-27] MEDS: CLOPIDOGREL 75 MG TAB PO SCH (09:06)
[2024-08-27] MEDS: METOPROLOL SUCCINATE (ER) 25 MG TAB.ER.24H PO SCH (09:06)
[2024-08-27] MEDS ORDERED: Potassium Replacement Protocol 1 EACH MISC MISCELLANE PRN (11:30)
[2024-08-27] MEDS: NON FORMULARY DRUG (Cariprazine Hcl [Vraylar] 1.5 MG Capsule) PO SCH (11:57)
[2024-08-27 12:25] LABS: African American GFR (CKD) 65 (>60 ml/min/1.73 sqM); Anion Gap 4 mmol/L; Blood Urea Nitrogen 32 mg/dL (7-17); Calcium 7.6 mg/dL (8.4-10.2); Carbon Dioxide 30 mmol/L (22-30); Chloride 98 mmol/L (98-107); Glucose 66 mg/dL (74-99); Non-African American GFR(CKD) 56 (>60 ml/min/1.73 sqM); Potassium 3.7 mmol/L (3.5-5.1); Sodium 132 mmol/L (137-145)
[2024-08-27 13:06] VITALS: BMI 22.0
[2024-08-27] MEDS ORDERED: HYDROcodone/APAP 7.5-325MG 1 EACH TAB PO PRN (17:01)
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
[2024-08-28 03:42] VITALS: PULSE 70; RESP 16
[2024-08-28 08:07] VITALS: BP 102/65; TEMP 98.1
--- NOTE | 2024-08-29 00:09 | PN ---
PROGRESS NOTE DATE OF SERVICE: 08/27/2024 CHIEF COMPLAINT: Hypokalemia. HISTORY OF PRESENT ILLNESS: This lady is doing well, but she can stop screaming about all of her various pains and particularly her back pain. 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 PHYSICAL EXAMINATION: HEAD, EARS, EYES, NOSE, MOUTH, AND THROAT: Normal. CHEST: Clear. CARDIAC: Normal. ABDOMEN: Flat, nontender. EXTREMITIES: Normal. GENERAL: She is very asthenic. IMPRESSION: 1. Hypokalemia. 2. Chronic obstructive pulmonary disease. 3. Arthritis of low back. 4. Chronic pain. PLAN: Repeat potassium and home when her level is normal. MMODL / IJN: [id number] /
--- NOTE | 2024-08-29 06:25 | DS ---
DISCHARGE SUMMARY CHIEF COMPLAINT: Acute low back pain and hypokalemia. HISTORY OF PRESENT ILLNESS AND PHYSICAL EXAM: Details of this lady's history and physical can be found in the initial workup. LABORATORY STUDIES: While she was in the hospital, she had laboratory studies, details of which can be found in the laboratory section of her chart. COURSE IN THE HOSPITAL: After admission, she was placed on bedrest, started intravenous fluids and management of her hypokalemia. She was seen by Pain Management while she was in the hospital. Potassium came up in the normal range. It was felt that she could be discharged on the . FINAL DIAGNOSES: 1. Hypokalemia. 2. Chronic low back pain. 3. Chronic pain. 4. Chronic obstructive pulmonary disease. OPERATIONS: None. CONSULTATIONS: Pain management. She is improved. MMJUSTINAL / CHADN: [id number] /
== END 2024-08-28 12:11 | disposition home or self-care (01) ==
LOC: EC 11:36 → 6NMEDSUR 13:48
PROVIDERS: ADMIT Family Medicine; ATTEND Family Medicine
DX: E87.6 Hypokalemia (principal); M54.50 Low back pain, unspecified; G89.29 Other chronic pain; J44.9 Chronic obstructive pulmonary disease, unspecified; J30.1 Allergic rhinitis due to pollen; R51.9 Headache, unspecified; M19.90 Unspecified osteoarthritis, unspecified site; R68.83 Chills (without fever); F41.0 Panic disorder [episodic paroxysmal anxiety]; Z79.02 Long term (current) use of antithrombotics/antiplatelets; Z79.899 Other long term (current) drug therapy; Z88.2 Allergy status to sulfonamides; Z88.1 Allergy status to other antibiotic agents; Z91.048 Other nonmedicinal substance allergy status; Z98.1 Arthrodesis status
CPT/HCPCS: 96374; 96375; 99285; 36415; 93005; 80053; 80048; 83735; 85025; 81003; 84145; 87636; G0378 ×3; J2270; J1885

== ENCOUNTER 2024-09-15 21:03 | Observation (INO) | payer MEDICARE, OTHER ==
[2024-09-15 21:52] LABS: Appearance,Urine Clear (Clear); Bilirubin,Urine Negative (Negative); Blood,Urine Negative (Negative); Color,Urine Colorless; Glucose,Urine (UA) Negative (Negative); Ketones,Urine Negative (Negative); Leukocyte Esterase,Urine Small (Negative); Mucus,Urine Rare /hpf; Nitrite,Urine Negative (Negative); Protein,Urine Negative (Negative); RBC,Urine <1 /hpf (0-5); Specific Gravity,Urine 1.012 (1.001-1.035); Squamous Epithelial Cell,Urine <1 /hpf (0-4); Urobilinogen,Urine <2.0 mg/dL (<2.0); WBC,Urine 3 /hpf (0-5)
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
[2024-09-15] MEDS: SODIUM CHLORIDE 0.9% 1,000 ML IV STA ×2 (22:43→22:44)
[2024-09-15] MEDS: ONDANSETRON 4 MG/2 ML VIAL IVP STA (22:45)
[2024-09-15] MEDS: MORPHINE SULFATE 4 MG/ML SYRINGE IV STA (22:47)
[2024-09-15 22:49] LABS: Basophils % (A) 1 %; Eosinophils # (A) 0.4 k/uL (0-0.7); Eosinophils % (A) 8 %; HCT 37.4 % (34.0-46.0); HGB 12.2 gm/dL (11.4-16.0); Lymphocytes # (A) 1.6 k/uL (1.0-4.8); Lymphocytes % (A) 31 %; MCH 30.8 pg (25.0-35.0); MCHC 32.8 g/dL (31.0-37.0); Mean Platelet Volume 6.4; Monocytes # (A) 0.5 k/uL (0-1.0); Monocytes % (A) 9 %; Neutrophils # (A) 2.4 k/uL (1.3-7.7); Neutrophils % (A) 48 %; Platelet Count 373 k/uL (150-450); RBC 3.97 m/uL (3.80-5.40); RDW 13.1 % (11.5-15.5)
[2024-09-15 22:59] LABS: INR 0.9 (<1.2); Partial Thromboplastin Time 26.3 sec (22.0-30.0); Prothrombin Time 10.2 sec (10.0-12.5)
[2024-09-15 23:36] LABS: Anion Gap 5 mmol/L; Carbon Dioxide 22 mmol/L (22-30); Chloride 107 mmol/L (98-107); Glucose 99 mg/dL (74-99); Potassium 4.1 mmol/L (3.5-5.1); Sodium 134 mmol/L (137-145)
[2024-09-15 23:37] LABS: ALT 38 U/L (4-34); AST 33 U/L (14-36); African American GFR (CKD) >90 (>60 ml/min/1.73 sqM); Alkaline Phosphatase 150 U/L (38-126); Blood Urea Nitrogen 22 mg/dL (7-17); Calcium 8.9 mg/dL (8.4-10.2); Non-African American GFR(CKD) >90 (>60 ml/min/1.73 sqM); Phosphorus 3.9 mg/dL (2.5-4.5); Total Bilirubin 0.4 mg/dL (0.2-1.3); Total Protein 6.6 g/dL (6.3-8.2)
[2024-09-15 23:45] LABS: NT-Pro-B-Type Natriuretic Pept 160 pg/mL
[2024-09-16] MEDS: HYDROmorphone 1 MG/ML 1 ML SYRINGE IVP STA (00:47)
[2024-09-16] MEDS ORDERED: NALOXONE 0.4 MG/ML 1 ML VIAL IV PRN (01:13)
[2024-09-16] MEDS: SODIUM CHLORIDE 0.9% 1,000 ML IV SCH (01:23)
--- NOTE | 2024-09-16 02:10 | CT ---
EXAM: CT Abdomen and Pelvis Without Intravenous Contrast CLINICAL HISTORY: ITS.REASON CT Reason: pain TECHNIQUE: Axial computed tomography images of the abdomen and pelvis without intravenous contrast. CTDI is 9.5 mGy and DLP is 539.2 mGy-cm. This CT exam was performed using one or more of the following dose reduction techniques: automated exposure control, adjustment of the mA and/or kV according to patient size, and/or use of iterative reconstruction technique. COMPARISON: No relevant prior studies available. FINDINGS: Lung bases: Unremarkable. No mass. No consolidation. ABDOMEN: Liver: Unremarkable. Gallbladder and bile ducts: Cholecystectomy. No ductal dilation. Pancreas: Unremarkable. No ductal dilation. Spleen: Unremarkable. No splenomegaly. Adrenals: Unremarkable. No mass. Kidneys and ureters: Unremarkable. No obstructing stones. No hydronephrosis. Stomach and bowel: Erica-en-Y gastric bypass. No obstruction at the jejunojejunostomy. No mucosal thickening. No small bowel obstruction. No free air. PELVIS: Appendix: No findings to suggest acute appendicitis. Bladder: Unremarkable. No stones. Reproductive: Hysterectomy. ABDOMEN and PELVIS: Intraperitoneal space: See above. Bones/joints: Lumbosacral fusion hardware. Degenerative changes of the spine. No acute fracture. No dislocation. Soft tissues: Unremarkable. Vasculature: Atherosclerotic changes of the aorta. No abdominal aortic aneurysm. Lymph nodes: Unremarkable. No enlarged lymph nodes. IMPRESSION: 1. No small bowel obstruction. No free air. 2. Hysterectomy. 3. Cholecystectomy. 4. Erica-en-Y gastric bypass. No obstruction at the jejunojejunostomy.
[2024-09-16] MEDS: HYDROmorphone 1 MG/ML 1 ML SYRINGE IVP PRN (05:45)
[2024-09-16] MEDS: ONDANSETRON 4 MG/2 ML VIAL IVP PRN (05:45)
[2024-09-16 07:15] VITALS: BP 118/84; PULSE 89; RESP 15; TEMP 97.9
[2024-09-16] MEDS: LOSARTAN 25 MG TAB PO SCH (08:20)
[2024-09-16] MEDS: hydroCHLOROthiazide 25 MG TAB PO SCH (08:20)
[2024-09-16] MEDS: DULoxetine HCL 60 MG CAPSULE.DR PO SCH (08:20)
[2024-09-16] MEDS: POTASSIUM CHLORIDE ER 20 MEQ TAB.ER PO SCH (08:20)
[2024-09-16] MEDS: ALPRAZolam 1 MG TAB PO SCH (08:20)
[2024-09-16] MEDS: PRIMIDONE 50 MG TAB PO SCH (08:20)
[2024-09-16] MEDS: CLOPIDOGREL 75 MG TAB PO SCH (08:20)
[2024-09-16] MEDS: (Cariprazine Hcl [Vraylar] 1.5 MG Capsule) PO SCH (08:21)
[2024-09-16] MEDS ORDERED: traZODone HCL 50 MG TAB PO SCH (21:00)
[2024-09-16] MEDS ORDERED: ATORVASTATIN 80 MG TAB PO SCH (21:00)
--- NOTE | 2024-09-20 03:24 | HP ---
HISTORY AND PHYSICAL CHIEF COMPLAINT: Acute back pain and generalized weakness. HISTORY OF PRESENT ILLNESS: This is another recent admission for this 69-year-old white female with chronic low back pain, for which she takes significant amount of analgesics. Back pain apparently became worse since she came to the emergency room when she was admitted. Her alkaline phosphatase was elevated, but no other studies were abnormal and her vital signs are normal. REVIEW OF SYSTEMS: Normal. Past medical history, family history, and personal and social histories were all otherwise unremarkable and noncontributory. PHYSICAL EXAMINATION: VITAL SIGNS: Normal. GENERAL: She is pale. HEAD, EARS, EYES, NOSE, MOUTH, AND THROAT: Otherwise normal. CHEST: Clear. CARDIAC: Normal. ABDOMEN: Soft, nontender. EXTREMITIES: Normal. NEUROLOGICAL: She is intact. ASSESSMENT: She is admitted to the hospital with diagnoses of, 1. Acute back pain. 2. Chronic low back pain. 3. Chronic obstructive pulmonary disease. 4. Elevated alkaline phosphatase. PLAN: 1. Bed rest. 2. IV fluids. 3. Analgesics. 4. PT and OT. MMODL / IJN: [id number] /
--- NOTE | 2024-09-24 07:31 | DS ---
DISCHARGE SUMMARY CHIEF COMPLAINT: Weakness and back pain. HISTORY OF PRESENT ILLNESS AND PHYSICAL EXAMINATION: Details of this lady's history and physical can be found in the initial workup. LABORATORY STUDIES: While she was in the hospital, she had laboratory studies, details of which can be found in the laboratory section of her chart. COURSE IN THE HOSPITAL: After admission, she was placed on bedrest, started on intravenous fluids and analgesics. By the following day, she is feeling much better. Her strength had improved. The only abnormality in the chemistries is an elevated alkaline phosphatase. She was very anxious to be discharged and she will be sent home on her usual activity, medications and will follow up in the office in several days. FINAL DIAGNOSES: 1. Acute low back pain. 2. Generalized weakness. 3. General debility. 4. Chronic obstructive pulmonary disease. OPERATIONS: None. CONSULTATIONS: None. She is improved. ROSA / YING: [id number] /
== END 2024-09-16 14:39 | disposition home or self-care (01) ==
LOC: EC 21:03 → 5NMEDONC 09-16 01:13 → 4SSUR 09-16 04:06
PROVIDERS: ADMIT Family Medicine; ATTEND Family Medicine
DX: R53.1 Weakness (principal); M54.50 Low back pain, unspecified; G89.29 Other chronic pain; R53.81 Other malaise; E87.6 Hypokalemia; R74.8 Abnormal levels of other serum enzymes; J44.9 Chronic obstructive pulmonary disease, unspecified; E78.5 Hyperlipidemia, unspecified; I10 Essential (primary) hypertension; Z79.899 Other long term (current) drug therapy; Z79.02 Long term (current) use of antithrombotics/antiplatelets; Z86.73 Personal history of transient ischemic attack (TIA), and cerebral infarction without residual deficits; Z90.710 Acquired absence of both cervix and uterus; Z98.1 Arthrodesis status; Z98.84 Bariatric surgery status
CPT/HCPCS: 96376; 96361; 96374; 96375 ×2; 99285; 36415; 93005; 83880; 80053; 83605; 83735; 84100; 84484; 85025; 85610; 85730; 81001; 74176; G0378 ×2; J2270; J2405 ×2; J1171

== ENCOUNTER → 2024-09-17 | Outpatient (CLI) | payer MEDICARE, OTHER ==
[2024-09-17 11:19] VITALS: BP 132/85; PULSE 86; RESP 16
--- NOTE | 2024-09-17 15:08 | P.PAINPG ---
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 Pt states pain level is provoked at 8 /10 in intensity, constant, localized in the R lumbar spine, predominantly axial, achy in character w occasional shooting pain towards the R flank. Pain is provoked by any movement. Pain is alleviated by medication, use of a continuous water heating pad, use of walker for ambulatory assistance, repositioning and rest . Pt states she has had a successful pain pump trial w Dr Thomason and is approved to have a intrathecal pain pump placed soon. Interventional procedures include Medications include Wiseman, Flexeril, Tyl, Ibu REVIEW OF ORGAN SYSTEMS: CONSTITUTIONAL: No fevers or chills. No recent weight loss. NEUROLOGICAL: + numbness and tingling along the distal extremities. No seizure disorders or headaches. MUSCULOSKELETAL: + pain PSYCHIATRIC: Denies current depression or suicidal thoughts. Physical Examinations : Constitutional : Cooperative , not in acute distress . Neurologic : Cranial nerve II to XII intact. No focal neurological deficits. Psychiatric : alert & oriented x 3. Matching mood & appropriate affect. Judgment & insight intact. Musculoskeletal : Cervical Spine Motor strength in the deltoid and biceps: Normal right side. Normal Left side Motor strength biceps and the wrist extensors: Normal right side . Normal left side Motor strength in the triceps muscle: Normal right side. Normal left side Deep tendon reflexes: Normal at the biceps. Normal at Brachioradialis. Normal at triceps Vertebral body tenderness to deep palpation over Cervical facet loading test: positive bilaterally Spurling test: positive bilaterally Neck distraction test: positive bilaterally Bibiana sign: positive bilaterally Lumbar spine +Incisional scar in place Motor strength lower extremities ,thigh and legs 5/5 Right side , 5/5 Left side Deep tendon reflexes : Normal Knee Jerk. Normal Ankle Jerk Vertebral body tenderness over Moody Test positive Taut bands w twitch response over BL T8-L4 Lumbar facet Loading Test: positive Right / positive Left Range of motion of the lumbar spine F lexion 30 degrees, extension 10 degrees Straight Leg Raise test: Left/ Right positive at degrees Shayna test: positive right / positive left. Severe tenderness over the Sacroiliac joint on the Right / Left sides Gaenslen test: positive bilaterally Seated flexion test: positive bilaterally. Sacral spine : Severe tenderness over the Sacroiliac joint: right side / left side Range of motion: Flexion of the lumbar spine <60 degrees Range of motion: Extension of the lumbar spine <20 degrees Gaenslen's Test positive Shayna test: positive right side / left side Thigh Thrust Test Sacral Thrust Test Imaging: CT non contrast lumbar spine from 07/29/24 reviewed Assessment/ Plan : post lumbar laminectomy syndrome Recommendation of BL TPIs T8-L4 #1. Risks, benefits of procedure discussed and pt verbalized understanding. All questions answered. I have spent greater than 30 minutes on patient care today. Dr Rico was available by phone for the evaluation of this patient. The time was used to review the medical records including relevant urine studies and Prescription history (MAPs), review of the available imaging, evaluation and examination of the patient, coordination of care with the medical staff and if applicable referring physicians, as well as creation of the medical record PQRS Narrative: Smoking Status Never smoker Narcotic Agreement Date Signed 08/10/21 Hx Alcohol Use (MH) No Home Medications: Ambulatory Orders DULoxetine HCL [Cymbalta] 60 mg PO BID 01/12/21 Denosumab [Prolia] 60 mg SQ Q180D 09/30/21 Ergocalciferol [Vitamin D2 (1250 Mcg = 76950 Iu)] 1,250 mcg PO MO 02/26/22 Clopidogrel [Plavix] 75 mg PO DAILY #30 tab 04/03/22 ALPRAZolam [Xanax] 1 mg PO BID 05/21/22 Losartan [Cozaar] 12.5 mg PO DAILY 06/17/23 hydroCHLOROthiazide [Hydrodiuril] 25 mg PO DAILY 06/17/23 Potassium Chloride ER [K-Dur 20] 20 meq PO BID #60 tab 02/16/24 Cyclobenzaprine [Flexeril] 10 mg PO TID PRN 04/12/24 EPINEPHrine (Auto Inject) [Epipen] 0.3 mg IM ONCE PRN 05/04/24 traZODone HCL 150 mg PO HS 05/04/24 Atorvastatin Calcium [Lipitor] 80 mg PO HS 07/23/24 Estradiol Cream [Estrace Cream 0.01%] 1 gm VAGINAL DAILY PRN 07/23/24 Cariprazine HCl [Vraylar] 1.5 mg PO DAILY 08/26/24 Fluticasone Nasal [place] [Flonase Nasal [place]] 1 spray EA NOSTRIL BID PRN 08/26/24 Primidone [Mysoline] 50 mg PO TID 08/26/24 HYDROcodone/APAP 7.5-325MG [Wiseman 7.5-325] 1 tab PO Q4H PRN 3 Days #18 tab 08/27/24 Controlled Substance Measures - Controlled Substance Measures Is patient prescribed a controlled substance at discharge?: No
== END ==
LOC: PNWHC3 10:28
PROVIDERS: ATTEND Anesthesiology
DX: M96.1 Postlaminectomy syndrome, not elsewhere classified (principal); Z91.048 Other nonmedicinal substance allergy status; Z91.09 Other allergy status, other than to drugs and biological substances; Z88.2 Allergy status to sulfonamides; Z88.1 Allergy status to other antibiotic agents
CPT/HCPCS: 99211

== ENCOUNTER 2024-10-16 07:41 | Emergency (ER) | payer MEDICARE ==
[2024-10-16 07:54] VITALS: RESP 18
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
[2024-10-16] MEDS: fentaNYL (PF) 50 MCG/ML 2 ML AMP IVP STA (08:16)
[2024-10-16] MEDS: fentaNYL (PF) 50 MCG/ML 2 ML AMP IM STA (08:21)
[2024-10-16 08:57] VITALS: BP 95/70; PULSE 65; TEMP 98.3
--- NOTE | 2024-10-16 10:28 | P.PCN ---
Date of Procedure: 10/16/24 Procedure(s) Performed: Procedure= trigger point injections Thoracic and lumbar paraspinal muscles bilaterally, total of 13 trigger points injected, 8 on the right side Thoracic and lumbar paraspinal muscles, and 5 on the left side Thoracic and lumbar paraspinal muscles Preoperative diagnosis= 1-myofascial pain syndrome Thoracic and lumbar paraspinal muscles. Postoperative diagnosis=Same as preop Diagnosis . Complication = none Condition= stable Anesthesia= none Indication for the procedure= patient complaining of mid and low back pain , examination was positive for multiple trigger point in the thoracic and lumbar paraspinal area. Description of the procedure= procedure risk and benefits discussed with the patient, including but not limited, risk of infection and bleeding, and ALLERGIC reaction to the medication and not complete pain relief and patient agreed with the preceding patient taken to the operating room, placed in prone position or standard monitors applied to the patient then after induction of anesthesia back prepped with chlorhexidine 3 times , Then under strict sterile technique, each of the trigger point in the lumbar paraspinal muscles injected with 2 ML of a mixture of ropivacaine 0.5% 26 mL and 40 mg of Depo-Medrol mixed together and 2 mL of the mixture injected at each trigger point after negative aspiration, there was no paresthesia during the injection, total of 8 trigger point identified and injected on the right side Thoracic and lumbar paraspinal muscles ,and 5 on the left side Thoracic and lumbar paraspinal muscles, patient tolerated the procedure well without any complications. She will follow up in the pain clinic in few weeks
== END 2024-10-16 08:50 | disposition home or self-care (01) ==
LOC: EC 07:41
DX: G89.29 Other chronic pain (principal); M54.50 Low back pain, unspecified; Z91.048 Other nonmedicinal substance allergy status; Z88.1 Allergy status to other antibiotic agents; Z88.2 Allergy status to sulfonamides; Z88.8 Allergy status to other drugs, medicaments and biological substances; Z86.73 Personal history of transient ischemic attack (TIA), and cerebral infarction without residual deficits
CPT/HCPCS: 99284; 96372; J3010

== ENCOUNTER 2024-10-16 09:04 | Day surgery (SDC) | payer MEDICARE, OTHER ==
[~2024-10-16 09:04] MED LIST changes: +LACTATED RINGERS 1,000 ML IV SCH; -Pre Op ABX Message 1 EACH MISC MISCELLANE ONE
[2024-10-16 09:22] VITALS: TEMP 97.1
[2024-10-16] MEDS ORDERED: methylPREDNISolone ACETATE 40 MG/ML 1 ML VIAL ONE (10:17)
[2024-10-16] MEDS ORDERED: ROPIVACAINE 5MG/ML 20ML VIAL ONE (10:17)
[2024-10-16 10:27] VITALS: RESP 16
[2024-10-16 10:48] VITALS: BP 151/84; PULSE 56
== END 2024-10-16 11:00 | disposition home or self-care (01) ==
LOC: ORPAIN 09:04
PROVIDERS: ATTEND Specialist
DX: M79.18 Myalgia, other site (principal); M54.14 Radiculopathy, thoracic region; Z79.02 Long term (current) use of antithrombotics/antiplatelets; Z88.2 Allergy status to sulfonamides; Z88.1 Allergy status to other antibiotic agents; Z88.8 Allergy status to other drugs, medicaments and biological substances; Z91.018 Allergy to other foods
CPT/HCPCS: 20553; J2795; J1010

== ENCOUNTER 2024-10-30 18:49 | Emergency (ER) | payer MEDICARE ==
[2024-10-30 18:56] VITALS: RESP 18
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
[2024-10-30 20:32] LABS: Basophils % (A) 0 %; Eosinophils # (A) 0.3 k/uL (0-0.7); Eosinophils % (A) 3 %; HCT 38.6 % (34.0-46.0); HGB 12.7 gm/dL (11.4-16.0); Lymphocytes # (A) 1.6 k/uL (1.0-4.8); Lymphocytes % (A) 15 %; MCH 30.2 pg (25.0-35.0); MCV 91.4 fL (80.0-100.0); Mean Platelet Volume 6.5; Monocytes # (A) 0.7 k/uL (0-1.0); Monocytes % (A) 6 %; Neutrophils # (A) 8.4 k/uL (1.3-7.7); Neutrophils % (A) 75 %; Platelet Count 441 k/uL (150-450); RBC 4.22 m/uL (3.80-5.40); RDW 12.8 % (11.5-15.5); WBC 11.2 k/uL (3.8-10.6)
[2024-10-30 20:41] LABS: ALT 28 U/L (4-34); AST 30 U/L (14-36); African American GFR (CKD) >90 (>60 ml/min/1.73 sqM); Albumin 4.4 g/dL (3.5-5.0); Alkaline Phosphatase 120 U/L (38-126); Amylase 68 U/L (30-110); Anion Gap 11 mmol/L; Blood Urea Nitrogen 20 mg/dL (7-17); Calcium 9.7 mg/dL (8.4-10.2); Carbon Dioxide 23 mmol/L (22-30); Chloride 99 mmol/L (98-107); Glucose 101 mg/dL (74-99); Lipase 201 U/L (23-300); Magnesium 1.8 mg/dL (1.6-2.3); Non-African American GFR(CKD) 90 (>60 ml/min/1.73 sqM); Phosphorus 4.2 mg/dL (2.5-4.5); Potassium 4.2 mmol/L (3.5-5.1); Sodium 133 mmol/L (137-145); Total Bilirubin 0.4 mg/dL (0.2-1.3)
--- NOTE | 2024-10-30 21:39 | CT ---
EXAMINATION TYPE: CT abdomen pelvis w con DATE OF EXAM: 10/30/2024 9:29 PM COMPARISON: 09/15/2024 CLINICAL INDICATION: Female, 69 years old with history of pain, LLQ pain from malabsorption and cough , MOLD EXPOSURE, TECHNIQUE: Contiguous axial scanning of the abdomen and pelvis following administration of 100 ml Iso phong 300 IV contrast. Delayed images through the kidneys and coronal/sagittal reconstructions perform ed. CT DLP: 761.3 mGycm, Automated exposure control for dose reduction was used. FINDINGS: There is mild generalized anasarca change. Heart normal size without pericardial effusion. Lung bases clear without pleural effusion. Postsurgical change likely relating to Ariadne-en-Y gastric bypass. Some patulous, fluid-filled small ash wel loops are present near the lower anastomosis measuring up to 3.0 cm. This appearance is unchanged from 09/15/2024. No focal liver lesion. Prominence to the bile duct with caliber of 7 mm likely due to postcholecystec sorin status. Adrenal glands, kidneys, spleen, and pancreas show no gross abnormality. Paucity of intra-abdominal fat limits assessment for abdominal and pelvic adenopathy. No obvious nilda opathy is seen. Portions of normal-appearing appendix are noted. Large amount of stool within the right side of the c olon. Mild stool within the left side of the colon. No obvious pericolonic inflammatory changes ident ified. Bladder is collapsed. Uterus not seen, likely surgically absent. No abnormal fluid collection in the pelvis or obvious pelvic adenopathy. Extensive posterior fusion changes extending from the visualized thoracic spine down through the pelv is with corresponding laminectomies. The extensive streak and beam hardening artifact limits the eval uation. IMPRESSION: 1. EXTENSIVE METAL ARTIFACT RELATING TO THE PATIENT'S THORACOLUMBAR FUSION EXTENDING DOWN INTO THE PE LVIS AND LIMITING THE EVALUATION. 2. STATUS POST ARIADNE-EN-Y GASTRIC BYPASS. SOME PATULOUS, FLUID-FILLED SMALL BOWEL LOOPS NEAR THE LOWER ANASTOMOSIS DISTENDED UP TO 3.0 CM, SIMILAR TO 09/15/2024. CONSIDER A MILD REGIONAL ENTERITIS. 3. LARGE AMOUNT OF STOOL WITHIN THE RIGHT SIDE OF THE COLON. CORRELATE FOR CONSTIPATION. [facility], , 10/30/2024 9:36 PM
[2024-10-30] MEDS: ONDANSETRON 4 MG/2 ML VIAL IVP STA (21:46)
[2024-10-30] MEDS: HYDROmorphone 1 MG/ML 1 ML SYRINGE IVP STA (21:50)
[2024-10-30] MEDS: SODIUM CHLORIDE 0.9% 1,000 ML IV STA (21:50)
[2024-10-30] MEDS: SODIUM CHLORIDE 0.9% 500 ML 500 ML IV STA (21:50)
[2024-10-30 22:22] LABS: Appearance,Urine Clear (Clear); Bilirubin,Urine Negative (Negative); Blood,Urine Negative (Negative); Color,Urine Colorless; Glucose,Urine (UA) Negative (Negative); Ketones,Urine Negative (Negative); Leukocyte Esterase,Urine Negative (Negative); Nitrite,Urine Negative (Negative); PH, Urine 5.5 (5.0-8.0); Protein,Urine Negative (Negative); Urobilinogen,Urine <2.0 mg/dL (<2.0)
[2024-10-30 22:38] VITALS: BP 135/73; PULSE 69; TEMP 98.2
== END 2024-10-30 22:38 | disposition home or self-care (01) ==
LOC: EC 18:49
DX: R10.32 Left lower quadrant pain (principal); Z88.1 Allergy status to other antibiotic agents; Z88.2 Allergy status to sulfonamides; Z91.048 Other nonmedicinal substance allergy status; Z88.8 Allergy status to other drugs, medicaments and biological substances; Z86.73 Personal history of transient ischemic attack (TIA), and cerebral infarction without residual deficits
CPT/HCPCS: 36415; 93005; 80053; 82150; 83690; 83735; 84100; 85025; 81003; 74177; 99285; 96374; 96361; J1171; Q9967

== ENCOUNTER 2024-11-30 22:40 | Emergency (ER) | payer MEDICARE ==
[2024-11-30 22:52] VITALS: RESP 16; TEMP 97.6
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
[2024-11-30] MEDS: KETOROLAC 15 MG/ML 1 ML VIAL IVP STA (23:33)
[2024-11-30] MEDS: ACETAMINOPHEN TAB 325 MG TAB PO STA (23:34)
[2024-12-01 00:42] LABS: Basophils % (A) 1 %; Eosinophils # (A) 0.3 k/uL (0-0.7); Eosinophils % (A) 5 %; HCT 38.2 % (34.0-46.0); HGB 12.2 gm/dL (11.4-16.0); Lymphocytes # (A) 1.4 k/uL (1.0-4.8); Lymphocytes % (A) 28 %; MCH 29.5 pg (25.0-35.0); MCHC 32.1 g/dL (31.0-37.0); MCV 91.9 fL (80.0-100.0); Mean Platelet Volume 7.4; Monocytes # (A) 0.4 k/uL (0-1.0); Monocytes % (A) 7 %; Neutrophils # (A) 2.8 k/uL (1.3-7.7); Neutrophils % (A) 56 %; Platelet Count 318 k/uL (150-450); RBC 4.15 m/uL (3.80-5.40); RDW 13.5 % (11.5-15.5); WBC 4.9 k/uL (3.8-10.6)
[2024-12-01 00:46] LABS: Appearance,Urine Clear (Clear); Bilirubin,Urine Negative (Negative); Blood,Urine Negative (Negative); Color,Urine Light Yellow; Glucose,Urine (UA) Negative (Negative); Ketones,Urine Negative (Negative); Leukocyte Esterase,Urine Negative (Negative); Nitrite,Urine Negative (Negative); Protein,Urine Negative (Negative); Specific Gravity,Urine 1.022 (1.001-1.035); Urobilinogen,Urine <2.0 mg/dL (<2.0)
[2024-12-01 00:59] LABS: ALT 46 U/L (4-34); African American GFR (CKD) >90 (>60 ml/min/1.73 sqM); Albumin 4.6 g/dL (3.5-5.0); Anion Gap 5 mmol/L; Blood Urea Nitrogen 30 mg/dL (7-17); Calcium 9.4 mg/dL (8.4-10.2); Carbon Dioxide 30 mmol/L (22-30); Chloride 99 mmol/L (98-107); Glucose 79 mg/dL (74-99); Non-African American GFR(CKD) 85 (>60 ml/min/1.73 sqM); Sodium 134 mmol/L (137-145); Total Bilirubin 0.6 mg/dL (0.2-1.3); Total Protein 7.5 g/dL (6.3-8.2)
[2024-12-01 01:32] LABS: AST 44 U/L (14-36); Alkaline Phosphatase 97 U/L (38-126); Potassium 4.8 mmol/L (3.5-5.1)
[2024-12-01] MEDS: ACET/COD 300 MG/30 MG STARTER PACK 6 TAB BTL PO STA (01:48)
[2024-12-01] MEDS: LIDOCAINE 4% PATCH TOPICAL ONE (01:49)
[2024-12-01 02:07] VITALS: BP 120/63; PULSE 72
== END 2024-12-01 02:00 | disposition home or self-care (01) ==
LOC: EC 22:40
DX: M54.9 Dorsalgia, unspecified (principal); Z98.1 Arthrodesis status; Z88.1 Allergy status to other antibiotic agents; Z88.2 Allergy status to sulfonamides; Z91.09 Other allergy status, other than to drugs and biological substances; Z88.8 Allergy status to other drugs, medicaments and biological substances
CPT/HCPCS: 36415; 80053; 83605; 85025; 81003; 99284; 96374; J1885

== ENCOUNTER 2024-12-21 12:20 | Day surgery (SDC) | payer MEDICARE ==
[2024-12-20 08:40] VITALS: BMI 23.7
[2024-12-21] MEDS ORDERED: LACTATED RINGERS 1,000 ML IV SCH (13:22)
[2024-12-21 13:39] VITALS: RESP 16; TEMP 98.1
[2024-12-21] MEDS ORDERED: ROPIVACAINE 5MG/ML 20ML VIAL ONE (14:09)
[2024-12-21] MEDS ORDERED: methylPREDNISolone ACETATE 40 MG/ML 1 ML VIAL ONE (14:09)
--- NOTE | 2024-12-21 14:15 | P.PCN ---
Date of Procedure: 12/21/24 Procedure(s) Performed: Procedure= trigger point injections Thoracic and lumbar paraspinal muscles bilaterally, total of 13 trigger points injected, 8 on the right side Thoracic and lumbar paraspinal muscles, and 5 on the left side Thoracic and lumbar paraspinal muscles Preoperative diagnosis= 1-myofascial pain syndrome Thoracic and lumbar paraspinal muscles. Postoperative diagnosis=Same as preop Diagnosis . Complication = none Condition= stable Anesthesia= none Indication for the procedure= patient complaining of mid and low back pain , examination was positive for multiple trigger point in the thoracic and lumbar paraspinal area. Description of the procedure= procedure risk and benefits discussed with the patient, including but not limited, risk of infection and bleeding, and ALLERGIC reaction to the medication and not complete pain relief and patient agreed with the preceding patient taken to the operating room, placed in prone position or standard monitors applied to the patient then after induction of anesthesia back prepped with chlorhexidine 3 times , Then under strict sterile technique, each of the trigger point in the lumbar paraspinal muscles injected with 2 ML of a mixture of ropivacaine 0.5% 26 mL and 40 mg of Depo-Medrol mixed together and 2 mL of the mixture injected at each trigger point after negative aspiration, there was no paresthesia during the injection, total of 8 trigger point identified and injected on the right side Thoracic and lumbar paraspinal muscles ,and 5 on the left side Thoracic and lumbar paraspinal muscles, patient tolerated the procedure well without any complications. She will follow up in the pain clinic in few weeks
[2024-12-21 14:24] VITALS: PULSE 58
[2024-12-21 14:38] VITALS: BP 121/78
== END 2024-12-21 14:42 | disposition home or self-care (01) ==
LOC: ORPAIN 12:20
PROVIDERS: ATTEND Specialist
DX: M79.18 Myalgia, other site (principal)
CPT/HCPCS: 20553

== ENCOUNTER 2025-01-17 16:40 | Emergency (ER) | payer MEDICARE ==
[2025-01-17 16:46] VITALS: PULSE 64
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
[2025-01-17] MEDS: HYDROmorphone 1 MG/ML 1 ML SYRINGE IVP STA ×2 (17:13→18:49)
[2025-01-17] MEDS: HYDROmorphone 1 MG/ML 1 ML SYRINGE IM STA ×2 (17:31→18:28)
--- NOTE | 2025-01-17 18:07 | CT ---
EXAMINATION TYPE: CT CervThorLumbar spine wo con DATE OF EXAM: 01/17/2025 COMPARISON: None CLINICAL INDICATION: Female, 69 years old with history of Fall, pain; PHH, Chronic spine pain, recent fall with increased lower back/SI pain. CT DLP: 1138.2 mGycm Automated exposure control for dose reduction was used. Unenhanced CT of the cervical, thoracic and l umbar spines was performed in the axial, coronal and sagittal planes. Cervical spine: No evidence of fracture or malalignment. Moderate degenerative disc space narrowing a t C6-7. No central stenosis or carl disc herniation on CT. Thoracic spine: An interconnecting pedicular screws begin at T10 through S1. Severe degenerative disc disease with vacuum disks noted extending from T6 through T12-L1. Ventral spondylosis. Curvature see n convex to the left. No evidence for fracture or malalignment. Lumbar spine: Extensive postoperative change of lumbar laminectomy and fusion at L1-L5 S1. Streak art ifact limits evaluation. Intervertebral spacers are in place. No malalignment or fracture seen. IMPRESSION: EXTENSIVE POSTOPERATIVE CHANGES NOTED WITHOUT EVIDENCE FOR FRACTURE OR MALALIGNMENT. DEGENERATIVE CHANGES DISCUSSED ABOVE. [facility], , 01/17/2025 6:05 PM
--- NOTE | 2025-01-17 18:29 | XR ---
EXAMINATION TYPE: XR shoulder complete RT DATE OF EXAM: 01/17/2025 6:25 PM COMPARISON: None. CLINICAL INDICATION: Female, 69 years old with history of Pain from fall, pain TECHNIQUE: XR shoulder complete RT views were obtained FINDINGS: There is no acute fracture/dislocation evident. The acromioclavicular and glenohumeral joint spaces appear within normal limits. The visualized ribs are intact and unremarkable. IMPRESSION: There is no acute fracture or dislocation. [facility], , 01/17/2025 6:26 PM
[2025-01-17] MEDS: ONDANSETRON 4 MG/2 ML VIAL IVP STA (18:47)
[2025-01-17] MEDS: KETOROLAC 15 MG/ML 1 ML VIAL IVP STA (19:40)
[2025-01-17] MEDS: ONDANSETRON 4 MG ODT STARTER PACK 2 TAB BTL PO STA (19:41)
[2025-01-17] MEDS: traMADol 50 MG STARTER PACK 3 TAB BTL PO STA (19:42)
[2025-01-17 19:55] VITALS: BP 91/52; RESP 16; TEMP 98
== END 2025-01-17 19:55 | disposition home or self-care (01) ==
LOC: EC 16:40
DX: S49.91XA Unspecified injury of right shoulder and upper arm, initial encounter (principal); M54.9 Dorsalgia, unspecified; M54.2 Cervicalgia; M19.90 Unspecified osteoarthritis, unspecified site; Z88.1 Allergy status to other antibiotic agents; Z88.2 Allergy status to sulfonamides; Z91.09 Other allergy status, other than to drugs and biological substances; Z86.73 Personal history of transient ischemic attack (TIA), and cerebral infarction without residual deficits; W18.39XA Other fall on same level, initial encounter
CPT/HCPCS: 99284; 96374; 96375 ×2; 96372; 73030; 72128; 72125; 72131; J2405; J1171; J1885; S0119

== ENCOUNTER → 2025-03-18 | Outpatient (CLI) | payer OTHER ==
[2025-03-18 12:27] VITALS: BP 112/69; PULSE 71; RESP 17
--- NOTE | 2025-03-20 10:59 | P.PAINPG ---
PQRS Measure Charge Sheet Comment: HISTORY OF PRESENT ILLNESS: A 70 yr old female w female credit consultant at side presents today w severe LBP secondary to post laminectomy syndrome (2008) for evaluation s/p BL TPIs T8-L4 #2. Pt states she experienced 80 % pain relief x 3 mos s/p procedure. Pt states pain level is provoked at 2 /10 in intensity, intermittent, localized in the R lumbar spine, predominantly axial, achy in character w occasional shooting pain towards the R flank. Pain is provoked by any movement. Pain is alleviated by medication, use of a continuous water heating pad, use of walker for ambulatory assistance, repositioning and rest . Pt states she has had a successful pain pump trial w Dr Thomason and is approved to have a intrathecal pain pump placed soon. Interventional procedures include BL TPIs T8-L4 x2 (02/21, 12/25) Medications include Nursery, Flexeril, Tyl, Ibu, Lido/Dana/Diclofen topical REVIEW OF ORGAN SYSTEMS: CONSTITUTIONAL: No fevers or chills. No recent weight loss. NEUROLOGICAL: + numbness and tingling along the distal extremities. No seizure disorders or headaches. MUSCULOSKELETAL: + pain PSYCHIATRIC: Denies current depression or suicidal thoughts. Physical Examinations : Constitutional : Cooperative , not in acute distress . Neurologic : Cranial nerve II to XII intact. No focal neurological deficits. Psychiatric : alert & oriented x 3. Matching mood & appropriate affect. Judgment & insight intact. Musculoskeletal : Cervical Spine Motor strength in the deltoid and biceps: Normal right side. Normal Left side Motor strength biceps and the wrist extensors: Normal right side . Normal left side Motor strength in the triceps muscle: Normal right side. Normal left side Deep tendon reflexes: Normal at the biceps. Normal at Brachioradialis. Normal at triceps Vertebral body tenderness to deep palpation over Cervical facet loading test: positive bilaterally Spurling test: positive bilaterally Neck distraction test: positive bilaterally Bibiana sign: positive bilaterally Lumbar spine +Incisional scar in place Motor strength lower extremities ,thigh and legs 5/5 Right side , 5/5 Left side Deep tendon reflexes : Normal Knee Jerk. Normal Ankle Jerk Vertebral body tenderness over Moody Test positive Taut bands w twitch response over BL T8-L4 Lumbar facet Loading Test: positive Right / positive Left Range of motion of the lumbar spine Flexion 30 degrees, extension 10 degrees Straight Leg Raise test: Left/ Right positive at degrees Shayna test: positive right / positive left. Severe tenderness over the Sacroiliac joint on the Right / Left sides Gaenslen test: positive bilaterally Seated flexion test: positive bilaterally. Sacral spine : Severe tenderness over the Sacroiliac joint: right side / left side Range of motion: Flexion of the lumbar spine <60 degrees Range of motion: Extension of the lumbar spine <20 degrees Gaenslen's Test positive Shayna test: positive right side / left side Thigh Thrust Test Sacral Thrust Test Imaging: CT non contrast lumbar spine from 07/29/24 reviewed Assessment/ Plan : post lumbar laminectomy syndrome Will manage residual pain and may RTC on an as needed basis. Pt has a history of violation of narcotics agreement in September 2021 and will treat for procedures only. All questions answered. I have spent greater than 30 minutes on patient care today. Dr Rico was available by phone for the evaluation of this patient. The time was used to review the medical records including relevant urine studies and Prescription history (MAPs), review of the available imaging, evaluation and examination of the patient, coordination of care with the medical staff and if applicable referring physicians, as well as creation of the medical record PQRS Narrative: Smoking Status Never smoker Narcotic Agreement Date Signed 08/10/21 Hx Alcohol Use (MH) No Home Medications: Ambulatory Orders DULoxetine HCL [Cymbalta] 60 mg PO BID 01/12/21 Denosumab [Prolia] 60 mg SQ Q180D 09/30/21 Ergocalciferol [Vitamin D2 (1250 Mcg = 09629 Iu)] 1,250 mcg PO MO 02/26/22 Clopidogrel [Plavix] 75 mg PO DAILY #30 tab 04/03/22 ALPRAZolam [Xanax] 1 mg PO BID 05/21/22 Losartan [Cozaar] 12.5 mg PO DAILY 06/17/23 hydroCHLOROthiazide [Hydrodiuril] 25 mg PO DAILY 06/17/23 Potassium Chloride ER [K-Dur 20] 20 meq PO BID #60 tab 02/16/24 EPINEPHrine (Auto Inject) [Epipen] 0.3 mg IM ONCE PRN 05/04/24 traZODone HCL 200 mg PO HS 05/04/24 Estradiol Cream [Estrace Cream 0.01%] 1 gm VAGINAL DAILY PRN 07/23/24 Cariprazine HCl [Vraylar] 1.5 mg PO DAILY 08/26/24 Fluticasone Nasal [place] [Flonase Nasal [place]] 1 spray EA NOSTRIL BID PRN 08/26/24 Primidone [Mysoline] 50 mg PO TID 08/26/24 Zolpidem Tartrate [Ambien] 5 - 10 mg PO HS PRN 10/01/24 Isosorbide Mononitrate [Isosorbide Mononitrate ER] 30 mg PO DAILY 10/08/24 Metoprolol Succinate [Metoprolol Succinate ER] 25 mg PO DAILY 10/08/24 Aspirin EC [Ecotrin Low Dose] 81 mg PO DAILY 10/16/24 Atorvastatin Calcium [Lipitor] 80 mg PO HS 10/16/24 Ascorbic Acid [Vitamin C] 500 mg PO DAILY 02/14/25 Cyanocobalamin (Vitamin B-12) [Vitamin B-12] 1 tab PO DAILY 02/14/25 Meclizine [Antivert] 25 mg PO BID PRN 02/14/25 Multivit with Calcium,Iron,Min [Women's Multivitamin] 1 tab PO DAILY 02/14/25 Vitamin B Complex 1 tab PO DAILY 02/14/25 Controlled Substance Measures - Controlled Substance Measures Is patient prescribed a controlled substance at discharge?: No
== END ==
LOC: PNWHC3 11:58
PROVIDERS: ATTEND Specialist
DX: M96.1 Postlaminectomy syndrome, not elsewhere classified (principal); M47.815 Spondylosis without myelopathy or radiculopathy, thoracolumbar region; Z91.048 Other nonmedicinal substance allergy status; Z88.2 Allergy status to sulfonamides
CPT/HCPCS: 99212

== ENCOUNTER → 2025-04-17 | Outpatient (CLI) | payer OTHER ==
[2025-04-17 13:32] VITALS: BP 152/83; PULSE 86; RESP 16; TEMP 98.8; BMI 23.0
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
== END ==
LOC: BARWHC3 12:53
PROVIDERS: ATTEND Surgery Plastic and Reconstructive Surgery
DX: E66.01 Morbid (severe) obesity due to excess calories (principal); Z88.2 Allergy status to sulfonamides; Z88.1 Allergy status to other antibiotic agents; Z91.048 Other nonmedicinal substance allergy status; Z68.23 Body mass index [BMI] 23.0-23.9, adult
CPT/HCPCS: 99212

== ENCOUNTER 2025-05-07 11:51 | Day surgery (SDC) | payer OTHER ==
[2025-05-07 12:14] VITALS: TEMP 97.5
[2025-05-07] MEDS ORDERED: ROPIVACAINE 5 MG/ML 30 ML VIAL ONE (12:36)
[2025-05-07] MEDS ORDERED: TRIAMCINOLONE ACETONIDE 40 MG/ML 1 ML VIAL ONE (12:36)
--- NOTE | 2025-05-07 12:41 | P.PCN ---
Date of Procedure: 05/07/25 Surgeon: Neli Peterson Description of Procedure: Pre and postop diagnosis : Myofascial pain syndrome , postlaminectomy pain syndrome Procedure : Trigger point injections X [10 ]. Muscle group -[thoracic and lumbar paraspinal musculature]. Surgeon: Neli Peterson MD Anesthesia: None Complications : None Specimen removed: None Estimated blood loss: None Procedure indications : Patient had a history of myofascial pain syndrome . Patient tried conservative therapy . Came here for intervention procedure for better pain relief. Procedure description : Patient was seen and identified in the holding area risk benefits competitions alternative discussed with the patient. Patient agreed to proceed for the procedure signed the consent. Patient taken to the procedure area. Timeout was completed. 8 - trigger point area were marked with a sterile marker. After ChloraPrep used to clean the area. Critical pause was taken. Using 25-gauge 1-1/2 inch needle bended half way. He entered in each market site 1 mL of block solution injected at each level. The block solution containing [ 9] ml of 0.25% preservative-free bupivacaine with Kenalog 40 MG. Needle removed intact skin cleaned and Band-Aid applied. Patient tolerated the procedure well. Pressure was held for a few minutes on the injected areas due to the patient's treatment with Plavix. Disposition: Patient discharge home after meeting the discharge criteria from the recovery. Patient scheduled to follow up with the pain clinic in 4 weeks for follow-up visit.
[2025-05-07 12:50] VITALS: RESP 16
[2025-05-07 13:13] VITALS: BP 133/76; PULSE 67
== END 2025-05-07 13:25 | disposition home or self-care (01) ==
LOC: ORPAIN 11:51
PROVIDERS: ATTEND Anesthesiology
DX: M79.18 Myalgia, other site (principal); L23.1 Allergic contact dermatitis due to adhesives; J30.1 Allergic rhinitis due to pollen; Z88.2 Allergy status to sulfonamides
CPT/HCPCS: 20553; J3301; J2795

== ENCOUNTER → 2025-05-13 | Outpatient (CLI) | payer OTHER ==
--- NOTE | 2025-05-13 12:36 | MM ---
Reason for Exam: Screening (asymptomatic). Last mammogram was performed 1 year(s) and 3 month(s) ago. Patient History: Menarche at age 14. First Full-Term at age 25. Left ovary removed at age 45. Right ovary removed at age 45. Hysterectomy at age 41. Postmenopausal. Patient has history of breast feeding. Core Biopsy on the Left side. Maternal aunt had breast cancer. Sister had breast cancer, age 58. Risk Values: Erma 5 year model risk: 3.8%. NCI Lifetime model risk: 12.1%. Prior Study Comparison: 01/12/2017 Screening Mammogram, Unknown. 01/19/2017 Screening Mammogram, Unknown. 02/05/2019 Bilateral Screening Mammogram, [facility]. 01/14/2021 Bilateral Screening Mammogram, [facility]. 02/08/2024 Bilateral MG 3D screening mammo w/cad, [facility]. Tissue Density: The breasts are heterogeneously dense, which may obscure small masses. Findings: Analyzed By CAD. There is no suspicious group of microcalcifications or new suspicious mass in either breast. Overall Assessment: Benign, BI-RAD 2 Management: Screening Mammogram of both breasts in 1 year. . Patient should continue monthly self-breast exams. A clinical breast exam by your physician is recommended on an annual basis. This exam should not preclude additional follow-up of suspicious palpable abnormalities. Note on Erma scores and lifetime risk: 1. A Erma score greater than 3% is considered moderate risk. If this is the case, consider specialist referral to assess eligibility for a risk reducing agent. 2. If overall lifetime risk for the development of breast cancer is 20% or higher, the patient may qualify for future screening with alternating mammogram and breast MRI. [facility], , 05/13/2025 11:40 AM. Electronically signed and approved by: Jhonathan Flores M.D. Radiologis
== END | disposition home or self-care (01) ==
LOC: RADMAMWWP 10:58
PROVIDERS: ATTEND Internal Medicine Hospice and Palliative Medicine
DX: Z12.31 Encounter for screening mammogram for malignant neoplasm of breast (principal); R92.333 Mammographic heterogeneous density, bilateral breasts; Z78.0 Asymptomatic menopausal state; Z80.3 Family history of malignant neoplasm of breast
CPT/HCPCS: 77063; 77067

== ENCOUNTER → 2025-05-29 | Outpatient (CLI) | payer OTHER ==
[2025-05-29 10:27] VITALS: BP 127/76; PULSE 65; RESP 16
--- NOTE | 2025-05-29 14:18 | P.PAINPG ---
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 Pt states she experienced 0 % pain relief\ s/p procedure. Pt states pain level is provoked at 6 /10 in intensity, intermittent, localized in the R lumbar spine, predominantly axial, achy in character w occasional shooting pain towards the R flank. Pain is provoked by any movement. Pain is alleviated by medication, use of a continuous water heating pad, use of walker for ambulatory assistance, repositioning and rest . Pt states she has had a successful pain pump trial w Dr Thomason and is approved to have a intrathecal pain pump placed soon. Interventional procedures include BL TPIs T8-L4 x2 (02/21, 12/25) Medications include [place], Flexeril, Tyl, Ibu, Lido/Dana/Diclofen topical REVIEW OF ORGAN SYSTEMS: CONSTITUTIONAL: No fevers or chills. No recent weight loss. NEUROLOGICAL: + numbness and tingling along the distal extremities. No seizure disorders or headaches. MUSCULOSKELETAL: + pain PSYCHIATRIC: Denies current depression or suicidal thoughts. Physical Examinations : Constitutional : Cooperative , not in acute distress . Neurologic : Cranial nerve II to XII intact. No focal neurological deficits. Psychiatric : alert & oriented x 3. Matching mood & appropriate affect. Judgment & insight intact. Musculoskeletal : Cervical Spine Motor strength in the deltoid and biceps: Normal right side. Normal Left side Motor strength biceps and the wrist extensors: Normal right side . Normal left side Motor strength in the triceps muscle: Normal right side. Normal left side Deep tendon reflexes: Normal at the biceps. Normal at Brachioradialis. Normal at triceps Vertebral body tenderness to deep palpation over Cervical facet loading test: positive bilaterally Spurling test: positive bilaterally Neck distraction test: positive bilaterally Bibiana sign: positive bilaterally Lumbar spine +Incisional scar in place Motor strength lower extremities ,thigh and legs 5/5 Right side , 5/5 Left side Deep tendon reflexes : Normal Knee Jerk. Normal Ankle Jerk Vertebral body tenderness over Moody Test positive Taut bands w twitch response over BL T8-L4 Lumbar facet Loading Test: positive Right / positive Left Range of motion of the lumbar spine Flexion 30 degrees, extension 10 degrees Straight Leg Raise test: Left/ Right positive at degrees Shayna test: positive right / positive left. Severe tenderness over the Sacroiliac joint on the Right / Left sides Gaenslen test: positive bilaterally Seated flexion test: positive bilaterally. Sacral spine : Severe tenderness over the Sacroiliac joint: right side / left side Range of motion: Flexion of the lumbar spine <60 degrees Range of motion: Extension of the lumbar spine <20 degrees Gaenslen's Test positive Shayna test: positive right side / left side Thigh Thrust Test Sacral Thrust Test Imaging: CT non contrast lumbar spine from 07/29/24 reviewed Assessment/ Plan : post lumbar laminectomy syndrome Will follow up w Dr Thomason to explore additional treatment options. Pt has a history of violation of narcotics agreement in September 2021 and will treat for procedures only. All questions answered. I have spent greater than 30 minutes on patient care today. Dr Rico was available by phone for the evaluation of this patient. The time was used to review the medical records including relevant urine studies and Prescription history (MAPs), review of the available imaging, evaluation and examination of the patient, coordination of care with the medical staff and if applicable referring physicians, as well as creation of the medical record PQRS Narrative: Smoking Status Never smoker Narcotic Agreement Date Signed 08/10/21 Hx Alcohol Use (MH) No Home Medications: Ambulatory Orders DULoxetine HCL [Cymbalta] 60 mg PO BID 01/12/21 Denosumab [Prolia] 60 mg SQ Q180D 09/30/21 Ergocalciferol [Vitamin D2 (1250 Mcg = 01676 Iu)] 1,250 mcg PO DIRECTED 02/26/22 Clopidogrel [Plavix] 75 mg PO DAILY #30 tab 04/03/22 ALPRAZolam [Xanax] 1 mg PO BID 05/21/22 Losartan [Cozaar] 12.5 mg PO DAILY 06/17/23 hydroCHLOROthiazide [Hydrodiuril] 25 mg PO DAILY 06/17/23 Potassium Chloride ER [K-Dur 20] 20 meq PO BID #60 tab 02/16/24 EPINEPHrine (Auto Inject) [Epipen] 0.3 mg IM ONCE PRN 05/04/24 traZODone HCL 200 mg PO HS 05/04/24 Estradiol Cream [Estrace Cream 0.01%] 1 gm VAGINAL DAILY PRN 07/23/24 Cariprazine HCl [Vraylar] 1.5 mg PO DAILY 08/26/24 Fluticasone Nasal [place]ites[place] [Flonase Nasal Whiteside] 1 spray EA NOSTRIL BID PRN 08/26/24 Primidone [Mysoline] 50 mg PO TID 08/26/24 Isosorbide Mononitrate [Isosorbide Mononitrate ER] 30 mg PO DAILY 10/08/24 Metoprolol Succinate [Metoprolol Succinate ER] 25 mg PO DAILY 10/08/24 Atorvastatin Calcium [Lipitor] 80 mg PO HS 10/16/24 Ascorbic Acid [Vitamin C] 500 mg PO DAILY 02/14/25 Cyanocobalamin (Vitamin B-12) [Vitamin B-12] 1 tab PO DAILY 02/14/25 Meclizine [Antivert] 25 mg PO BID PRN 02/14/25 Multivit with Calcium,Iron,Min [Women's Multivitamin] 1 tab PO DAILY 02/14/25 Vitamin B Complex 1 tab PO DAILY 02/14/25 Loratadine [Claritin] 1 tab PO DAILY 04/17/25 Montelukast [Singulair] 10 mg PO HS 04/17/25 Controlled Substance Measures - Controlled Substance Measures Is patient prescribed a controlled substance at discharge?: No
== END ==
LOC: PNWHC3 10:09
PROVIDERS: ATTEND Specialist
DX: M47.25 Other spondylosis with radiculopathy, thoracolumbar region (principal); M96.1 Postlaminectomy syndrome, not elsewhere classified; Z88.2 Allergy status to sulfonamides; Z91.048 Other nonmedicinal substance allergy status
CPT/HCPCS: 99211